=== PATIENT | male | born 1940 | race Caucasian/White ===

== ENCOUNTER 2017-08-30 04:50 | Inpatient (IN) | payer MEDICARE ==
[2017-08-30 06:01] VITALS: BP 231/81
[2017-08-30 06:37] LABS: HEMATOCRIT 28.9 % (41.0-60); HEMOGLOBIN 10.1 gm/dL (12-16); MEAN CELL VOLUME 91.9 fl (80-99); MEAN CORPUSCULAR HGB CONC 34.8 pg (28.0-36.0); MEAN PLATELET VOLUME 6.8 fl; PLATELET COUNT 164 Th/cmm (150-400); RED BLOOD COUNT 3.14 Mil/cmm (3.80-5.80); WHITE BLOOD COUNT 5.9 Th/cmm (4.8-10.8)
[2017-08-30 07:17] LABS: BAND NEUTROPHILE 4 % (0-10); LYMPHOCYTE 28 % (20-50); MONOCYTE 3 % (2-10); NEUTROPHILS 65 % (40-80); PLATELET ESTIMATE ADEQUATE (NORMAL)
[2017-08-30] MEDS ORDERED: HYDROmorphone 1 mg/mL 1mL Syr ONE (08:13)
[2017-08-30] MEDS ORDERED: Albuterol/Ipratropium Neb 3 ML AERS HHN PRN (09:14)
[2017-08-30] MEDS ORDERED: HYDROmorphone 1 mg/mL 1mL Syr IVP PRN (09:16)
[2017-08-30] MEDS ORDERED: HYDROmorphone 2 mg/mL 1mL Vial ONE (09:23)
[2017-08-30] MEDS ORDERED: Sodium Chloride 0.9% 1,000 ML IV SCH (09:30)
--- NOTE | 2017-08-30 10:49 | Diagnostic Imaging Report ---
Portable chest x-ray HISTORY: Shortness of breath Heart size difficult to assess with portable technique in a poor inspiration. There is increased density in the left lower lobe with partial obscuration of the left hemidiaphragm. Underlying consolidation and/or atelectasis cannot be excluded. A 5 mm calcified nodule is seen in the left upper lobe consistent with old granulomatous disease. The tip of the vascular catheter is noted in the right axillary region. IMPRESSION: 1. Increased density within the left lower lobe. Underlying consolidation and/or atelectasis cannot be excluded 2. Vascular catheter tip situated in the right axillary area. 3. 5 mm calcified nodule within the left upper lobe consistent with old granulomatous disease.
[2017-08-30] MEDS ORDERED: Maalox 30 mL Cup PO PRN (14:30)
[2017-08-30] MEDS ORDERED: Ipratropium Neb 0.5 mg/2.5 mL UD HHN SCH (15:00)
[2017-08-30] MEDS ORDERED: Albuterol Nebulizer 2.5mg/3mL HHN PRN (15:33)
[2017-08-30] MEDS ORDERED: Ipratropium Neb 0.5 mg/2.5 mL UD HHN PRN (15:33)
[2017-08-30 17:00] LABS: ALBUMIN 2.6 gm/dL (4.2-5.5); ALKALINE PHOSPHATASE 102 U/L (34-104); ANION GAP 10.5 (7.0-16.0); BILIRUBIN,TOTAL 0.4 mg/dL (0.3-1.0); BUN - UREA NITROGEN 8 mg/dL (7-25); CALCIUM SERUM 7.9 mg/dL (8.6-10.3); CARBON DIOXIDE 26.7 mEq/L (21.0-31.0); CHLORIDE 105 mEq/L (98-107); CREATININE - SERUM 0.8 mg/dL (0.7-1.3); GLUCOSE 91 mg/dL (70-105); POTASSIUM SERUM 4.2 mEq/L (3.5-5.1); SGOT 22 U/L (13-39); SGPT/ALT 25 U/L (7-52); SODIUM SERUM 138 mEq/L (136-145); TOTAL PROTEIN,SERUM 5.2 gm/dL (6.0-8.3)
[2017-08-30] MEDS: Albuterol Nebulizer 2.5mg/3mL HHN SCH ×2 (19:47→23:39)
[2017-08-30] MEDS: Linezolid 600mg/300mL Premix Bag IV SCH (20:42)
[2017-08-30] MEDS: Nystatin Cream 100,000 u/gm Cream 15 gm TP SCH (20:43)
[2017-08-30] MEDS: Ipratropium Neb 0.5 mg/2.5 mL UD HHN SCH ×2 (20:43→23:39)
[2017-08-30] MEDS: Venelex 60gm Tube TP SCH (20:43)
[2017-08-30] MEDS: Triple Antibiotic 0.94 gm Pkt TP SCH (20:44)
[2017-08-30] MEDS ORDERED: LINEZOLID IV SCH (21:00)
[2017-08-31] MEDS: Morphine Sulfate 2 mg/mL 1mL Syr IVP PRN ×3 (01:11→14:46)
[2017-08-31] MEDS: Sodium Chloride 0.9% 1,000 ML IV SCH ×2 (02:57→23:19)
[2017-08-31] MEDS: Ipratropium Neb 0.5 mg/2.5 mL UD HHN SCH ×6 (03:08→22:52)
[2017-08-31] MEDS: Albuterol Nebulizer 2.5mg/3mL HHN SCH ×6 (03:08→22:52)
[2017-08-31 05:48] LABS: ANION GAP 12.2 (7.0-16.0); BUN - UREA NITROGEN 11 mg/dL (7-25); CALCIUM SERUM 7.7 mg/dL (8.6-10.3); CARBON DIOXIDE 24.6 mEq/L (21.0-31.0); CHLORIDE 101 mEq/L (98-107); CREATININE - SERUM 0.9 mg/dL (0.7-1.3); GLUCOSE 112 mg/dL (70-105); POTASSIUM SERUM 3.8 mEq/L (3.5-5.1); SODIUM SERUM 134 mEq/L (136-145)
[2017-08-31] MEDS ORDERED: AMIKACIN IV SCH (09:00)
[2017-08-31] MEDS: Nystatin Cream 100,000 u/gm Cream 15 gm TP SCH ×2 (09:21→23:18)
[2017-08-31] MEDS: Triple Antibiotic 0.94 gm Pkt TP SCH ×2 (09:21→23:14)
[2017-08-31] MEDS: Enoxaparin 30 mg/0.3 mL 0.3mL Syr SUBQ SCH (09:21)
[2017-08-31] MEDS: Venelex 60gm Tube TP SCH ×2 (09:21→23:14)
[2017-08-31] MEDS: Vitamin B Complex w/Vitamin C Tab PO SCH (09:22)
[2017-08-31] MEDS: Linezolid 600mg/300mL Premix Bag IV SCH ×2 (09:27→23:14)
--- NOTE | 2017-08-31 10:10 | General Progress Note ---
Subjective - Review of Systems Service Date: 08/31/17 Events since last encounter: labs ok advance diet as pat Objective - Results Result Diagrams: 08/30/17 06:20 08/31/17 04:30 Recent Labs: Laboratory Last Values WBC 5.9 Th/cmm (4.8-10.8) 08/30/17 06:20 RBC 3.14 Mil/cmm (3.80-5.80) L 08/30/17 06:20 Hgb 10.1 gm/dL (12-16) L 08/30/17 06:20 Hct 28.9 % (41.0-60) L 08/30/17 06:20 MCV 91.9 fl (80-99) 08/30/17 06:20 MCH 32.0 pg (27.0-31.0) H 08/30/17 06:20 MCHC Differential 34.8 pg (28.0-36.0) 08/30/17 06:20 RDW 13.0 % (11.5-20.0) 08/30/17 06:20 Plt Count 164 Th/cmm (150-400) 08/30/17 06:20 MPV 6.8 fl 08/30/17 06:20 Band Neutrophils % 4 % (0-10) 08/30/17 06:20 Neutrophils (Manual) 65 % (40-80) 08/30/17 06:20 Lymphocytes 28 % (20-50) 08/30/17 06:20 Monocytes 3 % (2-10) 08/30/17 06:20 Platelet Estimate ADEQUATE (NORMAL) 08/30/17 06:20 PTT (Actin FS) 28.7 SECONDS (26.0-38.0) 08/30/17 06:20 Sodium 134 mEq/L (136-145) L 08/31/17 04:30 Potassium 3.8 mEq/L (3.5-5.1) 08/31/17 04:30 Chloride 101 mEq/L (98-107) 08/31/17 04:30 Carbon Dioxide 24.6 mEq/L (21.0-31.0) 08/31/17 04:30 Anion Gap 12.2 (7.0-16.0) 08/31/17 04:30 BUN 11 mg/dL (7-25) 08/31/17 04:30 Creatinine 0.9 mg/dL (0.7-1.3) 08/31/17 04:30 Est GFR ( Amer) TNP 08/31/17 04:30 Est GFR (Non-Af Amer) TNP 08/31/17 04:30 BUN/Creatinine Ratio 12.2 08/31/17 04:30 Glucose 112 mg/dL (70-105) H 08/31/17 04:30 POC Glucose 102 MG/DL (70 - 105) 08/30/17 05:22 Calcium 7.7 mg/dL (8.6-10.3) L 08/31/17 04:30 Total Bilirubin 0.4 mg/dL (0.3-1.0) 08/30/17 16:36 AST 22 U/L (13-39) 08/30/17 16:36 ALT 25 U/L (7-52) 08/30/17 16:36 Alkaline Phosphatase 102 U/L (34-104) 08/30/17 16:36 Total Protein 5.2 gm/dL (6.0-8.3) L 08/30/17 16:36 Albumin 2.6 gm/dL (4.2-5.5) L 08/30/17 16:36 Globulin 2.6 gm/dL 08/30/17 16:36 Albumin/Globulin Ratio 1.0 (1.0-1.8) 08/30/17 16:36 Blood Type O POSITIVE 08/30/17 06:20 Antibody Screen NEGATIVE 08/30/17 06:20 - Physical Exam Vitals and I&O: Vital Signs Temp 98.2 F 08/31/17 04:00 Pulse 110 08/31/17 08:23 Resp 20 08/31/17 08:23 BP 115/58 08/31/17 04:00 Pulse Ox 93 08/31/17 08:23 Intake & Output 08/30/17 08/31/17 08/31/17 18:59 06:59 18:59 Intake Total 250 602.4 Output Total 350 650 Balance -100 -47.6 Weight (lbs) 90.718 kg 90.718 kg Intake: Intake, IV Amount 402.4 Amikacin 600 mg In 102.4 Dextrose 5% 100 ml @ 100 mls/hr IV Q24H [facility] Rx#: [id number] Linezolid 600mg/300mL 600 300 mg In 300 ml @ 300 mls/ hr IV Q12HR [facility] Rx#: [id number] Oral 250 200 Output: Urine 350 650 Other: Stool Characteristics Liquid Liquid Active Medications: Current Medications Acetaminophen (Tylenol) 650 mg PO Q4HR PRN PRN Reason: Pain or Fever >101 Stop: 10/29/17 15:32 Last Admin: 08/31/17 09:34 Dose: 650 mg Al Hydrox/Mg Hydrox/Simethicone (Maalox) 30 ml PO Q6HR PRN PRN Reason: Gas Stop: 10/29/17 14:29 Albuterol Sulfate (Albuterol 2.5mg/3ml Neb Ud) 1.25 mg HHN Q2HRT PRN PRN Reason: Shortness of Breath Albuterol Sulfate (Albuterol 2.5mg/3ml Neb Ud) 1.25 mg HHN Q4HRT [facility] Stop: 10/29/17 18:59 Last Admin: 08/31/17 08:03 Dose: 1.25 mg [place] Oil/[place] Balsam/Trypsin (Venelex) 1 appl TP Q12HR [facility] Stop: 10/29/17 20:59 Last Admin: 08/31/17 09:21 Dose: 1 appl Docusate Sodium (Colace) 100 mg PO DAILY [facility] Stop: 10/30/17 08:59 Last Admin: 08/31/17 09:21 Dose: 100 mg Enoxaparin Sodium (Lovenox) 30 mg SUBQ DAILY [facility] Stop: 10/30/17 08:59 Last Admin: 08/31/17 09:21 Dose: 30 mg Linezolid (Zyvox) 600 mg in 300 mls @ 300 mls/hr IV Q12HR [facility] Stop: 10/29/17 20:59 Last Admin: 08/31/17 09:27 Dose: 300 mls/hr Amikacin Sulfate 600 mg/ (Dextrose) 102.4 mls @ 100 mls/hr IV Q24H [facility] Stop: 10/30/17 02:59 Last Infusion: 08/31/17 05:58 Dose: Infused Sodium Chloride (Nacl 0.9%) 1,000 mls @ 50 mls/hr IV .Q20H [facility] Stop: 09/01/17 02:47 Last Admin: 08/31/17 02:57 Dose: 50 mls/hr Ipratropium [place] (Atrovent Neb 0.5mg/2.5ml) 0.5 mg HHN Q2HR PRN PRN Reason: Shortness of Breath Stop: 10/29/17 15:32 Ipratropium [place] (Atrovent Neb 0.5mg/2.5ml) 0.5 mg HHN Q4HRT [facility] Stop: 10/29/17 18:59 Last Admin: 08/31/17 08:04 Dose: 0.5 mg Midodrine (Proamatine) 5 mg PO TID [facility] Stop: 10/29/17 20:59 Last Admin: 08/31/17 09:21 Dose: 5 mg Miscellaneous (Amikacin Iv Per Pharmacy) 1 ea MC PRN PRN PRN Reason: AMIKACIN PER RX Stop: 10/29/17 17:14 Morphine Sulfate (Morphine) 2 mg IVP Q4HR PRN PRN Reason: Abdominal Pain Stop: 10/29/17 09:01 Last Admin: 08/31/17 05:41 Dose: 2 mg Neomycin/Polymyxin/Bacitracin (Triple Antibiotic Pkt) 1 pkt TP Q12HR [facility] Stop: 10/29/17 20:59 Last Admin: 08/31/17 09:21 Dose: 1 pkt Nystatin (Mycostatin Cream) 1 appl TP Q12HR [facility] Stop: 10/29/17 20:59 Last Admin: 08/31/17 09:21 Dose: 1 appl Ondansetron HCl (Zofran) 4 mg IVP Q6HR PRN PRN Reason: Nausea / Vomiting Stop: 10/29/17 15:32 Vitamin B Complex/Vit C/Folic Acid (Vitamin B Complex W/Vitamin C) 1 tab PO DAILY [facility] Stop: 10/30/17 08:59 Last Admin: 08/31/17 09:22 Dose: 1 tab Zinc Sulfate (Zinc Sulfate) 220 mg PO DAILY [facility] Stop: 10/30/17 08:59 Last Admin: 08/31/17 09:22 Dose: 220 mg
--- NOTE | 2017-08-31 10:24 | General Progress Note ---
Subjective - Review of Systems Service Date: 08/31/17 Events since last encounter: VS stable labs ok dressings dry diet as tolerated Objective - Results Result Diagrams: 08/30/17 06:20 08/31/17 04:30 Recent Labs: Laboratory Last Values WBC 5.9 Th/cmm (4.8-10.8) 08/30/17 06:20 RBC 3.14 Mil/cmm (3.80-5.80) L 08/30/17 06:20 Hgb 10.1 gm/dL (12-16) L 08/30/17 06:20 Hct 28.9 % (41.0-60) L 08/30/17 06:20 MCV 91.9 fl (80-99) 08/30/17 06:20 MCH 32.0 pg (27.0-31.0) H 08/30/17 06:20 MCHC Differential 34.8 pg (28.0-36.0) 08/30/17 06:20 RDW 13.0 % (11.5-20.0) 08/30/17 06:20 Plt Count 164 Th/cmm (150-400) 08/30/17 06:20 MPV 6.8 fl 08/30/17 06:20 Band Neutrophils % 4 % (0-10) 08/30/17 06:20 Neutrophils (Manual) 65 % (40-80) 08/30/17 06:20 Lymphocytes 28 % (20-50) 08/30/17 06:20 Monocytes 3 % (2-10) 08/30/17 06:20 Platelet Estimate ADEQUATE (NORMAL) 08/30/17 06:20 PTT (Actin FS) 28.7 SECONDS (26.0-38.0) 08/30/17 06:20 Sodium 134 mEq/L (136-145) L 08/31/17 04:30 Potassium 3.8 mEq/L (3.5-5.1) 08/31/17 04:30 Chloride 101 mEq/L (98-107) 08/31/17 04:30 Carbon Dioxide 24.6 mEq/L (21.0-31.0) 08/31/17 04:30 Anion Gap 12.2 (7.0-16.0) 08/31/17 04:30 BUN 11 mg/dL (7-25) 08/31/17 04:30 Creatinine 0.9 mg/dL (0.7-1.3) 08/31/17 04:30 Est GFR ( Amer) TNP 08/31/17 04:30 Est GFR (Non-Af Amer) TNP 08/31/17 04:30 BUN/Creatinine Ratio 12.2 08/31/17 04:30 Glucose 112 mg/dL (70-105) H 08/31/17 04:30 POC Glucose 102 MG/DL (70 - 105) 08/30/17 05:22 Calcium 7.7 mg/dL (8.6-10.3) L 08/31/17 04:30 Total Bilirubin 0.4 mg/dL (0.3-1.0) 08/30/17 16:36 AST 22 U/L (13-39) 08/30/17 16:36 ALT 25 U/L (7-52) 08/30/17 16:36 Alkaline Phosphatase 102 U/L (34-104) 08/30/17 16:36 Total Protein 5.2 gm/dL (6.0-8.3) L 08/30/17 16:36 Albumin 2.6 gm/dL (4.2-5.5) L 08/30/17 16:36 Globulin 2.6 gm/dL 08/30/17 16:36 Albumin/Globulin Ratio 1.0 (1.0-1.8) 08/30/17 16:36 Blood Type O POSITIVE 08/30/17 06:20 Antibody Screen NEGATIVE 08/30/17 06:20 - Physical Exam Vitals and I&O: Vital Signs Temp 98.2 F 08/31/17 04:00 Pulse 110 08/31/17 08:23 Resp 20 08/31/17 08:23 BP 115/58 08/31/17 04:00 Pulse Ox 93 08/31/17 08:23 Intake & Output 08/30/17 08/31/17 08/31/17 18:59 06:59 18:59 Intake Total 250 602.4 Output Total 350 650 Balance -100 -47.6 Weight (lbs) 90.718 kg 90.718 kg Intake: Intake, IV Amount 402.4 Amikacin 600 mg In 102.4 Dextrose 5% 100 ml @ 100 mls/hr IV Q24H [facility] Rx#: [id number] Linezolid 600mg/300mL 600 300 mg In 300 ml @ 300 mls/ hr IV Q12HR [facility] Rx#: [id number] Oral 250 200 Output: Urine 350 650 Other: Stool Characteristics Liquid Liquid Active Medications: Current Medications Acetaminophen (Tylenol) 650 mg PO Q4HR PRN PRN Reason: Pain or Fever >101 Stop: 10/29/17 15:32 Last Admin: 08/31/17 09:34 Dose: 650 mg Al Hydrox/Mg Hydrox/Simethicone (Maalox) 30 ml PO Q6HR PRN PRN Reason: Gas Stop: 10/29/17 14:29 Albuterol Sulfate (Albuterol 2.5mg/3ml Neb Ud) 1.25 mg HHN Q2HRT PRN PRN Reason: Shortness of Breath Albuterol Sulfate (Albuterol 2.5mg/3ml Neb Ud) 1.25 mg HHN Q4HRT [facility] Stop: 10/29/17 18:59 Last Admin: 08/31/17 08:03 Dose: 1.25 mg [place] Oil/[place] Balsam/Trypsin (Venelex) 1 appl TP Q12HR [facility] Stop: 10/29/17 20:59 Last Admin: 08/31/17 09:21 Dose: 1 appl Docusate Sodium (Colace) 100 mg PO DAILY [facility] Stop: 10/30/17 08:59 Last Admin: 08/31/17 09:21 Dose: 100 mg Enoxaparin Sodium (Lovenox) 30 mg SUBQ DAILY [facility] Stop: 10/30/17 08:59 Last Admin: 08/31/17 09:21 Dose: 30 mg Linezolid (Zyvox) 600 mg in 300 mls @ 300 mls/hr IV Q12HR [facility] Stop: 10/29/17 20:59 Last Admin: 08/31/17 09:27 Dose: 300 mls/hr Amikacin Sulfate 600 mg/ (Dextrose) 102.4 mls @ 100 mls/hr IV Q24H [facility] Stop: 10/30/17 02:59 Last Infusion: 08/31/17 05:58 Dose: Infused Sodium Chloride (Nacl 0.9%) 1,000 mls @ 50 mls/hr IV .Q20H [facility] Stop: 09/01/17 02:47 Last Admin: 08/31/17 02:57 Dose: 50 mls/hr Ipratropium [place] (Atrovent Neb 0.5mg/2.5ml) 0.5 mg HHN Q2HR PRN PRN Reason: Shortness of Breath Stop: 10/29/17 15:32 Ipratropium [place] (Atrovent Neb 0.5mg/2.5ml) 0.5 mg HHN Q4HRT [facility] Stop: 10/29/17 18:59 Last Admin: 08/31/17 08:04 Dose: 0.5 mg Midodrine (Proamatine) 5 mg PO TID [facility] Stop: 10/29/17 20:59 Last Admin: 08/31/17 09:21 Dose: 5 mg Miscellaneous (Amikacin Iv Per Pharmacy) 1 ea MC PRN PRN PRN Reason: AMIKACIN PER RX Stop: 10/29/17 17:14 Morphine Sulfate (Morphine) 2 mg IVP Q4HR PRN PRN Reason: Abdominal Pain Stop: 10/29/17 09:01 Last Admin: 08/31/17 05:41 Dose: 2 mg Neomycin/Polymyxin/Bacitracin (Triple Antibiotic Pkt) 1 pkt TP Q12HR [facility] Stop: 10/29/17 20:59 Last Admin: 08/31/17 09:21 Dose: 1 pkt Nystatin (Mycostatin Cream) 1 appl TP Q12HR [facility] Stop: 10/29/17 20:59 Last Admin: 08/31/17 09:21 Dose: 1 appl Ondansetron HCl (Zofran) 4 mg IVP Q6HR PRN PRN Reason: Nausea / Vomiting Stop: 10/29/17 15:32 Vitamin B Complex/Vit C/Folic Acid (Vitamin B Complex W/Vitamin C) 1 tab PO DAILY [facility] Stop: 10/30/17 08:59 Last Admin: 08/31/17 09:22 Dose: 1 tab Zinc Sulfate (Zinc Sulfate) 220 mg PO DAILY [facility] Stop: 10/30/17 08:59 Last Admin: 08/31/17 09:22 Dose: 220 mg
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
--- NOTE | 2017-08-31 23:52 | Consultation ---
Consult Note - Consult Note Service Date: 08/31/17 Referring Physician: Elisha Huizar Consult Note: PHYSICIAN Consultation Note: Date of Admission: 08/30/17 Purpose of Consultation: Sacral stage 4 decubitus. Chief Complaint: Patient FAUSTO RANKIN was admitted to [facility] Surgical Unit I with STAGE 4 DECUBITUS,BROISE EXPOSURE. History of Present Illness: 77 year old male with history of dementia, pneumonia , sepsis, nonhealing sacral decubitus, had prolonged stay at the [facility]. He was transferred to the [facility] at [facility]. He was brought to the [facility] for elective diverting colostomy. Id consult was called for antibiotic management. Diverting colostomy was performed by Dr Bacon today. Patient is receiving Zyvox and Amikacin. Past Medical History: dementia, pneumonia, sepsis, nonhealing sacral decubitus, Allergies Allergy/AdvReac Type Severity Reaction Status Date / Time No Known Allergies Allergy Verified 08/30/17 06:02 Vital Signs Temp 98 F 08/31/17 16:00 Pulse 97 08/31/17 22:54 Resp 18 08/31/17 22:54 BP 118/53 08/31/17 16:00 Pulse Ox 96 08/31/17 22:54 Intake & Output 08/31/17 08/31/17 09/01/17 06:59 18:59 06:59 Intake Total 602.4 300 450 Output Total 650 450 Balance -47.6 300 0 Weight (lbs) 90.718 kg 90.718 kg Intake: Intake, IV Amount 402.4 300 Amikacin 600 mg In 102.4 Dextrose 5% 100 ml @ 100 mls/hr IV Q24H [facility] Rx#: [id number] Linezolid 600mg/300mL 600 300 300 mg In 300 ml @ 300 mls/ hr IV Q12HR [facility] Rx#: [id number] Oral 200 450 Output: Urine 650 450 Other: # Bowel Movements 0 Stool Characteristics Liquid Liquid Laboratory Results - last 24 hr 08/31/17 04:30 Sodium 134 L Potassium 3.8 Chloride 101 Carbon Dioxide 24.6 Anion Gap 12.2 BUN 11 Creatinine 0.9 Est GFR ( Amer) TNP Est GFR (Non-Af Amer) TNP BUN/Creatinine Ratio 12.2 Glucose 112 H Calcium 7.7 L Home Medication Medication Instructions Recorded Type Acetaminophen [Tylenol] 650 mg PO Q4HR PRN 08/30/17 History Albuterol Sulfate 1.25 mg IH Q2HRT PRN 08/30/17 History Albuterol Sulfate 1.25 mg IH Q4HRT 08/30/17 History Amikacin [Amikin] 600 mg IV DAILY 08/30/17 History Balsam [place] Oil [Venelex] 1 appl TP Q12HR 08/30/17 History Docusate Sodium [Colace] 100 mg PO DAILY 08/30/17 History Enoxaparin [Lovenox] 30 mg SUBQ DAILY 08/30/17 History Fluconazole 100 mg PO DAILY 08/30/17 History Ipratropium Neb 0.5 mg/2.5 mL 0.5 mg HHN Q2HR PRN 08/30/17 History [Atrovent Neb 0.5MG/2.5ML] Ipratropium Neb 0.5 mg/2.5 mL 0.5 mg HHN Q4HR 08/30/17 History [Atrovent Neb 0.5MG/2.5ML] Linezolid 600mg/300mL [Zyvox] 600 mg IV Q12HR 08/30/17 History Midodrine [Proamatine] 5 mg PO TID 08/30/17 History Neomycin/Bacitracin/Polymyxinb 1 appl TP Q12HR 08/30/17 History [Triple Antibiotic Ointment] Nystatin Cream [Mycostatin Cream] 1 applic TP Q12HR 08/30/17 History Ondansetron HCl [Zofran] 4 mg IVP Q6HR PRN 08/30/17 History Vitamin B Complex w/Vitamin C 1 tab PO DAILY 08/30/17 History Zinc Sulfate [Zinc Sulfate 111 1 tab PO DAILY 08/30/17 History mg-50 mg] cloNIDine HCl [Catapres] 0.1 mg PO Q6HR PRN 08/30/17 History Current Medications Generic Name Dose Route Start Last Admin Trade Name Freq PRN Reason Stop Dose Admin Acetaminophen 650 mg 08/30/17 15:33 08/31/17 18:18 Tylenol PO 10/29/17 15:32 650 mg Q4HR PRN Administration Pain or Fever >101 Al Hydrox/Mg Hydrox/Simethicone 30 ml 08/30/17 14:30 Maalox PO 10/29/17 14:29 Q6HR PRN Gas Albuterol Sulfate 1.25 mg 08/30/17 15:33 Albuterol 2.5mg/3ml Neb Ud HHN Q2HRT PRN Shortness of Breath Albuterol Sulfate 1.25 mg 08/30/17 19:00 08/31/17 22:52 Albuterol 2.5mg/3ml Neb Ud HHN 10/29/17 18:59 1.25 mg Q4HRT [facility] Administration [place] Oil/[place] Balsam/Trypsin 1 appl 08/30/17 21:00 08/31/17 23:14 Venelex TP 10/29/17 20:59 1 appl Q12HR [facility] Administration Docusate Sodium 100 mg 08/31/17 09:00 08/31/17 09:21 Colace PO 10/30/17 08:59 100 mg DAILY [facility] Administration Enoxaparin Sodium 30 mg 08/31/17 09:00 08/31/17 09:21 Lovenox SUBQ 10/30/17 08:59 30 mg DAILY [facility] Administration Linezolid 600 mg in 300 mls @ 300 mls/hr 08/30/17 21:00 08/31/17 23:14 Zyvox IV 10/29/17 20:59 300 mls/hr Q12HR [facility] Administration Amikacin Sulfate 600 mg/ 102.4 mls @ 100 mls/hr 08/31/17 03:00 08/31/17 05:58 Dextrose IV 10/30/17 02:59 Infused Q24H [facility] Infusion Sodium Chloride 1,000 mls @ 50 mls/hr 08/31/17 02:48 08/31/17 23:19 Nacl 0.9% IV 09/01/17 02:47 Not Given .Q20H [facility] Ipratropium [place] 0.5 mg 08/30/17 15:33 Atrovent Neb 0.5mg/2.5ml N 10/29/17 15:32 Q2HR PRN Shortness of Breath Ipratropium [place] 0.5 mg 08/30/17 19:00 08/31/17 22:52 Atrovent Neb 0.5mg/2.5ml N 10/29/17 18:59 0.5 mg Q4HRT [facility] Administration Midodrine 5 mg 08/30/17 21:00 08/31/17 23:18 Proamatine PO 10/29/17 20:59 5 mg TID [facility] Administration Miscellaneous 1 ea 08/30/17 17:15 Amikacin Iv Per Pharmacy MC 10/29/17 17:14 PRN PRN AMIKACIN PER RX Morphine Sulfate 2 mg 08/30/17 09:02 08/31/17 14:46 Morphine IVP 10/29/17 09:01 2 mg Q4HR PRN Administration Abdominal Pain Mupirocin 1 appl 08/31/17 17:00 08/31/17 18:22 Bactroban Oint NS 09/05/17 09:01 1 appl BID [facility] Administration Neomycin/Polymyxin/Bacitracin 1 pkt 08/30/17 21:00 08/31/17 23:14 Triple Antibiotic Pkt TP 10/29/17 20:59 1 pkt Q12HR [facility] Administration Nystatin 1 appl 08/30/17 21:00 08/31/17 23:18 Mycostatin Cream TP 10/29/17 20:59 1 appl Q12HR [facility] Administration Ondansetron HCl 4 mg 08/30/17 15:33 Zofran IVP 10/29/17 15:32 Q6HR PRN Nausea / Vomiting Vitamin B Complex/Vit C/Folic Acid 1 tab 08/31/17 09:00 08/31/17 09:22 Vitamin B Complex W/Vitamin C PO 10/30/17 08:59 1 tab DAILY [facility] Administration Zinc Sulfate 220 mg 08/31/17 09:00 08/31/17 09:22 Zinc Sulfate PO 10/30/17 08:59 220 mg DAILY [facility] Administration Review of Systems: A 12 point ROS was reviewed with the pertinent positive and negatives noted in the HPI. Social History Smoking Status Unknown if ever smoked Drug Use No Alcohol Use No Family Medical History Family Medical History Start: 08/30/17 05: 44 Freq: ONCE Status: Active Document 08/30/17 05:15 PATRICIA (Rec: 08/30/17 05:46 PATRICIA BOSS- [id number]) Family Medical History Mother History Unknown Yes Physical Exam: General: Comfortable, not in distress. HEENT: Head: NC NT. Oral cavity: moist mucosa. eyes : no pallor no icterus. Pupil Perrla. Eomi Neck: supple, no JVD, no carotid bruit. Cardio: S1 and S2 WNl. Respiratory: CTAp Abdominal: Soft NT ND BS present Genital/Urinary: Extremities: NCCE. Heel decubiti Neurological: AAOx3. Back: wound vac. Assessment: 1. Sacral decubitus. 2. s/p diverting colostomy. 3. COPD. Plan: Continue Amikacin and zyvox for few days. Wound care. Thank you Dr Huizar for involving me in taking care pf this patient. Signed, Jagdish Lr M.D. [id number]
[2017-09-01] MEDS: Albuterol Nebulizer 2.5mg/3mL HHN SCH ×6 (03:12→23:09)
[2017-09-01] MEDS: Ipratropium Neb 0.5 mg/2.5 mL UD HHN SCH ×6 (03:12→23:09)
--- NOTE | 2017-09-01 08:41 | Diagnostic Imaging Report ---
Right upper extremity Doppler venous ultrasound exam HISTORY: Pain, swelling Sonographic sector images were obtained through the venous system of the right arm. Associated Doppler data was obtained. The exam demonstrates patency of the right internal jugular, subclavian, axillary, brachial, basilic, and cephalic veins. No thrombus identified. Normal compressibility and augmentation responses. IMPRESSION: Negative exam for thrombophlebitis
[2017-09-01] MEDS: Morphine Sulfate 2 mg/mL 1mL Syr IVP PRN (09:03)
[2017-09-01] MEDS: Enoxaparin 30 mg/0.3 mL 0.3mL Syr SUBQ SCH (09:09)
[2017-09-01] MEDS: Triple Antibiotic 0.94 gm Pkt TP SCH ×2 (09:09→20:38)
[2017-09-01] MEDS: Venelex 60gm Tube TP SCH ×2 (09:09→20:38)
[2017-09-01] MEDS: Nystatin Cream 100,000 u/gm Cream 15 gm TP SCH ×2 (09:10→20:38)
[2017-09-01] MEDS: Linezolid 600mg/300mL Premix Bag IV SCH ×2 (09:10→20:39)
[2017-09-01] MEDS: Vitamin B Complex w/Vitamin C Tab PO SCH (09:11)
--- NOTE | 2017-09-01 09:22 | General Progress Note ---
Subjective - Review of Systems Service Date: 09/01/17 Events since last encounter: midline incision redressed, clean and healing labs in AM Objective - Results Result Diagrams: 08/30/17 06:20 08/31/17 04:30 Recent Labs: Laboratory Last Values WBC 5.9 Th/cmm (4.8-10.8) 08/30/17 06:20 RBC 3.14 Mil/cmm (3.80-5.80) L 08/30/17 06:20 Hgb 10.1 gm/dL (12-16) L 08/30/17 06:20 Hct 28.9 % (41.0-60) L 08/30/17 06:20 MCV 91.9 fl (80-99) 08/30/17 06:20 MCH 32.0 pg (27.0-31.0) H 08/30/17 06:20 MCHC Differential 34.8 pg (28.0-36.0) 08/30/17 06:20 RDW 13.0 % (11.5-20.0) 08/30/17 06:20 Plt Count 164 Th/cmm (150-400) 08/30/17 06:20 MPV 6.8 fl 08/30/17 06:20 Band Neutrophils % 4 % (0-10) 08/30/17 06:20 Neutrophils (Manual) 65 % (40-80) 08/30/17 06:20 Lymphocytes 28 % (20-50) 08/30/17 06:20 Monocytes 3 % (2-10) 08/30/17 06:20 Platelet Estimate ADEQUATE (NORMAL) 08/30/17 06:20 PTT (Actin FS) 28.7 SECONDS (26.0-38.0) 08/30/17 06:20 Sodium 134 mEq/L (136-145) L 08/31/17 04:30 Potassium 3.8 mEq/L (3.5-5.1) 08/31/17 04:30 Chloride 101 mEq/L (98-107) 08/31/17 04:30 Carbon Dioxide 24.6 mEq/L (21.0-31.0) 08/31/17 04:30 Anion Gap 12.2 (7.0-16.0) 08/31/17 04:30 BUN 11 mg/dL (7-25) 08/31/17 04:30 Creatinine 0.9 mg/dL (0.7-1.3) 08/31/17 04:30 Est GFR ( Amer) TNP 08/31/17 04:30 Est GFR (Non-Af Amer) TNP 08/31/17 04:30 BUN/Creatinine Ratio 12.2 08/31/17 04:30 Glucose 112 mg/dL (70-105) H 08/31/17 04:30 POC Glucose 102 MG/DL (70 - 105) 08/30/17 05:22 Calcium 7.7 mg/dL (8.6-10.3) L 08/31/17 04:30 Total Bilirubin 0.4 mg/dL (0.3-1.0) 08/30/17 16:36 AST 22 U/L (13-39) 08/30/17 16:36 ALT 25 U/L (7-52) 08/30/17 16:36 Alkaline Phosphatase 102 U/L (34-104) 08/30/17 16:36 Total Protein 5.2 gm/dL (6.0-8.3) L 08/30/17 16:36 Albumin 2.6 gm/dL (4.2-5.5) L 08/30/17 16:36 Globulin 2.6 gm/dL 08/30/17 16:36 Albumin/Globulin Ratio 1.0 (1.0-1.8) 08/30/17 16:36 Blood Type O POSITIVE 08/30/17 06:20 Antibody Screen NEGATIVE 08/30/17 06:20 - Physical Exam Vitals and I&O: Vital Signs Temp 96.8 F 09/01/17 04:00 Pulse 96 09/01/17 07:33 Resp 18 09/01/17 07:33 BP 115/58 09/01/17 04:00 Pulse Ox 94 09/01/17 07:33 Intake & Output 08/31/17 09/01/17 09/01/17 18:59 06:59 18:59 Intake Total 300 900 Output Total 990 Balance 300 -90 Weight (lbs) 90.265 kg Intake: Intake, IV Amount 300 300 Linezolid 600mg/300mL 600 300 300 mg In 300 ml @ 300 mls/ hr IV Q12HR [facility] Rx#: [id number] Oral 600 Output: Urine 950 Other 40 Other: # Bowel Movements 0 Stool Characteristics Liquid Liquid Active Medications: Current Medications Acetaminophen (Tylenol) 650 mg PO Q4HR PRN PRN Reason: Pain or Fever >101 Stop: 10/29/17 15:32 Last Admin: 08/31/17 18:18 Dose: 650 mg Al Hydrox/Mg Hydrox/Simethicone (Maalox) 30 ml PO Q6HR PRN PRN Reason: Gas Stop: 10/29/17 14:29 Albuterol Sulfate (Albuterol 2.5mg/3ml Neb Ud) 1.25 mg HHN Q2HRT PRN PRN Reason: Shortness of Breath Albuterol Sulfate (Albuterol 2.5mg/3ml Neb Ud) 1.25 mg HHN Q4HRT [facility] Stop: 10/29/17 18:59 Last Admin: 09/01/17 07:30 Dose: 1.25 mg [place] Oil/[place] Balsam/Trypsin (Venelex) 1 appl TP Q12HR [facility] Stop: 10/29/17 20:59 Last Admin: 08/31/17 23:14 Dose: 1 appl Docusate Sodium (Colace) 100 mg PO DAILY [facility] Stop: 10/30/17 08:59 Last Admin: 08/31/17 09:21 Dose: 100 mg Enoxaparin Sodium (Lovenox) 30 mg SUBQ DAILY [facility] Stop: 10/30/17 08:59 Last Admin: 08/31/17 09:21 Dose: 30 mg Linezolid (Zyvox) 600 mg in 300 mls @ 300 mls/hr IV Q12HR [facility] Stop: 10/29/17 20:59 Last Infusion: 09/01/17 00:14 Dose: Infused Amikacin Sulfate 600 mg/ (Dextrose) 102.4 mls @ 100 mls/hr IV Q24H [facility] Stop: 10/30/17 02:59 Last Admin: 09/01/17 03:34 Dose: 100 mls/hr Ipratropium [place] (Atrovent Neb 0.5mg/2.5ml) 0.5 mg HHN Q2HR PRN PRN Reason: Shortness of Breath Stop: 10/29/17 15:32 Ipratropium [place] (Atrovent Neb 0.5mg/2.5ml) 0.5 mg HHN Q4HRT [facility] Stop: 10/29/17 18:59 Last Admin: 09/01/17 07:30 Dose: 0.5 mg Midodrine (Proamatine) 5 mg PO TID [facility] Stop: 10/29/17 20:59 Last Admin: 08/31/17 23:18 Dose: 5 mg Miscellaneous (Amikacin Iv Per Pharmacy) 1 ea MC PRN PRN PRN Reason: AMIKACIN PER RX Stop: 10/29/17 17:14 Morphine Sulfate (Morphine) 2 mg IVP Q4HR PRN PRN Reason: Abdominal Pain Stop: 10/29/17 09:01 Last Admin: 09/01/17 09:03 Dose: 2 mg Mupirocin (Bactroban Oint) 1 appl NS BID [facility] Stop: 09/05/17 09:01 Last Admin: 08/31/17 18:22 Dose: 1 appl Neomycin/Polymyxin/Bacitracin (Triple Antibiotic Pkt) 1 pkt TP Q12HR [facility] Stop: 10/29/17 20:59 Last Admin: 08/31/17 23:14 Dose: 1 pkt Nystatin (Mycostatin Cream) 1 appl TP Q12HR [facility] Stop: 10/29/17 20:59 Last Admin: 08/31/17 23:18 Dose: 1 appl Ondansetron HCl (Zofran) 4 mg IVP Q6HR PRN PRN Reason: Nausea / Vomiting Stop: 10/29/17 15:32 Vitamin B Complex/Vit C/Folic Acid (Vitamin B Complex W/Vitamin C) 1 tab PO DAILY [facility] Stop: 10/30/17 08:59 Last Admin: 08/31/17 09:22 Dose: 1 tab Zinc Sulfate (Zinc Sulfate) 220 mg PO DAILY [facility] Stop: 10/30/17 08:59 Last Admin: 08/31/17 09:22 Dose: 220 mg
--- NOTE | 2017-09-01 10:33 | General Progress Note ---
Subjective - Review of Systems Events since last encounter: midline incision redressed healing Objective - Results Result Diagrams: 08/30/17 06:20 08/31/17 04:30 Recent Labs: Laboratory Last Values WBC 5.9 Th/cmm (4.8-10.8) 08/30/17 06:20 RBC 3.14 Mil/cmm (3.80-5.80) L 08/30/17 06:20 Hgb 10.1 gm/dL (12-16) L 08/30/17 06:20 Hct 28.9 % (41.0-60) L 08/30/17 06:20 MCV 91.9 fl (80-99) 08/30/17 06:20 MCH 32.0 pg (27.0-31.0) H 08/30/17 06:20 MCHC Differential 34.8 pg (28.0-36.0) 08/30/17 06:20 RDW 13.0 % (11.5-20.0) 08/30/17 06:20 Plt Count 164 Th/cmm (150-400) 08/30/17 06:20 MPV 6.8 fl 08/30/17 06:20 Band Neutrophils % 4 % (0-10) 08/30/17 06:20 Neutrophils (Manual) 65 % (40-80) 08/30/17 06:20 Lymphocytes 28 % (20-50) 08/30/17 06:20 Monocytes 3 % (2-10) 08/30/17 06:20 Platelet Estimate ADEQUATE (NORMAL) 08/30/17 06:20 PTT (Actin FS) 28.7 SECONDS (26.0-38.0) 08/30/17 06:20 Sodium 134 mEq/L (136-145) L 08/31/17 04:30 Potassium 3.8 mEq/L (3.5-5.1) 08/31/17 04:30 Chloride 101 mEq/L (98-107) 08/31/17 04:30 Carbon Dioxide 24.6 mEq/L (21.0-31.0) 08/31/17 04:30 Anion Gap 12.2 (7.0-16.0) 08/31/17 04:30 BUN 11 mg/dL (7-25) 08/31/17 04:30 Creatinine 0.9 mg/dL (0.7-1.3) 08/31/17 04:30 Est GFR ( Amer) TNP 08/31/17 04:30 Est GFR (Non-Af Amer) TNP 08/31/17 04:30 BUN/Creatinine Ratio 12.2 08/31/17 04:30 Glucose 112 mg/dL (70-105) H 08/31/17 04:30 POC Glucose 102 MG/DL (70 - 105) 08/30/17 05:22 Calcium 7.7 mg/dL (8.6-10.3) L 08/31/17 04:30 Total Bilirubin 0.4 mg/dL (0.3-1.0) 08/30/17 16:36 AST 22 U/L (13-39) 08/30/17 16:36 ALT 25 U/L (7-52) 08/30/17 16:36 Alkaline Phosphatase 102 U/L (34-104) 08/30/17 16:36 Total Protein 5.2 gm/dL (6.0-8.3) L 08/30/17 16:36 Albumin 2.6 gm/dL (4.2-5.5) L 08/30/17 16:36 Globulin 2.6 gm/dL 08/30/17 16:36 Albumin/Globulin Ratio 1.0 (1.0-1.8) 08/30/17 16:36 Amikacin Peak 3.4 ug/mL (20.0-30.0) L 08/31/17 04:30 Amikacin Trough 0.8 ug/mL (1.0-8.0) L 08/31/17 02:00 Blood Type O POSITIVE 08/30/17 06:20 Antibody Screen NEGATIVE 08/30/17 06:20 - Physical Exam Vitals and I&O: Vital Signs Temp 96.8 F 09/01/17 04:00 Pulse 96 09/01/17 07:33 Resp 18 09/01/17 07:33 BP 115/58 09/01/17 04:00 Pulse Ox 94 09/01/17 07:33 Intake & Output 08/31/17 09/01/17 09/01/17 18:59 06:59 18:59 Intake Total 300 900 Output Total 990 Balance 300 -90 Weight (lbs) 90.265 kg Intake: Intake, IV Amount 300 300 Linezolid 600mg/300mL 600 300 300 mg In 300 ml @ 300 mls/ hr IV Q12HR [facility] Rx#: [id number] Oral 600 Output: Urine 950 Other 40 Other: # Bowel Movements 0 Stool Characteristics Liquid Liquid Active Medications: Current Medications Acetaminophen (Tylenol) 650 mg PO Q4HR PRN PRN Reason: Pain or Fever >101 Stop: 10/29/17 15:32 Last Admin: 08/31/17 18:18 Dose: 650 mg Al Hydrox/Mg Hydrox/Simethicone (Maalox) 30 ml PO Q6HR PRN PRN Reason: Gas Stop: 10/29/17 14:29 Albuterol Sulfate (Albuterol 2.5mg/3ml Neb Ud) 1.25 mg HHN Q2HRT PRN PRN Reason: Shortness of Breath Albuterol Sulfate (Albuterol 2.5mg/3ml Neb Ud) 1.25 mg HHN Q4HRT [facility] Stop: 10/29/17 18:59 Last Admin: 09/01/17 07:30 Dose: 1.25 mg [place] Oil/Danish Balsam/Trypsin (Venelex) 1 appl TP Q12HR [facility] Stop: 10/29/17 20:59 Last Admin: 09/01/17 09:09 Dose: 1 appl Docusate Sodium (Colace) 100 mg PO DAILY [facility] Stop: 10/30/17 08:59 Last Admin: 09/01/17 09:09 Dose: 100 mg Enoxaparin Sodium (Lovenox) 30 mg SUBQ DAILY [facility] Stop: 10/30/17 08:59 Last Admin: 09/01/17 09:09 Dose: 30 mg Linezolid (Zyvox) 600 mg in 300 mls @ 300 mls/hr IV Q12HR [facility] Stop: 10/29/17 20:59 Last Admin: 09/01/17 09:10 Dose: 300 mls/hr Amikacin Sulfate 600 mg/ (Dextrose) 102.4 mls @ 100 mls/hr IV Q12H [facility] Stop: 10/31/17 10:59 Ipratropium [place] (Atrovent Neb 0.5mg/2.5ml) 0.5 mg HHN Q2HR PRN PRN Reason: Shortness of Breath Stop: 10/29/17 15:32 Ipratropium [place] (Atrovent Neb 0.5mg/2.5ml) 0.5 mg HHN Q4HRT [facility] Stop: 10/29/17 18:59 Last Admin: 09/01/17 07:30 Dose: 0.5 mg Midodrine (Proamatine) 5 mg PO TID [facility] Stop: 10/29/17 20:59 Last Admin: 09/01/17 09:10 Dose: 5 mg Miscellaneous (Amikacin Iv Per Pharmacy) 1 ea MC PRN PRN PRN Reason: AMIKACIN PER RX Stop: 10/29/17 17:14 Morphine Sulfate (Morphine) 2 mg IVP Q4HR PRN PRN Reason: Abdominal Pain Stop: 10/29/17 09:01 Last Admin: 09/01/17 09:03 Dose: 2 mg Mupirocin (Bactroban Oint) 1 appl NS BID [facility] Stop: 09/05/17 09:01 Last Admin: 09/01/17 09:10 Dose: 1 appl Neomycin/Polymyxin/Bacitracin (Triple Antibiotic Pkt) 1 pkt TP Q12HR [facility] Stop: 10/29/17 20:59 Last Admin: 09/01/17 09:09 Dose: 1 pkt Nystatin (Mycostatin Cream) 1 appl TP Q12HR [facility] Stop: 10/29/17 20:59 Last Admin: 09/01/17 09:10 Dose: 1 appl Ondansetron HCl (Zofran) 4 mg IVP Q6HR PRN PRN Reason: Nausea / Vomiting Stop: 10/29/17 15:32 Vitamin B Complex/Vit C/Folic Acid (Vitamin B Complex W/Vitamin C) 1 tab PO DAILY [facility] Stop: 10/30/17 08:59 Last Admin: 09/01/17 09:11 Dose: 1 tab Zinc Sulfate (Zinc Sulfate) 220 mg PO DAILY [facility] Stop: 10/30/17 08:59 Last Admin: 09/01/17 09:11 Dose: 220 mg
[2017-09-02] MEDS: Albuterol Nebulizer 2.5mg/3mL HHN SCH ×6 (03:42→22:50)
[2017-09-02] MEDS: Ipratropium Neb 0.5 mg/2.5 mL UD HHN SCH ×6 (03:42→22:50)
[2017-09-02 06:52] LABS: % BASOPHILS 0.5 % (0.0-2.0); % EOSINOPHILS 0.5 % (0.0-5.0); % LYMPHOCYTES 10.3 % (20.0-50.0); % MONOCYTES 2.9 % (2.0-10.0); % NEUTROPHILS 85.8 % (40.0-80.0); BASOPHILE ABSOLUTE 0.1 Th/cumm (0-0.2); EOSINOPHILE ABSOLUTE 0.1 Th/cmm (0.1-0.4); LYMPHOCYTE ABSOLUTE 1.8 Th/cmm (1.5-3.0); MEAN CELL VOLUME 91.9 fl (80-99); MEAN CORPUSCULAR HEMOGLOBIN 31.8 pg (27.0-31.0); MEAN CORPUSCULAR HGB CONC 34.6 pg (28.0-36.0); MEAN PLATELET VOLUME 6.8 fl; MONOCYTE ABSOLUTE 0.5 Th/cmm (0.3-1.0); NEUTROPHILE ABSOLUTE 15.1 Th/cmm (1.8-8.0); PLATELET COUNT 186 Th/cmm (150-400); RED BLOOD COUNT 2.35 Mil/cmm (3.80-5.80); RED CELL DISTRIBUTION WIDTH 13.3 % (11.5-20.0)
[2017-09-02 07:11] LABS: ALB/GLOB RATIO 0.9 (1.0-1.8); ALBUMIN 2.3 gm/dL (4.2-5.5); ALKALINE PHOSPHATASE 71 U/L (34-104); ANION GAP 11.5 (7.0-16.0); BILIRUBIN,TOTAL 0.5 mg/dL (0.3-1.0); BUN - UREA NITROGEN 25 mg/dL (7-25); CALCIUM SERUM 7.8 mg/dL (8.6-10.3); CARBON DIOXIDE 24.8 mEq/L (21.0-31.0); CHLORIDE 101 mEq/L (98-107); CREATININE - SERUM 1.2 mg/dL (0.7-1.3); GLUCOSE 113 mg/dL (70-105); POTASSIUM SERUM 3.3 mEq/L (3.5-5.1); SGOT 16 U/L (13-39); SGPT/ALT 12 U/L (7-52); SODIUM SERUM 134 mEq/L (136-145); TOTAL PROTEIN,SERUM 4.9 gm/dL (6.0-8.3)
[2017-09-02 07:36] LABS: WHITE BLOOD COUNT 17.6 Th/cmm (4.8-10.8)
[2017-09-02 07:37] LABS: HEMATOCRIT 21.6 % (41.0-60); HEMOGLOBIN 7.5 gm/dL (12-16)
[2017-09-02] MEDS ORDERED: Potassium Chloride 20 mEq ER Tab PO ONE (08:16)
--- NOTE | 2017-09-02 09:01 | Diagnostic Imaging Report ---
CHEST X-RAY: AP view INDICATION: Congestion COMPARISON: 08/30/2017 FINDINGS: Right PICC line is stable. Persistent congestive changes are seen with small left effusion and left basal infiltrates. There is a probable additional trace right effusion. Left upper lobe 5 mm granuloma is noted. Mildly prominent heart is noted. IMPRESSION: Persistent mild congestive changes and small left effusion. Pneumonia of the left lung base cannot be excluded. Probable additional trace right effusion. Evidence of prior granulomatous disease.
[2017-09-02] MEDS: Venelex 60gm Tube TP SCH ×2 (10:03→21:47)
[2017-09-02] MEDS: Triple Antibiotic 0.94 gm Pkt TP SCH ×2 (10:03→21:46)
[2017-09-02] MEDS: Enoxaparin 30 mg/0.3 mL 0.3mL Syr SUBQ SCH (10:03)
[2017-09-02] MEDS: Linezolid 600mg/300mL Premix Bag IV SCH ×2 (10:04→22:47)
[2017-09-02] MEDS: Nystatin Cream 100,000 u/gm Cream 15 gm TP SCH ×2 (10:04→21:47)
[2017-09-02] MEDS: Vitamin B Complex w/Vitamin C Tab PO SCH (10:04)
--- NOTE | 2017-09-02 14:08 | General Progress Note ---
Subjective - Review of Systems Service Date: 09/02/17 Events since last encounter: VS stable minimal wound vac drainage no blood in colostomy, Hb7.5. dilutional?, to have 2 PRBC Objective - Results Result Diagrams: 09/02/17 06:26 09/02/17 06:26 Recent Labs: Laboratory Last Values WBC 17.6 Th/cmm (4.8-10.8) H D 09/02/17 06:26 RBC 2.35 Mil/cmm (3.80-5.80) L 09/02/17 06:26 Hgb 7.5 gm/dL (12-16) L* 09/02/17 06:26 Hct 21.6 % (41.0-60) L D 09/02/17 06:26 MCV 91.9 fl (80-99) 09/02/17 06:26 MCH 31.8 pg (27.0-31.0) H 09/02/17 06:26 MCHC Differential 34.6 pg (28.0-36.0) 09/02/17 06:26 RDW 13.3 % (11.5-20.0) 09/02/17 06:26 Plt Count 186 Th/cmm (150-400) 09/02/17 06:26 MPV 6.8 fl 09/02/17 06:26 Neutrophils % 85.8 % (40.0-80.0) H 09/02/17 06:26 Band Neutrophils % 4 % (0-10) 08/30/17 06:20 Lymphocytes % 10.3 % (20.0-50.0) L 09/02/17 06:26 Monocytes % 2.9 % (2.0-10.0) 09/02/17 06:26 Eosinophils % 0.5 % (0.0-5.0) 09/02/17 06:26 Basophils % 0.5 % (0.0-2.0) 09/02/17 06:26 Neutrophils (Manual) 65 % (40-80) 08/30/17 06:20 Lymphocytes 28 % (20-50) 08/30/17 06:20 Monocytes 3 % (2-10) 08/30/17 06:20 Platelet Estimate ADEQUATE (NORMAL) 08/30/17 06:20 PTT (Actin FS) 28.7 SECONDS (26.0-38.0) 08/30/17 06:20 Sodium 134 mEq/L (136-145) L 09/02/17 06:26 Potassium 3.3 mEq/L (3.5-5.1) L 09/02/17 06:26 Chloride 101 mEq/L (98-107) 09/02/17 06:26 Carbon Dioxide 24.8 mEq/L (21.0-31.0) 09/02/17 06:26 Anion Gap 11.5 (7.0-16.0) 09/02/17 06:26 BUN 25 mg/dL (7-25) 09/02/17 06:26 Creatinine 1.2 mg/dL (0.7-1.3) 09/02/17 06:26 Est GFR ( Amer) TNP 09/02/17 06:26 Est GFR (Non-Af Amer) TNP 09/02/17 06:26 BUN/Creatinine Ratio 20.8 09/02/17 06:26 Glucose 113 mg/dL (70-105) H 09/02/17 06:26 POC Glucose 102 MG/DL (70 - 105) 08/30/17 05:22 Calcium 7.8 mg/dL (8.6-10.3) L 09/02/17 06:26 Total Bilirubin 0.5 mg/dL (0.3-1.0) 09/02/17 06:26 AST 16 U/L (13-39) 09/02/17 06:26 ALT 12 U/L (7-52) 09/02/17 06:26 Alkaline Phosphatase 71 U/L (34-104) 09/02/17 06:26 Total Protein 4.9 gm/dL (6.0-8.3) L 09/02/17 06:26 Albumin 2.3 gm/dL (4.2-5.5) L 09/02/17 06:26 Globulin 2.6 gm/dL 09/02/17 06:26 Albumin/Globulin Ratio 0.9 (1.0-1.8) L 09/02/17 06:26 Amikacin Peak 3.4 ug/mL (20.0-30.0) L 08/31/17 04:30 Amikacin Trough 0.8 ug/mL (1.0-8.0) L 08/31/17 02:00 Blood Type O POSITIVE 09/02/17 08:40 Antibody Screen NEGATIVE 09/02/17 08:40 Crossmatch See Detail 09/02/17 08:40 - Physical Exam Vitals and I&O: Vital Signs Temp 97.1 F 09/01/17 20:00 Pulse 84 09/02/17 11:38 Resp 16 09/02/17 11:38 BP 131/61 09/01/17 20:00 Pulse Ox 96 09/02/17 11:38 Intake & Output 09/01/17 09/02/17 09/02/17 18:59 06:59 18:59 Intake Total 402.4 642.4 Output Total 400 Balance 402.4 242.4 Weight (lbs) 89.811 kg Intake: Intake, IV Amount 402.4 402.4 Amikacin 600 mg In 102.4 102.4 Dextrose 5% 100 ml @ 100 mls/hr IV Q12H [facility] Rx#: [id number] Linezolid 600mg/300mL 600 300 300 mg In 300 ml @ 300 mls/ hr IV Q12HR [facility] Rx#: [id number] Oral 240 Output: Urine 400 Other: Stool Characteristics Liquid Active Medications: Current Medications Acetaminophen (Tylenol) 650 mg PO Q4HR PRN PRN Reason: Pain or Fever >101 Stop: 10/29/17 15:32 Last Admin: 08/31/17 18:18 Dose: 650 mg Al Hydrox/Mg Hydrox/Simethicone (Maalox) 30 ml PO Q6HR PRN PRN Reason: Gas Stop: 10/29/17 14:29 Albuterol Sulfate (Albuterol 2.5mg/3ml Neb Ud) 1.25 mg HHN Q2HRT PRN PRN Reason: Shortness of Breath Albuterol Sulfate (Albuterol 2.5mg/3ml Neb Ud) 1.25 mg HHN Q4HRT [facility] Stop: 10/29/17 18:59 Last Admin: 09/02/17 11:35 Dose: 1.25 mg [place] Oil/Burmese Balsam/Trypsin (Venelex) 1 appl TP Q12HR [facility] Stop: 10/29/17 20:59 Last Admin: 09/02/17 10:03 Dose: 1 appl Docusate Sodium (Colace) 100 mg PO DAILY [facility] Stop: 10/30/17 08:59 Last Admin: 09/02/17 10:03 Dose: 100 mg Enoxaparin Sodium (Lovenox) 30 mg SUBQ DAILY [facility] Stop: 10/30/17 08:59 Last Admin: 09/02/17 10:03 Dose: 30 mg Linezolid (Zyvox) 600 mg in 300 mls @ 300 mls/hr IV Q12HR [facility] Stop: 10/29/17 20:59 Last Admin: 09/02/17 10:04 Dose: 300 mls/hr Amikacin Sulfate 600 mg/ (Dextrose) 102.4 mls @ 100 mls/hr IV Q12H [facility] Stop: 10/31/17 10:59 Last Admin: 09/02/17 11:14 Dose: 100 mls/hr Ipratropium [place] (Atrovent Neb 0.5mg/2.5ml) 0.5 mg HHN Q2HR PRN PRN Reason: Shortness of Breath Stop: 10/29/17 15:32 Ipratropium [place] (Atrovent Neb 0.5mg/2.5ml) 0.5 mg HHN Q4HRT [facility] Stop: 10/29/17 18:59 Last Admin: 09/02/17 11:35 Dose: 0.5 mg Midodrine (Proamatine) 5 mg PO TID [facility] Stop: 10/29/17 20:59 Last Admin: 09/02/17 10:03 Dose: 5 mg Miscellaneous (Amikacin Iv Per Pharmacy) 1 ea MC PRN PRN PRN Reason: AMIKACIN PER RX Stop: 10/29/17 17:14 Morphine Sulfate (Morphine) 2 mg IVP Q4HR PRN PRN Reason: Abdominal Pain Stop: 10/29/17 09:01 Last Admin: 09/01/17 09:03 Dose: 2 mg Mupirocin (Bactroban Oint) 1 appl NS BID [facility] Stop: 09/05/17 09:01 Last Admin: 09/02/17 10:04 Dose: 1 appl Neomycin/Polymyxin/Bacitracin (Triple Antibiotic Pkt) 1 pkt TP Q12HR [facility] Stop: 10/29/17 20:59 Last Admin: 09/02/17 10:03 Dose: 1 pkt Nystatin (Mycostatin Cream) 1 appl TP Q12HR [facility] Stop: 10/29/17 20:59 Last Admin: 09/02/17 10:04 Dose: 1 appl Ondansetron HCl (Zofran) 4 mg IVP Q6HR PRN PRN Reason: Nausea / Vomiting Stop: 10/29/17 15:32 Vitamin B Complex/Vit C/Folic Acid (Vitamin B Complex W/Vitamin C) 1 tab PO DAILY [facility] Stop: 10/30/17 08:59 Last Admin: 09/02/17 10:04 Dose: 1 tab Zinc Sulfate (Zinc Sulfate) 220 mg PO DAILY [facility] Stop: 10/30/17 08:59 Last Admin: 09/02/17 10:04 Dose: 220 mg - Procedures Procedures: Procedures Procedure Code Date BYPASS DESCENDING COLON TO CUTANEOUS, OPEN APPROACH [id number] 08/30/17 COLOSTOMY 64091 08/30/17 [id number] SUBQ TISSUE 20 SQ CM/< [id number] 08/30/17 EXCISION OF BACK SUBCU/FASCIA, OPEN APPROACH [id number] 08/30/17
--- NOTE | 2017-09-02 14:20 | Pathology Report ---
[id number] Collection date: 08/30/2017 Surgeon: Dr. Courtney Bacon Specimen Description: Sacral decubitus ulcer. Gross Description: Received in formalin is a 6 x 5 x 4.5 cm excision of grayish skin with areas of cutaneous ulceration and degeneration appreciated . Sectioning shows skin and subcutaneous soft tissue with areas of induration and necrosis. [employer] sections are submitted in one cassette. Microscopic Description: The histologic sections show ulcerated skin and soft tissue with extensive suppurative inflammation and necrosis, consisting of large collections of neutrophils within a very degenerated background. Diagnosis: Ulcerated necrotic skin consistent with debridement, sacral decubitus. [facility]# [id number] [facility]
[2017-09-02] MEDS: Morphine Sulfate 2 mg/mL 1mL Syr IVP PRN ×2 (16:13→20:26)
--- NOTE | 2017-09-02 16:17 | General Progress Note ---
Subjective - Review of Systems Events since last encounter: minimal wound vac drainage no distress Objective - Results Result Diagrams: 09/02/17 06:26 09/02/17 06:26 Recent Labs: Laboratory Last Values WBC 17.6 Th/cmm (4.8-10.8) H D 09/02/17 06:26 RBC 2.35 Mil/cmm (3.80-5.80) L 09/02/17 06:26 Hgb 7.5 gm/dL (12-16) L* 09/02/17 06:26 Hct 21.6 % (41.0-60) L D 09/02/17 06:26 MCV 91.9 fl (80-99) 09/02/17 06:26 MCH 31.8 pg (27.0-31.0) H 09/02/17 06:26 MCHC Differential 34.6 pg (28.0-36.0) 09/02/17 06:26 RDW 13.3 % (11.5-20.0) 09/02/17 06:26 Plt Count 186 Th/cmm (150-400) 09/02/17 06:26 MPV 6.8 fl 09/02/17 06:26 Neutrophils % 85.8 % (40.0-80.0) H 09/02/17 06:26 Band Neutrophils % 4 % (0-10) 08/30/17 06:20 Lymphocytes % 10.3 % (20.0-50.0) L 09/02/17 06:26 Monocytes % 2.9 % (2.0-10.0) 09/02/17 06:26 Eosinophils % 0.5 % (0.0-5.0) 09/02/17 06:26 Basophils % 0.5 % (0.0-2.0) 09/02/17 06:26 Neutrophils (Manual) 65 % (40-80) 08/30/17 06:20 Lymphocytes 28 % (20-50) 08/30/17 06:20 Monocytes 3 % (2-10) 08/30/17 06:20 Platelet Estimate ADEQUATE (NORMAL) 08/30/17 06:20 PTT (Actin FS) 28.7 SECONDS (26.0-38.0) 08/30/17 06:20 Sodium 134 mEq/L (136-145) L 09/02/17 06:26 Potassium 3.3 mEq/L (3.5-5.1) L 09/02/17 06:26 Chloride 101 mEq/L (98-107) 09/02/17 06:26 Carbon Dioxide 24.8 mEq/L (21.0-31.0) 09/02/17 06:26 Anion Gap 11.5 (7.0-16.0) 09/02/17 06:26 BUN 25 mg/dL (7-25) 09/02/17 06:26 Creatinine 1.2 mg/dL (0.7-1.3) 09/02/17 06:26 Est GFR ( Amer) TNP 09/02/17 06:26 Est GFR (Non-Af Amer) TNP 09/02/17 06:26 BUN/Creatinine Ratio 20.8 09/02/17 06:26 Glucose 113 mg/dL (70-105) H 09/02/17 06:26 POC Glucose 102 MG/DL (70 - 105) 08/30/17 05:22 Calcium 7.8 mg/dL (8.6-10.3) L 09/02/17 06:26 Total Bilirubin 0.5 mg/dL (0.3-1.0) 09/02/17 06:26 AST 16 U/L (13-39) 09/02/17 06:26 ALT 12 U/L (7-52) 09/02/17 06:26 Alkaline Phosphatase 71 U/L (34-104) 09/02/17 06:26 Total Protein 4.9 gm/dL (6.0-8.3) L 09/02/17 06:26 Albumin 2.3 gm/dL (4.2-5.5) L 09/02/17 06:26 Globulin 2.6 gm/dL 09/02/17 06:26 Albumin/Globulin Ratio 0.9 (1.0-1.8) L 09/02/17 06:26 Amikacin Peak 3.4 ug/mL (20.0-30.0) L 08/31/17 04:30 Amikacin Trough 0.8 ug/mL (1.0-8.0) L 08/31/17 02:00 Blood Type O POSITIVE 09/02/17 08:40 Antibody Screen NEGATIVE 09/02/17 08:40 Crossmatch See Detail 09/02/17 08:40 - Physical Exam Vitals and I&O: Vital Signs Temp 97.1 F 09/01/17 20:00 Pulse 83 09/02/17 15:00 Resp 18 09/02/17 15:00 BP 131/61 09/01/17 20:00 Pulse Ox 95 09/02/17 15:00 Intake & Output 09/01/17 09/02/17 09/02/17 18:59 06:59 18:59 Intake Total 402.4 642.4 Output Total 400 Balance 402.4 242.4 Weight (lbs) 89.811 kg Intake: Intake, IV Amount 402.4 402.4 Amikacin 600 mg In 102.4 102.4 Dextrose 5% 100 ml @ 100 mls/hr IV Q12H [facility] Rx#: [id number] Linezolid 600mg/300mL 600 300 300 mg In 300 ml @ 300 mls/ hr IV Q12HR [facility] Rx#: [id number] Oral 240 Output: Urine 400 Other: Stool Characteristics Liquid Active Medications: Current Medications Acetaminophen (Tylenol) 650 mg PO Q4HR PRN PRN Reason: Pain or Fever >101 Stop: 10/29/17 15:32 Last Admin: 08/31/17 18:18 Dose: 650 mg Al Hydrox/Mg Hydrox/Simethicone (Maalox) 30 ml PO Q6HR PRN PRN Reason: Gas Stop: 10/29/17 14:29 Albuterol Sulfate (Albuterol 2.5mg/3ml Neb Ud) 1.25 mg HHN Q2HRT PRN PRN Reason: Shortness of Breath Albuterol Sulfate (Albuterol 2.5mg/3ml Neb Ud) 1.25 mg HHN Q4HRT [facility] Stop: 10/29/17 18:59 Last Admin: 09/02/17 14:57 Dose: 1.25 mg [place] Oil/[place] Balsam/Trypsin (Venelex) 1 appl TP Q12HR [facility] Stop: 10/29/17 20:59 Last Admin: 09/02/17 10:03 Dose: 1 appl Docusate Sodium (Colace) 100 mg PO DAILY [facility] Stop: 10/30/17 08:59 Last Admin: 09/02/17 10:03 Dose: 100 mg Enoxaparin Sodium (Lovenox) 30 mg SUBQ DAILY [facility] Stop: 10/30/17 08:59 Last Admin: 09/02/17 10:03 Dose: 30 mg Linezolid (Zyvox) 600 mg in 300 mls @ 300 mls/hr IV Q12HR [facility] Stop: 10/29/17 20:59 Last Admin: 09/02/17 10:04 Dose: 300 mls/hr Amikacin Sulfate 600 mg/ (Dextrose) 102.4 mls @ 100 mls/hr IV Q12H [facility] Stop: 10/31/17 10:59 Last Admin: 09/02/17 11:14 Dose: 100 mls/hr Ipratropium [place] (Atrovent Neb 0.5mg/2.5ml) 0.5 mg HHN Q2HR PRN PRN Reason: Shortness of Breath Stop: 10/29/17 15:32 Ipratropium [place] (Atrovent Neb 0.5mg/2.5ml) 0.5 mg HHN Q4HRT [facility] Stop: 10/29/17 18:59 Last Admin: 09/02/17 14:57 Dose: 0.5 mg Midodrine (Proamatine) 5 mg PO TID [facility] Stop: 10/29/17 20:59 Last Admin: 09/02/17 14:13 Dose: 5 mg Miscellaneous (Amikacin Iv Per Pharmacy) 1 ea [facility] PRN PRN PRN Reason: AMIKACIN PER RX Stop: 10/29/17 17:14 Morphine Sulfate (Morphine) 2 mg IVP Q4HR PRN PRN Reason: Abdominal Pain Stop: 10/29/17 09:01 Last Admin: 09/02/17 16:13 Dose: 2 mg Mupirocin (Bactroban Oint) 1 appl NS BID [facility] Stop: 09/05/17 09:01 Last Admin: 09/02/17 10:04 Dose: 1 appl Neomycin/Polymyxin/Bacitracin (Triple Antibiotic Pkt) 1 pkt TP Q12HR [facility] Stop: 10/29/17 20:59 Last Admin: 09/02/17 10:03 Dose: 1 pkt Nystatin (Mycostatin Cream) 1 appl TP Q12HR [facility] Stop: 10/29/17 20:59 Last Admin: 09/02/17 10:04 Dose: 1 appl Ondansetron HCl (Zofran) 4 mg IVP Q6HR PRN PRN Reason: Nausea / Vomiting Stop: 10/29/17 15:32 Vitamin B Complex/Vit C/Folic Acid (Vitamin B Complex W/Vitamin C) 1 tab PO DAILY [facility] Stop: 10/30/17 08:59 Last Admin: 09/02/17 10:04 Dose: 1 tab Zinc Sulfate (Zinc Sulfate) 220 mg PO DAILY [facility] Stop: 10/30/17 08:59 Last Admin: 09/02/17 10:04 Dose: 220 mg - Procedures Procedures: Procedures Procedure Code Date BYPASS DESCENDING COLON TO CUTANEOUS, OPEN APPROACH [id number] 08/30/17 COLOSTOMY 33982 08/30/17 [id number] SUBQ TISSUE 20 SQ CM/< [id number] 08/30/17 EXCISION OF BACK SUBCU/FASCIA, OPEN APPROACH [id number] 08/30/17
[2017-09-03] MEDS: Albuterol Nebulizer 2.5mg/3mL HHN SCH ×6 (02:13→23:29)
[2017-09-03] MEDS: Ipratropium Neb 0.5 mg/2.5 mL UD HHN SCH ×6 (02:14→23:28)
[2017-09-03 06:39] LABS: % BASOPHILS 0.5 % (0.0-2.0); % EOSINOPHILS 0.1 % (0.0-5.0); % LYMPHOCYTES 10.6 % (20.0-50.0); % MONOCYTES 3.1 % (2.0-10.0); % NEUTROPHILS 85.7 % (40.0-80.0); BASOPHILE ABSOLUTE 0.1 Th/cumm (0-0.2); LYMPHOCYTE ABSOLUTE 1.3 Th/cmm (1.5-3.0); MEAN CELL VOLUME 90.1 fl (80-99); MEAN CORPUSCULAR HEMOGLOBIN 31.5 pg (27.0-31.0); MEAN PLATELET VOLUME 6.9 fl; MONOCYTE ABSOLUTE 0.4 Th/cmm (0.3-1.0); PLATELET COUNT 173 Th/cmm (150-400); RED BLOOD COUNT 2.86 Mil/cmm (3.80-5.80); RED CELL DISTRIBUTION WIDTH 13.6 % (11.5-20.0)
[2017-09-03 06:57] LABS: HEMATOCRIT 25.8 % (41.0-60); WHITE BLOOD COUNT 11.8 Th/cmm (4.8-10.8)
[2017-09-03 07:09] LABS: ANION GAP 12.1 (7.0-16.0); BUN - UREA NITROGEN 24 mg/dL (7-25); CALCIUM SERUM 7.8 mg/dL (8.6-10.3); CARBON DIOXIDE 23.2 mEq/L (21.0-31.0); CHLORIDE 104 mEq/L (98-107); CREATININE - SERUM 0.9 mg/dL (0.7-1.3); GLUCOSE 94 mg/dL (70-105); POTASSIUM SERUM 3.3 mEq/L (3.5-5.1); SODIUM SERUM 136 mEq/L (136-145)
[2017-09-03] MEDS: Linezolid 600mg/300mL Premix Bag IV SCH ×2 (08:04→20:35)
[2017-09-03] MEDS: Enoxaparin 30 mg/0.3 mL 0.3mL Syr SUBQ SCH (08:05)
[2017-09-03] MEDS: Nystatin Cream 100,000 u/gm Cream 15 gm TP SCH ×2 (08:08→20:25)
[2017-09-03] MEDS: Triple Antibiotic 0.94 gm Pkt TP SCH ×2 (08:08→20:24)
[2017-09-03] MEDS: Vitamin B Complex w/Vitamin C Tab PO SCH (08:09)
[2017-09-03] MEDS: Venelex 60gm Tube TP SCH ×2 (08:30→20:33)
--- NOTE | 2017-09-03 08:40 | Diagnostic Imaging Report ---
Portable chest x-ray HISTORY: Shortness of breath Compared with the prior exam of July 02, 2018, there has developed density in the right lower hemithorax suggesting a pleural effusion. Persistent density is seen within the left lower hemithorax consistent with a pleural effusion. Underlying infiltrates cannot be excluded. IMPRESSION: 1. Interval development of findings consistent with a right pleural effusion. Evidence of a persistent left pleural effusion. Underlying infiltrates cannot be excluded.
--- NOTE | 2017-09-03 10:21 | General Progress Note ---
Subjective - Review of Systems Service Date: 09/03/17 Events since last encounter: Hb 9.0 incisiion clean colostomy output minimal, abdomen not distinded, eating Objective - Results Result Diagrams: 09/03/17 06:15 09/03/17 06:15 Recent Labs: Laboratory Last Values WBC 11.8 Th/cmm (4.8-10.8) H D 09/03/17 06:15 RBC 2.86 Mil/cmm (3.80-5.80) L 09/03/17 06:15 Hgb 9.0 gm/dL (12-16) L 09/03/17 06:15 Hct 25.8 % (41.0-60) L D 09/03/17 06:15 MCV 90.1 fl (80-99) 09/03/17 06:15 MCH 31.5 pg (27.0-31.0) H 09/03/17 06:15 MCHC Differential 35.0 pg (28.0-36.0) 09/03/17 06:15 RDW 13.6 % (11.5-20.0) 09/03/17 06:15 Plt Count 173 Th/cmm (150-400) 09/03/17 06:15 MPV 6.9 fl 09/03/17 06:15 Neutrophils % 85.7 % (40.0-80.0) H 09/03/17 06:15 Band Neutrophils % 4 % (0-10) 08/30/17 06:20 Lymphocytes % 10.6 % (20.0-50.0) L 09/03/17 06:15 Monocytes % 3.1 % (2.0-10.0) 09/03/17 06:15 Eosinophils % 0.1 % (0.0-5.0) 09/03/17 06:15 Basophils % 0.5 % (0.0-2.0) 09/03/17 06:15 Neutrophils (Manual) 65 % (40-80) 08/30/17 06:20 Lymphocytes 28 % (20-50) 08/30/17 06:20 Monocytes 3 % (2-10) 08/30/17 06:20 Platelet Estimate ADEQUATE (NORMAL) 08/30/17 06:20 PTT (Actin FS) 28.7 SECONDS (26.0-38.0) 08/30/17 06:20 Sodium 136 mEq/L (136-145) 09/03/17 06:15 Potassium 3.3 mEq/L (3.5-5.1) L 09/03/17 06:15 Chloride 104 mEq/L (98-107) 09/03/17 06:15 Carbon Dioxide 23.2 mEq/L (21.0-31.0) 09/03/17 06:15 Anion Gap 12.1 (7.0-16.0) 09/03/17 06:15 BUN 24 mg/dL (7-25) 09/03/17 06:15 Creatinine 0.9 mg/dL (0.7-1.3) 09/03/17 06:15 Est GFR ( Amer) TNP 09/03/17 06:15 Est GFR (Non-Af Amer) TNP 09/03/17 06:15 BUN/Creatinine Ratio 26.7 09/03/17 06:15 Glucose 94 mg/dL (70-105) 09/03/17 06:15 POC Glucose 102 MG/DL (70 - 105) 08/30/17 05:22 Calcium 7.8 mg/dL (8.6-10.3) L 09/03/17 06:15 Total Bilirubin 0.5 mg/dL (0.3-1.0) 09/02/17 06:26 AST 16 U/L (13-39) 09/02/17 06:26 ALT 12 U/L (7-52) 09/02/17 06:26 Alkaline Phosphatase 71 U/L (34-104) 09/02/17 06:26 Total Protein 4.9 gm/dL (6.0-8.3) L 09/02/17 06:26 Albumin 2.3 gm/dL (4.2-5.5) L 09/02/17 06:26 Globulin 2.6 gm/dL 09/02/17 06:26 Albumin/Globulin Ratio 0.9 (1.0-1.8) L 09/02/17 06:26 Amikacin Peak 3.4 ug/mL (20.0-30.0) L 08/31/17 04:30 Amikacin Trough 0.8 ug/mL (1.0-8.0) L 08/31/17 02:00 Blood Type O POSITIVE 09/02/17 08:40 Antibody Screen NEGATIVE 09/02/17 08:40 Crossmatch See Detail 09/02/17 08:40 - Physical Exam Vitals and I&O: Vital Signs Temp 97.8 F 09/03/17 08:50 Pulse 82 09/03/17 08:50 Resp 18 09/03/17 08:50 BP 118/59 09/03/17 08:50 Pulse Ox 96 09/03/17 08:50 Intake & Output 09/02/17 09/03/17 09/03/17 18:59 06:59 18:59 Intake Total 402.4 550 300 Output Total 1575 Balance 402.4 -1025 300 Weight (lbs) 89.811 kg Intake: Intake, IV Amount 402.4 300 300 Amikacin 600 mg In 102.4 Dextrose 5% 100 ml @ 100 mls/hr IV Q12H [facility] Rx#: [id number] Linezolid 600mg/300mL 600 300 300 300 mg In 300 ml @ 300 mls/ hr IV Q12HR [facility] Rx#: [id number] Blood Product 250 Output: Drainage 100 Sacrum 100 Urine 1475 Other: Stool Characteristics Liquid Liquid Liquid Active Medications: Current Medications Acetaminophen (Tylenol) 650 mg PO Q4HR PRN PRN Reason: Pain or Fever >101 Stop: 10/29/17 15:32 Last Admin: 09/02/17 21:52 Dose: 650 mg Acetylcysteine (Mucomyst 20%) 3 ml HHN Q4HRT [facility] Stop: 11/01/17 22:59 Last Admin: 09/03/17 07:41 Dose: Not Given Al Hydrox/Mg Hydrox/Simethicone (Maalox) 30 ml PO Q6HR PRN PRN Reason: Gas Stop: 10/29/17 14:29 Albuterol Sulfate (Albuterol 2.5mg/3ml Neb Ud) 1.25 mg HHN Q2HRT PRN PRN Reason: Shortness of Breath Albuterol Sulfate (Albuterol 2.5mg/3ml Neb Ud) 1.25 mg HHN Q4HRT [facility] Stop: 10/29/17 18:59 Last Admin: 09/03/17 07:40 Dose: 1.25 mg [place] Oil/[place] Balsam/Trypsin (Venelex) 1 appl TP Q12HR [facility] Stop: 10/29/17 20:59 Last Admin: 09/03/17 08:30 Dose: 1 appl Docusate Sodium (Colace) 100 mg PO DAILY [facility] Stop: 10/30/17 08:59 Last Admin: 09/03/17 08:09 Dose: 100 mg Enoxaparin Sodium (Lovenox) 30 mg SUBQ DAILY [facility] Stop: 10/30/17 08:59 Last Admin: 09/03/17 08:05 Dose: 30 mg Linezolid (Zyvox) 600 mg in 300 mls @ 300 mls/hr IV Q12HR [facility] Stop: 10/29/17 20:59 Last Infusion: 09/03/17 09:04 Dose: Infused Amikacin Sulfate 600 mg/ (Dextrose) 102.4 mls @ 100 mls/hr IV Q12H [facility] Stop: 10/31/17 10:59 Last Admin: 09/03/17 00:56 Dose: 100 mls/hr Ipratropium [place] (Atrovent Neb 0.5mg/2.5ml) 0.5 mg HHN Q2HR PRN PRN Reason: Shortness of Breath Stop: 10/29/17 15:32 Ipratropium [place] (Atrovent Neb 0.5mg/2.5ml) 0.5 mg HHN Q4HRT [facility] Stop: 10/29/17 18:59 Last Admin: 09/03/17 07:41 Dose: 0.5 mg Midodrine (Proamatine) 5 mg PO TID [facility] Stop: 10/29/17 20:59 Last Admin: 09/03/17 08:09 Dose: 5 mg Miscellaneous (Amikacin Iv Per Pharmacy) 1 ea MC PRN PRN PRN Reason: AMIKACIN PER RX Stop: 10/29/17 17:14 Morphine Sulfate (Morphine) 2 mg IVP Q4HR PRN PRN Reason: Abdominal Pain Stop: 10/29/17 09:01 Last Admin: 09/02/17 20:26 Dose: 2 mg Mupirocin (Bactroban Oint) 1 appl NS BID [facility] Stop: 09/05/17 09:01 Last Admin: 09/03/17 08:08 Dose: 1 appl Neomycin/Polymyxin/Bacitracin (Triple Antibiotic Pkt) 1 pkt TP Q12HR [facility] Stop: 10/29/17 20:59 Last Admin: 09/03/17 08:08 Dose: 1 pkt Nystatin (Mycostatin Cream) 1 appl TP Q12HR [facility] Stop: 10/29/17 20:59 Last Admin: 09/03/17 08:08 Dose: 1 appl Ondansetron HCl (Zofran) 4 mg IVP Q6HR PRN PRN Reason: Nausea / Vomiting Stop: 10/29/17 15:32 Vitamin B Complex/Vit C/Folic Acid (Vitamin B Complex W/Vitamin C) 1 tab PO DAILY [facility] Stop: 10/30/17 08:59 Last Admin: 09/03/17 08:09 Dose: 1 tab Zinc Sulfate (Zinc Sulfate) 220 mg PO DAILY [facility] Stop: 10/30/17 08:59 Last Admin: 09/03/17 08:09 Dose: 220 mg - Procedures Procedures: Procedures Procedure Code Date BYPASS DESCENDING COLON TO CUTANEOUS, OPEN APPROACH [id number] 08/30/17 COLOSTOMY 93183 08/30/17 KRZYSZTOF SUBQ TISSUE 20 SQ CM/< 84112 08/30/17 EXCISION OF BACK SUBCU/FASCIA, OPEN APPROACH [id number] 08/30/17 Nutritional Asmnt/Malnutr-PDOC - Dietary Evaluation Malnutrition Findings (Please click <Entered> for more info): Nutritional Asmnt/Malnutrition Start: 09/02/17 17: 29 Text: Status: Complete Freq: Document 09/02/17 17:29 [id number] (Rec: 09/02/17 17:45 LCAVISG [id number]) Nutritional Asmnt/Malnutrition Patient General Information Nutritional Screening High Risk Diagnosis stage 4 decubitus, broise, exposure Pertinent Medical Hx/Surgical Hx no H&P Subjective Information Pt seen resting in bed at time of visit. Per records, PO intake 25-75% on full liquid diet, avg 50%. Per MD notes, pt had surgery for diverting colostomy and wuond VAC and excisional debridement on 08/31 . Current Diet Order/ Nutrition Support full liquid Pertinent Medications colace, triple antibiotic, vit B complex vit c, folic acid Pertinent Labs 09/02 na 134, K 3.3, Cl 101,BUN 25, Cr 1.2, glucose 113, Ca 7 .8 Nutritional Hx/Data Height 1.78 m Height (Calculated Centimeters) 177.8 Current Weight (lbs) 89.811 kg Weight (Calculated Kilograms) 89.8 Weight (Calculated Grams) 34674.3 [place] Body Weight 166 % [place] Body Weight 119 Body Mass Index (BMI) 28.4 Weight Status Overweight GI Symptoms GI Symptoms None Last BM none Difficult in: None Skin Integrity/Comment: bruise, pressure ulceration multiple sites, s/p wound debridemnent with wound vac placement Current %PO Fair (50-74%) Estimated Nutritional Goals BEE in Kcals: Adj wt of IBW Calories/Kcals/Kg 25-30 based on 82kg Kcals Calculated 8156-0825 Protein: Adj wt of IBW Protein g/k.2-1.4 considering pressure ulcer and s/p surgery Protein Calculated 98-115 Fluid: ml 2049-246ml (1ml/kcal) Nutritional Problem 2. Problem Problem inadequate food intake Etiology pt on full liquid diet, possible poor appetite Signs/Symptoms: PO intake 50-75% 1. Problem Problem increased nutrition needs ( calorie and protein) Etiology increased metabolic demand for wound healing Signs/Symptoms: pressure ulcer and s/p surgery Malnutrition Alert Protein-Calorie Malnutrition N/A Is there a minimum of two criteria No selected? Query Text:Check all the applicable criteria. A minimum of two criteria are recommended for diagnosis of either severe or non-severe malnutrition. Intervention/Recommendation Comments 1. Advance diet as tolerated. Recommend Boost Plus TID and Aginaid 1pk daily to supplement nutrition intake for wound healing. 2. Monitor PO intake, wt, labs and skin integrity 3. F/U as high risk in 2-3 days, 09/04-09/05 Expected Outcomes/Goals Expected Outcomes/Goals 1. PO intake to meet at least 75% of nutritional needs. 2. Wt stability, skin to remain intact, labs to approach WNL.
[2017-09-03] MEDS ORDERED: Potassium Chloride 20 mEq ER Tab PO ONE (11:44)
--- NOTE | 2017-09-03 11:44 | Internal Medicine Prog Note ---
Internal Medicine Subjective - Subjective Service Date: 09/03/17 Patient seen and examined:: with staff Patient is:: awake Per staff patient has:: tolerating meds Internal Medicine Objective - Results Result Diagrams: 09/03/17 06:15 09/03/17 06:15 Recent Labs: Laboratory Last Values WBC 11.8 Th/cmm (4.8-10.8) H D 09/03/17 06:15 RBC 2.86 Mil/cmm (3.80-5.80) L 09/03/17 06:15 Hgb 9.0 gm/dL (12-16) L 09/03/17 06:15 Hct 25.8 % (41.0-60) L D 09/03/17 06:15 MCV 90.1 fl (80-99) 09/03/17 06:15 MCH 31.5 pg (27.0-31.0) H 09/03/17 06:15 MCHC Differential 35.0 pg (28.0-36.0) 09/03/17 06:15 RDW 13.6 % (11.5-20.0) 09/03/17 06:15 Plt Count 173 Th/cmm (150-400) 09/03/17 06:15 MPV 6.9 fl 09/03/17 06:15 Neutrophils % 85.7 % (40.0-80.0) H 09/03/17 06:15 Band Neutrophils % 4 % (0-10) 08/30/17 06:20 Lymphocytes % 10.6 % (20.0-50.0) L 09/03/17 06:15 Monocytes % 3.1 % (2.0-10.0) 09/03/17 06:15 Eosinophils % 0.1 % (0.0-5.0) 09/03/17 06:15 Basophils % 0.5 % (0.0-2.0) 09/03/17 06:15 Neutrophils (Manual) 65 % (40-80) 08/30/17 06:20 Lymphocytes 28 % (20-50) 08/30/17 06:20 Monocytes 3 % (2-10) 08/30/17 06:20 Platelet Estimate ADEQUATE (NORMAL) 08/30/17 06:20 PTT (Actin FS) 28.7 SECONDS (26.0-38.0) 08/30/17 06:20 Sodium 136 mEq/L (136-145) 09/03/17 06:15 Potassium 3.3 mEq/L (3.5-5.1) L 09/03/17 06:15 Chloride 104 mEq/L (98-107) 09/03/17 06:15 Carbon Dioxide 23.2 mEq/L (21.0-31.0) 09/03/17 06:15 Anion Gap 12.1 (7.0-16.0) 09/03/17 06:15 BUN 24 mg/dL (7-25) 09/03/17 06:15 Creatinine 0.9 mg/dL (0.7-1.3) 09/03/17 06:15 Est GFR ( Amer) TNP 09/03/17 06:15 Est GFR (Non-Af Amer) TNP 09/03/17 06:15 BUN/Creatinine Ratio 26.7 09/03/17 06:15 Glucose 94 mg/dL (70-105) 09/03/17 06:15 POC Glucose 102 MG/DL (70 - 105) 08/30/17 05:22 Calcium 7.8 mg/dL (8.6-10.3) L 09/03/17 06:15 Total Bilirubin 0.5 mg/dL (0.3-1.0) 09/02/17 06:26 AST 16 U/L (13-39) 09/02/17 06:26 ALT 12 U/L (7-52) 09/02/17 06:26 Alkaline Phosphatase 71 U/L (34-104) 09/02/17 06:26 Total Protein 4.9 gm/dL (6.0-8.3) L 09/02/17 06:26 Albumin 2.3 gm/dL (4.2-5.5) L 09/02/17 06:26 Globulin 2.6 gm/dL 09/02/17 06:26 Albumin/Globulin Ratio 0.9 (1.0-1.8) L 09/02/17 06:26 Amikacin Peak 3.4 ug/mL (20.0-30.0) L 08/31/17 04:30 Amikacin Trough 0.8 ug/mL (1.0-8.0) L 08/31/17 02:00 Blood Type O POSITIVE 09/02/17 08:40 Antibody Screen NEGATIVE 09/02/17 08:40 Crossmatch See Detail 09/02/17 08:40 - Physical Exam Vitals and I&O: Vital Signs Temp 97.8 F 09/03/17 08:50 Pulse 86 09/03/17 11:35 Resp 18 09/03/17 11:35 BP 118/59 09/03/17 08:50 Pulse Ox 97 09/03/17 11:35 Intake & Output 09/02/17 09/03/17 09/03/17 18:59 06:59 18:59 Intake Total 402.4 550 300 Output Total 1575 Balance 402.4 -1025 300 Weight (lbs) 198 lb Intake: Intake, IV Amount 402.4 300 300 Amikacin 600 mg In 102.4 Dextrose 5% 100 ml @ 100 mls/hr IV Q12H [facility] Rx#: [id number] Linezolid 600mg/300mL 600 300 300 300 mg In 300 ml @ 300 mls/ hr IV Q12HR [facility] Rx#: [id number] Blood Product 250 Output: Drainage 100 Sacrum 100 Urine 1475 Other: Stool Characteristics Liquid Liquid Liquid Active Medications: Current Medications Acetaminophen (Tylenol) 650 mg PO Q4HR PRN PRN Reason: Pain or Fever >101 Stop: 10/29/17 15:32 Last Admin: 09/02/17 21:52 Dose: 650 mg Acetylcysteine (Mucomyst 20%) 3 ml HHN Q4HRT [facility] Stop: 11/01/17 22:59 Last Admin: 09/03/17 07:41 Dose: Not Given Al Hydrox/Mg Hydrox/Simethicone (Maalox) 30 ml PO Q6HR PRN PRN Reason: Gas Stop: 10/29/17 14:29 Albuterol Sulfate (Albuterol 2.5mg/3ml Neb Ud) 1.25 mg HHN Q2HRT PRN PRN Reason: Shortness of Breath Albuterol Sulfate (Albuterol 2.5mg/3ml Neb Ud) 1.25 mg HHN Q4HRT [facility] Stop: 10/29/17 18:59 Last Admin: 09/03/17 11:35 Dose: 1.25 mg [place] Oil/[place] Balsam/Trypsin (Venelex) 1 appl TP Q12HR [facility] Stop: 10/29/17 20:59 Last Admin: 09/03/17 08:30 Dose: 1 appl Docusate Sodium (Colace) 100 mg PO DAILY [facility] Stop: 10/30/17 08:59 Last Admin: 09/03/17 08:09 Dose: 100 mg Enoxaparin Sodium (Lovenox) 30 mg SUBQ DAILY [facility] Stop: 10/30/17 08:59 Last Admin: 09/03/17 08:05 Dose: 30 mg Linezolid (Zyvox) 600 mg in 300 mls @ 300 mls/hr IV Q12HR [facility] Stop: 10/29/17 20:59 Last Infusion: 09/03/17 09:04 Dose: Infused Amikacin Sulfate 600 mg/ (Dextrose) 102.4 mls @ 100 mls/hr IV Q12H [facility] Stop: 10/31/17 10:59 Last Admin: 09/03/17 00:56 Dose: 100 mls/hr Ipratropium [place] (Atrovent Neb 0.5mg/2.5ml) 0.5 mg HHN Q2HR PRN PRN Reason: Shortness of Breath Stop: 10/29/17 15:32 Ipratropium [place] (Atrovent Neb 0.5mg/2.5ml) 0.5 mg HHN Q4HRT [facility] Stop: 10/29/17 18:59 Last Admin: 09/03/17 11:35 Dose: 0.5 mg Midodrine (Proamatine) 5 mg PO TID [facility] Stop: 10/29/17 20:59 Last Admin: 09/03/17 08:09 Dose: 5 mg Miscellaneous (Amikacin Iv Per Pharmacy) 1 ea MC PRN PRN PRN Reason: AMIKACIN PER RX Stop: 10/29/17 17:14 Morphine Sulfate (Morphine) 2 mg IVP Q4HR PRN PRN Reason: Abdominal Pain Stop: 10/29/17 09:01 Last Admin: 09/02/17 20:26 Dose: 2 mg Mupirocin (Bactroban Oint) 1 appl NS BID [facility] Stop: 09/05/17 09:01 Last Admin: 09/03/17 08:08 Dose: 1 appl Neomycin/Polymyxin/Bacitracin (Triple Antibiotic Pkt) 1 pkt TP Q12HR [facility] Stop: 10/29/17 20:59 Last Admin: 09/03/17 08:08 Dose: 1 pkt Nystatin (Mycostatin Cream) 1 appl TP Q12HR [facility] Stop: 10/29/17 20:59 Last Admin: 09/03/17 08:08 Dose: 1 appl Ondansetron HCl (Zofran) 4 mg IVP Q6HR PRN PRN Reason: Nausea / Vomiting Stop: 10/29/17 15:32 Potassium Chloride (Klor-Con) 40 meq PO X1 ONE Stop: 09/04/17 14:01 Vitamin B Complex/Vit C/Folic Acid (Vitamin B Complex W/Vitamin C) 1 tab PO DAILY [facility] Stop: 10/30/17 08:59 Last Admin: 09/03/17 08:09 Dose: 1 tab Zinc Sulfate (Zinc Sulfate) 220 mg PO DAILY [facility] Stop: 10/30/17 08:59 Last Admin: 09/03/17 08:09 Dose: 220 mg General: weak HEENT: NC/AT, PERRLA Neck: Supple Lungs: CTAB Cardiovascular: RRR, Normal S1, Normal S2, without murmur Neurological: alert - Procedures Procedures: Procedures Procedure Code Date BYPASS DESCENDING COLON TO CUTANEOUS, OPEN APPROACH [id number] 08/30/17 COLOSTOMY 13492 08/30/17 KRZYSZTOF SUBQ TISSUE 20 SQ CM/< 25524 08/30/17 EXCISION OF BACK SUBCU/FASCIA, OPEN APPROACH [id number] 08/30/17 Internal Medicine Assmt/Plan - Assessment Assessment: 1. Sacral decubitus. 2. s/p diverting colostomy. 3. COPD. - Plan Plan: wound care ivabx as per id continue current orders Nutritional Asmnt/Malnutr-PDOC - Dietary Evaluation Malnutrition Findings (Please click <Entered> for more info): Nutritional Asmnt/Malnutrition Start: 09/02/17 17: 29 Text: Status: Complete Freq: Document 09/02/17 17:29 ED (Rec: 09/02/17 17:45 ED [id number]) Nutritional Asmnt/Malnutrition Patient General Information Nutritional Screening High Risk Diagnosis stage 4 decubitus, broise, exposure Pertinent Medical Hx/Surgical Hx no H&P Subjective Information Pt seen resting in bed at time of visit. Per records, PO intake 25-75% on full liquid diet, avg 50%. Per MD notes, pt had surgery for diverting colostomy and wuond VAC and excisional debridement on 08/31 . Current Diet Order/ Nutrition Support full liquid Pertinent Medications colace, triple antibiotic, vit B complex vit c, folic acid Pertinent Labs 09/02 na 134, K 3.3, Cl 101,BUN 25, Cr 1.2, glucose 113, Ca 7 .8 Nutritional Hx/Data Height 5 ft 10 in Height (Calculated Centimeters) 177.8 Current Weight (lbs) 198 lb Weight (Calculated Kilograms) 89.8 Weight (Calculated Grams) 54782.3 [place] Body Weight 166 % [place] Body Weight 119 Body Mass Index (BMI) 28.4 Weight Status Overweight GI Symptoms GI Symptoms None Last BM none Difficult in: None Skin Integrity/Comment: bruise, pressure ulceration multiple sites, s/p wound debridemnent with wound vac placement Current %PO Fair (50-74%) Estimated Nutritional Goals BEE in Kcals: Adj wt of IBW Calories/Kcals/Kg 25-30 based on 82kg Kcals Calculated 5528-4026 Protein: Adj wt of IBW Protein g/k.2-1.4 considering pressure ulcer and s/p surgery Protein Calculated 98-115 Fluid: ml 2049-2460ml (1ml/kcal) Nutritional Problem 2. Problem Problem inadequate food intake Etiology pt on full liquid diet, possible poor appetite Signs/Symptoms: PO intake 50-75% 1. Problem Problem increased nutrition needs ( calorie and protein) Etiology increased metabolic demand for wound healing Signs/Symptoms: pressure ulcer and s/p surgery Malnutrition Alert Protein-Calorie Malnutrition N/A Is there a minimum of two criteria No selected? Query Text:Check all the applicable criteria. A minimum of two criteria are recommended for diagnosis of either severe or non-severe malnutrition. Intervention/Recommendation Comments 1. Advance diet as tolerated. Recommend Boost Plus TID and Aginaid 1pk daily to supplement nutrition intake for wound healing. 2. Monitor PO intake, wt, labs and skin integrity 3. F/U as high risk in 2-3 days, 09/04-09/05 Expected Outcomes/Goals Expected Outcomes/Goals 1. PO intake to meet at least 75% of nutritional needs. 2. Wt stability, skin to remain intact, labs to approach WNL.
--- NOTE | 2017-09-03 12:36 | Infectious Disease Prog Note ---
Infectious Disease Subjective - Review of Systems Service Date: 09/10/17 Subjective: There is no new change, no fever. Infectious Disease Objective - Results Result Diagrams: 09/03/17 06:15 09/03/17 06:15 Recent Labs: Laboratory Last Values WBC 11.8 Th/cmm (4.8-10.8) H D 09/03/17 06:15 RBC 2.86 Mil/cmm (3.80-5.80) L 09/03/17 06:15 Hgb 9.0 gm/dL (12-16) L 09/03/17 06:15 Hct 25.8 % (41.0-60) L D 09/03/17 06:15 MCV 90.1 fl (80-99) 09/03/17 06:15 MCH 31.5 pg (27.0-31.0) H 09/03/17 06:15 MCHC Differential 35.0 pg (28.0-36.0) 09/03/17 06:15 RDW 13.6 % (11.5-20.0) 09/03/17 06:15 Plt Count 173 Th/cmm (150-400) 09/03/17 06:15 MPV 6.9 fl 09/03/17 06:15 Neutrophils % 85.7 % (40.0-80.0) H 09/03/17 06:15 Band Neutrophils % 4 % (0-10) 08/30/17 06:20 Lymphocytes % 10.6 % (20.0-50.0) L 09/03/17 06:15 Monocytes % 3.1 % (2.0-10.0) 09/03/17 06:15 Eosinophils % 0.1 % (0.0-5.0) 09/03/17 06:15 Basophils % 0.5 % (0.0-2.0) 09/03/17 06:15 Neutrophils (Manual) 65 % (40-80) 08/30/17 06:20 Lymphocytes 28 % (20-50) 08/30/17 06:20 Monocytes 3 % (2-10) 08/30/17 06:20 Platelet Estimate ADEQUATE (NORMAL) 08/30/17 06:20 PTT (Actin FS) 28.7 SECONDS (26.0-38.0) 08/30/17 06:20 Sodium 136 mEq/L (136-145) 09/03/17 06:15 Potassium 3.3 mEq/L (3.5-5.1) L 09/03/17 06:15 Chloride 104 mEq/L (98-107) 09/03/17 06:15 Carbon Dioxide 23.2 mEq/L (21.0-31.0) 09/03/17 06:15 Anion Gap 12.1 (7.0-16.0) 09/03/17 06:15 BUN 24 mg/dL (7-25) 09/03/17 06:15 Creatinine 0.9 mg/dL (0.7-1.3) 09/03/17 06:15 Est GFR ( Amer) TNP 09/03/17 06:15 Est GFR (Non-Af Amer) TNP 09/03/17 06:15 BUN/Creatinine Ratio 26.7 09/03/17 06:15 Glucose 94 mg/dL (70-105) 09/03/17 06:15 POC Glucose 102 MG/DL (70 - 105) 08/30/17 05:22 Calcium 7.8 mg/dL (8.6-10.3) L 09/03/17 06:15 Total Bilirubin 0.5 mg/dL (0.3-1.0) 09/02/17 06:26 AST 16 U/L (13-39) 09/02/17 06:26 ALT 12 U/L (7-52) 09/02/17 06:26 Alkaline Phosphatase 71 U/L (34-104) 09/02/17 06:26 Total Protein 4.9 gm/dL (6.0-8.3) L 09/02/17 06:26 Albumin 2.3 gm/dL (4.2-5.5) L 09/02/17 06:26 Globulin 2.6 gm/dL 09/02/17 06:26 Albumin/Globulin Ratio 0.9 (1.0-1.8) L 09/02/17 06:26 Amikacin Peak 38.5 ug/mL (20.0-30.0) H 09/02/17 14:54 Amikacin Trough 22.1 ug/mL (1.0-8.0) H 09/02/17 11:00 Blood Type O POSITIVE 09/02/17 08:40 Antibody Screen NEGATIVE 09/02/17 08:40 Crossmatch See Detail 09/02/17 08:40 - Physical Exam Vitals and I&O: Vital Signs Temp 97.8 F 09/03/17 08:50 Pulse 86 09/03/17 11:35 Resp 18 09/03/17 11:35 BP 118/59 09/03/17 08:50 Pulse Ox 97 09/03/17 11:35 Intake & Output 09/02/17 09/03/17 09/03/17 18:59 06:59 18:59 Intake Total 402.4 652.4 300 Output Total 1575 Balance 402.4 -922.6 300 Weight (lbs) 89.811 kg Intake: Intake, IV Amount 402.4 402.4 300 Amikacin 600 mg In 102.4 102.4 Dextrose 5% 100 ml @ 100 mls/hr IV Q12H [facility] Rx#: [id number] Linezolid 600mg/300mL 600 300 300 300 mg In 300 ml @ 300 mls/ hr IV Q12HR [facility] Rx#: [id number] Blood Product 250 Output: Drainage 100 Sacrum 100 Urine 1475 Other: Stool Characteristics Liquid Liquid Liquid Active Medications: Current Medications Acetaminophen (Tylenol) 650 mg PO Q4HR PRN PRN Reason: Pain or Fever >101 Stop: 10/29/17 15:32 Last Admin: 09/02/17 21:52 Dose: 650 mg Acetylcysteine (Mucomyst 20%) 3 ml HHN Q4HRT [facility] Stop: 11/01/17 22:59 Last Admin: 09/03/17 07:41 Dose: Not Given Al Hydrox/Mg Hydrox/Simethicone (Maalox) 30 ml PO Q6HR PRN PRN Reason: Gas Stop: 10/29/17 14:29 Albuterol Sulfate (Albuterol 2.5mg/3ml Neb Ud) 1.25 mg HHN Q2HRT PRN PRN Reason: Shortness of Breath Albuterol Sulfate (Albuterol 2.5mg/3ml Neb Ud) 1.25 mg HHN Q4HRT [facility] Stop: 10/29/17 18:59 Last Admin: 09/03/17 11:35 Dose: 1.25 mg [place] Oil/[place] Balsam/Trypsin (Venelex) 1 appl TP Q12HR [facility] Stop: 10/29/17 20:59 Last Admin: 09/03/17 08:30 Dose: 1 appl Docusate Sodium (Colace) 100 mg PO DAILY [facility] Stop: 10/30/17 08:59 Last Admin: 09/03/17 08:09 Dose: 100 mg Enoxaparin Sodium (Lovenox) 30 mg SUBQ DAILY [facility] Stop: 10/30/17 08:59 Last Admin: 09/03/17 08:05 Dose: 30 mg Linezolid (Zyvox) 600 mg in 300 mls @ 300 mls/hr IV Q12HR [facility] Stop: 10/29/17 20:59 Last Infusion: 09/03/17 09:04 Dose: Infused Amikacin Sulfate 600 mg/ (Dextrose) 102.4 mls @ 100 mls/hr IV Q12H [facility] Stop: 09/03/17 14:00 Last Admin: 09/03/17 12:05 Dose: 100 mls/hr Ipratropium [place] (Atrovent Neb 0.5mg/2.5ml) 0.5 mg HHN Q2HR PRN PRN Reason: Shortness of Breath Stop: 10/29/17 15:32 Ipratropium [place] (Atrovent Neb 0.5mg/2.5ml) 0.5 mg HHN Q4HRT [facility] Stop: 10/29/17 18:59 Last Admin: 09/03/17 11:35 Dose: 0.5 mg Midodrine (Proamatine) 5 mg PO TID [facility] Stop: 10/29/17 20:59 Last Admin: 09/03/17 08:09 Dose: 5 mg Miscellaneous (Amikacin Iv Per Pharmacy) 1 ea MC PRN PRN PRN Reason: AMIKACIN PER RX Stop: 10/29/17 17:14 Morphine Sulfate (Morphine) 2 mg IVP Q4HR PRN PRN Reason: Abdominal Pain Stop: 10/29/17 09:01 Last Admin: 09/02/17 20:26 Dose: 2 mg Mupirocin (Bactroban Oint) 1 appl NS BID [facility] Stop: 09/05/17 09:01 Last Admin: 09/03/17 08:08 Dose: 1 appl Neomycin/Polymyxin/Bacitracin (Triple Antibiotic Pkt) 1 pkt TP Q12HR [facility] Stop: 10/29/17 20:59 Last Admin: 09/03/17 08:08 Dose: 1 pkt Nystatin (Mycostatin Cream) 1 appl TP Q12HR [facility] Stop: 10/29/17 20:59 Last Admin: 09/03/17 08:08 Dose: 1 appl Ondansetron HCl (Zofran) 4 mg IVP Q6HR PRN PRN Reason: Nausea / Vomiting Stop: 10/29/17 15:32 Vitamin B Complex/Vit C/Folic Acid (Vitamin B Complex W/Vitamin C) 1 tab PO DAILY [facility] Stop: 10/30/17 08:59 Last Admin: 09/03/17 08:09 Dose: 1 tab Zinc Sulfate (Zinc Sulfate) 220 mg PO DAILY [facility] Stop: 10/30/17 08:59 Last Admin: 09/03/17 08:09 Dose: 220 mg General: no acute distress, well developed, well nourished HEENT: atraumatic, normocephalic, PERRLA Neck: supple, no thyromegaly Cardiovascular: S1S2, regular Lungs: no clear to auscultation bilaterally, no clear to percussion Abdomen: soft, no tender, no distended, no mass Extremities: no cyanosis, no clubbing Neurological: awake, alert Skin: intact - Procedures Procedures: Procedures Procedure Code Date BYPASS DESCENDING COLON TO CUTANEOUS, OPEN APPROACH [id number] 08/30/17 COLOSTOMY 91129 08/30/17 KRZYSZTOF SUBQ TISSUE 20 SQ CM/< 94332 08/30/17 EXCISION OF BACK SUBCU/FASCIA, OPEN APPROACH [id number] 08/30/17 Infectious Disease Assmt/Plan - Assessment Assessment: 1. Sacral decubitus. 2. s/p diverting colostomy. 3. COPD. - Plan Plan: Continue same treatment Nutritional Asmnt/Malnutr-PDOC - Dietary Evaluation Malnutrition Findings (Please click <Entered> for more info): Nutritional Asmnt/Malnutrition Start: 09/02/17 17: 29 Text: Status: Complete Freq: Document 09/02/17 17:29 AVIS (Rec: 09/02/17 17:45 AVIS [id number]) Nutritional Asmnt/Malnutrition Patient General Information Nutritional Screening High Risk Diagnosis stage 4 decubitus, broise, exposure Pertinent Medical Hx/Surgical Hx no H&P Subjective Information Pt seen resting in bed at time of visit. Per records, PO intake 25-75% on full liquid diet, avg 50%. Per MD notes, pt had surgery for diverting colostomy and wuond VAC and excisional debridement on 08/31 . Current Diet Order/ Nutrition Support full liquid Pertinent Medications colace, triple antibiotic, vit B complex vit c, folic acid Pertinent Labs 09/02 na 134, K 3.3, Cl 101,BUN 25, Cr 1.2, glucose 113, Ca 7 .8 Nutritional Hx/Data Height 1.78 m Height (Calculated Centimeters) 177.8 Current Weight (lbs) 89.811 kg Weight (Calculated Kilograms) 89.8 Weight (Calculated Grams) 60093.3 [place] Body Weight 166 % [place] Body Weight 119 Body Mass Index (BMI) 28.4 Weight Status Overweight GI Symptoms GI Symptoms None Last BM none Difficult in: None Skin Integrity/Comment: bruise, pressure ulceration multiple sites, s/p wound debridemnent with wound vac placement Current %PO Fair (50-74%) Estimated Nutritional Goals BEE in Kcals: Adj wt of IBW Calories/Kcals/Kg 25-30 based on 82kg Kcals Calculated 3986-5234 Protein: Adj wt of IBW Protein g/k.2-1.4 considering pressure ulcer and s/p surgery Protein Calculated 98-115 Fluid: ml 2049-2460ml (1ml/kcal) Nutritional Problem 2. Problem Problem inadequate food intake Etiology pt on full liquid diet, possible poor appetite Signs/Symptoms: PO intake 50-75% 1. Problem Problem increased nutrition needs ( calorie and protein) Etiology increased metabolic demand for wound healing Signs/Symptoms: pressure ulcer and s/p surgery Malnutrition Alert Protein-Calorie Malnutrition N/A Is there a minimum of two criteria No selected? Query Text:Check all the applicable criteria. A minimum of two criteria are recommended for diagnosis of either severe or non-severe malnutrition. Intervention/Recommendation Comments 1. Advance diet as tolerated. Recommend Boost Plus TID and Aginaid 1pk daily to supplement nutrition intake for wound healing. 2. Monitor PO intake, wt, labs and skin integrity 3. F/U as high risk in 2-3 days, 09/04-09/05 Expected Outcomes/Goals Expected Outcomes/Goals 1. PO intake to meet at least 75% of nutritional needs. 2. Wt stability, skin to remain intact, labs to approach WNL.
[2017-09-03] MEDS ORDERED: Probiotic Screen MC PRN (16:45)
--- NOTE | 2017-09-03 17:24 | Consultation ---
DATE OF CONSULTATION: 09/02/[address] Huizar for this consultation. HISTORY OF PRESENT ILLNESS: This is a 77-year-old male who underwent a diverting colostomy surgery. Apparently, he has been developing some congestion and cough. He was on IV fluids, now is off. His other past medical history is decubitus ulcers, dementia, and sepsis in the past. The patient was brought in to have a diverting colostomy secondary to recurrent decubitus ulcers infection, unable to give any further meaningful history. PHYSICAL EXAMINATION: GENERAL: Awake, alert, not in acute distress. VITAL SIGNS: Temperature is 97.1, pulse is 84, respiration is 18, blood pressure is 131/61, and saturation is 97%. HEENT: Atraumatic, normocephalic. Pupils react to light and accommodation. Ears, nose and throat normal. NECK: Supple. No JVD. CHEST: There are rhonchi and rales bilaterally. HEART: Regular rate and rhythm. ABDOMEN: Soft. EXTREMITIES: No edema. LABORATORY DATA: WBC 17.6, hemoglobin 7.5, hematocrit 21.6, platelets is 186. Sodium is 134, potassium 3.3, BUN is 25, creatinine 1.2. IMPRESSION: 1. Respiratory failure. 2. Pneumonia. 3. Dysphagia. 4. Weakness. 5. Pulmonary edema on x-ray, possibly fluid overload. PLAN: 1. Give a dose of Lasix. 2. Add Mucomyst to the nebulizer treatment. 3. Pulmonary toilet and supportive care. 4. Follow up chest x-ray, check BNP level. Follow the patient with you. Thank you very much for this consultation. JOB# [id number]
[2017-09-04] MEDS: Albuterol Nebulizer 2.5mg/3mL HHN SCH ×4 (02:36→15:47)
[2017-09-04] MEDS: Ipratropium Neb 0.5 mg/2.5 mL UD HHN SCH ×4 (02:36→15:47)
[2017-09-04 06:19] LABS: % BASOPHILS 0.1 % (0.0-2.0); % EOSINOPHILS 0.1 % (0.0-5.0); % LYMPHOCYTES 16.5 % (20.0-50.0); % MONOCYTES 3.2 % (2.0-10.0); % NEUTROPHILS 80.1 % (40.0-80.0); HEMATOCRIT 27.7 % (41.0-60); HEMOGLOBIN 9.5 gm/dL (12-16); LYMPHOCYTE ABSOLUTE 1.6 Th/cmm (1.5-3.0); MEAN CELL VOLUME 91.6 fl (80-99); MEAN CORPUSCULAR HEMOGLOBIN 31.4 pg (27.0-31.0); MEAN CORPUSCULAR HGB CONC 34.2 pg (28.0-36.0); MEAN PLATELET VOLUME 6.9 fl; MONOCYTE ABSOLUTE 0.3 Th/cmm (0.3-1.0); NEUTROPHILE ABSOLUTE 7.5 Th/cmm (1.8-8.0); PLATELET COUNT 181 Th/cmm (150-400); RED BLOOD COUNT 3.02 Mil/cmm (3.80-5.80); RED CELL DISTRIBUTION WIDTH 13.6 % (11.5-20.0)
[2017-09-04 06:32] LABS: WHITE BLOOD COUNT 9.4 Th/cmm (4.8-10.8)
[2017-09-04 06:33] LABS: ANION GAP 11.8 (7.0-16.0); BUN - UREA NITROGEN 17 mg/dL (7-25); CARBON DIOXIDE 24.5 mEq/L (21.0-31.0); CHLORIDE 104 mEq/L (98-107); CREATININE - SERUM 0.8 mg/dL (0.7-1.3); GLUCOSE 97 mg/dL (70-105); POTASSIUM SERUM 3.3 mEq/L (3.5-5.1); SODIUM SERUM 137 mEq/L (136-145)
--- NOTE | 2017-09-04 08:15 | Diagnostic Imaging Report ---
Exam: Portable chest x-ray. HISTORY: Shortness of breath. Findings: Portable examination of the chest at 0758 hours reviewed and compared to the prior study of 09/03/2017. The study demonstrates a decrease in infiltrates and effusions. Mediastinal structures midline. The heart is not enlarged. Bony thorax intact. Right-sided PICC line terminates in right subclavian vein. IMPRESSION: Improved aeration bilaterally decreased pneumonia and effusions.
[2017-09-04] MEDS: Linezolid 600mg/300mL Premix Bag IV SCH (08:52)
[2017-09-04] MEDS: Nystatin Cream 100,000 u/gm Cream 15 gm TP SCH (08:53)
[2017-09-04] MEDS: Triple Antibiotic 0.94 gm Pkt TP SCH (08:53)
[2017-09-04] MEDS: Vitamin B Complex w/Vitamin C Tab PO SCH (08:54)
[2017-09-04] MEDS ORDERED: Potassium Chloride 20 mEq ER Tab PO SCH (09:00)
[2017-09-04] MEDS ORDERED: Lactobacillus Rhamnosus GG 15 Billion CFU CAP.SPRINK PO SCH (09:00)
[2017-09-04] MEDS: Enoxaparin 30 mg/0.3 mL 0.3mL Syr SUBQ SCH (09:16)
[2017-09-04] MEDS: Venelex 60gm Tube TP SCH (09:17)
--- NOTE | 2017-09-04 10:00 | General Progress Note ---
Subjective - Review of Systems Service Date: 09/04/17 Events since last encounter: labs okl colostomy output good wound vac in place Objective - Results Result Diagrams: 09/04/17 05:55 09/04/17 05:55 Recent Labs: Laboratory Last Values WBC 9.4 Th/cmm (4.8-10.8) D 09/04/17 05:55 RBC 3.02 Mil/cmm (3.80-5.80) L 09/04/17 05:55 Hgb 9.5 gm/dL (12-16) L 09/04/17 05:55 Hct 27.7 % (41.0-60) L 09/04/17 05:55 MCV 91.6 fl (80-99) 09/04/17 05:55 MCH 31.4 pg (27.0-31.0) H 09/04/17 05:55 MCHC Differential 34.2 pg (28.0-36.0) 09/04/17 05:55 RDW 13.6 % (11.5-20.0) 09/04/17 05:55 Plt Count 181 Th/cmm (150-400) 09/04/17 05:55 MPV 6.9 fl 09/04/17 05:55 Neutrophils % 80.1 % (40.0-80.0) H 09/04/17 05:55 Band Neutrophils % 4 % (0-10) 08/30/17 06:20 Lymphocytes % 16.5 % (20.0-50.0) L 09/04/17 05:55 Monocytes % 3.2 % (2.0-10.0) 09/04/17 05:55 Eosinophils % 0.1 % (0.0-5.0) 09/04/17 05:55 Basophils % 0.1 % (0.0-2.0) 09/04/17 05:55 Neutrophils (Manual) 65 % (40-80) 08/30/17 06:20 Lymphocytes 28 % (20-50) 08/30/17 06:20 Monocytes 3 % (2-10) 08/30/17 06:20 Platelet Estimate ADEQUATE (NORMAL) 08/30/17 06:20 PTT (Actin FS) 28.7 SECONDS (26.0-38.0) 08/30/17 06:20 Sodium 137 mEq/L (136-145) 09/04/17 05:55 Potassium 3.3 mEq/L (3.5-5.1) L 09/04/17 05:55 Chloride 104 mEq/L (98-107) 09/04/17 05:55 Carbon Dioxide 24.5 mEq/L (21.0-31.0) 09/04/17 05:55 Anion Gap 11.8 (7.0-16.0) 09/04/17 05:55 BUN 17 mg/dL (7-25) 09/04/17 05:55 Creatinine 0.8 mg/dL (0.7-1.3) 09/04/17 05:55 Est GFR ( Amer) TNP 09/04/17 05:55 Est GFR (Non-Af Amer) TNP 09/04/17 05:55 BUN/Creatinine Ratio 21.3 09/04/17 05:55 Glucose 97 mg/dL (70-105) 09/04/17 05:55 POC Glucose 102 MG/DL (70 - 105) 08/30/17 05:22 Calcium 8.0 mg/dL (8.6-10.3) L 09/04/17 05:55 Total Bilirubin 0.5 mg/dL (0.3-1.0) 09/02/17 06:26 AST 16 U/L (13-39) 09/02/17 06:26 ALT 12 U/L (7-52) 09/02/17 06:26 Alkaline Phosphatase 71 U/L (34-104) 09/02/17 06:26 Total Protein 4.9 gm/dL (6.0-8.3) L 09/02/17 06:26 Albumin 2.3 gm/dL (4.2-5.5) L 09/02/17 06:26 Globulin 2.6 gm/dL 09/02/17 06:26 Albumin/Globulin Ratio 0.9 (1.0-1.8) L 09/02/17 06:26 Amikacin Peak 38.5 ug/mL (20.0-30.0) H 09/02/17 14:54 Amikacin Trough 22.1 ug/mL (1.0-8.0) H 09/02/17 11:00 Blood Type O POSITIVE 09/02/17 08:40 Antibody Screen NEGATIVE 09/02/17 08:40 Crossmatch See Detail 09/02/17 08:40 - Physical Exam Vitals and I&O: Vital Signs Temp 97.9 F 09/04/17 08:00 Pulse 99 09/04/17 08:00 Resp 18 09/04/17 08:00 BP 119/62 09/04/17 09:49 Pulse Ox 96 09/04/17 08:00 Intake & Output 09/03/17 09/04/17 09/04/17 18:59 06:59 18:59 Intake Total 300 300 Output Total 1325 Balance 300 -1025 Weight (lbs) 89.811 kg Intake: Intake, IV Amount 300 300 Linezolid 600mg/300mL 600 300 300 mg In 300 ml @ 300 mls/ hr IV Q12HR [facility] Rx#: [id number] Output: Drainage 125 Sacrum 125 Urine 1200 Other: Stool Characteristics Liquid Liquid Active Medications: Current Medications Acetaminophen (Tylenol) 650 mg PO Q4HR PRN PRN Reason: Pain or Fever >101 Stop: 10/29/17 15:32 Last Admin: 09/02/17 21:52 Dose: 650 mg Acetylcysteine (Mucomyst 20%) 3 ml HHN Q4HRT [facility] Stop: 11/01/17 22:59 Last Admin: 09/04/17 07:07 Dose: 3 ml Al Hydrox/Mg Hydrox/Simethicone (Maalox) 30 ml PO Q6HR PRN PRN Reason: Gas Stop: 10/29/17 14:29 Albuterol Sulfate (Albuterol 2.5mg/3ml Neb Ud) 1.25 mg HHN Q2HRT PRN PRN Reason: Shortness of Breath Albuterol Sulfate (Albuterol 2.5mg/3ml Neb Ud) 1.25 mg HHN Q4HRT [facility] Stop: 10/29/17 18:59 Last Admin: 09/04/17 07:08 Dose: 1.25 mg [place] Oil/[place]ai Balsam/Trypsin (Venelex) 1 appl TP Q12HR [facility] Stop: 10/29/17 20:59 Last Admin: 09/04/17 09:17 Dose: 1 appl Docusate Sodium (Colace) 100 mg PO DAILY [facility] Stop: 10/30/17 08:59 Last Admin: 09/04/17 08:54 Dose: 100 mg Enoxaparin Sodium (Lovenox) 30 mg SUBQ DAILY [facility] Stop: 10/30/17 08:59 Last Admin: 09/04/17 09:16 Dose: 30 mg Furosemide (Lasix) 20 mg IVP BID [facility] Stop: 11/02/17 19:59 Last Admin: 09/04/17 09:49 Dose: 20 mg Linezolid (Zyvox) 600 mg in 300 mls @ 300 mls/hr IV Q12HR [facility] Stop: 10/29/17 20:59 Last Admin: 09/04/17 08:52 Dose: 300 mls/hr Ipratropium [place] (Atrovent Neb 0.5mg/2.5ml) 0.5 mg HHN Q2HR PRN PRN Reason: Shortness of Breath Stop: 10/29/17 15:32 Ipratropium [place] (Atrovent Neb 0.5mg/2.5ml) 0.5 mg HHN Q4HRT [facility] Stop: 10/29/17 18:59 Last Admin: 09/04/17 07:07 Dose: 0.5 mg Lactobacillus Rhamnosus (Culturelle 15b) 1 each PO DAILY [facility] Stop: 11/03/17 08:59 Last Admin: 09/04/17 08:53 Dose: 1 each Midodrine (Proamatine) [address] [facility] Stop: 10/29/17 20:59 Last Admin: 09/04/17 08:54 Dose: 5 mg Miscellaneous (Amikacin Iv Per Pharmacy) 1 ea MC PRN PRN PRN Reason: AMIKACIN PER RX Stop: 10/29/17 17:14 Miscellaneous (Probiotic Screen) 1 ea MC PRN PRN PRN Reason: PROTOCOL Stop: 11/02/17 16:44 Morphine Sulfate (Morphine) 2 mg IVP Q4HR PRN PRN Reason: Abdominal Pain Stop: 10/29/17 09:01 Last Admin: 09/02/17 20:26 Dose: 2 mg Mupirocin (Bactroban Oint) [address] [facility] Stop: 09/05/17 09:01 Last Admin: 09/04/17 08:53 Dose: 1 appl Neomycin/Polymyxin/Bacitracin (Triple Antibiotic Pkt) 1 pkt TP Q12HR [facility] Stop: 10/29/17 20:59 Last Admin: 09/04/17 08:53 Dose: 1 pkt Nystatin (Mycostatin Cream) 1 appl TP Q12HR [facility] Stop: 10/29/17 20:59 Last Admin: 09/04/17 08:53 Dose: 1 appl Ondansetron HCl (Zofran) 4 mg IVP Q6HR PRN PRN Reason: Nausea / Vomiting Stop: 10/29/17 15:32 Potassium Chloride (Klor-Con) 40 meq PO DAILY [facility] Stop: 11/03/17 08:59 Last Admin: 09/04/17 08:53 Dose: 40 meq Vitamin B Complex/Vit C/Folic Acid (Vitamin B Complex W/Vitamin C) 1 tab PO DAILY [facility] Stop: 10/30/17 08:59 Last Admin: 09/04/17 08:54 Dose: 1 tab Zinc Sulfate (Zinc Sulfate) 220 mg PO DAILY [facility] Stop: 10/30/17 08:59 Last Admin: 09/04/17 08:54 Dose: 220 mg - Procedures Procedures: Procedures Procedure Code Date BYPASS DESCENDING COLON TO CUTANEOUS, OPEN APPROACH [id number] 08/30/17 COLOSTOMY 84945 08/30/17 KRZYSZTOF SUBQ TISSUE 20 SQ CM/< 37745 08/30/17 EXCISION OF BACK SUBCU/FASCIA, OPEN APPROACH [id number] 08/30/17 Nutritional Asmnt/Malnutr-PDOC - Dietary Evaluation Malnutrition Findings (Please click <Entered> for more info): Nutritional Asmnt/Malnutrition Start: 09/02/17 17: 29 Text: Status: Complete Freq: Document 09/02/17 17:29 AVIS (Rec: 09/02/17 17:45 [email or web address] Nutritional Asmnt/Malnutrition Patient General Information Nutritional Screening High Risk Diagnosis stage 4 decubitus, broise, exposure Pertinent Medical Hx/Surgical Hx no H&P Subjective Information Pt seen resting in bed at time of visit. Per records, PO intake 25-75% on full liquid diet, avg 50%. Per MD notes, pt had surgery for diverting colostomy and wuond VAC and excisional debridement on 08/31 . Current Diet Order/ Nutrition Support full liquid Pertinent Medications colace, triple antibiotic, vit B complex vit c, folic acid Pertinent Labs 09/02 na 134, K 3.3, Cl 101,BUN 25, Cr 1.2, glucose 113, Ca 7 .8 Nutritional Hx/Data Height 1.78 m Height (Calculated Centimeters) 177.8 Current Weight (lbs) 89.811 kg Weight (Calculated Kilograms) 89.8 Weight (Calculated Grams) 65868.3 [place] Body Weight 166 % [place] Body Weight 119 Body Mass Index (BMI) 28.4 Weight Status Overweight GI Symptoms GI Symptoms None Last BM none Difficult in: None Skin Integrity/Comment: bruise, pressure ulceration multiple sites, s/p wound debridemnent with wound vac placement Current %PO Fair (50-74%) Estimated Nutritional Goals BEE in Kcals: Adj wt of IBW Calories/Kcals/Kg 25-30 based on 82kg Kcals Calculated 8986-2087 Protein: Adj wt of IBW Protein g/k.2-1.4 considering pressure ulcer and s/p surgery Protein Calculated 98-115 Fluid: ml 2049-2460ml (1ml/kcal) Nutritional Problem 2. Problem Problem inadequate food intake Etiology pt on full liquid diet, possible poor appetite Signs/Symptoms: PO intake 50-75% 1. Problem Problem increased nutrition needs ( calorie and protein) Etiology increased metabolic demand for wound healing Signs/Symptoms: pressure ulcer and s/p surgery Malnutrition Alert Protein-Calorie Malnutrition N/A Is there a minimum of two criteria No selected? Query Text:Check all the applicable criteria. A minimum of two criteria are recommended for diagnosis of either severe or non-severe malnutrition. Intervention/Recommendation Comments 1. Advance diet as tolerated. Recommend Boost Plus TID and Aginaid 1pk daily to supplement nutrition intake for wound healing. 2. Monitor PO intake, wt, labs and skin integrity 3. F/U as high risk in 2-3 days, 09/04-09/05 Expected Outcomes/Goals Expected Outcomes/Goals 1. PO intake to meet at least 75% of nutritional needs. 2. Wt stability, skin to remain intact, labs to approach WNL.
--- NOTE | 2017-09-04 12:34 | Infectious Disease Prog Note ---
Infectious Disease Subjective - Review of Systems Service Date: 09/04/17 Subjective: There is no new change, no fever. Infectious Disease Objective - Results Result Diagrams: 09/04/17 05:55 09/04/17 05:55 Recent Labs: Laboratory Last Values WBC 9.4 Th/cmm (4.8-10.8) D 09/04/17 05:55 RBC 3.02 Mil/cmm (3.80-5.80) L 09/04/17 05:55 Hgb 9.5 gm/dL (12-16) L 09/04/17 05:55 Hct 27.7 % (41.0-60) L 09/04/17 05:55 MCV 91.6 fl (80-99) 09/04/17 05:55 MCH 31.4 pg (27.0-31.0) H 09/04/17 05:55 MCHC Differential 34.2 pg (28.0-36.0) 09/04/17 05:55 RDW 13.6 % (11.5-20.0) 09/04/17 05:55 Plt Count 181 Th/cmm (150-400) 09/04/17 05:55 MPV 6.9 fl 09/04/17 05:55 Neutrophils % 80.1 % (40.0-80.0) H 09/04/17 05:55 Band Neutrophils % 4 % (0-10) 08/30/17 06:20 Lymphocytes % 16.5 % (20.0-50.0) L 09/04/17 05:55 Monocytes % 3.2 % (2.0-10.0) 09/04/17 05:55 Eosinophils % 0.1 % (0.0-5.0) 09/04/17 05:55 Basophils % 0.1 % (0.0-2.0) 09/04/17 05:55 Neutrophils (Manual) 65 % (40-80) 08/30/17 06:20 Lymphocytes 28 % (20-50) 08/30/17 06:20 Monocytes 3 % (2-10) 08/30/17 06:20 Platelet Estimate ADEQUATE (NORMAL) 08/30/17 06:20 PTT (Actin FS) 28.7 SECONDS (26.0-38.0) 08/30/17 06:20 Sodium 137 mEq/L (136-145) 09/04/17 05:55 Potassium 3.3 mEq/L (3.5-5.1) L 09/04/17 05:55 Chloride 104 mEq/L (98-107) 09/04/17 05:55 Carbon Dioxide 24.5 mEq/L (21.0-31.0) 09/04/17 05:55 Anion Gap 11.8 (7.0-16.0) 09/04/17 05:55 BUN 17 mg/dL (7-25) 09/04/17 05:55 Creatinine 0.8 mg/dL (0.7-1.3) 09/04/17 05:55 Est GFR ( Amer) TNP 09/04/17 05:55 Est GFR (Non-Af Amer) TNP 09/04/17 05:55 BUN/Creatinine Ratio 21.3 09/04/17 05:55 Glucose 97 mg/dL (70-105) 09/04/17 05:55 POC Glucose 102 MG/DL (70 - 105) 08/30/17 05:22 Calcium 8.0 mg/dL (8.6-10.3) L 09/04/17 05:55 Total Bilirubin 0.5 mg/dL (0.3-1.0) 09/02/17 06:26 AST 16 U/L (13-39) 09/02/17 06:26 ALT 12 U/L (7-52) 09/02/17 06:26 Alkaline Phosphatase 71 U/L (34-104) 09/02/17 06:26 Total Protein 4.9 gm/dL (6.0-8.3) L 09/02/17 06:26 Albumin 2.3 gm/dL (4.2-5.5) L 09/02/17 06:26 Globulin 2.6 gm/dL 09/02/17 06:26 Albumin/Globulin Ratio 0.9 (1.0-1.8) L 09/02/17 06:26 Amikacin Peak 38.5 ug/mL (20.0-30.0) H 09/02/17 14:54 Amikacin Trough 22.1 ug/mL (1.0-8.0) H 09/02/17 11:00 Blood Type O POSITIVE 09/02/17 08:40 Antibody Screen NEGATIVE 09/02/17 08:40 Crossmatch See Detail 09/02/17 08:40 - Physical Exam Vitals and I&O: Vital Signs Temp 98.2 F 09/04/17 12:07 Pulse 71 09/04/17 12:07 Resp 17 09/04/17 12:07 BP 128/93 09/04/17 12:07 Pulse Ox 97 09/04/17 12:07 Intake & Output 09/03/17 09/04/17 09/04/17 18:59 06:59 18:59 Intake Total 300 300 Output Total 1325 Balance 300 -1025 Weight (lbs) 89.811 kg Intake: Intake, IV Amount 300 300 Linezolid 600mg/300mL 600 300 300 mg In 300 ml @ 300 mls/ hr IV Q12HR [facility] Rx#: [id number] Output: Drainage 125 Sacrum 125 Urine 1200 Other: Stool Characteristics Liquid Liquid Liquid Active Medications: Current Medications Acetaminophen (Tylenol) 650 mg PO Q4HR PRN PRN Reason: Pain or Fever >101 Stop: 10/29/17 15:32 Last Admin: 09/02/17 21:52 Dose: 650 mg Acetylcysteine (Mucomyst 20%) 3 ml HHN Q4HRT [facility] Stop: 11/01/17 22:59 Last Admin: 09/04/17 07:07 Dose: 3 ml Al Hydrox/Mg Hydrox/Simethicone (Maalox) 30 ml PO Q6HR PRN PRN Reason: Gas Stop: 10/29/17 14:29 Albuterol Sulfate (Albuterol 2.5mg/3ml Neb Ud) 1.25 mg HHN Q2HRT PRN PRN Reason: Shortness of Breath Albuterol Sulfate (Albuterol 2.5mg/3ml Neb Ud) 1.25 mg HHN Q4HRT [facility] Stop: 10/29/17 18:59 Last Admin: 09/04/17 07:08 Dose: 1.25 mg [place] Oil/Dominican Balsam/Trypsin (Venelex) 1 appl TP Q12HR [facility] Stop: 10/29/17 20:59 Last Admin: 09/04/17 09:17 Dose: 1 appl Docusate Sodium (Colace) 100 mg PO DAILY [facility] Stop: 10/30/17 08:59 Last Admin: 09/04/17 08:54 Dose: 100 mg Enoxaparin Sodium (Lovenox) 30 mg SUBQ DAILY [facility] Stop: 10/30/17 08:59 Last Admin: 09/04/17 09:16 Dose: 30 mg Furosemide (Lasix) 20 mg IVP BID [facility] Stop: 11/02/17 19:59 Last Admin: 09/04/17 09:49 Dose: 20 mg Linezolid (Zyvox) 600 mg in 300 mls @ 300 mls/hr IV Q12HR [facility] Stop: 10/29/17 20:59 Last Admin: 09/04/17 08:52 Dose: 300 mls/hr Amikacin Sulfate 800 mg/ (Dextrose) 253.2 mls @ 250 mls/hr IV Q24H [facility] Stop: 11/03/17 14:59 Ipratropium [place] (Atrovent Neb 0.5mg/2.5ml) 0.5 mg HHN Q2HR PRN PRN Reason: Shortness of Breath Stop: 10/29/17 15:32 Ipratropium [place] (Atrovent Neb 0.5mg/2.5ml) 0.5 mg HHN Q4HRT [facility] Stop: 10/29/17 18:59 Last Admin: 09/04/17 07:07 Dose: 0.5 mg Lactobacillus Rhamnosus (Culturelle 15b) 1 each PO DAILY [facility] Stop: 11/03/17 08:59 Last Admin: 09/04/17 08:53 Dose: 1 each Midodrine (Proamatine) 5 mg PO TID [facility] Stop: 10/29/17 20:59 Last Admin: 09/04/17 08:54 Dose: 5 mg Miscellaneous (Amikacin Iv Per Pharmacy) 1 ea MC PRN PRN PRN Reason: AMIKACIN PER RX Stop: 10/29/17 17:14 Miscellaneous (Probiotic Screen) 1 ea MC PRN PRN PRN Reason: PROTOCOL Stop: 11/02/17 16:44 Morphine Sulfate (Morphine) 2 mg IVP Q4HR PRN PRN Reason: Abdominal Pain Stop: 10/29/17 09:01 Last Admin: 09/02/17 20:26 Dose: 2 mg Mupirocin (Bactroban Oint) 1 appl NS BID [facility] Stop: 09/05/17 09:01 Last Admin: 09/04/17 08:53 Dose: 1 appl Neomycin/Polymyxin/Bacitracin (Triple Antibiotic Pkt) 1 pkt TP Q12HR [facility] Stop: 10/29/17 20:59 Last Admin: 09/04/17 08:53 Dose: 1 pkt Nystatin (Mycostatin Cream) 1 appl TP Q12HR [facility] Stop: 10/29/17 20:59 Last Admin: 09/04/17 08:53 Dose: 1 appl Ondansetron HCl (Zofran) 4 mg IVP Q6HR PRN PRN Reason: Nausea / Vomiting Stop: 10/29/17 15:32 Potassium Chloride (Klor-Con) 40 meq PO DAILY [facility] Stop: 11/03/17 08:59 Last Admin: 09/04/17 08:53 Dose: 40 meq Vitamin B Complex/Vit C/Folic Acid (Vitamin B Complex W/Vitamin C) 1 tab PO DAILY [facility] Stop: 10/30/17 08:59 Last Admin: 09/04/17 08:54 Dose: 1 tab Zinc Sulfate (Zinc Sulfate) 220 mg PO DAILY [facility] Stop: 10/30/17 08:59 Last Admin: 09/04/17 08:54 Dose: 220 mg General: no acute distress, well developed, well nourished HEENT: atraumatic, normocephalic, PERRLA, EOMI, moist mucous membrane Neck: supple, no thyromegaly Cardiovascular: S1S2, regular Lungs: clear to auscultation bilaterally, clear to percussion Abdomen: soft, no tender, no distended, no rebound Extremities: no cyanosis, no clubbing, no edema Neurological: awake, alert, oriented Skin: other (sacral decubitus.) - Procedures Procedures: Procedures Procedure Code Date BYPASS DESCENDING COLON TO CUTANEOUS, OPEN APPROACH [id number] 08/30/17 COLOSTOMY 03141 08/30/17 [id number] SUBQ TISSUE 20 SQ CM/< 22803 08/30/17 EXCISION OF BACK SUBCU/FASCIA, OPEN APPROACH [id number] 08/30/17 Infectious Disease Assmt/Plan - Assessment Assessment: 1. Sacral decubitus. 2. s/p diverting colostomy. 3. COPD. 4. Leukocytosis improved. - Plan Plan: Continue same treatment Nutritional Asmnt/Malnutr-PDOC - Dietary Evaluation Malnutrition Findings (Please click <Entered> for more info): Nutritional Asmnt/Malnutrition Start: 09/02/17 17: 29 Text: Status: Complete Freq: Document 09/02/17 17:29 [email or web address] (Rec: 09/02/17 17:45 ED [email or web address]) Nutritional Asmnt/Malnutrition Patient General Information Nutritional Screening High Risk Diagnosis stage 4 decubitus, broise, exposure Pertinent Medical Hx/Surgical Hx no H&P Subjective Information Pt seen resting in bed at time of visit. Per records, PO intake 25-75% on full liquid diet, avg 50%. Per MD notes, pt had surgery for diverting colostomy and wuond VAC and excisional debridement on 08/31 . Current Diet Order/ Nutrition Support full liquid Pertinent Medications colace, triple antibiotic, vit B complex vit c, folic acid Pertinent Labs 09/02 na 134, K 3.3, Cl 101,BUN 25, Cr 1.2, glucose 113, Ca 7 .8 Nutritional Hx/Data Height 1.78 m Height (Calculated Centimeters) 177.8 Current Weight (lbs) 89.811 kg Weight (Calculated Kilograms) 89.8 Weight (Calculated Grams) 38094.3 [place] Body Weight 166 % [place] Body Weight 119 Body Mass Index (BMI) 28.4 Weight Status Overweight GI Symptoms GI Symptoms None Last BM none Difficult in: None Skin Integrity/Comment: bruise, pressure ulceration multiple sites, s/p wound debridemnent with wound vac placement Current %PO Fair (50-74%) Estimated Nutritional Goals BEE in Kcals: Adj wt of IBW Calories/Kcals/Kg 25-30 based on 82kg Kcals Calculated 1638-0506 Protein: Adj wt of IBW Protein g/k.2-1.4 considering pressure ulcer and s/p surgery Protein Calculated 98-115 Fluid: ml 2050-2460ml (1ml/kcal) Nutritional Problem 2. Problem Problem inadequate food intake Etiology pt on full liquid diet, possible poor appetite Signs/Symptoms: PO intake 50-75% 1. Problem Problem increased nutrition needs ( calorie and protein) Etiology increased metabolic demand for wound healing Signs/Symptoms: pressure ulcer and s/p surgery Malnutrition Alert Protein-Calorie Malnutrition N/A Is there a minimum of two criteria No selected? Query Text:Check all the applicable criteria. A minimum of two criteria are recommended for diagnosis of either severe or non-severe malnutrition. Intervention/Recommendation Comments 1. Advance diet as tolerated. Recommend Boost Plus TID and Aginaid 1pk daily to supplement nutrition intake for wound healing. 2. Monitor PO intake, wt, labs and skin integrity 3. F/U as high risk in 2-3 days, 09/04-09/05 Expected Outcomes/Goals Expected Outcomes/Goals 1. PO intake to meet at least 75% of nutritional needs. 2. Wt stability, skin to remain intact, labs to approach WNL.
[2017-09-04] MEDS ORDERED: Potassium Chloride 20 mEq ER Tab PO ONE (14:00)
[2017-09-04] MEDS ORDERED: AMIKACIN IV SCH (15:00)
[2017-09-04] MEDS ORDERED: DEXTROSE 5% IV SCH (15:00)
--- NOTE | 2017-09-14 17:42 | History & Physical ---
ADMIT DATE: HISTORY OF PRESENT ILLNESS: The patient was admitted to [facility] on 08/30/2017 and was transferred from [facility] in order to do the diverting colostomy. The patient has a history of respiratory failure, history of pneumonia, history of dysphagia, history of weakness and pulmonary edema on the chest x-ray. PHYSICAL EXAMINATION: GENERAL: The patient is awake, alert, not in acute distress. VITAL SIGNS: Stable. HEENT: Head examination normal. LUNGS: Bilateral rhonchi. CARDIOVASCULAR SYSTEM: S1, S2 heard. ABDOMEN: Soft. Bowel sounds heard. EXTREMITIES: No edema. LABORATORY DATA: White count was 17.6, hemoglobin 7.5. BUN and creatinine 25 and 1.2. DIAGNOSES: The patient is here for diverting colostomy, history of sacral ulcer, history of pneumonia, history of dysphagia, history of weakness, history of pulmonary edema. PLAN: We are going to go ahead and want to do the diverting colostomy and I will have Dr. Whipple see the patient pulmonary manriquez and I will follow the patient. JOB# [id number]
--- NOTE | 2017-09-15 04:17 | Discharge Summary ---
DATE OF DISCHARGE: 09/04/2017 HOSPITAL COURSE: The patient was admitted to [facility] on 08/30/2017, discharged to [facility] on 09/04/2017. Initial diagnosis actually 77-year-old male patient who underwent ____, has history of respiratory failure, pneumonia, dysphagia, weakness, and history of CHF and has had sacral decubiti and the patient was out, came in here for diverticuliting colostomy, which was done by Dr. Clinton and the patient also had anemia, requiring some blood transfusion and the patient improved and the patient postoperatively doing well. The patient was seen by Pulmonary doctor, Dr. Whipple and ID doctor, Dr. Lr. The patient was in stable condition on 09/04/2017 with the final diagnoses of status post diverticuliting colostomy for the sacral decubiti; severe anemia, improving; respiratory failure, improving; pneumonia, improved; CHF, improved. The patient will be sent to [facility] where I will be following the patient. I will continue all his medications. MEDICATION: See the reconciliation sheet. ACTIVITY: As tolerated. I had extensive discussion with both Infectious Disease doctor and the Pulmonary doctor regarding this patient. THE PATIENT'S CONDITION: Guarded. JOB# [id number]
== END 2017-09-04 18:00 | DRG 570 ==
LOC: MSI 04:50
PROVIDERS: ADMIT Internal Medicine; ATTEND Internal Medicine
PROC: 0JB70ZZ Excision of Back Subcutaneous Tissue and Fascia, Open Approach (ICD-10-PCS; principal; 2017-08-31)
PROC: 0D1M0Z4 Bypass Descending Colon to Cutaneous, Open Approach (ICD-10-PCS; 2017-08-31)
PROC: 30233N1 Transfusion of Nonautologous Red Blood Cells into Peripheral Vein, Percutaneous Approach (ICD-10-PCS; 2017-09-02)
DX: L89.154 Pressure ulcer of sacral region, stage 4 (principal); J96.90 Respiratory failure, unspecified, unspecified whether with hypoxia or hypercapnia; J18.9 Pneumonia, unspecified organism; J81.1 Chronic pulmonary edema; J90 Pleural effusion, not elsewhere classified; J44.9 Chronic obstructive pulmonary disease, unspecified; F03.90 Unspecified dementia, unspecified severity, without behavioral disturbance, psychotic disturbance, mood disturbance, and anxiety; G82.20 Paraplegia, unspecified; R13.10 Dysphagia, unspecified; R32 Unspecified urinary incontinence; E66.9 Obesity, unspecified; R53.1 Weakness; D72.829 Elevated white blood cell count, unspecified; Z68.28 Body mass index [BMI] 28.0-28.9, adult; Z87.01 Personal history of pneumonia (recurrent)
CPT/HCPCS: 36415-UA; 71045-TC; 80048-TC; 80053-TC; 80150-TC; 82948-90; 85007-TC; 85025-TC; 85027-TC; 85730-TC; 86850-TC; 86900-TC; 86901-TC; 86922-TC; 88304-TC; 90779; 93971-TC-RT; 94760; A4217; J0278; J0690; J1170; J1650; J1940; J2020; J2270; J7030; J7613; P9016; Z7610

== ENCOUNTER 2017-09-16 17:48 | Inpatient (IN) | payer MEDICARE ==
[2017-09-16 20:08] LABS: % BASOPHILS 2.5 % (0.0-2.0); % EOSINOPHILS 0.4 % (0.0-5.0); % LYMPHOCYTES 22.6 % (20.0-50.0); % MONOCYTES 4.8 % (2.0-10.0); % NEUTROPHILS 69.7 % (40.0-80.0); BASOPHILE ABSOLUTE 0.3 Th/cumm (0-0.2); EOSINOPHILE ABSOLUTE 0.1 Th/cmm (0.1-0.4); HEMOGLOBIN 11.3 gm/dL (12-16); LYMPHOCYTE ABSOLUTE 2.9 Th/cmm (1.5-3.0); MEAN CELL VOLUME 90.3 fl (80-99); MEAN CORPUSCULAR HEMOGLOBIN 30.9 pg (27.0-31.0); MEAN CORPUSCULAR HGB CONC 34.2 pg (28.0-36.0); MEAN PLATELET VOLUME 7.1 fl; MONOCYTE ABSOLUTE 0.6 Th/cmm (0.3-1.0); NEUTROPHILE ABSOLUTE 8.9 Th/cmm (1.8-8.0); RED BLOOD COUNT 3.65 Mil/cmm (3.80-5.80); RED CELL DISTRIBUTION WIDTH 15.3 % (11.5-20.0)
[2017-09-16 20:21] LABS: WHITE BLOOD COUNT 12.8 Th/cmm (4.8-10.8)
[2017-09-16 20:22] LABS: PLATELET COUNT 402 Th/cmm (150-400)
[2017-09-16 20:29] LABS: ALKALINE PHOSPHATASE 220 U/L (34-104); ANION GAP 12.4 (7.0-16.0); BILIRUBIN,TOTAL 0.6 mg/dL (0.3-1.0); BUN - UREA NITROGEN 28 mg/dL (7-25); CALCIUM SERUM 9.1 mg/dL (8.6-10.3); CARBON DIOXIDE 26.8 mEq/L (21.0-31.0); CHLORIDE 101 mEq/L (98-107); GLUCOSE 94 mg/dL (70-105); POTASSIUM SERUM 4.2 mEq/L (3.5-5.1); SGOT 37 U/L (13-39); SGPT/ALT 52 U/L (7-52); SODIUM SERUM 136 mEq/L (136-145); TOTAL PROTEIN,SERUM 6.1 gm/dL (6.0-8.3)
[2017-09-16 21:03] LABS: URINE MICROSCOPIC INDICATED? YES; URINE SOURCE FOLEY PORT
[2017-09-16 21:05] LABS: URINE BILIRUBIN NEGATIVE (NEGATIVE); URINE BLOOD MODERATE (NEGATIVE); URINE GLUCOSE (UA) NEGATIVE (NEGATIVE); URINE KETONE NEGATIVE (NEGATIVE); URINE LEUKOCYTE ESTERASE LARGE (NEGATIVE); URINE NITRATE POSITIVE (NEGATIVE); URINE PH 5.5 (4.6 - 8.0); URINE PROTEIN 30 mg/dL (NEGATIVE); URINE UROBILINOGEN 0.2 E.U./dL (0.2 - 1.0)
[2017-09-16 21:10] LABS: URINE CLARITY CLOUDY (CLEAR); URINE COLOR YELLOW
[2017-09-16 21:17] LABS: URINE BACTERIA MANY /hpf (NONE SEEN); URINE EPITHELIAL CELLS FEW /lpf (FEW); URINE WBC >100 /hpf (0-5)
[2017-09-16 21:18] LABS: URINE YEAST MODERATE /hpf (NONE SEEN)
[2017-09-16] MEDS ORDERED: Piperacillin Sodium/Tazobact 3.375 gm Vial IV ONE (21:43)
--- NOTE | 2017-09-17 12:34 | Diagnostic Imaging Report ---
Portable chest x-ray Time: 1142 History: Pneumonia Compared to prior exam of 09/04/2017 Allowing for portable technique the heart size is normal. No focal pulmonary parenchymal processes. No hilar or mediastinal abnormalities. Right-sided PICC line unchanged in appearance. Impression: No acute abnormalities.
--- NOTE | 2017-09-17 14:01 | History & Physical ---
ADMIT DATE: 09/17/2017 CHIEF COMPLAINT: Erythema around colostomy site. HISTORY OF PRESENT ILLNESS: The patient is a 77-year-old male with a past medical history of dementia, pneumonia, sepsis, and nonhealing sacral decubitus ulcer, recently admitted to the hospital for sacral stage 4 decubitus ulcer. The patient had an excisional debridement performed and sent back to skilled nursing. As nursing facility noticed some mild erythema around the colostomy site, he was sent to the ER for further evaluation and management. On initial evaluation, his vitals were stable and WBC count was 12,800. Urinalysis also showed pyuria and bacteriuria. The patient was started on Zosyn along with other medication. Dr. Bacon, surgical consult was consulted. PAST MEDICAL HISTORY: Includes dementia, pneumonia, sepsis, and nonhealing sacral decubitus ulcer, stage 4. ALLERGIES: NKDA. MEDICATIONS: As per medication reconciliation sheet. SOCIAL HISTORY: The patient lives in a nursing facility. No history of smoking, alcohol, or drug use. FAMILY HISTORY: Noncontributory. REVIEW OF SYSTEMS: GENERAL: The patient has no fever, no chills, and no generalized weakness. HEENT: No diplopia. No photophobia. No sore throat. RESPIRATORY: No cough. No shortness of breath. CARDIOVASCULAR: No chest pain. No palpitation. GASTROINTESTINAL: No nausea. No vomiting. No diarrhea. No constipation. The patient has colostomy site, which has very mild erythema, which is improving. BACK: The patient has stage 4 sacral decubitus ulcer. MUSCULOSKELETAL: No muscle pain. No joint pain. NEUROLOGIC: No headache. No dizziness. No focal weakness. PHYSICAL EXAMINATION: CURRENT VITAL SIGNS: Shows temperature is 97.8, pulse 83, respirations 18, and blood pressure 128/74. GENERAL: The patient is comfortable, lying in the bed, not in acute distress. HEENT: Head is normocephalic, atraumatic. Oral cavity is moist, pink tongue. Eyes; pallor is present, no icterus, PERRLA, and EOMI. NECK: Supple. No JVD. No carotid bruit. Trachea in the midline. CHEST: Bilateral breath sounds. No crackles or wheezing. HEART: S1 and S2 within normal limits. Regular rhythm. No murmur. No gallop. ABDOMEN: Soft, nontender, and nondistended. Bowel sounds present. The patient has colostomy at the left lower quadrant, which has surrounding erythema, working well. EXTREMITIES: No cyanosis. No clubbing. No edema. NEUROLOGIC: Alert, awake, and oriented x 3. BACK: The patient has stage 4 sacral decubitus ulcer. LABORATORY DATA: Current labs show WBC count is 12,800, hemoglobin 11.3, hematocrit 33, and platelets are 402,000. Neutrophils 69.7%. Sodium 136, potassium 4.2, chloride 101, bicarbonate is 26.8, BUN is 28, creatinine 1, and glucose is 94. Urinalysis showed large leukocyte esterase, wbc's more than 100, many bacteria, and moderate yeast. IMPRESSION: 1. Leukocytosis. 2. Urinary tract infection. 3. Abdominal cellulitis around the colostomy site, improving. 4. Sacral decubitus ulcer, stage 4. 5. Chronic obstructive pulmonary disease. PLAN: We will continue Zosyn. Add Diflucan. Wound care. Continue other medications. Consult Dr. Bacon. Check the chest x-ray. JOB# [id number]
[2017-09-17] MEDS ORDERED: VTE Chemical Prophylaxis Screen/Admission MC PRN (14:30)
[2017-09-17] MEDS: Fluconazole 100mg/50mL 100 MG/50 ML BOTTLE IV SCH (14:52)
[2017-09-18 07:10] LABS: % BASOPHILS 1.4 % (0.0-2.0); % EOSINOPHILS 0.4 % (0.0-5.0); % LYMPHOCYTES 16.2 % (20.0-50.0); % MONOCYTES 4.7 % (2.0-10.0); % NEUTROPHILS 77.3 % (40.0-80.0); BASOPHILE ABSOLUTE 0.1 Th/cumm (0-0.2); HEMATOCRIT 31.5 % (41.0-60); HEMOGLOBIN 10.7 gm/dL (12-16); LYMPHOCYTE ABSOLUTE 1.7 Th/cmm (1.5-3.0); MEAN CELL VOLUME 90.6 fl (80-99); MEAN CORPUSCULAR HEMOGLOBIN 30.9 pg (27.0-31.0); MEAN CORPUSCULAR HGB CONC 34.1 pg (28.0-36.0); MEAN PLATELET VOLUME 7.7 fl; MONOCYTE ABSOLUTE 0.5 Th/cmm (0.3-1.0); PLATELET COUNT 336 Th/cmm (150-400); RED BLOOD COUNT 3.48 Mil/cmm (3.80-5.80); RED CELL DISTRIBUTION WIDTH 15.1 % (11.5-20.0); WHITE BLOOD COUNT 10.3 Th/cmm (4.8-10.8)
[2017-09-18 07:24] LABS: ALB/GLOB RATIO 0.9 (1.0-1.8); ALBUMIN 2.6 gm/dL (4.2-5.5); ALKALINE PHOSPHATASE 184 U/L (34-104); ANION GAP 12.1 (7.0-16.0); BILIRUBIN,TOTAL 0.7 mg/dL (0.3-1.0); BUN - UREA NITROGEN 24 mg/dL (7-25); CALCIUM SERUM 8.5 mg/dL (8.6-10.3); CHLORIDE 101 mEq/L (98-107); CREATININE - SERUM 1.2 mg/dL (0.7-1.3); GLUCOSE 98 mg/dL (70-105); POTASSIUM SERUM 4.1 mEq/L (3.5-5.1); SGOT 40 U/L (13-39); SGPT/ALT 46 U/L (7-52); SODIUM SERUM 136 mEq/L (136-145); TOTAL PROTEIN,SERUM 5.4 gm/dL (6.0-8.3)
--- NOTE | 2017-09-18 09:06 | General Progress Note ---
Subjective - Review of Systems Service Date: 09/18/17 Events since last encounter: patient has dementia with no family has stage 4 sacral decubitus ulcer and bilateral heel ulcers which need debridement no family to sign consent suggest Psych eval and 2 doctors to document medical necessity Objective - Results Result Diagrams: 09/18/17 06:25 09/18/17 06:25 Recent Labs: Laboratory Last Values WBC 10.3 Th/cmm (4.8-10.8) 09/18/17 06:25 RBC 3.48 Mil/cmm (3.80-5.80) L 09/18/17 06:25 Hgb 10.7 gm/dL (12-16) L 09/18/17 06:25 Hct 31.5 % (41.0-60) L 09/18/17 06:25 MCV 90.6 fl (80-99) 09/18/17 06:25 MCH 30.9 pg (27.0-31.0) 09/18/17 06:25 MCHC Differential 34.1 pg (28.0-36.0) 09/18/17 06:25 RDW 15.1 % (11.5-20.0) 09/18/17 06:25 Plt Count 336 Th/cmm (150-400) 09/18/17 06:25 MPV 7.7 fl 09/18/17 06:25 Neutrophils % 77.3 % (40.0-80.0) 09/18/17 06:25 Lymphocytes % 16.2 % (20.0-50.0) L 09/18/17 06:25 Monocytes % 4.7 % (2.0-10.0) 09/18/17 06:25 Eosinophils % 0.4 % (0.0-5.0) 09/18/17 06:25 Basophils % 1.4 % (0.0-2.0) 09/18/17 06:25 Sodium 136 mEq/L (136-145) 09/18/17 06:25 Potassium 4.1 mEq/L (3.5-5.1) 09/18/17 06:25 Chloride 101 mEq/L (98-107) 09/18/17 06:25 Carbon Dioxide 27.0 mEq/L (21.0-31.0) 09/18/17 06:25 Anion Gap 12.1 (7.0-16.0) 09/18/17 06:25 BUN 24 mg/dL (7-25) 09/18/17 06:25 Creatinine 1.2 mg/dL (0.7-1.3) 09/18/17 06:25 Est GFR ( Amer) TNP 09/18/17 06:25 Est GFR (Non-Af Amer) TNP 09/18/17 06:25 BUN/Creatinine Ratio 20.0 09/18/17 06:25 Glucose 98 mg/dL (70-105) 09/18/17 06:25 Whole Bld Lactic Acid 0.74 mmol/L (0.60-1.99) 09/16/17 20:08 Calcium 8.5 mg/dL (8.6-10.3) L 09/18/17 06:25 Total Bilirubin 0.7 mg/dL (0.3-1.0) 09/18/17 06:25 AST 40 U/L (13-39) H 09/18/17 06:25 ALT 46 U/L (7-52) 09/18/17 06:25 Alkaline Phosphatase 184 U/L (34-104) H 09/18/17 06:25 Total Protein 5.4 gm/dL (6.0-8.3) L 09/18/17 06:25 Albumin 2.6 gm/dL (4.2-5.5) L 09/18/17 06:25 Globulin 2.8 gm/dL 09/18/17 06:25 Albumin/Globulin Ratio 0.9 (1.0-1.8) L 09/18/17 06:25 Urine Source [place] 09/16/17 20:00 Urine Color YELLOW 09/16/17 20:00 Urine Clarity CLOUDY (CLEAR) 09/16/17 20:00 Urine pH 5.5 (4.6 - 8.0) 09/16/17 20:00 Ur Specific [place] 1.015 (1.005-1.030) 09/16/17 20:00 Urine Protein 30 mg/dL (NEGATIVE) H 09/16/17 20:00 Urine Glucose (UA) NEGATIVE mg/dL (NEGATIVE) 09/16/17 20:00 Urine Ketones NEGATIVE mg/dL (NEGATIVE) 09/16/17 20:00 Urine Blood MODERATE (NEGATIVE) H 09/16/17 20:00 Urine Nitrate POSITIVE (NEGATIVE) H 09/16/17 20:00 Urine Bilirubin NEGATIVE (NEGATIVE) 09/16/17 20:00 Urine Urobilinogen 0.2 E.U./dL (0.2 - 1.0) 09/16/17 20:00 Ur Leukocyte Esterase LARGE (NEGATIVE) H 09/16/17 20:00 Urine RBC 10-25 /hpf (0-5) H 09/16/17 20:00 Urine WBC >100 /hpf (0-5) H 09/16/17 20:00 Ur Epithelial Cells FEW /lpf (FEW) 09/16/17 20:00 Urine Bacteria MANY /hpf (NONE SEEN) H 09/16/17 20:00 Urine Yeast MODERATE /hpf (NONE SEEN) H 09/16/17 20:00 - Physical Exam Vitals and I&O: Vital Signs Temp 98.0 F 09/18/17 04:00 Pulse 85 09/18/17 04:00 Resp 17 09/18/17 04:00 BP 114/65 09/18/17 04:00 Pulse Ox 98 09/18/17 04:00 Intake & Output 09/17/17 09/18/17 09/18/17 18:59 06:59 18:59 Intake Total 100 440 Output Total 980 Balance 100 -540 Weight (lbs) 89.811 kg 78.018 kg Intake: Intake, IV Amount 100 100 Piperacillin Sodium/ 100 100 Tazobact 4.5 gm In Sodium Chloride 0.9% 100 ml @ 100 mls/hr IV Q8H [facility] Rx# :[id number] Oral 340 Output: Urine 850 Stool 130 Other: Stool Characteristics Liquid Brown Green Active Medications: Current Medications Heparin Sodium (Porcine) (Heparin) 5,000 units SUBQ Q12HR [facility] Stop: 11/16/17 20:59 Last Admin: 09/17/17 22:26 Dose: 5,000 units Piperacillin Sod/Tazobactam (Sod 4.5 gm/ Sodium Chloride) 100 mls @ 100 mls/hr IV Q8H [facility] Stop: 09/24/17 10:59 Last Admin: 09/18/17 05:22 Dose: 100 mls/hr Fluconazole (Diflucan) 100 mg in 50 mls @ 50 mls/hr IV Q24H [facility] Stop: 11/16/17 12:59 Last Admin: 09/17/17 14:52 Dose: 50 mls/hr Miscellaneous (Vte Chemical Prophylaxis Screen/ Admission) 1 ea [facility] PRN PRN PRN Reason: PROTOCOL Stop: 11/16/17 14:29 - Procedures Procedures: Procedures Procedure Code Date BYPASS DESCENDING COLON TO CUTANEOUS, OPEN APPROACH [id number] 08/30/17 EXCISION OF BACK SUBCU/FASCIA, OPEN APPROACH [id number] 08/30/17 TRANSFUSE NONAUT RED BLOOD CELLS IN PERIPH VEIN, [facility] [id number] 08/30/17 Assessment/Plan - Problem List Patient Problems: All Active Problems REDNESS TO COLOSTOMY SITE (Acute)
--- NOTE | 2017-09-18 13:26 | Infectious Disease Prog Note ---
Infectious Disease Subjective - Review of Systems Service Date: 09/18/17 Subjective: No new change, no fever,. Infectious Disease Objective - Results Result Diagrams: 09/18/17 06:25 09/18/17 06:25 Recent Labs: Laboratory Last Values WBC 10.3 Th/cmm (4.8-10.8) 09/18/17 06:25 RBC 3.48 Mil/cmm (3.80-5.80) L 09/18/17 06:25 Hgb 10.7 gm/dL (12-16) L 09/18/17 06:25 Hct 31.5 % (41.0-60) L 09/18/17 06:25 MCV 90.6 fl (80-99) 09/18/17 06:25 MCH 30.9 pg (27.0-31.0) 09/18/17 06:25 MCHC Differential 34.1 pg (28.0-36.0) 09/18/17 06:25 RDW 15.1 % (11.5-20.0) 09/18/17 06:25 Plt Count 336 Th/cmm (150-400) 09/18/17 06:25 MPV 7.7 fl 09/18/17 06:25 Neutrophils % 77.3 % (40.0-80.0) 09/18/17 06:25 Lymphocytes % 16.2 % (20.0-50.0) L 09/18/17 06:25 Monocytes % 4.7 % (2.0-10.0) 09/18/17 06:25 Eosinophils % 0.4 % (0.0-5.0) 09/18/17 06:25 Basophils % 1.4 % (0.0-2.0) 09/18/17 06:25 Sodium 136 mEq/L (136-145) 09/18/17 06:25 Potassium 4.1 mEq/L (3.5-5.1) 09/18/17 06:25 Chloride 101 mEq/L (98-107) 09/18/17 06:25 Carbon Dioxide 27.0 mEq/L (21.0-31.0) 09/18/17 06:25 Anion Gap 12.1 (7.0-16.0) 09/18/17 06:25 BUN 24 mg/dL (7-25) 09/18/17 06:25 Creatinine 1.2 mg/dL (0.7-1.3) 09/18/17 06:25 Est GFR ( Amer) TNP 09/18/17 06:25 Est GFR (Non-Af Amer) TNP 09/18/17 06:25 BUN/Creatinine Ratio 20.0 09/18/17 06:25 Glucose 98 mg/dL (70-105) 09/18/17 06:25 Whole Bld Lactic Acid 0.74 mmol/L (0.60-1.99) 09/16/17 20:08 Calcium 8.5 mg/dL (8.6-10.3) L 09/18/17 06:25 Total Bilirubin 0.7 mg/dL (0.3-1.0) 09/18/17 06:25 AST 40 U/L (13-39) H 09/18/17 06:25 ALT 46 U/L (7-52) 09/18/17 06:25 Alkaline Phosphatase 184 U/L (34-104) H 09/18/17 06:25 Total Protein 5.4 gm/dL (6.0-8.3) L 09/18/17 06:25 Albumin 2.6 gm/dL (4.2-5.5) L 09/18/17 06:25 Globulin 2.8 gm/dL 09/18/17 06:25 Albumin/Globulin Ratio 0.9 (1.0-1.8) L 09/18/17 06:25 Urine Source [place] 09/16/17 20:00 Urine Color YELLOW 09/16/17 20:00 Urine Clarity CLOUDY (CLEAR) 09/16/17 20:00 Urine pH 5.5 (4.6 - 8.0) 09/16/17 20:00 Ur Specific [place] 1.015 (1.005-1.030) 09/16/17 20:00 Urine Protein 30 mg/dL (NEGATIVE) H 09/16/17 20:00 Urine Glucose (UA) NEGATIVE mg/dL (NEGATIVE) 09/16/17 20:00 Urine Ketones NEGATIVE mg/dL (NEGATIVE) 09/16/17 20:00 Urine Blood MODERATE (NEGATIVE) H 09/16/17 20:00 Urine Nitrate POSITIVE (NEGATIVE) H 09/16/17 20:00 Urine Bilirubin NEGATIVE (NEGATIVE) 09/16/17 20:00 Urine Urobilinogen 0.2 E.U./dL (0.2 - 1.0) 09/16/17 20:00 Ur Leukocyte Esterase LARGE (NEGATIVE) H 09/16/17 20:00 Urine RBC 10-25 /hpf (0-5) H 09/16/17 20:00 Urine WBC >100 /hpf (0-5) H 09/16/17 20:00 Ur Epithelial Cells FEW /lpf (FEW) 09/16/17 20:00 Urine Bacteria MANY /hpf (NONE SEEN) H 09/16/17 20:00 Urine Yeast MODERATE /hpf (NONE SEEN) H 09/16/17 20:00 - Physical Exam Vitals and I&O: Vital Signs Temp 96.3 F 09/18/17 08:00 Pulse 85 09/18/17 08:00 Resp 18 09/18/17 08:00 BP 91/53 09/18/17 08:00 Pulse Ox 93 09/18/17 08:00 Intake & Output 09/17/17 09/18/17 09/18/17 18:59 06:59 18:59 Intake Total 100 540 Output Total 980 Balance 100 -440 Weight (lbs) 89.811 kg 78.018 kg Intake: Intake, IV Amount 100 200 Piperacillin Sodium/ 100 200 Tazobact 4.5 gm In Sodium Chloride 0.9% 100 ml @ 100 mls/hr IV Q8H [facility] Rx# :[id number] Oral 340 Output: Urine 850 Stool 130 Other: Stool Characteristics Liquid Brown Green Active Medications: Current Medications [place] Oil/[place] Balsam/Trypsin (Venelex) 1 appl TP DAILY [facility] Stop: 11/18/17 08:59 Heparin Sodium (Porcine) (Heparin) 5,000 units SUBQ Q12HR [facility] Stop: 11/16/17 20:59 Last Admin: 09/18/17 09:28 Dose: 5,000 units Piperacillin Sod/Tazobactam (Sod 4.5 gm/ Sodium Chloride) 100 mls @ 100 mls/hr IV Q8H [facility] Stop: 09/24/17 10:59 Last Admin: 09/18/17 11:59 Dose: 100 mls/hr Fluconazole (Diflucan) 100 mg in 50 mls @ 50 mls/hr IV Q24H [facility] Stop: 11/16/17 12:59 Last Admin: 09/17/17 14:52 Dose: 50 mls/hr Miscellaneous (Vte Chemical Prophylaxis Screen/ Admission) 1 ea [facility] PRN PRN PRN Reason: PROTOCOL Stop: 11/16/17 14:29 General: no acute distress, well developed, well nourished HEENT: atraumatic, normocephalic, PERRLA Neck: supple, no thyromegaly Cardiovascular: S1S2, regular Lungs: clear to auscultation bilaterally, clear to percussion Abdomen: soft, catheter (coloctomy.), no tender, no distended, no rebound Extremities: no cyanosis, no clubbing Neurological: awake, alert, oriented Skin: other (sacral stage 4 wound.) - Procedures Procedures: Procedures Procedure Code Date BYPASS DESCENDING COLON TO CUTANEOUS, OPEN APPROACH [id number] 08/30/17 EXCISION OF BACK SUBCU/FASCIA, OPEN APPROACH [id number] 08/30/17 TRANSFUSE NONAUT RED BLOOD CELLS IN PERIPH VEIN, PERC [id number] 08/30/17 Infectious Disease Assmt/Plan - Problem List Patient Problems: All Active Problems REDNESS TO COLOSTOMY SITE (Acute) - Assessment Assessment: IMPRESSION: 1. Leukocytosis. 2. Urinary tract infection. 3. Abdominal cellulitis around the colostomy site, improving. 4. Sacral decubitus ulcer, stage 4. 5. Chronic obstructive pulmonary disease. - Plan Plan: We will continue Zosyn. Add Diflucan.
[2017-09-18] MEDS: Fluconazole 100mg/50mL 100 MG/50 ML BOTTLE IV SCH (14:10)
--- NOTE | 2017-09-18 22:12 | Consultation ---
DATE OF CONSULTATION: 09/18/2017 PSYCHIATRIC CONSULTATION REASON FOR CONSULTATION: To assess competency. HISTORY OF PRESENT ILLNESS: The patient is a 77-year-old male with a history of dementia, multiple medical problems, has stage IV decubitus ulcer, needs surgery. The patient has been pleasant, but superficial with staff. The patient has been accepting treatment and when I asked, if he wants to have more work done on his ulcers, he was accepting. The patient admits to being depressed at times. He was asked about his ex-, said she is in [place], but has not been able to talk to her for a long time. PAST PSYCHIATRIC HISTORY: Dementia and depression. PSYCHOSOCIAL HISTORY: The patient [facility] in a jail facility. The patient denied any history of alcohol or drug use. PAST MEDICAL HISTORY: UTI, abdominal cellulitis around the colostomy site, sacral decubitus ulcers, COPD. MENTAL STATUS EXAM: The patient is cooperative, made fair eye contact. His speech is in short sentences. Affect somewhat depressed and anxious. He is oriented to person, know he was in some kind of facility, did not know that he was in the hospital, was able to tell his age, but did not know the date. The patient's short term memory is impaired. The patient is 0 out of 3 after 5 minutes, but his long-term memory is fair. He was able to tell he was born in [place] and he was able to tell his date of . Insight is somewhat limited. ASSESSMENT: Major depressive disorder, not otherwise specified; dementia, Alzheimer's type, rule out delirium related to underlying infection. PLAN: At this time, would recommend continuation of medical and supportive measures. The patient is passively accepting, but his ability to probably consent is impaired since he is not able to recall details of conversations, but the patient would benefit from this treatment. So I will sign on the consent as a second physician for the patient to have surgery to clean his decubitus ulcers. We will follow the patient while in the hospital. Use small dose of Ativan 0.5 mg p.o. q. 4-6 hours p.r.n. anxiety. Consider using a small dose of an antidepressant. Thank you for the consultation. JOB# [id number]
[2017-09-19 07:49] LABS: INR 1.12 (0.5-1.4); PROTHROMBIN TIME (TEST) 11.8 SECONDS (9.5-11.5)
[2017-09-19 07:54] LABS: ALB/GLOB RATIO 0.9 (1.0-1.8); ALBUMIN 2.5 gm/dL (4.2-5.5); ALKALINE PHOSPHATASE 188 U/L (34-104); ANION GAP 10.1 (7.0-16.0); BILIRUBIN,TOTAL 0.6 mg/dL (0.3-1.0); BUN - UREA NITROGEN 22 mg/dL (7-25); CALCIUM SERUM 8.2 mg/dL (8.6-10.3); CARBON DIOXIDE 24.5 mEq/L (21.0-31.0); CHLORIDE 104 mEq/L (98-107); CREATININE - SERUM 1.4 mg/dL (0.7-1.3); GLUCOSE 87 mg/dL (70-105); POTASSIUM SERUM 3.6 mEq/L (3.5-5.1); SGOT 32 U/L (13-39); SGPT/ALT 36 U/L (7-52); SODIUM SERUM 135 mEq/L (136-145); TOTAL PROTEIN,SERUM 5.3 gm/dL (6.0-8.3)
[2017-09-19] MEDS ORDERED: Venelex 60gm Tube TP SCH (09:00)
[2017-09-19] MEDS ORDERED: Dextrose 50% 50 mL Abboject IVP PRN (09:08)
[2017-09-19] MEDS ORDERED: D5-0.45NS 1,000 ML IV SCH (09:15)
[2017-09-19] MEDS ORDERED: Morphine Sulfate 2 mg/mL 1mL Syr IVP PRN (10:44)
[2017-09-19] MEDS ORDERED: Sodium Chloride 0.9% 1,000 ML IV SCH (10:45)
[2017-09-19] MEDS ORDERED: Propofol 10 mg/mL 20mL Vial **SURGERY USE ONLY IV ONE (10:50)
[2017-09-19] MEDS ORDERED: Probiotic Screen MC PRN (14:30)
--- NOTE | 2017-09-19 14:46 | History & Physical ---
ADMIT DATE: 09/18/2017 REFERRING PHYSICIAN: Dr. Jagdish Lr. REASON FOR CONSULTATION: Decubitus ulcers. Thank you for referring this patient to me. HISTORY OF PRESENT ILLNESS: This is a 77-year-old male admitted because of worsening decubitus ulcer from the prison. The patient's wound VAC was discontinued. He underwent debridement and wound VAC application about a month ago. The patient has no family and has dementia, Alzheimer disease, and depression. He is unable to sign consent. Psych evaluation is done, 2 physicians render medical necessity for the surgical intervention. Other comorbidities include functional paraplegia and bedridden status. He has a colostomy that appears to be working. He has COPD as well. LABORATORY STUDIES: Include a WBC slightly elevated to 12,800 with hemoglobin of 11.3, platelet count is 402,000. BUN slightly high at 28. Alkaline phosphatase is elevated at 220. Albumin is slightly low 3. PHYSICAL EXAMINATION: Shows a patient who is awake, but poorly oriented. He has a large sacral decubitus ulcer and smaller heel ulcers present. PLAN: We will plan to debride and apply wound VAC again. Two physicians need to sign medical necessity for this. JOB# [id number]
[2017-09-19] MEDS: Fluconazole 100mg/50mL 100 MG/50 ML BOTTLE IV SCH (14:55)
--- NOTE | 2017-09-19 15:10 | Operative Report ---
DATE OF SURGERY: 09/19/2017 PREOPERATIVE DIAGNOSES: 1. Stage 4 sacral decubitus ulcer, size 8 x 8 cm deep depth to the bone. 2. Right heel decubitus ulcer stage 2, size 1 x 2 cm. 3. Left heel decubitus ulcer, size 1 x 1 cm, stage 2. POSTOPERATIVE DIAGNOSES: 1. Stage 4 sacral decubitus ulcer, size 8 x 8 cm deep depth to the bone. 2. Right heel decubitus ulcer stage 2, size 1 x 2 cm. 3. Left heel decubitus ulcer, size 1 x 1 cm, stage 2. OPERATIONS DONE; 1. Excisional debridement sacral decubitus ulcer 2. excisional debridement right heel ulcer 3. excisional debridement left heel decubitus ulcer ANESTHESIA: General. ANESTHESIOLOGIST: Alvaro. ESTIMATED BLOOD LOSS: 2 mL. DESCRIPTION OF PROCEDURE: The patient was given general anesthesia. He was then placed in the left lateral decubitus position. The ulcer areas were prepped with Betadine and draped. Sharp scissors were used to debride the necrotic tissue in the sacral area. Following satisfactory hemostasis, a silver sponge was applied and with a bridge to the right lateral aspect of the hip, wound VAC was applied in place. The heel ulcer was debrided sharply with scissors. Venelex ointment will be ordered. JOB# [id number] MARJ
--- NOTE | 2017-09-19 17:25 | Infectious Disease Prog Note ---
Infectious Disease Subjective - Review of Systems Service Date: 09/19/17 Subjective: No new change, no fever,. Infectious Disease Objective - Results Result Diagrams: 09/18/17 06:25 09/19/17 07:20 Recent Labs: Laboratory Last Values WBC 10.3 Th/cmm (4.8-10.8) 09/18/17 06:25 RBC 3.48 Mil/cmm (3.80-5.80) L 09/18/17 06:25 Hgb 10.7 gm/dL (12-16) L 09/18/17 06:25 Hct 31.5 % (41.0-60) L 09/18/17 06:25 MCV 90.6 fl (80-99) 09/18/17 06:25 MCH 30.9 pg (27.0-31.0) 09/18/17 06:25 MCHC Differential 34.1 pg (28.0-36.0) 09/18/17 06:25 RDW 15.1 % (11.5-20.0) 09/18/17 06:25 Plt Count 336 Th/cmm (150-400) 09/18/17 06:25 MPV 7.7 fl 09/18/17 06:25 Neutrophils % 77.3 % (40.0-80.0) 09/18/17 06:25 Lymphocytes % 16.2 % (20.0-50.0) L 09/18/17 06:25 Monocytes % 4.7 % (2.0-10.0) 09/18/17 06:25 Eosinophils % 0.4 % (0.0-5.0) 09/18/17 06:25 Basophils % 1.4 % (0.0-2.0) 09/18/17 06:25 PT 11.8 SECONDS (9.5-11.5) H 09/19/17 07:20 INR 1.12 (0.5-1.4) 09/19/17 07:20 PTT (Actin FS) 30.1 SECONDS (26.0-38.0) 09/19/17 07:20 Sodium 135 mEq/L (136-145) L 09/19/17 07:20 Potassium 3.6 mEq/L (3.5-5.1) 09/19/17 07:20 Chloride 104 mEq/L (98-107) 09/19/17 07:20 Carbon Dioxide 24.5 mEq/L (21.0-31.0) 09/19/17 07:20 Anion Gap 10.1 (7.0-16.0) 09/19/17 07:20 BUN 22 mg/dL (7-25) 09/19/17 07:20 Creatinine 1.4 mg/dL (0.7-1.3) H 09/19/17 07:20 Est GFR ( Amer) TNP 09/19/17 07:20 Est GFR (Non-Af Amer) TNP 09/19/17 07:20 BUN/Creatinine Ratio 15.7 09/19/17 07:20 Glucose 87 mg/dL (70-105) 09/19/17 07:20 POC Glucose 90 MG/DL (70 - 105) 09/19/17 16:56 Whole Bld Lactic Acid 0.74 mmol/L (0.60-1.99) 09/16/17 20:08 Calcium 8.2 mg/dL (8.6-10.3) L 09/19/17 07:20 Total Bilirubin 0.6 mg/dL (0.3-1.0) 09/19/17 07:20 AST 32 U/L (13-39) 09/19/17 07:20 ALT 36 U/L (7-52) 09/19/17 07:20 Alkaline Phosphatase 188 U/L (34-104) H 09/19/17 07:20 Total Protein 5.3 gm/dL (6.0-8.3) L 09/19/17 07:20 Albumin 2.5 gm/dL (4.2-5.5) L 09/19/17 07:20 Globulin 2.8 gm/dL 09/19/17 07:20 Albumin/Globulin Ratio 0.9 (1.0-1.8) L 09/19/17 07:20 Urine Source [place] 09/16/17 20:00 Urine Color YELLOW 09/16/17 20:00 Urine Clarity CLOUDY (CLEAR) 09/16/17 20:00 Urine pH 5.5 (4.6 - 8.0) 09/16/17 20:00 Ur Specific [place] 1.015 (1.005-1.030) 09/16/17 20:00 Urine Protein 30 mg/dL (NEGATIVE) H 09/16/17 20:00 Urine Glucose (UA) NEGATIVE mg/dL (NEGATIVE) 09/16/17 20:00 Urine Ketones NEGATIVE mg/dL (NEGATIVE) 09/16/17 20:00 Urine Blood MODERATE (NEGATIVE) H 09/16/17 20:00 Urine Nitrate POSITIVE (NEGATIVE) H 09/16/17 20:00 Urine Bilirubin NEGATIVE (NEGATIVE) 09/16/17 20:00 Urine Urobilinogen 0.2 E.U./dL (0.2 - 1.0) 09/16/17 20:00 Ur Leukocyte Esterase LARGE (NEGATIVE) H 09/16/17 20:00 Urine RBC 10-25 /hpf (0-5) H 09/16/17 20:00 Urine WBC >100 /hpf (0-5) H 09/16/17 20:00 Ur Epithelial Cells FEW /lpf (FEW) 09/16/17 20:00 Urine Bacteria MANY /hpf (NONE SEEN) H 09/16/17 20:00 Urine Yeast MODERATE /hpf (NONE SEEN) H 09/16/17 20:00 - Physical Exam Vitals and I&O: Vital Signs Temp 98.4 F 09/19/17 15:58 Pulse 79 09/19/17 15:58 Resp 20 09/19/17 15:58 BP 115/66 09/19/17 15:58 Pulse Ox 93 09/19/17 15:58 Intake & Output 09/18/17 09/19/17 09/19/17 18:59 06:59 18:59 Intake Total 650 200 Output Total 400 150 Balance 250 50 Weight (lbs) 78.018 kg 78.018 kg Intake: Intake, IV Amount 150 200 Fluconazole 100mg/50mL 50 100 mg In 50 ml @ 50 mls/ hr IV Q24H [facility] Rx#: [id number] Piperacillin Sodium/ 100 200 Tazobact 4.5 gm In Sodium Chloride 0.9% 100 ml @ 100 mls/hr IV Q8H [facility] Rx# :[id number] Oral 500 Output: Urine 400 150 Other: # Bowel Movements 0 Stool Characteristics Liquid Brown Green Active Medications: Current Medications Ascorbic Acid (Vitamin C) 500 mg PO DAILY [facility] Stop: 11/19/17 08:59 [place] Oil/[place] Balsam/Trypsin (Venelex) 1 appl TP DAILY [facility] Stop: 11/18/17 08:59 Last Admin: 09/19/17 09:07 Dose: Not Given Dextrose (D50w) 50 ml IVP PRN PRN PRN Reason: Blood Glucose less than 70 Stop: 11/18/17 09:07 Heparin Sodium (Porcine) (Heparin) 5,000 units SUBQ Q12HR [facility] Stop: 11/16/17 20:59 Last Admin: 09/19/17 08:26 Dose: Not Given Piperacillin Sod/Tazobactam (Sod 4.5 gm/ Sodium Chloride) 100 mls @ 100 mls/hr IV Q8H [facility] Stop: 09/24/17 10:59 Last Admin: 09/19/17 10:37 Dose: 100 mls/hr Fluconazole (Diflucan) 100 mg in 50 mls @ 50 mls/hr IV Q24H [facility] Stop: 11/16/17 12:59 Last Admin: 09/19/17 14:55 Dose: 50 mls/hr Dextrose/Sodium Chloride (D5-0.45ns) 1,000 mls @ 50 mls/hr IV .Q20H [facility] Stop: 11/18/17 09:14 Last Admin: 09/19/17 10:30 Dose: 50 mls/hr Sodium Chloride (Nacl 0.9%) 1,000 mls @ 100 mls/hr IV .Q10H [facility] Stop: 09/20/17 10:44 Lactobacillus Rhamnosus (Culturelle 15b) 1 each PO DAILY [facility] Stop: 11/19/17 08:59 Lorazepam (Ativan) 0.5 mg PO Q4HR PRN; Protocol PRN Reason: Anxiety Stop: 11/17/17 16:36 Miscellaneous (Vte Chemical Prophylaxis Screen/ Admission) 1 ea MC PRN PRN PRN Reason: PROTOCOL Stop: 11/16/17 14:29 Miscellaneous (Probiotic Screen) 1 ea MC PRN PRN PRN Reason: PROTOCOL Stop: 11/18/17 14:29 Morphine Sulfate (Morphine) 1 mg IVP Q4HR PRN PRN Reason: Pain (Moderate) Stop: 09/20/17 10:43 Ondansetron HCl (Zofran) 4 mg IV UD PRN PRN Reason: Nausea / Vomiting Stop: 09/20/17 10:43 Zinc Sulfate (Zinc Sulfate) 220 mg PO DAILY [facility] Stop: 11/19/17 08:59 General: no acute distress, well developed, well nourished HEENT: atraumatic, normocephalic, PERRLA, EOMI Neck: supple, no thyromegaly, no lymphadenopathy Cardiovascular: S1S2, regular Lungs: clear to auscultation bilaterally, clear to percussion Abdomen: soft, mass (ok.), no tender, no distended Extremities: no cyanosis, no clubbing Neurological: awake, alert Skin: other (sacral wound.) - Procedures Procedures: Procedures Procedure Code Date BYPASS DESCENDING COLON TO CUTANEOUS, OPEN APPROACH [id number] 08/30/17 EXCISION OF BACK SUBCU/FASCIA, OPEN APPROACH [id number] 08/30/17 TRANSFUSE NONAUT RED BLOOD CELLS IN PERIPH VEIN, PERC [id number] 08/30/17 Infectious Disease Assmt/Plan - Problem List Patient Problems: All Active Problems REDNESS TO COLOSTOMY SITE (Acute) - Assessment Assessment: IMPRESSION: 1. Leukocytosis. 2. Urinary tract infection. 3. Abdominal cellulitis around the colostomy site, improving. 4. Sacral decubitus ulcer, stage 4. 5. Chronic obstructive pulmonary disease. - Plan Plan: change antibiotics to invanz and diflucan po. Nutritional Asmnt/Malnutr-PDOC - Dietary Evaluation Malnutrition Findings (Please click <Entered> for more info): Nutritional Asmnt/Malnutrition Start: 09/18/17 17: 42 Text: Status: Complete Freq: Document 09/18/17 17:42 HEN (Rec: 09/18/17 17:58 [email or web address]) Nutritional Asmnt/Malnutrition Patient General Information Nutritional Screening High Risk Consult Diagnosis UTI, malfunctioning colostomy Pertinent Medical Hx/Surgical Hx dementia, PNA, sepsis, nonhealing sacral decubitus ulcer stage 4 Subjective Information Consult received for wounds. Pt seen sleeping at time of visit. Per record, PO intake 25-50% on 09/17. Per nurse note 09/18, doctor signed surgery consent for debridement of wound. Current Diet Order/ Nutrition Support soft bland Pertinent Medications piperacillin Pertinent Labs 09/18 Ca 8.5, Alb 2.6 Nutritional Hx/Data Height 1.78 m Height (Calculated Centimeters) 177.8 Current Weight (lbs) 78.018 kg Weight (Calculated Kilograms) 78.0 Weight (Calculated Grams) 23060.9 [place] Body Weight 166 Body Mass Index (BMI) 24.7 Weight Status Approriate GI Symptoms GI Symptoms None Last BM 09/18 liquid brown green Difficult in: None Skin Integrity/Comment: pressure area to sacrum, decubitus to right lower foot, bruise to left lower foot Current %PO Poor (25-49%) Estimated Nutritional Goals BEE in Kcals: Using Current wt Calories/Kcals/Kg 25-30 Kcals Calculated 7030-8896 Protein: Using Current wt Protein g/k-1.2 Protein Calculated 78-94 Fluid: ml 1950-2340ml (1ml/kcal) Nutritional Problem 2. Problem Problem inadequate food intake Etiology possible mental status and poor appetite Signs/Symptoms: PO intake 25-50% 1. Problem Problem increased nutrition needs ( calorie and protein) Etiology increased metabolic demand for wound healing Signs/Symptoms: decubitus wound Intervention/Recommendation Comments 1. Continue with current diet as ordered. Recommend Vit C and zinc for wound healing. If PO intake continue low, will consider nutrition suppplement . 2. Monitor PO intake, wt, labs and skin integrity 3. F/U as high risk in 2-3 days, 3/2-3/3 Expected Outcomes/Goals Expected Outcomes/Goals 1. PO intake to meet at least 75% of nutritional needs. 2. Wt stability, skin to remain intact, labs to approach WNL.
--- NOTE | 2017-09-19 19:01 | Internal Medicine Prog Note ---
Internal Medicine Objective - Results Result Diagrams: 09/18/17 06:25 09/19/17 07:20 Recent Labs: Laboratory Last Values WBC 10.3 Th/cmm (4.8-10.8) 09/18/17 06:25 RBC 3.48 Mil/cmm (3.80-5.80) L 09/18/17 06:25 Hgb 10.7 gm/dL (12-16) L 09/18/17 06:25 Hct 31.5 % (41.0-60) L 09/18/17 06:25 MCV 90.6 fl (80-99) 09/18/17 06:25 MCH 30.9 pg (27.0-31.0) 09/18/17 06:25 MCHC Differential 34.1 pg (28.0-36.0) 09/18/17 06:25 RDW 15.1 % (11.5-20.0) 09/18/17 06:25 Plt Count 336 Th/cmm (150-400) 09/18/17 06:25 MPV 7.7 fl 09/18/17 06:25 Neutrophils % 77.3 % (40.0-80.0) 09/18/17 06:25 Lymphocytes % 16.2 % (20.0-50.0) L 09/18/17 06:25 Monocytes % 4.7 % (2.0-10.0) 09/18/17 06:25 Eosinophils % 0.4 % (0.0-5.0) 09/18/17 06:25 Basophils % 1.4 % (0.0-2.0) 09/18/17 06:25 PT 11.8 SECONDS (9.5-11.5) H 09/19/17 07:20 INR 1.12 (0.5-1.4) 09/19/17 07:20 PTT (Actin FS) 30.1 SECONDS (26.0-38.0) 09/19/17 07:20 Sodium 135 mEq/L (136-145) L 09/19/17 07:20 Potassium 3.6 mEq/L (3.5-5.1) 09/19/17 07:20 Chloride 104 mEq/L (98-107) 09/19/17 07:20 Carbon Dioxide 24.5 mEq/L (21.0-31.0) 09/19/17 07:20 Anion Gap 10.1 (7.0-16.0) 09/19/17 07:20 BUN 22 mg/dL (7-25) 09/19/17 07:20 Creatinine 1.4 mg/dL (0.7-1.3) H 09/19/17 07:20 Est GFR ( Amer) TNP 09/19/17 07:20 Est GFR (Non-Af Amer) TNP 09/19/17 07:20 BUN/Creatinine Ratio 15.7 09/19/17 07:20 Glucose 87 mg/dL (70-105) 09/19/17 07:20 POC Glucose 90 MG/DL (70 - 105) 09/19/17 16:56 Whole Bld Lactic Acid 0.74 mmol/L (0.60-1.99) 09/16/17 20:08 Calcium 8.2 mg/dL (8.6-10.3) L 09/19/17 07:20 Total Bilirubin 0.6 mg/dL (0.3-1.0) 09/19/17 07:20 AST 32 U/L (13-39) 09/19/17 07:20 ALT 36 U/L (7-52) 09/19/17 07:20 Alkaline Phosphatase 188 U/L (34-104) H 09/19/17 07:20 Total Protein 5.3 gm/dL (6.0-8.3) L 09/19/17 07:20 Albumin 2.5 gm/dL (4.2-5.5) L 09/19/17 07:20 Globulin 2.8 gm/dL 09/19/17 07:20 Albumin/Globulin Ratio 0.9 (1.0-1.8) L 09/19/17 07:20 Urine Source [place] 09/16/17 20:00 Urine Color YELLOW 09/16/17 20:00 Urine Clarity CLOUDY (CLEAR) 09/16/17 20:00 Urine pH 5.5 (4.6 - 8.0) 09/16/17 20:00 Ur Specific [place] 1.015 (1.005-1.030) 09/16/17 20:00 Urine Protein 30 mg/dL (NEGATIVE) H 09/16/17 20:00 Urine Glucose (UA) NEGATIVE mg/dL (NEGATIVE) 09/16/17 20:00 Urine Ketones NEGATIVE mg/dL (NEGATIVE) 09/16/17 20:00 Urine Blood MODERATE (NEGATIVE) H 09/16/17 20:00 Urine Nitrate POSITIVE (NEGATIVE) H 09/16/17 20:00 Urine Bilirubin NEGATIVE (NEGATIVE) 09/16/17 20:00 Urine Urobilinogen 0.2 E.U./dL (0.2 - 1.0) 09/16/17 20:00 Ur Leukocyte Esterase LARGE (NEGATIVE) H 09/16/17 20:00 Urine RBC 10-25 /hpf (0-5) H 09/16/17 20:00 Urine WBC >100 /hpf (0-5) H 09/16/17 20:00 Ur Epithelial Cells FEW /lpf (FEW) 09/16/17 20:00 Urine Bacteria MANY /hpf (NONE SEEN) H 09/16/17 20:00 Urine Yeast MODERATE /hpf (NONE SEEN) H 09/16/17 20:00 - Physical Exam Vitals and I&O: Vital Signs Temp 97.3 F 09/19/17 17:52 Pulse 72 09/19/17 17:52 Resp 18 09/19/17 17:52 BP 116/64 09/19/17 17:52 Pulse Ox 95 09/19/17 17:52 Intake & Output 09/19/17 09/19/17 09/20/17 06:59 18:59 06:59 Intake Total 200 720 Output Total 150 300 Balance 50 420 Weight (lbs) 78.018 kg 78.018 kg Intake: Intake, IV Amount 200 Piperacillin Sodium/ 200 Tazobact 4.5 gm In Sodium Chloride 0.9% 100 ml @ 100 mls/hr IV Q8H [facility] Rx# :[id number] Oral 720 Output: Urine 150 300 Other: # Bowel Movements 0 1 Stool Characteristics Liquid Brown Green Active Medications: Current Medications Ascorbic Acid (Vitamin C) 500 mg PO DAILY [facility] Stop: 11/19/17 08:59 [place] Oil/Uzbek Balsam/Trypsin (Venelex) 1 appl TP DAILY [facility] Stop: 11/18/17 08:59 Last Admin: 09/19/17 09:07 Dose: Not Given Dextrose (D50w) 50 ml IVP PRN PRN PRN Reason: Blood Glucose less than 70 Stop: 11/18/17 09:07 Heparin Sodium (Porcine) (Heparin) 5,000 units SUBQ Q12HR [facility] Stop: 11/16/17 20:59 Last Admin: 09/19/17 08:26 Dose: Not Given Piperacillin Sod/Tazobactam (Sod 4.5 gm/ Sodium Chloride) 100 mls @ 100 mls/hr IV Q8H [facility] Stop: 09/24/17 10:59 Last Admin: 09/19/17 10:37 Dose: 100 mls/hr Fluconazole (Diflucan) 100 mg in 50 mls @ 50 mls/hr IV Q24H [facility] Stop: 11/16/17 12:59 Last Admin: 09/19/17 14:55 Dose: 50 mls/hr Dextrose/Sodium Chloride (D5-0.45ns) 1,000 mls @ 50 mls/hr IV .Q20H [facility] Stop: 11/18/17 09:14 Last Admin: 09/19/17 10:30 Dose: 50 mls/hr Sodium Chloride (Nacl 0.9%) 1,000 mls @ 100 mls/hr IV .Q10H [facility] Stop: 09/20/17 10:44 Lactobacillus Rhamnosus (Culturelle 15b) 1 each PO DAILY [facility] Stop: 11/19/17 08:59 Lorazepam (Ativan) 0.5 mg PO Q4HR PRN; Protocol PRN Reason: Anxiety Stop: 11/17/17 16:36 Miscellaneous (Vte Chemical Prophylaxis Screen/ Admission) 1 ea PRN PRN PRN Reason: PROTOCOL Stop: 11/16/17 14:29 Miscellaneous (Probiotic Screen) 1 ea PRN PRN PRN Reason: PROTOCOL Stop: 11/18/17 14:29 Morphine Sulfate (Morphine) 1 mg IVP Q4HR PRN PRN Reason: Pain (Moderate) Stop: 09/20/17 10:43 Ondansetron HCl (Zofran) 4 mg IV UD PRN PRN Reason: Nausea / Vomiting Stop: 09/20/17 10:43 Zinc Sulfate (Zinc Sulfate) 220 mg PO DAILY [facility] Stop: 11/19/17 08:59 - Procedures Procedures: Procedures Procedure Code Date BYPASS DESCENDING COLON TO CUTANEOUS, OPEN APPROACH [id number] 08/30/17 EXCISION OF BACK SUBCU/FASCIA, OPEN APPROACH 4RF33NM 08/30/17 TRANSFUSE NONAUT RED BLOOD CELLS IN PERIPH VEIN, PERC 30630Y9 08/30/17 Nutritional Asmnt/Malnutr-PDOC - Dietary Evaluation Malnutrition Findings (Please click <Entered> for more info): Nutritional Asmnt/Malnutrition Start: 09/18/17 17: 42 Text: Status: Complete Freq: Document 09/18/17 17:42 AVIS (Rec: 09/18/17 17:58 AVISTGH CRYSTAL [id number]) Nutritional Asmnt/Malnutrition Patient General Information Nutritional Screening High Risk Consult Diagnosis UTI, malfunctioning colostomy Pertinent Medical Hx/Surgical Hx dementia, PNA, sepsis, nonhealing sacral decubitus ulcer stage 4 Subjective Information Consult received for wounds. Pt seen sleeping at time of visit. Per record, PO intake 25-50% on 09/17. Per nurse note 09/18, doctor signed surgery consent for debridement of wound. Current Diet Order/ Nutrition Support soft bland Pertinent Medications piperacillin Pertinent Labs 09/18 Ca 8.5, Alb 2.6 Nutritional Hx/Data Height 1.78 m Height (Calculated Centimeters) 177.8 Current Weight (lbs) 78.018 kg Weight (Calculated Kilograms) 78.0 Weight (Calculated Grams) 92323.9 [place] Body Weight 166 Body Mass Index (BMI) 24.7 Weight Status Approriate GI Symptoms GI Symptoms None Last BM 09/18 liquid brown green Difficult in: None Skin Integrity/Comment: pressure area to sacrum, decubitus to right lower foot, bruise to left lower foot Current %PO Poor (25-49%) Estimated Nutritional Goals BEE in Kcals: Using Current wt Calories/Kcals/Kg 25-30 Kcals Calculated 3900-4652 Protein: Using Current wt Protein g/k-1.2 Protein Calculated 78-94 Fluid: ml 1950-2340ml (1ml/kcal) Nutritional Problem 2. Problem Problem inadequate food intake Etiology possible mental status and poor appetite Signs/Symptoms: PO intake 25-50% 1. Problem Problem increased nutrition needs ( calorie and protein) Etiology increased metabolic demand for wound healing Signs/Symptoms: decubitus wound Intervention/Recommendation Comments 1. Continue with current diet as ordered. Recommend Vit C and zinc for wound healing. If PO intake continue low, will consider nutrition suppplement . 2. Monitor PO intake, wt, labs and skin integrity 3. F/U as high risk in 2-3 days, 3/2-3/3 Expected Outcomes/Goals Expected Outcomes/Goals 1. PO intake to meet at least 75% of nutritional needs. 2. Wt stability, skin to remain intact, labs to approach WNL.
[2017-09-20] MEDS ORDERED: Lactobacillus Rhamnosus GG 15 Billion CFU CAP.SPRINK PO SCH (09:00)
--- NOTE | 2017-09-20 15:53 | Pathology Report ---
[id number] Collection Date: 09/19/2017 Surgeon: Dr. Courtney Bacon Specimen Description: Bilateral heel ulcers. Gross Description: Received in formalin are three thin excisions of rodríguez-gonzalez, necrotic-appearing skin and soft tissue ranging from 0.8 to 1.5 cm in greatest dimension. Straightener And Aligner sections are submitted in one cassette. Microscopic Description: The histologic sections show ulcerated, necrotic-appearing skin and soft tissue showing areas of suppurative inflammation, consisting of large collections of neutrophils with a degenerated and necrotic background. Diagnosis: Ulcerated, necrotic skin and soft tissue consistent with debridement, bilateral heel ulcers. [facility]# [id number]
--- NOTE | 2017-09-20 17:21 | Discharge Summary ---
DATE OF DISCHARGE: 09/19/2017 The patient was admitted on 09/16/2017. The patient was discharged on 09/19/2017 at [facility], back to [facility], custodial. Initial diagnoses; leukocytosis, UTI, abdominal cellulitis, status post colostomy site improved and sacral decubiti and chronic COPD. The patient was given Zosyn and Diflucan and the patient improved. The patient was seen by Dr. Lr and the patient was in stable condition on 09/19/2017 with final diagnosis of colostomy site cellulitis, improving; UTI, improving; sacral decubiti type 4; and chronic COPD was made. The patient was sent back to [place] with IV antibiotics with Diflucan and Levaquin and I will follow the patient there. CONDITION AT TIME OF DISCHARGE: Stable. ACTIVITY: As tolerated. MEDICATIONS: See the reconciliation sheet as well as diet and activity. JOB# [id number]
== END 2017-09-19 19:04 | disposition home or self-care (01) | DRG 356 ==
LOC: ER 17:48 → MSI 22:00 → TELE 09-17 10:19
PROVIDERS: ADMIT Internal Medicine Infectious Disease; ATTEND Internal Medicine Infectious Disease
PROC: 0JB70ZZ Excision of Back Subcutaneous Tissue and Fascia, Open Approach (ICD-10-PCS; principal; 2017-09-19)
PROC: 0HBMXZZ Excision of Right Foot Skin, External Approach (ICD-10-PCS; 2017-09-19)
PROC: 0HBNXZZ Excision of Left Foot Skin, External Approach (ICD-10-PCS; 2017-09-19)
DX: K94.02 Colostomy infection (principal); L89.154 Pressure ulcer of sacral region, stage 4; G82.20 Paraplegia, unspecified; L03.311 Cellulitis of abdominal wall; F33.9 Major depressive disorder, recurrent, unspecified; N39.0 Urinary tract infection, site not specified; L89.622 Pressure ulcer of left heel, stage 2; L89.612 Pressure ulcer of right heel, stage 2; G30.9 Alzheimer's disease, unspecified; F02.80 Dementia in other diseases classified elsewhere, unspecified severity, without behavioral disturbance, psychotic disturbance, mood disturbance, and anxiety; J44.9 Chronic obstructive pulmonary disease, unspecified; Y83.8 Other surgical procedures as the cause of abnormal reaction of the patient, or of later complication, without mention of misadventure at the time of the procedure; Y92.89 Other specified places as the place of occurrence of the external cause; Z74.01 Bed confinement status
CPT/HCPCS: 36415-UA; 71045-TC; 80053-TC; 81001-TC; 82948-90; 83605; 85025-TC; 85610-TC; 87070-90; 87075-90; 87086-90; 87205-90; 93005; J1644; J2543; J2704; J3370; V2790; Z7610

== ENCOUNTER 2018-02-27 12:24 | Inpatient (IN) | payer MEDICARE, MEDICAID ==
--- NOTE | 2018-02-27 12:41 | ED Physician Chart ---
ED Chief Complaint/HPI - Patient Information Date Seen:: 02/27/18 Time Seen:: 12:30 Chief Complaint:: hematuria History of Present Illness:: Hematuria was noted in the patient's Roberto catheter this morning. The Roberto catheter was replaced and again hematuria was noted. Patient is confused so he may have pulled on his Roberto catheter. Allergies:: Allergies Allergy/AdvReac Type Severity Reaction Status Date / Time No Known Allergies Allergy Verified 08/30/17 06:02 Historian:: Patient, EMS Review:: Transfer documents Reviewed ED Review of Systems - Review of Systems General/Constitutional: No fever, No chills, No weight loss, No weakness, No diaphoresis, No edema, No loss of appetite Skin: No skin lesions, No rash, No bruising Head: No headache, No light-headedness Eyes: No loss of vision, No pain, No diplopia ENT: No earache, No nasal drainage, No sore throat, No tinnitus Neck: No neck pain, No swelling, No thyromegaly, No stiffness, No mass noted Cardio Vascular: No chest pain, No palpitations, No PND, No orthopnea, No edema Pulmonary: No SOB, No cough, No sputum, No wheezing GI: No nausea, No vomiting, No diarrhea, No pain, No melena, No hematochezia, No constipation, No hematemesis G/U: No dysuria, No frequency, Hematuria Musculoskeletal: No bone or joint pain, No back pain, No muscle pain Endocrine: No polyuria, No polydipsia Psychiatric: No prior psych history, No depression, No anxiety, No suicidal ideation Hematopoietic: No bruising, No lymphadenopathy Allergic/Immuno: No urticaria, No angioedema Neurological: No syncope, No focal symptoms, No weakness, No paresthesia, No headache, No seizure, No dizziness, No confusion, No vertigo ED Past Medical History - Past Medical History Past Medical History: HTN, CHF, Asthma/COPD, Dementia, Other (obesity chronic kidney disease; paraplegia; sacral decubitus; status post pulmonary edema) Family History: Other (unavailable) Social History: Care Facility, Other (former smoker) Surgical History: other (colostomy) Psychiatricy History: Dementia Medication: Reviewed Family Medical History - Family Member Mother History Unknown: Yes ED Physical Exam - Physical Examination General/Constitutional: Awake, Alert Head: Atraumatic Eyes: Lids, conjuctiva normal Skin: Nl inspection, No rash ENMT: External ears, nose nl, Lips, teeth, gums nl Neck: No nuchal rigidity Respiratory: Nl effort/Exclusion, Clear to Auscultation Cardio Vascular: RRR, No murmur, gallop, rubs, NL S1 S2 GI: No tenderness/rebounding/guarding : No CVA tenderness Extremities: Normal digits & nails Neuro/Psych: No focal deficits ED Labs/Radiology/EKG Results - Lab Results Results: Laboratory Results - last 24 hr 02/27/18 02/27/18 02/27/18 12:50 12:50 12:50 WBC 12.6 H RBC 4.56 Hgb 13.5 Hct 40.1 L MCV 88.1 MCH 29.6 MCHC Differential 33.6 RDW 14.6 Plt Count 357 MPV 7.0 Add Manual Diff YES Band Neutrophils % 8 Neutrophils (Manual) 78 Lymphocytes 11 L Monocytes 2 Basophils 1 Platelet Estimate ADEQUATE PT 10.8 INR 1.04 PTT (Actin FS) 27.0 Sodium 131 L Potassium 3.7 Chloride 102 Carbon Dioxide 20.5 L Anion Gap 12.2 BUN 21 Creatinine 0.8 Est GFR ( Amer) TNP Est GFR (Non-Af Amer) TNP BUN/Creatinine Ratio 26.3 Glucose 94 Calcium 9.9 ED Assessment - Assessment General Assessment: Patient's urine is reddish but not grossly bloody. Patient's hematuria may well be a result of patient's pulling on his Roberto as he has dementia. Injury to the prostate and/or urethra must be considered. ED Septic Shock - . Is Septic Shock (SBP<90, OR Lactate>4 mmol\L) present?: No ED Reassessment (Disposition) - Reassessment Reassessment Condition:: Unchanged - Diagnosis Diagnosis:: Hematuria; dementia - Patient Disposition Admitted to:: Med/Surg Spoke to:: Elisha Huizar Admitting Medical Physician:: Elisha Huizar Condition at Disposition:: Stable, Unchanged
[2018-02-27 13:02] LABS: HEMATOCRIT 40.1 % (41.0-60); HEMOGLOBIN 13.5 gm/dL (12-16); MEAN CELL VOLUME 88.1 fl (80-99); MEAN CORPUSCULAR HEMOGLOBIN 29.6 pg (27.0-31.0); MEAN CORPUSCULAR HGB CONC 33.6 pg (28.0-36.0); PLATELET COUNT 357 Th/cmm (150-400); RED BLOOD COUNT 4.56 Mil/cmm (3.80-5.80); RED CELL DISTRIBUTION WIDTH 14.6 % (11.5-20.0); WHITE BLOOD COUNT 12.6 Th/cmm (4.8-10.8)
[2018-02-27 13:17] LABS: BAND NEUTROPHILE 8 % (0-10); BASOPHIL 1 % (0-3); LYMPHOCYTE 11 % (20-50); MONOCYTE 2 % (2-10); NEUTROPHILS 78 % (40-80); PLATELET ESTIMATE ADEQUATE (NORMAL)
[2018-02-27 13:18] LABS: ANION GAP 12.2 (7.0-16.0); BUN - UREA NITROGEN 21 mg/dL (7-25); CALCIUM SERUM 9.9 mg/dL (8.6-10.3); CARBON DIOXIDE 20.5 mEq/L (21.0-31.0); CHLORIDE 102 mEq/L (98-107); CREATININE - SERUM 0.8 mg/dL (0.7-1.3); GLUCOSE 94 mg/dL (70-105); INR 1.04 (0.5-1.4); POTASSIUM SERUM 3.7 mEq/L (3.5-5.1); PROTHROMBIN TIME (TEST) 10.8 SECONDS (9.5-11.5); SODIUM SERUM 131 mEq/L (136-145)
[2018-02-27 16:28] VITALS: BP 135/68
[2018-02-27] MEDS ORDERED: Acetaminophen 500 MG TAB PO PRN (19:51)
[2018-02-27] MEDS ORDERED: Magnesium Hydroxide (MOM) 30 mL UDC PO PRN (19:51)
--- NOTE | 2018-02-27 21:48 | History & Physical ---
ADMIT DATE: 02/27/2018 HISTORY OF PRESENT ILLNESS: The patient is very well known to me. The patient is a resident of [facility]. Apparently, he was pulling on his Roberto catheter and he pulled it out and had hematuria. Roberto was replaced, but still had lot of hematuria. The patient came to the Emergency Room, he was evaluated and he was admitted for a Urology consult. The patient has a history of multiple problems including history of hypertension, CVA, history of congestive heart failure, dementia, and history of chronic kidney disease, paraplegia, sacral decubiti, status post pulmonary edema in the past. The patient also has a history of colostomy. The patient is very agitated and very aggressive. REVIEW OF SYSTEMS: The patient is complaining of pain near the urethra and the patient is having hematuria. PAST MEDICAL HISTORY: As enumerated above, history of hypertension, asthma, CHF, dementia, and sacral decubiti. PHYSICAL EXAMINATION: GENERAL: The patient is alert, awake. HEENT: The patient is atraumatic, but complaining of severe pain. HEAD: Normal. ENT: Normal. NECK: Supple, nontender. LUNGS: Clear. CARDIOVASCULAR SYSTEM: S1, S2 heard. ABDOMEN: Soft. Bowel sounds are heard. CENTRAL NERVOUS SYSTEM: Grossly normal. LABORATORY DATA: WBC was 12.6 and the urine was grossly hematuric. DIAGNOSES: Hematuria, probable traumatic; history of dementia; history of congestive heart failure; history of asthma; history of sacral decubiti; history of status post pulmonary edema and status post colostomy. PLAN: I will follow the patient. I will give him IV antibiotics and I will have ID doctor to see the patient as well as please also note the patient has hyponatremia. JOB# [id number]
[2018-02-28 06:26] LABS: INR 2.34 (0.5-1.4); PROTHROMBIN TIME (TEST) 23.4 SECONDS (9.5-11.5)
[2018-02-28 06:27] LABS: HEMATOCRIT 37.4 % (41.0-60); HEMOGLOBIN 13.2 gm/dL (12-16); MEAN CELL VOLUME 86.6 fl (80-99); MEAN CORPUSCULAR HEMOGLOBIN 30.5 pg (27.0-31.0); MEAN CORPUSCULAR HGB CONC 35.2 pg (28.0-36.0); MEAN PLATELET VOLUME 7.6 fl; PLATELET COUNT 322 Th/cmm (150-400); RED BLOOD COUNT 4.31 Mil/cmm (3.80-5.80); RED CELL DISTRIBUTION WIDTH 14.1 % (11.5-20.0)
[2018-02-28 06:47] LABS: ALB/GLOB RATIO 1.3 (1.0-1.8); ALBUMIN 3.5 gm/dL (4.2-5.5); ALKALINE PHOSPHATASE 38 U/L (34-104); ANION GAP 12.7 (7.0-16.0); BILIRUBIN,TOTAL 0.6 mg/dL (0.3-1.0); BUN - UREA NITROGEN 29 mg/dL (7-25); CALCIUM SERUM 9.8 mg/dL (8.6-10.3); CARBON DIOXIDE 20.8 mEq/L (21.0-31.0); CHLORIDE 102 mEq/L (98-107); CREATININE - SERUM 1.6 mg/dL (0.7-1.3); GLUCOSE 120 mg/dL (70-105); POTASSIUM SERUM 4.5 mEq/L (3.5-5.1); SGOT 13 U/L (13-39); SGPT/ALT 12 U/L (7-52); SODIUM SERUM 131 mEq/L (136-145); TOTAL PROTEIN,SERUM 6.2 gm/dL (6.0-8.3)
[2018-02-28 06:49] LABS: WHITE BLOOD COUNT 17.2 Th/cmm (4.8-10.8)
[2018-02-28 08:02] LABS: BAND NEUTROPHILE 10 % (0-10); BASOPHIL 0 % (0-3); EOSINOPHIL 0 % (0-5); LYMPHOCYTE 9 % (20-50); MONOCYTE 4 % (2-10); NEUTROPHILS 77 % (40-80)
[2018-02-28] MEDS ORDERED: [UNRECOGNIZED DRUG - OTHER] PO SCH (09:00)
[2018-02-28] MEDS ORDERED: Non-Formulary Item 1 EA (Cran/Vitc/Mannose/Fos/Bromeln [Uti-Stat Liquid] 30 ML) PO SCH (09:00)
[2018-02-28] MEDS: Multivitamin Tab PO SCH (09:33)
[2018-02-28] MEDS ORDERED: fentaNYL Citrate 100 mcg/2mL Vial ONE (12:29)
[2018-02-28] MEDS ORDERED: Propofol **SURGERY USE ONLY** 20 ML IV ONE (12:36)
[2018-02-28] MEDS ORDERED: Neostigmine 10mg/10mL Vial ONE (12:37)
[2018-02-28] MEDS ORDERED: Lidocaine 2% Gel 5 mL TP ONE (13:00)
[2018-02-28] MEDS ORDERED: STERILE WATER FOR IRRIGATION IR ONE (13:00)
[2018-02-28] MEDS ORDERED: Meperidine 50 mg/mL 1mL Syr ONE (14:07)
--- NOTE | 2018-02-28 16:42 | Operative Report ---
DATE OF SURGERY: 02/28/2018 PREOPERATIVE DIAGNOSES: Urinary retention and gross hematuria as well as sepsis. POSTOPERATIVE DIAGNOSES: Urinary retention and gross hematuria as well as sepsis and large bladder stone. SURGEON: Dr. Arron Almodovar. NAME OF PROCEDURE: Cystoscopy, removal of large bladder stone, fulguration of bleeders ANESTHESIA: General. INDICATIONS: The patient is a 77-year-old [facility] resident with significant dementia who was admitted with gross hematuria after pulling on the Roberto catheter. Multiple attempts to fix the catheter were unsuccessful; therefore, cystoscopy was recommended. He was also beginning to get septic with rising white count and temperatures and creatinine. FINDINGS: Cystoscopy revealed the urethra was open. The prostatic fossa is also open and there was no significant active bleeding, but the bladder was full of purulent urine. Some of this was sent for culture. Also, a large bladder stone was noted, maybe 1.5-2 cm in diameter yellowish with multiple small large bladder stones as well, which may be the cause of this infection and hematuria. These were removed by crushing them and washing them out one by one, pulling out some larger pieces with the forceps and some bleeding points on the bladder mucosa were fulgurated with no other problems or complications. Blood loss was less than 25 mL. There were no complications. PROCEDURE IN DETAIL: The patient was brought to the operating room, prepped and draped in the dorsal lithotomy position after general anesthesia was induced. After dilating the meatus, the bladder was examined with the 30 and 70-degree lenses and the stone was identified along with multiple smaller stones. The prostatic fossa was open and not bleeding, but there were few clots in the bladder along with very grossly purulent urine. This was irrigated out first and cultured and then the bladder stone was broken up with a biopsy forceps. At the same time, removing some larger pieces with the forceps. Smaller stone pieces and smaller stones were vigorously irrigated out of the bladder until small amount of dust material was left behind. Some bleeding points were noted on the posterior bladder wall that were then fulgurated using a Bugbee electrode. After adequate control and clean, irrigated bladder. A 3-way Roberto was introduced and connected to irrigation, more to treat the infection then the bleeding, which has stopped by now. Hopefully, the patient will not pull on the catheter again and should do well after that. JOB# [id number]
--- NOTE | 2018-02-28 17:20 | Consultation ---
DATE OF CONSULTATION: 02/28/2018 UROLOGY CONSULTATION REASON FOR CONSULTATION: Seen for gross hematuria. HISTORY OF PRESENT ILLNESS: The patient is a 77-year-old [facility] resident with advanced dementia and multiple medical problems as well as Roberto catheter dependency. Apparently, he pulled on the catheter and started bleeding at the [facility]. The catheter was changed, but the bleeding did not stop. He was sent to the Emergency Room here and admitted. Attempts to stop the bleeding by irrigation have been unsuccessful. Meanwhile, the patient's white count is going up and he has spiked a fever and his BUN and creatinine are rising. The patient is unable to provide any history, which is obtained from his chart. His medical history consists of hypertension and congestive heart failure. He has had a stroke and apparently, has paraplegia as well. He has dementia and has no family members who communicate with him. His daughter apparently was contacted today for the first time in 25 years and was willing to take legal custody, but this required some more time. He has a history of chronic renal disease. He has a history of sacral decubiti. He has had a colostomy as well. PAST SURGICAL HISTORY: Include colostomy and may be other procedures that we are not aware of. REVIEW OF SYSTEMS: The patient does not complain of anything besides the hematuria. All other systems are unremarkable, specifically no chest pain, coughing, shortness of breath, sore throat or difficulty swallowing, abdominal pain, vomiting or diarrhea. No headache or seizures. He has had fever, temperature spike to 102. HOME MEDICATIONS: Tylenol, vitamins, stool softeners, laxatives, tramadol and senna. ALLERGIES: None. PHYSICAL EXAMINATION: GENERAL: He is awake. He is disoriented. He is violent and abusive and needs restraints. He does not seem to be in any distress. VITAL SIGNS: Temperature 100, T-max last night 102.8, heart rate 98 and blood pressure 100/56. HEAD AND NECK: Normocephalic. Trachea is central. Pupils equal and reactive. No jaundice. Thyroid and lymph nodes not palpable. Carotid bruit absent. CHEST: Symmetrical. LUNGS: Clear. No rales or rhonchi. HEART: Sounds normal in sinus rhythm. No murmur. ABDOMEN: Soft. Difficult to examine. Does not relax. Colostomy in place. Unable to palpate the bladder adequately. GENITALIA: With Roberto, urine is bloody. RECTAL: Deferred. EXTREMITIES: Paraplegia. NEUROLOGIC: Paraplegia as well. LABORATORY DATA: White count up to 17.2 from 12.6 yesterday, hemoglobin 13.2, relatively stable and platelets 322. PT/INR has gone up suddenly to 2.3 from 1.0 yesterday. No etiology can be established. Sodium 131, carbon dioxide 20.8, BUN 29 and creatinine up from 0.8 to 1.6 today. Liver functions are normal except albumin is low at 3.5. IMPRESSION: 1. Roberto trauma related gross hematuria, needs a cystoscopy, clot evacuation and control of bleeding. We will proceed if we can get adequate consent from the conservator, family member or two independent physicians. We have been trying to do this since last night and have yet to be successful. 2. Dementia, requires ongoing restraints. 3. History of stroke and paraplegia. 4. History of congestive heart failure and pulmonary edema in the past. 5. History of chronic renal insufficiency and sacral decubiti; all contributing to multiple comorbidities and high risk. JOB# [id number]
[2018-03-01] MEDS: Multivitamin Tab PO SCH (08:54)
[2018-03-01 12:15] LABS: % BASOPHILS 1.4 % (0.0-2.0); % EOSINOPHILS 1.8 % (0.0-5.0); % LYMPHOCYTES 15.6 % (20.0-50.0); % MONOCYTES 5.8 % (2.0-10.0); % NEUTROPHILS 75.4 % (40.0-80.0); BASOPHILE ABSOLUTE 0.1 Th/cumm (0-0.2); EOSINOPHILE ABSOLUTE 0.2 Th/cmm (0.1-0.4); HEMATOCRIT 33.4 % (41.0-60); HEMOGLOBIN 11.4 gm/dL (12-16); LYMPHOCYTE ABSOLUTE 1.4 Th/cmm (1.5-3.0); MEAN CELL VOLUME 87.7 fl (80-99); MEAN CORPUSCULAR HGB CONC 34.2 pg (28.0-36.0); MEAN PLATELET VOLUME 6.9 fl; MONOCYTE ABSOLUTE 0.5 Th/cmm (0.3-1.0); PLATELET COUNT 253 Th/cmm (150-400); RED BLOOD COUNT 3.81 Mil/cmm (3.80-5.80); RED CELL DISTRIBUTION WIDTH 14.7 % (11.5-20.0); WHITE BLOOD COUNT 9.2 Th/cmm (4.8-10.8)
[2018-03-01 12:32] LABS: ALB/GLOB RATIO 1.3 (1.0-1.8); ALBUMIN 3.1 gm/dL (4.2-5.5); ALKALINE PHOSPHATASE 38 U/L (34-104); ANION GAP 9.7 (7.0-16.0); BILIRUBIN,TOTAL 0.5 mg/dL (0.3-1.0); BUN - UREA NITROGEN 29 mg/dL (7-25); CALCIUM SERUM 9.3 mg/dL (8.6-10.3); CARBON DIOXIDE 23.4 mEq/L (21.0-31.0); CHLORIDE 104 mEq/L (98-107); CREATININE - SERUM 0.9 mg/dL (0.7-1.3); GLUCOSE 99 mg/dL (70-105); POTASSIUM SERUM 4.1 mEq/L (3.5-5.1); SGOT 11 U/L (13-39); SGPT/ALT 12 U/L (7-52); SODIUM SERUM 133 mEq/L (136-145); TOTAL PROTEIN,SERUM 5.5 gm/dL (6.0-8.3)
--- NOTE | 2018-03-01 22:49 | Progress Notes ---
DATE: UROLOGY PROGRESS NOTE SUBJECTIVE: The patient is doing well after the cystoscopy and evacuation of purulent urine with clots and a large stone. White count has come down to normal levels and creatinine has returned to his baseline. Urine is clear and he is clinically stable. JOB# [id number]
--- NOTE | 2018-03-01 23:03 | Progress Notes ---
DATE: 03/01/2018 SUBJECTIVE: The patient was seen in his room. The patient is confused and easily gets agitated. The patient currently has bilateral soft wrist restraints for safety. Otherwise, the patient is in no acute distress. OBJECTIVE: VITAL SIGNS: Temperature 97.4, heart rate 72, respirations of 18, blood pressure 94/59, and 97% on room air. HEENT: Head is atraumatic and normocephalic. Eyes: Bilateral conjunctivae are clear. Bilateral pupils equal, round, reactive. NECK: Supple. No JVD. CARDIOVASCULAR: S1 and S2, without murmur. PULMONARY: Clear to auscultation. GASTROINTESTINAL: Soft and nontender without guarding. Positive bowel sounds. GENITOURINARY: The patient has a continuous bladder irrigation with clear urine output. MUSCULOSKELETAL: No clubbing. No cyanosis noted. ASSESSMENT: 1. Hematuria. 2. Status post cystoscopy. 3. Bladder stone. 4. Osteoarthritis. PLAN: We will continue current treatment. We will keep the patient inpatient. We will follow up with the urologist to monitor the patient's condition. Treatment plans were discussed with the patient's nurse. Treatment plans were discussed with Dr. Huizar. JOB# [id number]
[2018-03-02] MEDS: Multivitamin Tab PO SCH (10:49)
--- NOTE | 2018-03-02 11:40 | General Progress Note ---
Subjective - Review of Systems Events since last encounter: patient awake in no distress stable Objective - Results Result Diagrams: 03/01/18 12:01 03/01/18 12:01 Recent Labs: Laboratory Last Values WBC 9.2 Th/cmm (4.8-10.8) 03/01/18 12:01 RBC 3.81 Mil/cmm (3.80-5.80) 03/01/18 12:01 Hgb 11.4 gm/dL (12-16) L 03/01/18 12:01 Hct 33.4 % (41.0-60) L 03/01/18 12:01 MCV 87.7 fl (80-99) 03/01/18 12:01 MCH 30.0 pg (27.0-31.0) 03/01/18 12:01 MCHC Differential 34.2 pg (28.0-36.0) 03/01/18 12:01 RDW 14.7 % (11.5-20.0) 03/01/18 12:01 Plt Count 253 Th/cmm (150-400) 03/01/18 12:01 MPV 6.9 fl 03/01/18 12:01 Add Manual Diff YES 02/28/18 05:34 Neutrophils % 75.4 % (40.0-80.0) 03/01/18 12:01 Band Neutrophils % 10 % (0-10) 02/28/18 05:34 Lymphocytes % 15.6 % (20.0-50.0) L 03/01/18 12:01 Monocytes % 5.8 % (2.0-10.0) 03/01/18 12:01 Eosinophils % 1.8 % (0.0-5.0) 03/01/18 12:01 Basophils % 1.4 % (0.0-2.0) 03/01/18 12:01 Neutrophils (Manual) 77 % (40-80) 02/28/18 05:34 Lymphocytes 9 % (20-50) L 02/28/18 05:34 Monocytes 4 % (2-10) 02/28/18 05:34 Eosinophils 0 % (0-5) 02/28/18 05:34 Basophils 0 % (0-3) 02/28/18 05:34 Metamyelocytes % (0-0) 02/28/18 05:34 Platelet Estimate ADEQUATE (NORMAL) 02/27/18 12:50 PT 23.4 SECONDS (9.5-11.5) H 02/28/18 05:34 INR 2.34 (0.5-1.4) H 02/28/18 05:34 PTT (Actin FS) 36.9 SECONDS (26.0-38.0) 02/28/18 05:34 Sodium 133 mEq/L (136-145) L 03/01/18 12:01 Potassium 4.1 mEq/L (3.5-5.1) 03/01/18 12:01 Chloride 104 mEq/L (98-107) 03/01/18 12:01 Carbon Dioxide 23.4 mEq/L (21.0-31.0) 03/01/18 12:01 Anion Gap 9.7 (7.0-16.0) 03/01/18 12:01 BUN 29 mg/dL (7-25) H 03/01/18 12:01 Creatinine 0.9 mg/dL (0.7-1.3) 03/01/18 12:01 Est GFR ( Amer) TNP 03/01/18 12:01 Est GFR (Non-Af Amer) TNP 03/01/18 12:01 BUN/Creatinine Ratio 32.2 03/01/18 12:01 Glucose 99 mg/dL (70-105) 03/01/18 12:01 POC Glucose 122 MG/DL (70-105) H 02/28/18 05:24 Calcium 9.3 mg/dL (8.6-10.3) 03/01/18 12:01 Total Bilirubin 0.5 mg/dL (0.3-1.0) 03/01/18 12:01 AST 11 U/L (13-39) L 03/01/18 12:01 ALT 12 U/L (7-52) 03/01/18 12:01 Alkaline Phosphatase 38 U/L (34-104) 03/01/18 12:01 Total Protein 5.5 gm/dL (6.0-8.3) L 03/01/18 12:01 Albumin 3.1 gm/dL (4.2-5.5) L 03/01/18 12:01 Globulin 2.4 gm/dL 03/01/18 12:01 Albumin/Globulin Ratio 1.3 (1.0-1.8) 03/01/18 12:01 - Physical Exam Vitals and I&O: Vital Signs Temp 97.1 F 03/02/18 09:26 Pulse 72 03/02/18 09:26 Resp 18 03/02/18 09:26 BP 144/89 03/02/18 09:26 Pulse Ox 98 03/02/18 09:26 Intake & Output 03/01/18 03/02/18 03/02/18 18:59 06:59 18:59 Intake Total 300 330 Output Total 500 1200 Balance -200 -870 Weight (lbs) 68.492 kg 66.678 kg Intake: Oral 300 300 Albumin 30 Output: Urine 500 1200 Other: # Bowel Movements 0 0 Stool Characteristics Liquid Soft Weight Source Bedscale Bedscale Active Medications: Current Medications Acetaminophen (Tylenol) 650 mg PO Q4HR PRN PRN Reason: Pain (Mild) Stop: 04/28/18 19:50 Acetaminophen (Tylenol) 650 mg PO Q4HR PRN PRN Reason: Fever >101 Stop: 04/28/18 19:50 Acetaminophen (Tylenol Extra Strength) 1,000 mg PO Q4HR PRN PRN Reason: Pain (Moderate) Stop: 04/28/18 19:50 Last Admin: 02/27/18 23:30 Dose: 1,000 mg Ascorbic Acid (Vitamin C) 250 mg PO DAILY [facility] Stop: 04/29/18 08:59 Last Admin: 03/02/18 10:49 Dose: 250 mg Bisacodyl (Dulcolax 10 Mg Supp) 10 mg RC DAILY PRN PRN Reason: Constipation Stop: 04/28/18 19:50 Cholecalciferol (Vitamin D3) 5,000 iu PO DAILY [facility] Stop: 04/29/18 08:59 Last Admin: 03/02/18 10:49 Dose: 5,000 iu Docusate Sodium (Colace) 100 mg PO DAILY [facility] Stop: 04/29/18 08:59 Last Admin: 03/02/18 10:49 Dose: 100 mg Lorazepam (Ativan) 1 mg IVP Q4HR PRN; Protocol PRN Reason: Agitation Stop: 04/28/18 16:41 Magnesium Hydroxide (Milk Of Magnesia) 30 ml PO HS PRN PRN Reason: Constipation Stop: 04/28/18 19:50 Megestrol Acetate (Megace) 400 mg PO BID [facility] Stop: 04/29/18 08:59 Last Admin: 03/02/18 10:49 Dose: 400 mg Multivitamins/Vitamin C (Theragran) 1 tab PO DAILY [facility] Stop: 04/29/18 08:59 Last Admin: 03/02/18 10:49 Dose: 1 tab Senna (Senna) 8.6 mg PO HS [facility] Stop: 04/28/18 20:59 Last Admin: 03/01/18 20:42 Dose: 8.6 mg Tramadol HCl (Ultram) 50 mg PO BID [facility] Stop: 04/29/18 08:59 Last Admin: 03/02/18 10:50 Dose: 50 mg - Procedures Procedures: Procedures Procedure Code Date BYPASS DESCENDING COLON TO CUTANEOUS, OPEN APPROACH [id number] 08/30/17 EXCISION OF BACK SUBCU/FASCIA, OPEN APPROACH [id number] 09/16/17 EXCISION OF LEFT FOOT SKIN, EXTERNAL APPROACH [id number] 09/16/17 EXCISION OF RIGHT FOOT SKIN, EXTERNAL APPROACH [id number] 09/16/17 TRANSFUSE NONAUT RED BLOOD CELLS IN PERIPH VEIN, PERC 31198S4 08/30/17
[2018-03-03] MEDS: Multivitamin Tab PO SCH (09:48)
[2018-03-03] MEDS ORDERED: Morphine Sulfate 2 mg/mL 1mL Syr IVP PRN (15:40)
[2018-03-03] MEDS ORDERED: Morphine Sulfate 4 mg/mL 1mL Syr IM PRN (15:44)
--- NOTE | 2018-03-03 23:48 | Consultation ---
Consult Note - Consult Note Service Date: 03/03/18 Referring Physician: Elisha Huizar Consult Note: PHYSICIAN Consultation Note: Date of Admission: 02/27/18 Purpose of Consultation: Complicated UTI. Chief Complaint: Patient FAUSTO RANKIN was admitted to location Medical/ Surgical Unit I with HEMATURIA, DEMENTIA History of Present Illness: 77 male with a past medical history of hypertension, asthma, CHF, dementia, sacral decubitus ulcer, brought in from nursing facility for pulling out his Roberto catheter. He developed hematuria. After replacing Roberto, he continued to have gross hematuria. She was sent to the ER for further evaluation and management. On initial evaluation, temperature was 98F and he went up to 102.8 F. Urology consultation was called. Cystoscopy with irrigation of the bladder was performed. Patient was found to have purulent urine and diabetes. Urine culture grew Klebsiella pneumoniae and Proteus mirabilis. ID consult was called for further evaluation and management. Past Medical History: Hypertension, asthma, CHF, dementia, psychotic with ulcer. Diagnoses UNSPECIFIED DEMENTIA WITHOUT BEHAVIORAL DISTURBANCE (02/27/18) PARAPLEGIA, UNSPECIFIED (02/27/18) HEART FAILURE, UNSPECIFIED (02/27/18) UNSPECIFIED SEQUELAE OF UNSPECIFIED CEREBROVASCULAR DISEASE (02/27/18) UNSPECIFIED ASTHMA, UNCOMPLICATED (02/27/18) CALCULUS IN BLADDER (02/27/18) WEAKNESS (02/27/18) COLOSTOMY STATUS (02/27/18) Allergies Allergy/AdvReac Type Severity Reaction Status Date / Time No Known Allergies Allergy Verified 02/27/18 12:49 Vital Signs Temp 98.3 F 03/03/18 20:00 Pulse 71 03/03/18 20:00 Resp 18 03/03/18 20:00 BP 104/65 03/03/18 20:00 Pulse Ox 95 03/03/18 20:00 Intake & Output 03/03/18 03/03/18 03/04/18 06:59 18:59 06:59 Intake Total 340 Balance 340 Weight (lbs) 67.585 kg 67.585 kg Intake: Oral 340 Other: # Voids 1 Weight Source Bedscale Bedscale Home Medication Medication Instructions Recorded Type Acetaminophen [Tylenol Extra 1,000 mg PO Q4HR PRN 02/27/18 History Strength] Acetaminophen [Tylenol] 600 mg PO Q4HR PRN 02/27/18 History Acetaminophen [Tylenol] 650 mg PO Q4HR PRN 02/27/18 History Ascorbic Acid [Vitamin C] 250 mg PO DAILY 02/27/18 History Bisacodyl [Dulcolax 10 Mg Supp] 10 mg RC DAILY PRN 02/27/18 History Caloric Supplement [Resource 44 ml PO DAILY 02/27/18 History Benecalorie 44 ml] Cholecalciferol (Vitamin D3) 5,000 unit PO DAILY 02/27/18 History [Vitamin D3] Cran/Vitc/Mannose/Fos/Bromeln 30 ml PO DAILY 02/27/18 History [Uti-Stat 887 ml] Docusate Sodium [Colace] 100 mg PO DAILY 02/27/18 History Heparin Sodium,Porcine/Pf [Heparin 5,000 units SQ Q12HR 02/27/18 History 5 Unit/5 ml (1/ml) Syr] Magnesium Hydroxide [Milk of 30 ml PO HS PRN 02/27/18 History Magnesia] Megestrol Acetate [Megace Es] 400 mg PO BID 02/27/18 History Multivitamin [Multi-Vitamin Daily] 1 tab PO DAILY 02/27/18 History Sennosides [Senna Lax] 2 tab PO HS 02/27/18 History Tramadol HCl [Ultram] 50 mg PO BID 02/27/18 History Current Medications Generic Name Dose Route Start Last Admin Trade Name Freq PRN Reason Stop Dose Admin Acetaminophen 650 mg 02/27/18 19:51 03/03/18 16:43 Tylenol PO 04/28/18 19:50 650 mg Q4HR PRN Administration Pain (Mild) Acetaminophen 650 mg 02/27/18 19:51 Tylenol PO 04/28/18 19:50 Q4HR PRN Fever >101 Acetaminophen 1,000 mg 02/27/18 19:51 02/27/18 23:30 Tylenol Extra Strength PO 04/28/18 19:50 1,000 mg Q4HR PRN Administration Pain (Moderate) Ascorbic Acid 250 mg 02/28/18 09:00 03/03/18 09:52 Vitamin C PO 04/29/18 08:59 250 mg DAILY [facility] Administration Bisacodyl 10 mg 02/27/18 19:51 Dulcolax 10 Mg Supp RC 04/28/18 19:50 DAILY PRN Constipation Cholecalciferol 5,000 iu 02/28/18 09:00 03/03/18 09:47 Vitamin D3 PO 04/29/18 08:59 5,000 iu DAILY [facility] Administration Docusate Sodium 100 mg 02/28/18 09:00 03/03/18 09:47 Colace PO 04/29/18 08:59 100 mg DAILY [facility] Administration Cefepime HCl 1 gm/ Dextrose 50 mls @ 100 mls/hr 03/03/18 21:00 IV 05/02/18 20:59 Q12HR [facility] Lorazepam 1 mg 02/27/18 16:42 Ativan IVP 04/28/18 16:41 Q4HR PRN Agitation Protocol Magnesium Hydroxide 30 ml 02/27/18 19:51 Milk Of Magnesia PO 04/28/18 19:50 HS PRN Constipation Megestrol Acetate 400 mg 02/28/18 09:00 03/03/18 09:47 Megace PO 04/29/18 08:59 400 mg BID [facility] Administration Morphine Sulfate 2 mg 03/03/18 15:40 03/03/18 16:22 Morphine IVP 05/02/18 15:39 2 mg Q4HR PRN Administration Pain (Mild) Morphine Sulfate 4 mg 03/03/18 15:44 Morphine IM 05/02/18 15:43 Q4H PRN Pain (Severe) Multivitamins/Vitamin C 1 tab 02/28/18 09:00 03/03/18 09:48 Theragran PO 04/29/18 08:59 1 tab DAILY [facility] Administration Senna 8.6 mg 02/27/18 21:00 03/03/18 22:28 Senna PO 04/28/18 20:59 Not Given HS [facility] Tamsulosin HCl 0.4 mg 03/03/18 21:00 03/03/18 22:28 Flomax PO 05/02/18 20:59 0.4 mg HS [facility] Administration Tramadol HCl 50 mg 02/28/18 09:00 03/03/18 09:49 Ultram PO 04/29/18 08:59 50 mg BID [facility] Administration Review of Systems: A 12 point ROS was reviewed with the pertinent positive and negatives noted in the HPI. Social History Smoking Status Unknown if ever smoked Family Medical History Family Medical History Start: 02/27/18 15: 42 Freq: ONCE Status: Active Protocol: Document 02/27/18 15:42 WCHO (Rec: 02/27/18 16:27 [facility] [id number]) Family Medical History Mother History Unknown Yes Physical Exam: General: Comfortable, not in acute distress. HEENT: Head: NC NT. Oral cavity: Moist, pink tongue. Eyes: Pallor is present icterus. PERRLA. Neck: Supple, no JVD. No use of accessory neck muscles. Cardio: S1 and S2 within normal limits regular rhythm no murmur or gallop. Respiratory: CTAP Abdominal: Soft, nontender nondistended bowel sounds present Genital/Urinary: 3 way Roberto catheter Extremities: No cyanosis no clubbing no edema. Neurological: Alert and awake. Alert. Assessment: 1. UTI. Urine culture growing Klebsiella pneumoniae and Proteus mirabilis. 2. Dementia. 3. Hypertension. Plan: Continue cefepime IV. It can be changed to Rocephin 1 g IV daily. Thank you, Dr. Huizar for involving me taking care of this patient Signed, Jagdish Lr M.D. [id number]
[2018-03-04 08:06] LABS: % BASOPHILS 0.1 % (0.0-2.0); % EOSINOPHILS 2.5 % (0.0-5.0); % LYMPHOCYTES 18.8 % (20.0-50.0); % MONOCYTES 3.2 % (2.0-10.0); % NEUTROPHILS 75.4 % (40.0-80.0); EOSINOPHILE ABSOLUTE 0.3 Th/cmm (0.1-0.4); HEMATOCRIT 34.8 % (41.0-60); HEMOGLOBIN 12.1 gm/dL (12-16); LYMPHOCYTE ABSOLUTE 2.1 Th/cmm (1.5-3.0); MEAN CELL VOLUME 88.2 fl (80-99); MEAN CORPUSCULAR HEMOGLOBIN 30.7 pg (27.0-31.0); MEAN CORPUSCULAR HGB CONC 34.9 pg (28.0-36.0); MEAN PLATELET VOLUME 6.8 fl; MONOCYTE ABSOLUTE 0.4 Th/cmm (0.3-1.0); NEUTROPHILE ABSOLUTE 8.5 Th/cmm (1.8-8.0); PLATELET COUNT 309 Th/cmm (150-400); RED BLOOD COUNT 3.94 Mil/cmm (3.80-5.80); WHITE BLOOD COUNT 11.3 Th/cmm (4.8-10.8)
[2018-03-04] MEDS: Multivitamin Tab PO SCH (08:18)
[2018-03-04 08:22] LABS: ALB/GLOB RATIO 1.2 (1.0-1.8); ALBUMIN 3.3 gm/dL (4.2-5.5); ALKALINE PHOSPHATASE 40 U/L (34-104); ANION GAP 11.6 (7.0-16.0); BILIRUBIN,TOTAL 0.6 mg/dL (0.3-1.0); BUN - UREA NITROGEN 14 mg/dL (7-25); CALCIUM SERUM 9.6 mg/dL (8.6-10.3); CARBON DIOXIDE 21.3 mEq/L (21.0-31.0); CHLORIDE 104 mEq/L (98-107); CREATININE - SERUM 0.6 mg/dL (0.7-1.3); GLUCOSE 91 mg/dL (70-105); POTASSIUM SERUM 3.9 mEq/L (3.5-5.1); SGOT 8 U/L (13-39); SGPT/ALT 9 U/L (7-52); SODIUM SERUM 133 mEq/L (136-145)
--- NOTE | 2018-03-04 08:52 | Diagnostic Imaging Report ---
Ultrasound bladder History: Pelvic pain. Pain with urination. Patient has history of colostomy bag. Comparison: None Technique/procedure: Sonography of the urinary bladder was performed in multiple planes. The prevoid bladder volume is 1072 mL's. Internal echoes are seen in the urinary bladder. Due to painful urination patient was not able to void. There is mild prominence of the urinary bladder wall. The prostate gland measures 3.3 x 2.2 x 3.9 cm. IMPRESSION: Distended urinary bladder with prevoid bladder volume 1072 mL's. Internal echoes within the urinary bladder may represent debris, clot, or other lesions. Please correlate clinically. Mild urinary bladder wall thickening, underlying inflammatory process cannot be excluded. Noted, patient was unable to void due to dysuria. Borderline prominent prostate gland.
[2018-03-04] MEDS ORDERED: Probiotic Screen MC PRN (10:00)
--- NOTE | 2018-03-04 13:03 | Infectious Disease Prog Note ---
Infectious Disease Subjective - Review of Systems Service Date: 03/04/18 Subjective: No new change. No fever. Infectious Disease Objective - Results Result Diagrams: 03/04/18 08:00 03/04/18 08:00 Recent Labs: Laboratory Last Values WBC 11.3 Th/cmm (4.8-10.8) H 03/04/18 08:00 RBC 3.94 Mil/cmm (3.80-5.80) 03/04/18 08:00 Hgb 12.1 gm/dL (12-16) 03/04/18 08:00 Hct 34.8 % (41.0-60) L 03/04/18 08:00 MCV 88.2 fl (80-99) 03/04/18 08:00 MCH 30.7 pg (27.0-31.0) 03/04/18 08:00 MCHC Differential 34.9 pg (28.0-36.0) 03/04/18 08:00 RDW 14.0 % (11.5-20.0) 03/04/18 08:00 Plt Count 309 Th/cmm (150-400) 03/04/18 08:00 MPV 6.8 fl 03/04/18 08:00 Add Manual Diff YES 02/28/18 05:34 Neutrophils % 75.4 % (40.0-80.0) 03/04/18 08:00 Band Neutrophils % 10 % (0-10) 02/28/18 05:34 Lymphocytes % 18.8 % (20.0-50.0) L 03/04/18 08:00 Monocytes % 3.2 % (2.0-10.0) 03/04/18 08:00 Eosinophils % 2.5 % (0.0-5.0) 03/04/18 08:00 Basophils % 0.1 % (0.0-2.0) 03/04/18 08:00 Neutrophils (Manual) 77 % (40-80) 02/28/18 05:34 Lymphocytes 9 % (20-50) L 02/28/18 05:34 Monocytes 4 % (2-10) 02/28/18 05:34 Eosinophils 0 % (0-5) 02/28/18 05:34 Basophils 0 % (0-3) 02/28/18 05:34 Metamyelocytes % (0-0) 02/28/18 05:34 Platelet Estimate ADEQUATE (NORMAL) 02/27/18 12:50 PT 23.4 SECONDS (9.5-11.5) H 02/28/18 05:34 INR 2.34 (0.5-1.4) H 02/28/18 05:34 PTT (Actin FS) 36.9 SECONDS (26.0-38.0) 02/28/18 05:34 Sodium 133 mEq/L (136-145) L 03/04/18 08:00 Potassium 3.9 mEq/L (3.5-5.1) 03/04/18 08:00 Chloride 104 mEq/L (98-107) 03/04/18 08:00 Carbon Dioxide 21.3 mEq/L (21.0-31.0) 03/04/18 08:00 Anion Gap 11.6 (7.0-16.0) 03/04/18 08:00 BUN 14 mg/dL (7-25) 03/04/18 08:00 Creatinine 0.6 mg/dL (0.7-1.3) L 03/04/18 08:00 Est GFR ( Amer) TNP 03/04/18 08:00 Est GFR (Non-Af Amer) TNP 03/04/18 08:00 BUN/Creatinine Ratio 23.3 03/04/18 08:00 Glucose 91 mg/dL (70-105) 03/04/18 08:00 POC Glucose 122 MG/DL (70-105) H 02/28/18 05:24 Calcium 9.6 mg/dL (8.6-10.3) 03/04/18 08:00 Total Bilirubin 0.6 mg/dL (0.3-1.0) 03/04/18 08:00 AST 8 U/L (13-39) L 03/04/18 08:00 ALT 9 U/L (7-52) 03/04/18 08:00 Alkaline Phosphatase 40 U/L (34-104) 03/04/18 08:00 Total Protein 6.0 gm/dL (6.0-8.3) 03/04/18 08:00 Albumin 3.3 gm/dL (4.2-5.5) L 03/04/18 08:00 Globulin 2.7 gm/dL 03/04/18 08:00 Albumin/Globulin Ratio 1.2 (1.0-1.8) 03/04/18 08:00 - Physical Exam Vitals and I&O: Vital Signs Temp 96.9 F 03/04/18 12:51 Pulse 80 03/04/18 12:51 Resp 18 03/04/18 12:51 BP 112/70 03/04/18 12:51 Pulse Ox 98 03/04/18 12:51 Intake & Output 03/03/18 03/04/18 03/04/18 18:59 06:59 18:59 Intake Total 50 Output Total 1100 Balance -1050 Weight (lbs) 67.585 kg 66.678 kg Intake: Intake, IV Amount 50 Cefepime 1 gm In Dextrose 50 5% 50 ml @ 100 mls/hr IV Q12HR [facility] Rx#:[id number] Output: Urine 1100 Other: Weight Source Bedscale Bedscale Active Medications: Current Medications Acetaminophen (Tylenol) 650 mg PO Q4HR PRN PRN Reason: Pain (Mild) Stop: 04/28/18 19:50 Last Admin: 03/03/18 16:43 Dose: 650 mg Acetaminophen (Tylenol) 650 mg PO Q4HR PRN PRN Reason: Fever >101 Stop: 04/28/18 19:50 Acetaminophen (Tylenol Extra Strength) 1,000 mg PO Q4HR PRN PRN Reason: Pain (Moderate) Stop: 04/28/18 19:50 Last Admin: 02/27/18 23:30 Dose: 1,000 mg Ascorbic Acid (Vitamin C) 250 mg PO DAILY [facility] Stop: 04/29/18 08:59 Last Admin: 03/04/18 08:18 Dose: 250 mg Bisacodyl (Dulcolax 10 Mg Supp) 10 mg RC DAILY PRN PRN Reason: Constipation Stop: 04/28/18 19:50 Cholecalciferol (Vitamin D3) 5,000 iu PO DAILY [facility] Stop: 04/29/18 08:59 Last Admin: 03/04/18 08:18 Dose: 5,000 iu Docusate Sodium (Colace) 100 mg PO DAILY [facility] Stop: 04/29/18 08:59 Last Admin: 03/04/18 08:18 Dose: 100 mg Cefepime HCl 1 gm/ Dextrose 50 mls @ 100 mls/hr IV Q12HR [facility] Stop: 05/02/18 20:59 Last Admin: 03/04/18 08:17 Dose: 100 mls/hr Lactobacillus Rhamnosus (Culturelle 15b) 1 each PO DAILY [facility] Stop: 05/04/18 08:59 Lorazepam (Ativan) 1 mg IVP Q4HR PRN; Protocol PRN Reason: Agitation Stop: 04/28/18 16:41 Magnesium Hydroxide (Milk Of Magnesia) 30 ml PO HS PRN PRN Reason: Constipation Stop: 04/28/18 19:50 Megestrol Acetate (Megace) 400 mg PO BID [facility] Stop: 04/29/18 08:59 Last Admin: 03/04/18 08:18 Dose: 400 mg Miscellaneous (Probiotic Screen) 1 ea MC PRN PRN PRN Reason: PROTOCOL Stop: 05/03/18 09:59 Morphine Sulfate (Morphine) 2 mg IVP Q4HR PRN PRN Reason: Pain (Mild) Stop: 05/02/18 15:39 Last Admin: 03/03/18 16:22 Dose: 2 mg Morphine Sulfate (Morphine) 4 mg IM Q4H PRN PRN Reason: Pain (Severe) Stop: 05/02/18 15:43 Multivitamins/Vitamin C (Theragran) 1 tab PO DAILY [facility] Stop: 04/29/18 08:59 Last Admin: 03/04/18 08:18 Dose: 1 tab Senna (Senna) 8.6 mg PO HS [facility] Stop: 04/28/18 20:59 Last Admin: 03/03/18 22:28 Dose: Not Given Tamsulosin HCl (Flomax) 0.4 mg PO HS [facility] Stop: 05/02/18 20:59 Last Admin: 03/03/18 22:28 Dose: 0.4 mg Tramadol HCl (Ultram) 50 mg PO BID [facility] Stop: 04/29/18 08:59 Last Admin: 03/04/18 08:18 Dose: 50 mg General: no acute distress, well developed, well nourished HEENT: atraumatic, normocephalic, PERRLA Neck: supple, no thyromegaly Cardiovascular: S1S2, regular Lungs: clear to auscultation bilaterally, clear to percussion Abdomen: soft, no tender, no distended Extremities: no cyanosis, no clubbing, no edema Neurological: awake, alert, oriented Skin: intact - Procedures Procedures: Procedures Procedure Code Date BYPASS DESCENDING COLON TO CUTANEOUS, OPEN APPROACH [id number] 08/30/17 EXCISION OF BACK SUBCU/FASCIA, OPEN APPROACH [id number] 09/16/17 EXCISION OF LEFT FOOT SKIN, EXTERNAL APPROACH [id number] 09/16/17 EXCISION OF RIGHT FOOT SKIN, EXTERNAL APPROACH [id number] 09/16/17 EXTIRPATION OF MATTER FROM BLADDER, ENDO [id number] 02/27/18 TRANSFUSE NONAUT RED BLOOD CELLS IN PERIPH VEIN, PERC [id number] 08/30/17 Infectious Disease Assmt/Plan - Assessment Assessment: 1. UTI. Urine culture growing Klebsiella pneumoniae and Proteus mirabilis. 2. Dementia. 3. Hypertension. - Plan Plan: Will change cefepime and Rocephin. Renal ultrasound.
--- NOTE | 2018-03-05 08:48 | Diagnostic Imaging Report ---
Renal ultrasound HISTORY: Hydronephrosis, pyelonephritis. COMPARISON: Bladder ultrasound on 03/03/2019 Technique: Sonography of the kidneys and urinary bladder was performed in multiple planes. FINDINGS: The right kidney measures 11.2 x 5.5 cm. Echogenic foci are seen within the right kidney the largest measuring 1.5 cm. No hydronephrosis. The left kidney measures 12.5 x 4.7 cm. No evidence of focal lesions or hydronephrosis. The urinary bladder is underdistended, usually limiting its evaluation. Roberto catheter seen within the urinary bladder. There is mild prominence of the urinary bladder wall. IMPRESSION: No evidence of hydronephrosis. Echogenic foci within the right kidney which may represent renal stones. CT would further clarify. Roberto catheter within collapsed bladder, limiting its evaluation. Mild urinary bladder wall thickening cannot be excluded.
[2018-03-05] MEDS ORDERED: Lactobacillus Rhamnosus GG 15 Billion CFU CAP.SPRINK PO SCH (09:00)
--- NOTE | 2018-03-05 14:53 | Pathology Report ---
[id number] Collection date: 02/28/2018 Surgeon: Dr. Almodovar Specimen Description: Bladder stones Gross Description: Received in formalin are multiple irregular fragments of partially calcified stone like material admixed with rodríguez-brown granular powdery material, aggregating 1.0 x 0.7 x 0.3 cm. A maintenance representative portion of the stone like material is submitted for chemical analysis. Gross Pathologic Diagnosis: Granular and partially calcified material consistent with bladder stones, for gross identification. Comment: A portion of the bladder stone is being sent out for chemical analysis, and the results of this specialized testing will be issued as a separate report. JOB# [id number] [facility]
--- NOTE | 2018-03-18 21:40 | Discharge Summary ---
DATE OF DISCHARGE: 03/04/2018 HOSPITAL COURSE: Admitted to [facility] on 02/27 and discharged on 03/04 to [facility]. The patient is well known to me. The patient from [facility]. The patient known to have history of hypertension, asthma, CHF, history of sacral decubiti and the patient was admitted for hematuria for possible posttraumatic loss of consciousness. The patient also has UTI. The patient was admitted. The patient was given IV antibiotics. Urology saw the patient and the patient improved. The patient final diagnoses of hematuria, improved; BPH; history of hypertension; history of CVA; history of CHF; history of dementia and paraplegia; and sacral decubiti was made. The patient was sent back to [place] where I will following the patient. CONDITION AT TIME OF DISCHARGE: Stable. MEDICATIONS: See the reconciliation sheet. JOB# [id number]
== END 2018-03-04 17:40 | DRG 853 ==
LOC: ER 12:24 → MSI 13:48
PROVIDERS: ADMIT Internal Medicine; ATTEND Internal Medicine
PROC: 0TCB8ZZ Extirpation of Matter from Bladder, Via Natural or Artificial Opening Endoscopic (ICD-10-PCS; principal; 2018-02-28)
PROC: 0T5B8ZZ Destruction of Bladder, Via Natural or Artificial Opening Endoscopic (ICD-10-PCS; 2018-02-28)
DX: A41.9 Sepsis, unspecified organism (principal); G93.40 Encephalopathy, unspecified; N39.0 Urinary tract infection, site not specified; G82.20 Paraplegia, unspecified; I13.0 Hypertensive heart and chronic kidney disease with heart failure and stage 1 through stage 4 chronic kidney disease, or unspecified chronic kidney disease; E87.1 Hypo-osmolality and hyponatremia; R31.0 Gross hematuria; N21.0 Calculus in bladder; F03.90 Unspecified dementia, unspecified severity, without behavioral disturbance, psychotic disturbance, mood disturbance, and anxiety; R33.9 Retention of urine, unspecified; I50.9 Heart failure, unspecified; J45.909 Unspecified asthma, uncomplicated; Z93.3 Colostomy status; I69.90 Unspecified sequelae of unspecified cerebrovascular disease; E66.9 Obesity, unspecified; N18.9 Chronic kidney disease, unspecified; M19.90 Unspecified osteoarthritis, unspecified site; E11.9 Type 2 diabetes mellitus without complications; B96.4 Proteus (mirabilis) (morganii) as the cause of diseases classified elsewhere; B96.1 Klebsiella pneumoniae [K. pneumoniae] as the cause of diseases classified elsewhere; Z68.21 Body mass index [BMI] 21.0-21.9, adult; Z79.899 Other long term (current) drug therapy
CPT/HCPCS: 36415-UA; 76770-TC; 76857-TC; 80048-TC; 80053-TC; 82948-90; 85007-TC; 85025-TC; 85610-TC; 85730-TC; 87086-90; 88302-TC; 96372; A4217; J0690; J0692; J0696; J2270; J2405; J2704; J2710; J3010; V2790; X6024; X6258; X7704; Z7610

== ENCOUNTER 2018-04-15 20:52 | Inpatient (IN) | payer MEDICARE, MEDICAID ==
[2018-04-15 21:33] LABS: EOSINOPHILE ABSOLUTE 0.2 Th/cmm (0.1-0.4); MEAN PLATELET VOLUME 7.1 fl
[2018-04-15 21:34] LABS: % LYMPHOCYTES 9.6 % (20.0-50.0); % MONOCYTES 1.7 % (2.0-10.0); % NEUTROPHILS 86.6 % (40.0-80.0); BASOPHILE ABSOLUTE 0.2 Th/cumm (0-0.2); HEMATOCRIT 38.6 % (41.0-60); HEMOGLOBIN 12.9 gm/dL (12-16); MEAN CELL VOLUME 89.9 fl (80-99); MEAN CORPUSCULAR HEMOGLOBIN 30.1 pg (27.0-31.0); MEAN CORPUSCULAR HGB CONC 33.5 pg (28.0-36.0); MONOCYTE ABSOLUTE 0.4 Th/cmm (0.3-1.0); NEUTROPHILE ABSOLUTE 18.5 Th/cmm (1.8-8.0); PLATELET COUNT 384 Th/cmm (150-400); RED BLOOD COUNT 4.29 Mil/cmm (3.80-5.80); RED CELL DISTRIBUTION WIDTH 13.5 % (11.5-20.0)
[2018-04-15 21:37] LABS: WHITE BLOOD COUNT 21.3 Th/cmm (4.8-10.8)
--- NOTE | 2018-04-15 21:48 | ED Physician Chart ---
ED Chief Complaint/HPI - Patient Information Date Seen:: 04/15/18 Time Seen:: 21:46 Chief Complaint:: Abdominal cellulitis History of Present Illness:: 78 yo male was brought from [facility] to ER for evaluation of erythema and pain on the abdomen adjacent to colostomy stoma for 2 days. Patient denied fever. Allergies:: Allergies Allergy/AdvReac Type Severity Reaction Status Date / Time No Known Allergies Allergy Verified 02/27/18 12:49 Vitals:: Vital Signs - 8 hr 04/15/18 20:57 Temp 98.2 F HR 107 RR 20 BP 105/60 O2 Sat % 94 ED Review of Systems - Review of Systems General/Constitutional: No fever, No chills Skin: Skin lesions (sacral ulcers) Head: No headache Eyes: No pain ENT: No nasal drainage Neck: No neck pain Cardio Vascular: No chest pain Pulmonary: No cough GI: No nausea, No vomiting Musculoskeletal: Bone or joint pain Neurological: Other (Paraplagia) ED Past Medical History - Past Medical History Past Medical History: HTN, Asthma/COPD, PUD/GERD, Dementia, Other (CKD, paraplegia, pulmonary edema, colostomy) Social History: Non Smoker, No Alcohol, No Drug Use Surgical History: other (Colostomy) Psychiatricy History: Dementia Family Medical History - Family Member Mother History Unknown: Yes ED Physical Exam - Physical Examination General/Constitutional: Awake, Alert Other Gen/Cons comments:: bed bound Head: Atraumatic Eyes: PERRL Other Skin comments:: Sacral pressure ulcers ENMT: Nasal exam nl Neck: No nuchal rigidity Respiratory: No Wheeze/Rhonchi/Rales Cardio Vascular: RRR, No murmur, gallop, rubs, NL S1 S2 GI: Nondistended Other GI comments:: LQ abdomen skin erythema and tenderness around an old incision. Colostomy stoma was lateral to the erythematous skin. Other comments:: Hartman catheter intact Extremities: No tenderness or effusion, No edema Other Neuro/Psych comments:: Paraplegic ED Labs/Radiology/EKG Results - Lab Results Results: Laboratory Tests 04/15/18 21:20 WBC 21.3 H* D RBC 4.29 Hgb 12.9 Hct 38.6 L MCV 89.9 MCH 30.1 MCHC Differential 33.5 RDW 13.5 Plt Count 384 MPV 7.1 Add Manual Diff YES Neutrophils % 86.6 H Lymphocytes % 9.6 L Monocytes % 1.7 L Basophils % 1.0 Laboratory Last Values WBC 21.3 Th/cmm (4.8-10.8) H* D 04/15/18 21:20 RBC 4.29 Mil/cmm (3.80-5.80) 04/15/18 21:20 Hgb 12.9 gm/dL (12-16) 04/15/18 21:20 Hct 38.6 % (41.0-60) L 04/15/18 21:20 MCV 89.9 fl (80-99) 04/15/18 21:20 MCH 30.1 pg (27.0-31.0) 04/15/18: MCHC Differential 33.5 pg (28.0-36.0) 04/15/18 21: RDW 13.5 % (11.5-20.0) 04/15/18 21:20 Plt Count 384 Th/cmm (150-400) 04/15/18 21:20 MPV 7.1 fl 04/15/18 21:20 Add Manual Diff YES 04/15/18 21:20 Neutrophils % 86.6 % (40.0-80.0) H 04/15/18 21:20 Band Neutrophils % 8 % (0-10) 04/15/18 21:20 Lymphocytes % 9.6 % (20.0-50.0) L 04/15/18 21:20 Monocytes % 1.7 % (2.0-10.0) L 04/15/18 21: Basophils % 1.0 % (0.0-2.0) 04/15/18 21:20 Neutrophils (Manual) 78 % (40-80) 04/15/18 21:20 Lymphocytes 12 % (20-50) L 04/15/18 21: Eosinophils 2 % (0-5) 04/15/18 21:20 Sodium 129 mEq/L (136-145) L 04/15/18 21:20 Potassium 4.0 mEq/L (3.5-5.1) 04/15/18 21:20 Chloride 98 mEq/L (98-107) 04/15/18 21: Carbon Dioxide 18.1 mEq/L (21.0-31.0) L 04/15/18 21:20 Anion Gap 16.9 (7.0-16.0) H 04/15/18 21:20 BUN 15 mg/dL (7-25) 04/15/18 21:20 Creatinine 0.6 mg/dL (0.7-1.3) L 04/15/18 21:20 Est GFR ( Amer) TNP 04/15/18 21:20 Est GFR (Non-Af Amer) TNP 04/15/18 21:20 BUN/Creatinine Ratio 25.0 04/15/18 21:20 Glucose 109 mg/dL (70-105) H 04/15/18 21:20 Whole Bld Lactic Acid 0.96 mmol/L (0.60-1.99) 04/15/18 21:20 Calcium 9.8 mg/dL (8.6-10.3) 04/15/18 21:20 Total Bilirubin 0.5 mg/dL (0.3-1.0) 04/15/18 21:20 AST 7 U/L (13-39) L 04/15/18 21:20 ALT 9 U/L (7-52) 04/15/18 21:20 Alkaline Phosphatase 54 U/L (34-104) 04/15/18 21:20 Total Protein 6.5 gm/dL (6.0-8.3) 04/15/18 21:20 Albumin 3.5 gm/dL (4.2-5.5) L 04/15/18 21:20 Globulin 3.0 gm/dL 04/15/18 21:20 Albumin/Globulin Ratio 1.2 (1.0-1.8) 04/15/18 21:20 Urine Source [place] 04/15/18 21:45 Urine Color ORANGE 04/15/18 21:45 Urine Clarity HAZY (CLEAR) 04/15/18 21:45 Urine pH 5.5 (4.6 - 8.0) 04/15/18 21:45 Ur Specific [place] 1.015 (1.005-1.030) 04/15/18 21:45 Urine Protein TRACE mg/dL (NEGATIVE) 04/15/18 21:45 Urine Glucose (UA) NEGATIVE mg/dL (NEGATIVE) 04/15/18 21:45 Urine Ketones NEGATIVE mg/dL (NEGATIVE) 04/15/18 21:45 Urine Blood NEGATIVE (NEGATIVE) 04/15/18 21:45 Urine Nitrate POSITIVE (NEGATIVE) H 04/15/18 21:45 Urine Bilirubin NEGATIVE (NEGATIVE) 04/15/18 21:45 Urine Urobilinogen 0.2 E.U./dL (0.2 - 1.0) 04/15/18 21:45 Ur Leukocyte Esterase SMALL (NEGATIVE) H 04/15/18 21:45 Urine RBC 0-2 /hpf (0-5) H 04/15/18 21:45 Urine WBC 6-10 /hpf (0-5) 04/15/18 21:45 Ur Epithelial Cells OCCASIONAL /lpf (FEW) 04/15/18 21:45 Urine Bacteria MODERATE /hpf (NONE SEEN) H 04/15/18 21:45 - Radiology Results Results: CXR: COPD ED Assessment - Assessment General Assessment: Abdominal cellulitis Colostomy status Leukocytosis Urinary tract infection Hyponatremia Dementia Assessment/Comments:: CBC, CMP, UA Blood culture, urine culture Vancomycin Zosyn NS 1L IV bolus ED Septic Shock - . Is Septic Shock (SBP<90, OR Lactate>4 mmol\L) present?: No - <6hrs of presentation: Vital Signs: Vital Signs - 8 hr 04/15/18 20:57 Temp 98.2 F HR 107 RR 20 BP 105/60 O2 Sat % 94 ED Reassessment (Disposition) - Reassessment Reassessment Condition:: Improved - Patient Disposition Discharge/Transfer:: Acute Care w/in this hosp Admitting Medical Physician:: Elisha Huizar
[2018-04-15 21:49] LABS: ALB/GLOB RATIO 1.2 (1.0-1.8); ALBUMIN 3.5 gm/dL (4.2-5.5); ALKALINE PHOSPHATASE 54 U/L (34-104); ANION GAP 16.9 (7.0-16.0); BILIRUBIN,TOTAL 0.5 mg/dL (0.3-1.0); BUN - UREA NITROGEN 15 mg/dL (7-25); CALCIUM SERUM 9.8 mg/dL (8.6-10.3); CARBON DIOXIDE 18.1 mEq/L (21.0-31.0); CHLORIDE 98 mEq/L (98-107); CREATININE - SERUM 0.6 mg/dL (0.7-1.3); GLUCOSE 109 mg/dL (70-105); SGOT 7 U/L (13-39); SGPT/ALT 9 U/L (7-52); SODIUM SERUM 129 mEq/L (136-145); TOTAL PROTEIN,SERUM 6.5 gm/dL (6.0-8.3)
[2018-04-15 21:51] LABS: BAND NEUTROPHILE 8 % (0-10); EOSINOPHIL 2 % (0-5); LYMPHOCYTE 12 % (20-50); NEUTROPHILS 78 % (40-80)
[2018-04-15 22:01] LABS: URINE SOURCE FOLEY PORT
[2018-04-15] MEDS ORDERED: Sodium Chloride 0.9% 1,000 ML IV ONE (22:01)
[2018-04-15] MEDS ORDERED: Piperacillin Sodium/Tazobact 3.375 gm Vial IV ONE (22:06)
[2018-04-15 22:38] LABS: URINE BILIRUBIN NEGATIVE (NEGATIVE); URINE BLOOD NEGATIVE (NEGATIVE); URINE GLUCOSE (UA) NEGATIVE (NEGATIVE); URINE KETONE NEGATIVE (NEGATIVE); URINE LEUKOCYTE ESTERASE SMALL (NEGATIVE); URINE MICROSCOPIC INDICATED? YES; URINE NITRATE POSITIVE (NEGATIVE); URINE PH 5.5 (4.6 - 8.0); URINE PROTEIN TRACE mg/dL (NEGATIVE); URINE UROBILINOGEN 0.2 E.U./dL (0.2 - 1.0)
[2018-04-15 22:39] LABS: URINE CLARITY HAZY (CLEAR); URINE COLOR ORANGE
[2018-04-15 22:40] LABS: URINE BACTERIA MODERATE /hpf (NONE SEEN); URINE EPITHELIAL CELLS OCCASIONAL /lpf (FEW); URINE RBC 0-2 /hpf (0-5)
[2018-04-16] MEDS: D5-0.9%NS 1,000 ML IV SCH (01:59)
[2018-04-16] MEDS ORDERED: Pneumococcal Vaccine 0.5 mL Vial IM ONE (03:30)
[2018-04-16] MEDS ORDERED: Piperacillin Sodium/Tazobact 3.375 gm Vial IV ONE (05:51)
[2018-04-16 06:08] LABS: ANION GAP 12.2 (7.0-16.0); BUN - UREA NITROGEN 13 mg/dL (7-25); CALCIUM SERUM 9.2 mg/dL (8.6-10.3); CARBON DIOXIDE 18.4 mEq/L (21.0-31.0); CHLORIDE 103 mEq/L (98-107); CREATININE - SERUM 0.6 mg/dL (0.7-1.3); GLUCOSE 104 mg/dL (70-105); POTASSIUM SERUM 3.6 mEq/L (3.5-5.1); SODIUM SERUM 130 mEq/L (136-145)
[2018-04-16 06:13] LABS: HEMOGLOBIN 10.8 gm/dL (12-16); MEAN CELL VOLUME 88.9 fl (80-99); MEAN CORPUSCULAR HGB CONC 33.7 pg (28.0-36.0); MEAN PLATELET VOLUME 7.2 fl; PLATELET COUNT 353 Th/cmm (150-400); RED CELL DISTRIBUTION WIDTH 13.4 % (11.5-20.0)
[2018-04-16 06:16] LABS: WHITE BLOOD COUNT 18.2 Th/cmm (4.8-10.8)
[2018-04-16 07:01] LABS: BAND NEUTROPHILE 0 % (0-10); BASOPHIL 1 % (0-3); EOSINOPHIL 1 % (0-5); LYMPHOCYTE 12 % (20-50); MONOCYTE 4 % (2-10); NEUTROPHILS 82 % (40-80)
--- NOTE | 2018-04-16 07:56 | Diagnostic Imaging Report ---
Portable chest x-ray HISTORY: Cough The patient is rotated. The heart size is normal. No acute focal pulmonary processes. A 5 mm calcified nodule is seen within the left upper lobe consistent with old granulomatous disease. Degenerative changes seen throughout the spine. IMPRESSION: 1. No acute abnormalities 2. 5 mm calcified nodule within the left upper lobe consistent with old granulomatous disease
--- NOTE | 2018-04-16 10:03 | Consultation ---
Consult Note - Consult Note Service Date: 04/16/18 Referring Physician: Elisha Huizar Consult Note: PHYSICIAN Consultation Note: Date of Admission: 04/15/18 Purpose of Consultation: Abdominal wall abscess Chief Complaint: Patient FAUSTO RANKIN was admitted to location Medical/ Surgical Unit I with CELLULITIS ABDOMEN. History of Present Illness: 77 year old male with history of dementia, pneumonia , sepsis, nonhealing sacral decubitus, Diverting colostomy, brought to the [facility] for an infection of the surgical incision for colostomy. Id consult was called for antibiotic management. Meanshile, Zosyn was started. Past Medical History: dementia, pneumonia, sepsis, nonhealing sacral decubitus, Diverting colostomy. Allergies Allergy/AdvReac Type Severity Reaction Status Date / Time No Known Allergies Allergy Verified 02/27/18 12:49 Vital Signs Temp 97.1 F 04/16/18 07:40 Pulse 76 04/16/18 07:40 Resp 18 04/16/18 07:40 BP 97/53 04/16/18 07:40 Pulse Ox 95 04/16/18 07:40 Intake & Output 04/15/18 04/16/18 04/16/18 18:59 06:59 18:59 Intake Total 50 50 Balance 50 50 Weight (lbs) 67.585 kg Intake: Intake, IV Amount 50 50 Piperacillin Sodium/ 50 Tazobact 3.375 gm In Sodium Chloride 0.9% 50 ml @ 100 mls/hr IV Q6HR [facility] Rx#:[id number] Other: Stool Characteristics Formed Brown Weight Source Estimated Laboratory Results - last 24 hr 04/15/18 04/15/18 04/15/18 21:20 21:20 21:20 WBC 21.3 H* D RBC 4.29 Hgb 12.9 Hct 38.6 L MCV 89.9 MCH 30.1 MCHC Differential 33.5 RDW 13.5 Plt Count 384 MPV 7.1 Add Manual Diff YES Neutrophils % 86.6 H Band Neutrophils % 8 Lymphocytes % 9.6 L Monocytes % 1.7 L Basophils % 1.0 Neutrophils (Manual) 78 Lymphocytes 12 L Monocytes Eosinophils 2 Basophils Sodium 129 L Potassium 4.0 Chloride 98 Carbon Dioxide 18.1 L Anion Gap 16.9 H BUN 15 Creatinine 0.6 L Est GFR ( Amer) TNP Est GFR (Non-Af Amer) TNP BUN/Creatinine Ratio 25.0 Glucose 109 H Whole Bld Lactic Acid 0.96 Calcium 9.8 Total Bilirubin 0.5 AST 7 L ALT 9 Alkaline Phosphatase 54 Total Protein 6.5 Albumin 3.5 L Globulin 3.0 Albumin/Globulin Ratio 1.2 Urine Source Urine Color Urine Clarity Urine pH Ur Specific [place] Urine Protein Urine Glucose (UA) Urine Ketones Urine Blood Urine Nitrate Urine Bilirubin Urine Urobilinogen Ur Leukocyte Esterase Urine RBC Urine WBC Ur Epithelial Cells Urine Bacteria 04/15/18 04/16/18 04/16/18 21:45 05:15 05:15 WBC 18.2 H RBC 3.60 L Hgb 10.8 L Hct 32.0 L D MCV 88.9 MCH 30.0 MCHC Differential 33.7 RDW 13.4 Plt Count 353 MPV 7.2 Add Manual Diff YES Neutrophils % Band Neutrophils % 0 Lymphocytes % Monocytes % Basophils % Neutrophils (Manual) 82 H Lymphocytes 12 L Monocytes 4 Eosinophils 1 Basophils 1 Sodium 130 L Potassium 3.6 Chloride 103 Carbon Dioxide 18.4 L Anion Gap 12.2 BUN 13 Creatinine 0.6 L Est GFR ( Amer) TNP Est GFR (Non-Af Amer) TNP BUN/Creatinine Ratio 21.7 Glucose 104 Whole Bld Lactic Acid Calcium 9.2 Total Bilirubin AST ALT Alkaline Phosphatase Total Protein Albumin Globulin Albumin/Globulin Ratio Urine Source [place] Urine Color ORANGE Urine Clarity HAZY Urine pH 5.5 Ur Specific [place] 1.015 Urine Protein TRACE Urine Glucose (UA) NEGATIVE Urine Ketones NEGATIVE Urine Blood NEGATIVE Urine Nitrate POSITIVE H Urine Bilirubin NEGATIVE Urine Urobilinogen 0.2 Ur Leukocyte Esterase SMALL H Urine RBC 0-2 H Urine WBC 6-10 Ur Epithelial Cells OCCASIONAL Urine Bacteria MODERATE H Home Medication Medication Instructions Recorded Type Ascorbic Acid [Vitamin C] 250 mg PO DAILY 02/27/18 History Bisacodyl [Dulcolax 10 Mg Supp] 10 mg RC DAILY PRN 02/27/18 History Cholecalciferol (Vitamin D3) 5,000 unit PO DAILY 02/27/18 History [Vitamin D3] Cran/Vitc/Mannose/Fos/Bromeln 30 ml PO DAILY 02/27/18 History [Uti-Stat 887 ml] Heparin Sodium,Porcine/Pf [Heparin 5,000 units SQ Q12HR 02/27/18 History 5 Unit/5 ml (1/ml) Syr] Magnesium Hydroxide [Milk of 30 ml PO HS PRN 02/27/18 History Magnesia] Megestrol Acetate [Megace Es] 400 mg PO BID 02/27/18 History Multivitamin [Multi-Vitamin Daily] 1 tab PO DAILY 02/27/18 History Sennosides [Senna Lax] 2 tab PO HS 02/27/18 History Tramadol HCl [Ultram] 50 mg PO Q12HR 02/27/18 History Acetaminophen [Tylenol Extra 1,000 mg PO Q4HR PRN tab 03/04/18 Rx Strength] Docusate Sodium [Colace] 100 mg PO DAILY cap 03/04/18 Rx Lactobacillus Rhamnosus GG 15B 1 each PO DAILY cap.sprink 03/04/18 Rx [Culturelle 15B] Tamsulosin [Flomax] 0.4 mg PO HS cap 03/04/18 Rx Acetaminophen [Tylenol] 650 mg PO Q4HR PRN 04/15/18 History Current Medications Generic Name Dose Route Start Last Admin Trade Name Freq PRN Reason Stop Dose Admin Acetaminophen/Hydrocodone Bitart 1 tab 04/16/18 01:08 [place] 5mg/325mg PO 06/15/18 01:07 Q4H PRN Pain (Moderate) 4-7 Dextrose/Sodium Chloride 1,000 mls @ 50 mls/hr 04/16/18 01:45 04/16/18 01:59 D5-0.9%Ns IV 06/15/18 01:44 50 mls/hr .Q20H NAVID Administration Piperacillin Sod/Tazobactam 50 mls @ 100 mls/hr 04/16/18 06:00 04/16/18 07:37 Sod 3.375 gm/ Sodium Chloride IV 06/15/18 05:59 Infused Q6HR NAVID Infusion Miscellaneous 1 ea 04/16/18 01:09 Zosyn Iv Per Pharmacy 06/15/18 01:14 PRN PRN Abdominal cellulitis Review of Systems: A 12 point ROS was reviewed with the pertinent positive and negatives noted in the HPI. Social History Smoking Status Unknown if ever smoked Family Medical History Noncontributory. Physical Exam: General: Comfortable, not in distress. HEENT: HEAD normocephalic, atraumatic, oral cavity moist, pink tongue. EYES: pupil PErrla, EOMi Neck: Supple, no JVD, no carotid bruit. Cardio: S1 and S2 WNL. Respiratory: Vesicular breath sounds. Abdominal: Soft NT ND BS present. Colostomy site is ok. there is small dry wound on the incision site, with mild erythema. Genital/Urinary: Deferred. Extremities: NCCE Neurological: AAOx3 Assessment: 1. abdominal wall cellulitis. 2. diverting colostomy. 3. dementia 4. Sacral decubitus ulcer, stage 4. 5. Chronic obstructive pulmonary disease. Plan: Conitue Zosyn. Consulted Dr Bacon to evaluate the abdomen. Thank you, Dr Huizar for involving me in taking care of this patient. Signed, Jagdish Lr M.D. [id number]
[2018-04-17] MEDS ORDERED: Diatrizoate Meglumine/Diatri 30 mL Sol PO ONE (11:33)
[2018-04-17] MEDS ORDERED: IOHEXOL 300mgI/mL 100 ML VIAL IVP ONE (11:33)
--- NOTE | 2018-04-17 11:36 | General Progress Note ---
Subjective - Review of Systems Service Date: 04/17/18 Events since last encounter: unable to give information recent surgery for??:when, where? has colostomy, open wound with serous drainage at midnline CT scan with oral and IV contrast ordered Objective - Results Result Diagrams: 04/16/18 05:15 04/16/18 05:15 Recent Labs: Laboratory Last Values WBC 18.2 Th/cmm (4.8-10.8) H 04/16/18 05:15 RBC 3.60 Mil/cmm (3.80-5.80) L 04/16/18 05:15 Hgb 10.8 gm/dL (12-16) L 04/16/18 05:15 Hct 32.0 % (41.0-60) L D 04/16/18 05:15 MCV 88.9 fl (80-99) 04/16/18 05:15 MCH 30.0 pg (27.0-31.0) 04/16/18 05:15 MCHC Differential 33.7 pg (28.0-36.0) 04/16/18 05:15 RDW 13.4 % (11.5-20.0) 04/16/18 05:15 Plt Count 353 Th/cmm (150-400) 04/16/18 05:15 MPV 7.2 fl 04/16/18 05:15 Add Manual Diff YES 04/16/18 05:15 Neutrophils % 86.6 % (40.0-80.0) H 04/15/18 21:20 Band Neutrophils % 0 % (0-10) 04/16/18 05:15 Lymphocytes % 9.6 % (20.0-50.0) L 04/15/18 21:20 Monocytes % 1.7 % (2.0-10.0) L 04/15/18 21:20 Basophils % 1.0 % (0.0-2.0) 04/15/18 21:20 Neutrophils (Manual) 82 % (40-80) H 04/16/18 05:15 Lymphocytes 12 % (20-50) L 04/16/18 05:15 Monocytes 4 % (2-10) 04/16/18 05:15 Eosinophils 1 % (0-5) 04/16/18 05:15 Basophils 1 % (0-3) 04/16/18 05:15 Sodium 130 mEq/L (136-145) L 04/16/18 05:15 Potassium 3.6 mEq/L (3.5-5.1) 04/16/18 05:15 Chloride 103 mEq/L (98-107) 04/16/18 05:15 Carbon Dioxide 18.4 mEq/L (21.0-31.0) L 04/16/18 05:15 Anion Gap 12.2 (7.0-16.0) 04/16/18 05:15 BUN 13 mg/dL (7-25) 04/16/18 05:15 Creatinine 0.6 mg/dL (0.7-1.3) L 04/16/18 05:15 Est GFR ( Amer) TNP 04/16/18 05:15 Est GFR (Non-Af Amer) TNP 04/16/18 05:15 BUN/Creatinine Ratio 21.7 04/16/18 05:15 Glucose 104 mg/dL (70-105) 04/16/18 05:15 Whole Bld Lactic Acid 0.96 mmol/L (0.60-1.99) 04/15/18 21:20 Calcium 9.2 mg/dL (8.6-10.3) 04/16/18 05:15 Total Bilirubin 0.5 mg/dL (0.3-1.0) 04/15/18 21:20 AST 7 U/L (13-39) L 04/15/18 21:20 ALT 9 U/L (7-52) 04/15/18 21:20 Alkaline Phosphatase 54 U/L (34-104) 04/15/18 21:20 Total Protein 6.5 gm/dL (6.0-8.3) 04/15/18 21:20 Albumin 3.5 gm/dL (4.2-5.5) L 04/15/18 21:20 Globulin 3.0 gm/dL 04/15/18 21:20 Albumin/Globulin Ratio 1.2 (1.0-1.8) 04/15/18 21:20 Urine Source [place] 04/15/18 21:45 Urine Color ORANGE 04/15/18 21:45 Urine Clarity HAZY (CLEAR) 04/15/18 21:45 Urine pH 5.5 (4.6 - 8.0) 04/15/18 21:45 Ur Specific [place] 1.015 (1.005-1.030) 04/15/18 21:45 Urine Protein TRACE mg/dL (NEGATIVE) 04/15/18 21:45 Urine Glucose (UA) NEGATIVE mg/dL (NEGATIVE) 04/15/18 21:45 Urine Ketones NEGATIVE mg/dL (NEGATIVE) 04/15/18 21:45 Urine Blood NEGATIVE (NEGATIVE) 04/15/18 21:45 Urine Nitrate POSITIVE (NEGATIVE) H 04/15/18 21:45 Urine Bilirubin NEGATIVE (NEGATIVE) 04/15/18 21:45 Urine Urobilinogen 0.2 E.U./dL (0.2 - 1.0) 04/15/18 21:45 Ur Leukocyte Esterase SMALL (NEGATIVE) H 04/15/18 21:45 Urine RBC 0-2 /hpf (0-5) H 04/15/18 21:45 Urine WBC 6-10 /hpf (0-5) 04/15/18 21:45 Ur Epithelial Cells OCCASIONAL /lpf (FEW) 04/15/18 21:45 Urine Bacteria MODERATE /hpf (NONE SEEN) H 04/15/18 21:45 - Physical Exam Vitals and I&O: Vital Signs Temp 97.5 F 04/17/18 08:00 Pulse 74 04/17/18 08:00 Resp 18 04/17/18 08:00 BP 100/57 04/17/18 08:00 Pulse Ox 99 04/17/18 08:00 Intake & Output 04/16/18 04/17/18 04/17/18 18:59 06:59 18:59 Intake Total 950 50 Output Total 450 Balance 500 50 Weight (lbs) 67.585 kg Intake: Intake, IV Amount 150 50 Piperacillin Sodium/ 150 50 Tazobact 3.375 gm In Sodium Chloride 0.9% 50 ml @ 100 mls/hr IV Q6HR [facility] Rx#:[id number] Oral 800 Output: Urine 450 Other: # Bowel Movements 1 Stool Characteristics Liquid Liquid Liquid Brown Brown Brown Weight Source Bedscale Active Medications: Current Medications Acetaminophen/Hydrocodone Bitart ([place] 5mg/325mg) 1 tab PO Q4H PRN PRN Reason: Pain (Moderate) 4-7 Stop: 06/15/18 01:07 Dextrose/Sodium Chloride (D5-0.9%Ns) 1,000 mls @ 50 mls/hr IV .Q20H NAVID Stop: 06/15/18 01:44 Last Admin: 04/16/18 01:59 Dose: 50 mls/hr Piperacillin Sod/Tazobactam (Sod 3.375 gm/ Sodium Chloride) 50 mls @ 100 mls/ hr IV Q6HR [facility] Stop: 06/15/18 05:59 Last Admin: 04/17/18 05:44 Dose: 100 mls/hr Miscellaneous (Zosyn Iv Per Pharmacy) 1 ea MC PRN PRN PRN Reason: Abdominal cellulitis Stop: 06/15/18 01:14 - Procedures Procedures: Procedures Procedure Code Date BYPASS DESCENDING COLON TO CUTANEOUS, OPEN APPROACH [id number] 08/30/17 DESTRUCTION OF BLADDER, ENDO [id number] 02/27/18 EXCISION OF BACK SUBCU/FASCIA, OPEN APPROACH [id number] 09/16/17 EXCISION OF LEFT FOOT SKIN, EXTERNAL APPROACH [id number] 09/16/17 EXCISION OF RIGHT FOOT SKIN, EXTERNAL APPROACH [id number] 09/16/17 EXTIRPATION OF MATTER FROM BLADDER, ENDO [id number] 02/27/18 TRANSFUSE NONAUT RED BLOOD CELLS IN PERIPH VEIN, PERC [id number] 08/30/17 Nutritional Asmnt/Malnutr-PDOC - Dietary Evaluation Malnutrition Findings (Please click <Entered> for more info): Nutritional Asmnt/Malnutrition Start: 04/16/18 17: 00 Text: Status: Active Freq: Protocol: Document 04/16/18 17:02 SETH (Rec: 04/16/18 17:24 SETH GUERRA) Nutritional Asmnt/Malnutrition Patient General Information Nutritional Screening High Risk Consult Diagnosis cellulitis abdomen Pertinent Medical Hx/Surgical Hx dementia, pneumonia, sepsis, non-healing sacral decubitus, diverting colostomy, HTN, asthma/COPD, PUD/GERD, CKD, paraplegia, pulmonary edema Subjective Information Received nutrition consult for wound. Pt was laying in bed at time of visit, agigated and undergoing wound check. Pt did not provide specific food preferences. RN reported pt does not like the hospital food. Current Diet Order/ Nutrition Support [facility] soft chopped Pertinent Medications D5-0.9%Ns, piperacillin Pertinent Labs 04/15: glucose 109, Na 129, Cr 0.6, Alb 3.5 04/16: glucose 104, Na 130, Cr 0.6 Nutritional Hx/Data Height 1.75 m Height (Calculated Centimeters) 175.3 Current Weight (lbs) 67.585 kg Weight (Calculated Kilograms) 67.6 Weight (Calculated Grams) 84136.3 Body Mass Index (BMI) 21.9 Weight Status Approriate GI Symptoms GI Symptoms None Last BM none noted Difficult in: None Food Allergies No Skin Integrity/Comment: pressure ulcer to sacrum ( previously stage 4), reddened r/l arms, abrasion to left knee Estimated Nutritional Goals BEE in Kcals: Using Current wt Calories/Kcals/Kg 25-30 Kcals Calculated [id number] Protein: Using Current wt Protein g/k.3-1.5 Protein Calculated 88-101 g Fluid: ml (1 ml/kcal) Nutritional Problem 1. Problem Problem Increased protein needs Etiology wound healing Signs/Symptoms: pressure ulcer to sacrum Malnutrition Alert Is there a minimum of two criteria No selected? Query Text:Check all the applicable criteria. A minimum of two criteria are recommended for diagnosis of either severe or non-severe malnutrition. Malnutrition Related to Morbid Obesity Malnutrition related to morbid obesity No Intervention/Recommendation Comments 1. Continue with mechanical soft chopped diet as ordered. Diet to meet 100% of protein needs. 2. Add Connor BID to help with wound healing. 3. Consider supplementing w/ ensure if PO intake <50%. 4. Monitor PO intake, wt, labs and skin integrity. 5. F/U as moderate risk in 3-5 days, 04/19-04/21 Expected Outcomes/Goals Expected Outcomes/Goals 1. PO intake to meet at least 75% of nutritional needs. 2. Wt stability, skin integrity to improve, labs to approach WNL. Reviewed by Nataly Davis
--- NOTE | 2018-04-17 13:45 | Infectious Disease Prog Note ---
Infectious Disease Subjective - Review of Systems Service Date: 04/17/18 Subjective: There is no new change, has serous drainage coming from small incision wound in midline. Infectious Disease Objective - Results Result Diagrams: 04/16/18 05:15 04/16/18 05:15 Recent Labs: Laboratory Last Values WBC 18.2 Th/cmm (4.8-10.8) H 04/16/18 05:15 RBC 3.60 Mil/cmm (3.80-5.80) L 04/16/18 05:15 Hgb 10.8 gm/dL (12-16) L 04/16/18 05:15 Hct 32.0 % (41.0-60) L D 04/16/18 05:15 MCV 88.9 fl (80-99) 04/16/18 05:15 MCH 30.0 pg (27.0-31.0) 04/16/18 05:15 MCHC Differential 33.7 pg (28.0-36.0) 04/16/18 05:15 RDW 13.4 % (11.5-20.0) 04/16/18 05:15 Plt Count 353 Th/cmm (150-400) 04/16/18 05:15 MPV 7.2 fl 04/16/18 05:15 Add Manual Diff YES 04/16/18 05:15 Neutrophils % 86.6 % (40.0-80.0) H 04/15/18 21:20 Band Neutrophils % 0 % (0-10) 04/16/18 05:15 Lymphocytes % 9.6 % (20.0-50.0) L 04/15/18 21:20 Monocytes % 1.7 % (2.0-10.0) L 04/15/18 21:20 Basophils % 1.0 % (0.0-2.0) 04/15/18 21:20 Neutrophils (Manual) 82 % (40-80) H 04/16/18 05:15 Lymphocytes 12 % (20-50) L 04/16/18 05:15 Monocytes 4 % (2-10) 04/16/18 05:15 Eosinophils 1 % (0-5) 04/16/18 05:15 Basophils 1 % (0-3) 04/16/18 05:15 Sodium 130 mEq/L (136-145) L 04/16/18 05:15 Potassium 3.6 mEq/L (3.5-5.1) 04/16/18 05:15 Chloride 103 mEq/L (98-107) 04/16/18 05:15 Carbon Dioxide 18.4 mEq/L (21.0-31.0) L 04/16/18 05:15 Anion Gap 12.2 (7.0-16.0) 04/16/18 05:15 BUN 13 mg/dL (7-25) 04/16/18 05:15 Creatinine 0.6 mg/dL (0.7-1.3) L 04/16/18 05:15 Est GFR ( Amer) TNP 04/16/18 05:15 Est GFR (Non-Af Amer) TNP 04/16/18 05:15 BUN/Creatinine Ratio 21.7 04/16/18 05:15 Glucose 104 mg/dL (70-105) 04/16/18 05:15 Whole Bld Lactic Acid 0.96 mmol/L (0.60-1.99) 04/15/18 21:20 Calcium 9.2 mg/dL (8.6-10.3) 04/16/18 05:15 Total Bilirubin 0.5 mg/dL (0.3-1.0) 04/15/18 21:20 AST 7 U/L (13-39) L 04/15/18 21:20 ALT 9 U/L (7-52) 04/15/18 21:20 Alkaline Phosphatase 54 U/L (34-104) 04/15/18 21:20 Total Protein 6.5 gm/dL (6.0-8.3) 04/15/18 21:20 Albumin 3.5 gm/dL (4.2-5.5) L 04/15/18 21:20 Globulin 3.0 gm/dL 04/15/18 21:20 Albumin/Globulin Ratio 1.2 (1.0-1.8) 04/15/18 21:20 Urine Source [place] 04/15/18 21:45 Urine Color ORANGE 04/15/18 21:45 Urine Clarity HAZY (CLEAR) 04/15/18 21:45 Urine pH 5.5 (4.6 - 8.0) 04/15/18 21:45 Ur Specific [place] 1.015 (1.005-1.030) 04/15/18 21:45 Urine Protein TRACE mg/dL (NEGATIVE) 04/15/18 21:45 Urine Glucose (UA) NEGATIVE mg/dL (NEGATIVE) 04/15/18 21:45 Urine Ketones NEGATIVE mg/dL (NEGATIVE) 04/15/18 21:45 Urine Blood NEGATIVE (NEGATIVE) 04/15/18 21:45 Urine Nitrate POSITIVE (NEGATIVE) H 04/15/18 21:45 Urine Bilirubin NEGATIVE (NEGATIVE) 04/15/18 21:45 Urine Urobilinogen 0.2 E.U./dL (0.2 - 1.0) 04/15/18 21:45 Ur Leukocyte Esterase SMALL (NEGATIVE) H 04/15/18 21:45 Urine RBC 0-2 /hpf (0-5) H 04/15/18 21:45 Urine WBC 6-10 /hpf (0-5) 04/15/18 21:45 Ur Epithelial Cells OCCASIONAL /lpf (FEW) 04/15/18 21:45 Urine Bacteria MODERATE /hpf (NONE SEEN) H 04/15/18 21:45 - Physical Exam Vitals and I&O: Vital Signs Temp 97.1 F 04/17/18 11:52 Pulse 83 04/17/18 11:52 Resp 18 04/17/18 11:52 BP 99/49 04/17/18 11:52 Pulse Ox 95 04/17/18 11:52 Intake & Output 04/16/18 04/17/18 04/17/18 18:59 06:59 18:59 Intake Total 950 100 Output Total 450 Balance 500 100 Weight (lbs) 67.585 kg Intake: Intake, IV Amount 150 100 Piperacillin Sodium/ 150 100 Tazobact 3.375 gm In Sodium Chloride 0.9% 50 ml @ 100 mls/hr IV Q6HR [facility] Rx#:[id number] Oral 800 Output: Urine 450 Other: # Bowel Movements 1 Stool Characteristics Liquid Liquid Liquid Brown Brown Brown Weight Source Bedscale Active Medications: Current Medications Acetaminophen/Hydrocodone Bitart ([place] 5mg/325mg) 1 tab PO Q4H PRN PRN Reason: Pain (Moderate) 4-7 Stop: 06/15/18 01:07 Dextrose/Sodium Chloride (D5-0.9%Ns) 1,000 mls @ 50 mls/hr IV .Q20H [facility] Stop: 06/15/18 01:44 Last Admin: 04/16/18 01:59 Dose: 50 mls/hr Piperacillin Sod/Tazobactam (Sod 3.375 gm/ Sodium Chloride) 50 mls @ 100 mls/ hr IV Q6HR [facility] Stop: 06/15/18 05:59 Last Admin: 04/17/18 13:13 Dose: 100 mls/hr Miscellaneous (Zosyn Iv Per Pharmacy) 1 [facility] PRN PRN PRN Reason: Abdominal cellulitis Stop: 06/15/18 01:14 General: no acute distress, well developed, well nourished HEENT: atraumatic, normocephalic, PERRLA, EOMI Neck: supple, no thyromegaly Cardiovascular: S1S2, regular Lungs: clear to auscultation bilaterally, clear to percussion Abdomen: soft, other (Colostomy), no tender, no distended Extremities: no cyanosis, no clubbing, no edema Neurological: awake, alert, oriented Skin: other (sacral wound) - Procedures Procedures: Procedures Procedure Code Date BYPASS DESCENDING COLON TO CUTANEOUS, OPEN APPROACH [id number] 08/30/17 DESTRUCTION OF BLADDER, ENDO [id number] 02/27/18 EXCISION OF BACK SUBCU/FASCIA, OPEN APPROACH [id number] 09/16/17 EXCISION OF LEFT FOOT SKIN, EXTERNAL APPROACH [id number] 09/16/17 EXCISION OF RIGHT FOOT SKIN, EXTERNAL APPROACH [id number] 09/16/17 EXTIRPATION OF MATTER FROM BLADDER, ENDO [id number] 02/27/18 TRANSFUSE NONAUT RED BLOOD CELLS IN PERIPH VEIN, PERC [id number] 08/30/17 Infectious Disease Assmt/Plan - Assessment Assessment: 1. abdominal wall cellulitis. 2. diverting colostomy. 3. dementia 4. Sacral decubitus ulcer, stage 4. 5. Chronic obstructive pulmonary disease. - Plan Plan: Continue Zosyn. wound cultures. CT a/p ordered. Nutritional Asmnt/Malnutr-PDOC - Dietary Evaluation Malnutrition Findings (Please click <Entered> for more info): Nutritional Asmnt/Malnutrition Start: 04/16/18 17: 00 Text: Status: Active Freq: Protocol: Document 04/16/18 17:02 SETH (Rec: 04/16/18 17:24 SETH GUERRA) Nutritional Asmnt/Malnutrition Patient General Information Nutritional Screening High Risk Consult Diagnosis cellulitis abdomen Pertinent Medical Hx/Surgical Hx dementia, pneumonia, sepsis, non-healing sacral decubitus, diverting colostomy, HTN, asthma/COPD, PUD/GERD, CKD, paraplegia, pulmonary edema Subjective Information Received nutrition consult for wound. Pt was laying in bed at time of visit, agigated and undergoing wound check. Pt did not provide specific food preferences. RN reported pt does not like the hospital food. Current Diet Order/ Nutrition Support [facility] soft chopped Pertinent Medications D5-0.9%Ns, piperacillin Pertinent Labs 04/15: glucose 109, Na 129, Cr 0.6, Alb 3.5 04/16: glucose 104, Na 130, Cr 0.6 Nutritional Hx/Data Height 1.75 m Height (Calculated Centimeters) 175.3 Current Weight (lbs) 67.585 kg Weight (Calculated Kilograms) 67.6 Weight (Calculated Grams) 21468.3 Body Mass Index (BMI) 21.9 Weight Status Approriate GI Symptoms GI Symptoms None Last BM none noted Difficult in: None Food Allergies No Skin Integrity/Comment: pressure ulcer to sacrum ( previously stage 4), reddened r/l arms, abrasion to left knee Estimated Nutritional Goals BEE in Kcals: Using Current wt Calories/Kcals/Kg 25-30 Kcals Calculated 1392-5457 Protein: Using Current wt Protein g/k.3-1.5 Protein Calculated 88-101 g Fluid: ml 1161-6577 (1 ml/kcal) Nutritional Problem 1. Problem Problem Increased protein needs Etiology wound healing Signs/Symptoms: pressure ulcer to sacrum Malnutrition Alert Is there a minimum of two criteria No selected? Query Text:Check all the applicable criteria. A minimum of two criteria are recommended for diagnosis of either severe or non-severe malnutrition. Malnutrition Related to Morbid Obesity Malnutrition related to morbid obesity No Intervention/Recommendation Comments 1. Continue with mechanical soft chopped diet as ordered. Diet to meet 100% of protein needs. 2. Add Connor BID to help with wound healing. 3. Consider supplementing w/ ensure if PO intake <50%. 4. Monitor PO intake, wt, labs and skin integrity. 5. F/U as moderate risk in 3-5 days, 9/ Expected Outcomes/Goals Expected Outcomes/Goals 1. PO intake to meet at least 75% of nutritional needs. 2. Wt stability, skin integrity to improve, labs to approach WNL. Reviewed by Nataly Davis
--- NOTE | 2018-04-17 15:58 | General Progress Note ---
Subjective - Review of Systems Events since last encounter: has drainage coming from small incision wound in midline in no distress Objective - Results Result Diagrams: 04/16/18 05:15 04/16/18 05:15 Recent Labs: Laboratory Last Values WBC 18.2 Th/cmm (4.8-10.8) H 04/16/18 05:15 RBC 3.60 Mil/cmm (3.80-5.80) L 04/16/18 05:15 Hgb 10.8 gm/dL (12-16) L 04/16/18 05:15 Hct 32.0 % (41.0-60) L D 04/16/18 05:15 MCV 88.9 fl (80-99) 04/16/18 05:15 MCH 30.0 pg (27.0-31.0) 04/16/18 05:15 MCHC Differential 33.7 pg (28.0-36.0) 04/16/18 05:15 RDW 13.4 % (11.5-20.0) 04/16/18 05:15 Plt Count 353 Th/cmm (150-400) 04/16/18 05:15 MPV 7.2 fl 04/16/18 05:15 Add Manual Diff YES 04/16/18 05:15 Neutrophils % 86.6 % (40.0-80.0) H 04/15/18 21:20 Band Neutrophils % 0 % (0-10) 04/16/18 05:15 Lymphocytes % 9.6 % (20.0-50.0) L 04/15/18 21:20 Monocytes % 1.7 % (2.0-10.0) L 04/15/18 21:20 Basophils % 1.0 % (0.0-2.0) 04/15/18 21:20 Neutrophils (Manual) 82 % (40-80) H 04/16/18 05:15 Lymphocytes 12 % (20-50) L 04/16/18 05:15 Monocytes 4 % (2-10) 04/16/18 05:15 Eosinophils 1 % (0-5) 04/16/18 05:15 Basophils 1 % (0-3) 04/16/18 05:15 Sodium 130 mEq/L (136-145) L 04/16/18 05:15 Potassium 3.6 mEq/L (3.5-5.1) 04/16/18 05:15 Chloride 103 mEq/L (98-107) 04/16/18 05:15 Carbon Dioxide 18.4 mEq/L (21.0-31.0) L 04/16/18 05:15 Anion Gap 12.2 (7.0-16.0) 04/16/18 05:15 BUN 13 mg/dL (7-25) 04/16/18 05:15 Creatinine 0.6 mg/dL (0.7-1.3) L 04/16/18 05:15 Est GFR ( Amer) TNP 04/16/18 05:15 Est GFR (Non-Af Amer) TNP 04/16/18 05:15 BUN/Creatinine Ratio 21.7 04/16/18 05:15 Glucose 104 mg/dL (70-105) 04/16/18 05:15 Whole Bld Lactic Acid 0.96 mmol/L (0.60-1.99) 04/15/18 21:20 Calcium 9.2 mg/dL (8.6-10.3) 04/16/18 05:15 Total Bilirubin 0.5 mg/dL (0.3-1.0) 04/15/18 21:20 AST 7 U/L (13-39) L 04/15/18 21:20 ALT 9 U/L (7-52) 04/15/18 21:20 Alkaline Phosphatase 54 U/L (34-104) 04/15/18 21:20 Total Protein 6.5 gm/dL (6.0-8.3) 04/15/18 21:20 Albumin 3.5 gm/dL (4.2-5.5) L 04/15/18 21:20 Globulin 3.0 gm/dL 04/15/18 21:20 Albumin/Globulin Ratio 1.2 (1.0-1.8) 04/15/18 21:20 Urine Source [place] 04/15/18 21:45 Urine Color ORANGE 04/15/18 21:45 Urine Clarity HAZY (CLEAR) 04/15/18 21:45 Urine pH 5.5 (4.6 - 8.0) 04/15/18 21:45 Ur Specific [place] 1.015 (1.005-1.030) 04/15/18 21:45 Urine Protein TRACE mg/dL (NEGATIVE) 04/15/18 21:45 Urine Glucose (UA) NEGATIVE mg/dL (NEGATIVE) 04/15/18 21:45 Urine Ketones NEGATIVE mg/dL (NEGATIVE) 04/15/18 21:45 Urine Blood NEGATIVE (NEGATIVE) 04/15/18 21:45 Urine Nitrate POSITIVE (NEGATIVE) H 04/15/18 21:45 Urine Bilirubin NEGATIVE (NEGATIVE) 04/15/18 21:45 Urine Urobilinogen 0.2 E.U./dL (0.2 - 1.0) 04/15/18 21:45 Ur Leukocyte Esterase SMALL (NEGATIVE) H 04/15/18 21:45 Urine RBC 0-2 /hpf (0-5) H 04/15/18 21:45 Urine WBC 6-10 /hpf (0-5) 04/15/18 21:45 Ur Epithelial Cells OCCASIONAL /lpf (FEW) 04/15/18 21:45 Urine Bacteria MODERATE /hpf (NONE SEEN) H 04/15/18 21:45 - Physical Exam Vitals and I&O: Vital Signs Temp 97.1 F 04/17/18 11:52 Pulse 83 04/17/18 11:52 Resp 18 04/17/18 11:52 BP 99/49 04/17/18 11:52 Pulse Ox 95 04/17/18 11:52 Intake & Output 04/16/18 04/17/18 04/17/18 18:59 06:59 18:59 Intake Total 950 100 50 Output Total 450 Balance 500 100 50 Weight (lbs) 67.585 kg Intake: Intake, IV Amount 150 100 50 Piperacillin Sodium/ 150 100 50 Tazobact 3.375 gm In Sodium Chloride 0.9% 50 ml @ 100 mls/hr IV Q6HR [facility] Rx#:[id number] Oral 800 Output: Urine 450 Other: # Bowel Movements 1 Stool Characteristics Liquid Liquid Liquid Brown Brown Brown Weight Source Bedscale Active Medications: Current Medications Acetaminophen/Hydrocodone Bitart ([place] 5mg/325mg) 1 tab PO Q4H PRN PRN Reason: Pain (Moderate) 4-7 Stop: 06/15/18 01:07 Dextrose/Sodium Chloride (D5-0.9%Ns) 1,000 mls @ 50 mls/hr IV .Q20H [facility] Stop: 06/15/18 01:44 Last Admin: 04/16/18 01:59 Dose: 50 mls/hr Piperacillin Sod/Tazobactam (Sod 3.375 gm/ Sodium Chloride) 50 mls @ 100 mls/ hr IV Q6HR [facility] Stop: 06/15/18 05:59 Last Infusion: 04/17/18 13:43 Dose: Infused Miscellaneous (Zosyn Iv Per Pharmacy) 1 ea PRN PRN PRN Reason: Abdominal cellulitis Stop: 06/15/18 01:14 Miscellaneous (Vancomycin Iv Per Pharmacy) 1 ea PRN PRN PRN Reason: PROTOCOL Stop: 06/16/18 15:44 Mupirocin (Bactroban Oint) 1 appl NS BID [facility] Stop: 04/22/18 09:01 - Procedures Procedures: Procedures Procedure Code Date BYPASS DESCENDING COLON TO CUTANEOUS, OPEN APPROACH [id number] 08/30/17 DESTRUCTION OF BLADDER, ENDO [id number] 02/27/18 EXCISION OF BACK SUBCU/FASCIA, OPEN APPROACH [id number] 09/16/17 EXCISION OF LEFT FOOT SKIN, EXTERNAL APPROACH [id number] 09/16/17 EXCISION OF RIGHT FOOT SKIN, EXTERNAL APPROACH [id number] 09/16/17 EXTIRPATION OF MATTER FROM BLADDER, ENDO [id number] 02/27/18 TRANSFUSE NONAUT RED BLOOD CELLS IN PERIPH VEIN, PERC [id number] 08/30/17 Nutritional Asmnt/Malnutr-PDOC - Dietary Evaluation Malnutrition Findings (Please click <Entered> for more info): Nutritional Asmnt/Malnutrition Start: 04/16/18 17: 00 Text: Status: Active Freq: Protocol: Document 04/16/18 17:02 SETH (Rec: 04/16/18 17:24 SETH GUERRA) Nutritional Asmnt/Malnutrition Patient General Information Nutritional Screening High Risk Consult Diagnosis cellulitis abdomen Pertinent Medical Hx/Surgical Hx dementia, pneumonia, sepsis, non-healing sacral decubitus, diverting colostomy, HTN, asthma/COPD, PUD/GERD, CKD, paraplegia, pulmonary edema Subjective Information Received nutrition consult for wound. Pt was laying in bed at time of visit, agigated and undergoing wound check. Pt did not provide specific food preferences. RN reported pt does not like the hospital food. Current Diet Order/ Nutrition Support [facility] soft chopped Pertinent Medications D5-0.9%Ns, piperacillin Pertinent Labs 04/15: glucose 109, Na 129, Cr 0.6, Alb 3.5 04/16: glucose 104, Na 130, Cr 0.6 Nutritional Hx/Data Height 1.75 m Height (Calculated Centimeters) 175.3 Current Weight (lbs) 67.585 kg Weight (Calculated Kilograms) 67.6 Weight (Calculated Grams) 66616.3 Body Mass Index (BMI) 21.9 Weight Status Approriate GI Symptoms GI Symptoms None Last BM none noted Difficult in: None Food Allergies No Skin Integrity/Comment: pressure ulcer to sacrum ( previously stage 4), reddened r/l arms, abrasion to left knee Estimated Nutritional Goals BEE in Kcals: Using Current wt Calories/Kcals/Kg 25-30 Kcals Calculated 9798-2386 Protein: Using Current wt Protein g/k.3-1.5 Protein Calculated 88-101 g Fluid: ml 0629-9560 (1 ml/kcal) Nutritional Problem 1. Problem Problem Increased protein needs Etiology wound healing Signs/Symptoms: pressure ulcer to sacrum Malnutrition Alert Is there a minimum of two criteria No selected? Query Text:Check all the applicable criteria. A minimum of two criteria are recommended for diagnosis of either severe or non-severe malnutrition. Malnutrition Related to Morbid Obesity Malnutrition related to morbid obesity No Intervention/Recommendation Comments 1. Continue with mechanical soft chopped diet as ordered. Diet to meet 100% of protein needs. 2. Add Connor BID to help with wound healing. 3. Consider supplementing w/ ensure if PO intake <50%. 4. Monitor PO intake, wt, labs and skin integrity. 5. F/U as moderate risk in 3-5 days, 04/19-04/21 Expected Outcomes/Goals Expected Outcomes/Goals 1. PO intake to meet at least 75% of nutritional needs. 2. Wt stability, skin integrity to improve, labs to approach WNL. Reviewed by Nataly Davis
[2018-04-17] MEDS: D5-0.9%NS 1,000 ML IV SCH (16:50)
[2018-04-17] MEDS: Hydrocodone/APAP 5mg/325mg Tab PO PRN ×2 (17:10→21:45)
--- NOTE | 2018-04-18 08:55 | Diagnostic Imaging Report ---
CT abdomen and pelvis without intravenous contrast Indication: Pain, enteric cutaneous fistula Comparison: None, Technique: Axial images were obtained from the lung bases to the bilateral proximal femurs with IV and oral contrast. Reconstructions were made. total DLP: [id number] , [id number] FINDINGS: Focal right basal infiltrate/pneumonia is noted. Hypoventilatory atelectatic changes of the lung bases are also noted. Subcentimeter low-density lesion of the right lobe of liver is noted to small to characterize. Small hypodense splenic lesions also noted to small to characterize. Mild splenomegaly is noted. No focal pancreatic or adrenal lesions. No evidence of hydronephrosis. Assessment for renal stones is limited due to contrast administration. Subcentimeter low-density lesion left kidney is noted to small to characterize but possibly representing a cyst. Roberto catheter and fluid and air is seen within the urinary bladder. There is also urinary bladder wall thickening. left lower quadrant ostomy is noted. There are inflammatory changes and induration seen along the anterior abdominal wall and anterior mesenteric omental region greatest on the left extending to the midline. There is also small air-fluid collection seen along the midline anterior abdominal wall at lung adjacent to umbilicus measuring 1.3 x 2.5 cm. Mild atherosclerosis is noted. Postsurgical changes of bowel loops are noted. Diffuse degenerative changes are seen throughout the spine. Atherosclerosis is noted. IMPRESSION: Diffuse induration and inflammatory changes along the anterior abdominal wall which extends to the anterior omental region and the anterior mesentery. There is also small fluid collection with air seen along the subcutaneous tissues of the midline intra-abdominal wall adjacent to the umbilicus. An infected fluid collection cannot be excluded. 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 No contrast extravasation is seen at this time. Clinical correlation and follow-up of this is recommended. Left lower quadrant ostomy with progression of oral contrast throughout the small and large bowel and into the ostomy without evidence of extravasation. Subcentimeter low-density splenic and hepatic lesions too small to characterize. Roberto catheter and air and fluid in the urinary bladder with urinary bladder wall thickening. There is probably inflammatory process of the urinary bladder Mildly prominent spleen. Right basal infiltrate/pneumonia Atherosclerotic vascular disease.
--- NOTE | 2018-04-18 09:45 | General Progress Note ---
Subjective - Review of Systems Service Date: 04/18/18 Events since last encounter: CT scan noted fistulogram ordered to determine exact location of fistula source Objective - Results Result Diagrams: 04/16/18 05:15 04/16/18 05:15 Recent Labs: Laboratory Last Values WBC 18.2 Th/cmm (4.8-10.8) H 04/16/18 05:15 RBC 3.60 Mil/cmm (3.80-5.80) L 04/16/18 05:15 Hgb 10.8 gm/dL (12-16) L 04/16/18 05:15 Hct 32.0 % (41.0-60) L D 04/16/18 05:15 MCV 88.9 fl (80-99) 04/16/18 05:15 MCH 30.0 pg (27.0-31.0) 04/16/18 05:15 MCHC Differential 33.7 pg (28.0-36.0) 04/16/18 05:15 RDW 13.4 % (11.5-20.0) 04/16/18 05:15 Plt Count 353 Th/cmm (150-400) 04/16/18 05:15 MPV 7.2 fl 04/16/18 05:15 Add Manual Diff YES 04/16/18 05:15 Neutrophils % 86.6 % (40.0-80.0) H 04/15/18 21:20 Band Neutrophils % 0 % (0-10) 04/16/18 05:15 Lymphocytes % 9.6 % (20.0-50.0) L 04/15/18 21:20 Monocytes % 1.7 % (2.0-10.0) L 04/15/18 21:20 Basophils % 1.0 % (0.0-2.0) 04/15/18 21:20 Neutrophils (Manual) 82 % (40-80) H 04/16/18 05:15 Lymphocytes 12 % (20-50) L 04/16/18 05:15 Monocytes 4 % (2-10) 04/16/18 05:15 Eosinophils 1 % (0-5) 04/16/18 05:15 Basophils 1 % (0-3) 04/16/18 05:15 Sodium 130 mEq/L (136-145) L 04/16/18 05:15 Potassium 3.6 mEq/L (3.5-5.1) 04/16/18 05:15 Chloride 103 mEq/L (98-107) 04/16/18 05:15 Carbon Dioxide 18.4 mEq/L (21.0-31.0) L 04/16/18 05:15 Anion Gap 12.2 (7.0-16.0) 04/16/18 05:15 BUN 13 mg/dL (7-25) 04/16/18 05:15 Creatinine 0.6 mg/dL (0.7-1.3) L 04/16/18 05:15 Est GFR ( Amer) TNP 04/16/18 05:15 Est GFR (Non-Af Amer) TNP 04/16/18 05:15 BUN/Creatinine Ratio 21.7 04/16/18 05:15 Glucose 104 mg/dL (70-105) 04/16/18 05:15 Whole Bld Lactic Acid 0.96 mmol/L (0.60-1.99) 04/15/18 21:20 Calcium 9.2 mg/dL (8.6-10.3) 04/16/18 05:15 Total Bilirubin 0.5 mg/dL (0.3-1.0) 04/15/18 21:20 AST 7 U/L (13-39) L 04/15/18 21:20 ALT 9 U/L (7-52) 04/15/18 21:20 Alkaline Phosphatase 54 U/L (34-104) 04/15/18 21:20 Total Protein 6.5 gm/dL (6.0-8.3) 04/15/18 21:20 Albumin 3.5 gm/dL (4.2-5.5) L 04/15/18 21:20 Globulin 3.0 gm/dL 04/15/18 21:20 Albumin/Globulin Ratio 1.2 (1.0-1.8) 04/15/18 21:20 Urine Source [place] 04/15/18 21:45 Urine Color ORANGE 04/15/18 21:45 Urine Clarity HAZY (CLEAR) 04/15/18 21:45 Urine pH 5.5 (4.6 - 8.0) 04/15/18 21:45 Ur Specific [place] 1.015 (1.005-1.030) 04/15/18 21:45 Urine Protein TRACE mg/dL (NEGATIVE) 04/15/18 21:45 Urine Glucose (UA) NEGATIVE mg/dL (NEGATIVE) 04/15/18 21:45 Urine Ketones NEGATIVE mg/dL (NEGATIVE) 04/15/18 21:45 Urine Blood NEGATIVE (NEGATIVE) 04/15/18 21:45 Urine Nitrate POSITIVE (NEGATIVE) H 04/15/18 21:45 Urine Bilirubin NEGATIVE (NEGATIVE) 04/15/18 21:45 Urine Urobilinogen 0.2 E.U./dL (0.2 - 1.0) 04/15/18 21:45 Ur Leukocyte Esterase SMALL (NEGATIVE) H 04/15/18 21:45 Urine RBC 0-2 /hpf (0-5) H 04/15/18 21:45 Urine WBC 6-10 /hpf (0-5) 04/15/18 21:45 Ur Epithelial Cells OCCASIONAL /lpf (FEW) 04/15/18 21:45 Urine Bacteria MODERATE /hpf (NONE SEEN) H 04/15/18 21:45 - Physical Exam Vitals and I&O: Vital Signs Temp 97.4 F 04/18/18 08:25 Pulse 68 04/18/18 08:25 Resp 17 04/18/18 08:25 BP 110/67 04/18/18 08:25 Pulse Ox 98 04/18/18 08:25 Intake & Output 04/17/18 04/18/18 04/18/18 18:59 06:59 18:59 Intake Total 950 100 Output Total 700 Balance 250 100 Weight (lbs) 67.585 kg 66.814 kg Intake: Intake, IV Amount 50 100 Piperacillin Sodium/ 50 100 Tazobact 3.375 gm In Sodium Chloride 0.9% 50 ml @ 100 mls/hr IV Q6HR [facility] Rx#:[id number] Oral 900 Output: Urine 700 Other: # Voids 250 # Bowel Movements 1 2 Stool Characteristics Liquid Liquid Liquid Brown Brown Brown Weight Source Bedscale Bedscale Active Medications: Current Medications Acetaminophen/Hydrocodone Bitart ([place] 5mg/325mg) 1 tab PO Q4H PRN PRN Reason: Pain (Moderate) 4-7 Stop: 06/15/18 01:07 Last Admin: 04/17/18 21:45 Dose: 1 tab Dextrose/Sodium Chloride (D5-0.9%Ns) 1,000 mls @ 50 mls/hr IV .Q20H [facility] Stop: 06/15/18 01:44 Last Admin: 04/17/18 16:50 Dose: 50 mls/hr Piperacillin Sod/Tazobactam (Sod 3.375 gm/ Sodium Chloride) 50 mls @ 100 mls/ hr IV Q6HR [facility] Stop: 06/15/18 05:59 Last Admin: 04/18/18 06:24 Dose: 100 mls/hr Vancomycin HCl 1.25 gm/ Sodium (Chloride) 250 mls @ 165 mls/hr IV Q18H [facility] Stop: 06/17/18 08:59 Miscellaneous (Zosyn Iv Per Pharmacy) 1 ea PRN PRN PRN Reason: Abdominal cellulitis Stop: 06/15/18 01:14 Miscellaneous (Vancomycin Iv Per Pharmacy) 1 [facility] PRN PRN PRN Reason: PROTOCOL Stop: 06/16/18 15:44 Mupirocin (Bactroban Oint) 1 appl NS BID [facility] Stop: 04/22/18 09:01 Last Admin: 04/17/18 16:49 Dose: 1 appl - Procedures Procedures: Procedures Procedure Code Date BYPASS DESCENDING COLON TO CUTANEOUS, OPEN APPROACH [id number] 08/30/17 DESTRUCTION OF BLADDER, ENDO [id number] 02/27/18 EXCISION OF BACK SUBCU/FASCIA, OPEN APPROACH [id number] 09/16/17 EXCISION OF LEFT FOOT SKIN, EXTERNAL APPROACH [id number] 09/16/17 EXCISION OF RIGHT FOOT SKIN, EXTERNAL APPROACH [id number] 09/16/17 EXTIRPATION OF MATTER FROM BLADDER, ENDO [id number] 02/27/18 TRANSFUSE NONAUT RED BLOOD CELLS IN PERIPH VEIN, PERC [id number] 08/30/17 Nutritional Asmnt/Malnutr-PDOC - Dietary Evaluation Malnutrition Findings (Please click <Entered> for more info): Nutritional Asmnt/Malnutrition Start: 04/16/18 17: 00 Text: Status: Active Freq: Protocol: Document 04/16/18 17:02 SETH (Rec: 04/16/18 17:24 SETH GUERRA) Nutritional Asmnt/Malnutrition Patient General Information Nutritional Screening High Risk Consult Diagnosis cellulitis abdomen Pertinent Medical Hx/Surgical Hx dementia, pneumonia, sepsis, non-healing sacral decubitus, diverting colostomy, HTN, asthma/COPD, PUD/GERD, CKD, paraplegia, pulmonary edema Subjective Information Received nutrition consult for wound. Pt was laying in bed at time of visit, agigated and undergoing wound check. Pt did not provide specific food preferences. RN reported pt does not like the hospital food. Current Diet Order/ Nutrition Support 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 Problem Problem Increased protein needs Etiology wound healing Signs/Symptoms: pressure ulcer to sacrum Malnutrition Alert Is there a minimum of two criteria No selected? Query Text:Check all the applicable criteria. A minimum of two criteria are recommended for diagnosis of either severe or non-severe malnutrition. Malnutrition Related to Morbid Obesity Malnutrition related to morbid obesity No Intervention/Recommendation Comments 1. Continue with mechanical soft chopped diet as ordered. Diet to meet 100% of protein needs. 2. Add Connor BID to help with wound healing. 3. Consider supplementing w/ ensure if PO intake <50%. 4. Monitor PO intake, wt, labs and skin integrity. 5. F/U as moderate risk in 3-5 days, 04/19-04/21 Expected Outcomes/Goals Expected Outcomes/Goals 1. PO intake to meet at least 75% of nutritional needs. 2. Wt stability, skin integrity to improve, labs to approach WNL. Reviewed by Nataly Davis
[2018-04-18 10:11] LABS: % EOSINOPHILS 3.6 % (0.0-5.0); % LYMPHOCYTES 18.2 % (20.0-50.0); % MONOCYTES 7.1 % (2.0-10.0); % NEUTROPHILS 71.1 % (40.0-80.0); EOSINOPHILE ABSOLUTE 0.4 Th/cmm (0.1-0.4); HEMATOCRIT 34.9 % (41.0-60); HEMOGLOBIN 11.6 gm/dL (12-16); LYMPHOCYTE ABSOLUTE 1.9 Th/cmm (1.5-3.0); MEAN CELL VOLUME 89.4 fl (80-99); MEAN CORPUSCULAR HEMOGLOBIN 29.7 pg (27.0-31.0); MEAN CORPUSCULAR HGB CONC 33.2 pg (28.0-36.0); MEAN PLATELET VOLUME 6.8 fl; MONOCYTE ABSOLUTE 0.7 Th/cmm (0.3-1.0); NEUTROPHILE ABSOLUTE 7.3 Th/cmm (1.8-8.0); PLATELET COUNT 416 Th/cmm (150-400); RED BLOOD COUNT 3.91 Mil/cmm (3.80-5.80); RED CELL DISTRIBUTION WIDTH 13.5 % (11.5-20.0); WHITE BLOOD COUNT 10.3 Th/cmm (4.8-10.8)
[2018-04-18 10:28] LABS: CREATININE - SERUM 0.7 mg/dL (0.7-1.3)
--- NOTE | 2018-04-18 10:51 | General Progress Note ---
Subjective - Review of Systems Service Date: 04/18/18 Events since last encounter: CT scan reviewed with Dr. 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 Plan: had breakfast today, will schedule for Saturday Objective - Results Result Diagrams: 04/18/18 10:05 04/18/18 10:05 Recent Labs: Laboratory Last Values WBC 10.3 Th/cmm (4.8-10.8) 04/18/18 10:05 RBC 3.91 Mil/cmm (3.80-5.80) 04/18/18 10:05 Hgb 11.6 gm/dL (12-16) L 04/18/18 10:05 Hct 34.9 % (41.0-60) L 04/18/18 10:05 MCV 89.4 fl (80-99) 04/18/18 10:05 MCH 29.7 pg (27.0-31.0) 04/18/18 10:05 MCHC Differential 33.2 pg (28.0-36.0) 04/18/18 10:05 RDW 13.5 % (11.5-20.0) 04/18/18 10:05 Plt Count 416 Th/cmm (150-400) H 04/18/18 10:05 MPV 6.8 fl 04/18/18 10:05 Add Manual Diff YES 04/16/18 05:15 Neutrophils % 71.1 % (40.0-80.0) 04/18/18 10:05 Band Neutrophils % 0 % (0-10) 04/16/18 05:15 Lymphocytes % 18.2 % (20.0-50.0) L 04/18/18 10:05 Monocytes % 7.1 % (2.0-10.0) 04/18/18 10:05 Eosinophils % 3.6 % (0.0-5.0) 04/18/18 10:05 Basophils % 0.0 % (0.0-2.0) 04/18/18 10:05 Neutrophils (Manual) 82 % (40-80) H 04/16/18 05:15 Lymphocytes 12 % (20-50) L 04/16/18 05:15 Monocytes 4 % (2-10) 04/16/18 05:15 Eosinophils 1 % (0-5) 04/16/18 05:15 Basophils 1 % (0-3) 04/16/18 05:15 Sodium 130 mEq/L (136-145) L 04/16/18 05:15 Potassium 3.6 mEq/L (3.5-5.1) 04/16/18 05:15 Chloride 103 mEq/L (98-107) 04/16/18 05:15 Carbon Dioxide 18.4 mEq/L (21.0-31.0) L 04/16/18 05:15 Anion Gap 12.2 (7.0-16.0) 04/16/18 05:15 BUN 10 mg/dL (7-25) 04/18/18 10:05 Creatinine 0.7 mg/dL (0.7-1.3) 04/18/18 10:05 Est GFR ( Amer) TNP 04/16/18 05:15 Est GFR (Non-Af Amer) TNP 04/16/18 05:15 BUN/Creatinine Ratio 21.7 04/16/18 05:15 Glucose 104 mg/dL (70-105) 04/16/18 05:15 Whole Bld Lactic Acid 0.96 mmol/L (0.60-1.99) 04/15/18 21:20 Calcium 9.2 mg/dL (8.6-10.3) 04/16/18 05:15 Total Bilirubin 0.5 mg/dL (0.3-1.0) 04/15/18 21:20 AST 7 U/L (13-39) L 04/15/18 21:20 ALT 9 U/L (7-52) 04/15/18 21:20 Alkaline Phosphatase 54 U/L (34-104) 04/15/18 21:20 Total Protein 6.5 gm/dL (6.0-8.3) 04/15/18 21:20 Albumin 3.5 gm/dL (4.2-5.5) L 04/15/18 21:20 Globulin 3.0 gm/dL 04/15/18 21:20 Albumin/Globulin Ratio 1.2 (1.0-1.8) 04/15/18 21:20 Urine Source [place] 04/15/18 21:45 Urine Color ORANGE 04/15/18 21:45 Urine Clarity HAZY (CLEAR) 04/15/18 21:45 Urine pH 5.5 (4.6 - 8.0) 04/15/18 21:45 Ur Specific [place] 1.015 (1.005-1.030) 04/15/18 21:45 Urine Protein TRACE mg/dL (NEGATIVE) 04/15/18 21:45 Urine Glucose (UA) NEGATIVE mg/dL (NEGATIVE) 04/15/18 21:45 Urine Ketones NEGATIVE mg/dL (NEGATIVE) 04/15/18 21:45 Urine Blood NEGATIVE (NEGATIVE) 04/15/18 21:45 Urine Nitrate POSITIVE (NEGATIVE) H 04/15/18 21:45 Urine Bilirubin NEGATIVE (NEGATIVE) 04/15/18 21:45 Urine Urobilinogen 0.2 E.U./dL (0.2 - 1.0) 04/15/18 21:45 Ur Leukocyte Esterase SMALL (NEGATIVE) H 04/15/18 21:45 Urine RBC 0-2 /hpf (0-5) H 04/15/18 21:45 Urine WBC 6-10 /hpf (0-5) 04/15/18 21:45 Ur Epithelial Cells OCCASIONAL /lpf (FEW) 04/15/18 21:45 Urine Bacteria MODERATE /hpf (NONE SEEN) H 04/15/18 21:45 - Physical Exam Vitals and I&O: Vital Signs Temp 97.4 F 04/18/18 08:25 Pulse 68 04/18/18 08:25 Resp 17 04/18/18 08:25 BP 110/67 04/18/18 08:25 Pulse Ox 98 04/18/18 08:25 Intake & Output 04/17/18 04/18/18 04/18/18 18:59 06:59 18:59 Intake Total 950 100 Output Total 700 Balance 250 100 Weight (lbs) 67.585 kg 66.814 kg Intake: Intake, IV Amount 50 100 Piperacillin Sodium/ 50 100 Tazobact 3.375 gm In Sodium Chloride 0.9% 50 ml @ 100 mls/hr IV Q6HR [facility] Rx#:[id number] Oral 900 Output: Urine 700 Other: # Voids 250 # Bowel Movements 1 2 Stool Characteristics Liquid Liquid Liquid Brown Brown Brown Weight Source Bedscale Bedscale Active Medications: Current Medications Acetaminophen/Hydrocodone Bitart ([place] 5mg/325mg) 1 tab PO Q4H PRN PRN Reason: Pain (Moderate) 4-7 Stop: 06/15/18 01:07 Last Admin: 04/17/18 21:45 Dose: 1 tab Dextrose/Sodium Chloride (D5-0.9%Ns) 1,000 mls @ 50 mls/hr IV .Q20H [facility] Stop: 06/15/18 01:44 Last Admin: 04/17/18 16:50 Dose: 50 mls/hr Piperacillin Sod/Tazobactam (Sod 3.375 gm/ Sodium Chloride) 50 mls @ 100 mls/ hr IV Q6HR [facility] Stop: 06/15/18 05:59 Last Admin: 04/18/18 06:24 Dose: 100 mls/hr Vancomycin HCl 1.25 gm/ Sodium (Chloride) 250 mls @ 165 mls/hr IV Q18H [facility] Stop: 06/17/18 08:59 Last Admin: 04/18/18 09:55 Dose: 165 mls/hr Miscellaneous (Zosyn Iv Per Pharmacy) 1 ea PRN PRN PRN Reason: Abdominal cellulitis Stop: 06/15/18 01:14 Miscellaneous (Vancomycin Iv Per Pharmacy) 1 ea PRN PRN PRN Reason: PROTOCOL Stop: 06/16/18 15:44 Mupirocin (Bactroban Oint) 1 appl NS BID [facility] Stop: 04/22/18 09:01 Last Admin: 04/18/18 09:55 Dose: 1 appl - Procedures Procedures: Procedures Procedure Code Date BYPASS DESCENDING COLON TO CUTANEOUS, OPEN APPROACH [id number] 08/30/17 DESTRUCTION OF BLADDER, ENDO [id number] 02/27/18 EXCISION OF BACK SUBCU/FASCIA, OPEN APPROACH [id number] 09/16/17 EXCISION OF LEFT FOOT SKIN, EXTERNAL APPROACH [id number] 09/16/17 EXCISION OF RIGHT FOOT SKIN, EXTERNAL APPROACH [id number] 09/16/17 EXTIRPATION OF MATTER FROM BLADDER, ENDO [id number] 02/27/18 TRANSFUSE NONAUT RED BLOOD CELLS IN PERIPH VEIN, PERC [id number] 08/30/17 Nutritional Asmnt/Malnutr-PDOC - Dietary Evaluation Malnutrition Findings (Please click <Entered> for more info): Nutritional Asmnt/Malnutrition Start: 04/16/18 17: 00 Text: Status: Active Freq: Protocol: Document 04/16/18 17:02 DYANG (Rec: 04/16/18 17:24 SETH GUERRA) Nutritional Asmnt/Malnutrition Patient General Information Nutritional Screening High Risk Consult Diagnosis cellulitis abdomen Pertinent Medical Hx/Surgical Hx dementia, pneumonia, sepsis, non-healing sacral decubitus, diverting colostomy, HTN, asthma/COPD, PUD/GERD, CKD, paraplegia, pulmonary edema Subjective Information Received nutrition consult for wound. Pt was laying in bed at time of visit, agigated and undergoing wound check. Pt did not provide specific food preferences. RN reported pt does not like the hospital food. 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 Problem Problem Increased protein needs Etiology wound healing Signs/Symptoms: pressure ulcer to sacrum Malnutrition Alert Is there a minimum of two criteria No selected? Query Text:Check all the applicable criteria. A minimum of two criteria are recommended for diagnosis of either severe or non-severe malnutrition. Malnutrition Related to Morbid Obesity Malnutrition related to morbid obesity No Intervention/Recommendation Comments 1. Continue with mechanical soft chopped diet as ordered. Diet to meet 100% of protein needs. 2. Add Connor BID to help with wound healing. 3. Consider supplementing w/ ensure if PO intake <50%. 4. Monitor PO intake, wt, labs and skin integrity. 5. F/U as moderate risk in 3-5 days, 04/19-04/21 Expected Outcomes/Goals Expected Outcomes/Goals 1. PO intake to meet at least 75% of nutritional needs. 2. Wt stability, skin integrity to improve, labs to approach WNL. Reviewed by Nataly Davis
[2018-04-18 11:34] LABS: INR 0.99 (0.5-1.4); PROTHROMBIN TIME (TEST) 10.3 SECONDS (9.5-11.5)
[2018-04-18] MEDS: D5-0.9%NS 1,000 ML IV SCH (23:58)
--- NOTE | 2018-04-19 01:22 | Infectious Disease Prog Note ---
Infectious Disease Subjective - Review of Systems Service Date: 04/19/18 Subjective: There is no new change, has serous drainage coming from small incision wound in midline. Infectious Disease Objective - Results Result Diagrams: 04/18/18 10:05 04/18/18 10:05 Recent Labs: Laboratory Last Values WBC 10.3 Th/cmm (4.8-10.8) 04/18/18 10:05 RBC 3.91 Mil/cmm (3.80-5.80) 04/18/18 10:05 Hgb 11.6 gm/dL (12-16) L 04/18/18 10:05 Hct 34.9 % (41.0-60) L 04/18/18 10:05 MCV 89.4 fl (80-99) 04/18/18 10:05 MCH 29.7 pg (27.0-31.0) 04/18/18 10:05 MCHC Differential 33.2 pg (28.0-36.0) 04/18/18 10:05 RDW 13.5 % (11.5-20.0) 04/18/18 10:05 Plt Count 416 Th/cmm (150-400) H 04/18/18 10:05 MPV 6.8 fl 04/18/18 10:05 Add Manual Diff YES 04/16/18 05:15 Neutrophils % 71.1 % (40.0-80.0) 04/18/18 10:05 Band Neutrophils % 0 % (0-10) 04/16/18 05:15 Lymphocytes % 18.2 % (20.0-50.0) L 04/18/18 10:05 Monocytes % 7.1 % (2.0-10.0) 04/18/18 10:05 Eosinophils % 3.6 % (0.0-5.0) 04/18/18 10:05 Basophils % 0.0 % (0.0-2.0) 04/18/18 10:05 Neutrophils (Manual) 82 % (40-80) H 04/16/18 05:15 Lymphocytes 12 % (20-50) L 04/16/18 05:15 Monocytes 4 % (2-10) 04/16/18 05:15 Eosinophils 1 % (0-5) 04/16/18 05:15 Basophils 1 % (0-3) 04/16/18 05:15 PT 10.3 SECONDS (9.5-11.5) 04/18/18 10:05 INR 0.99 (0.5-1.4) 04/18/18 10:05 PTT (Actin FS) 22.4 SECONDS (26.0-38.0) L 04/18/18 10:05 Sodium 130 mEq/L (136-145) L 04/16/18 05:15 Potassium 3.6 mEq/L (3.5-5.1) 04/16/18 05:15 Chloride 103 mEq/L (98-107) 04/16/18 05:15 Carbon Dioxide 18.4 mEq/L (21.0-31.0) L 04/16/18 05:15 Anion Gap 12.2 (7.0-16.0) 04/16/18 05:15 BUN 10 mg/dL (7-25) 04/18/18 10:05 Creatinine 0.7 mg/dL (0.7-1.3) 04/18/18 10:05 Est GFR ( Amer) TNP 04/16/18 05:15 Est GFR (Non-Af Amer) TNP 04/16/18 05:15 BUN/Creatinine Ratio 21.7 04/16/18 05:15 Glucose 104 mg/dL (70-105) 04/16/18 05:15 Whole Bld Lactic Acid 0.96 mmol/L (0.60-1.99) 04/15/18 21:20 Calcium 9.2 mg/dL (8.6-10.3) 04/16/18 05:15 Total Bilirubin 0.5 mg/dL (0.3-1.0) 04/15/18 21:20 AST 7 U/L (13-39) L 04/15/18 21:20 ALT 9 U/L (7-52) 04/15/18 21:20 Alkaline Phosphatase 54 U/L (34-104) 04/15/18 21:20 Total Protein 6.5 gm/dL (6.0-8.3) 04/15/18 21:20 Albumin 3.5 gm/dL (4.2-5.5) L 04/15/18 21:20 Globulin 3.0 gm/dL 04/15/18 21:20 Albumin/Globulin Ratio 1.2 (1.0-1.8) 04/15/18 21:20 Urine Source [place] 04/15/18 21:45 Urine Color ORANGE 04/15/18 21:45 Urine Clarity HAZY (CLEAR) 04/15/18 21:45 Urine pH 5.5 (4.6 - 8.0) 04/15/18 21:45 Ur Specific [place] 1.015 (1.005-1.030) 04/15/18 21:45 Urine Protein TRACE mg/dL (NEGATIVE) 04/15/18 21:45 Urine Glucose (UA) NEGATIVE mg/dL (NEGATIVE) 04/15/18 21:45 Urine Ketones NEGATIVE mg/dL (NEGATIVE) 04/15/18 21:45 Urine Blood NEGATIVE (NEGATIVE) 04/15/18 21:45 Urine Nitrate POSITIVE (NEGATIVE) H 04/15/18 21:45 Urine Bilirubin NEGATIVE (NEGATIVE) 04/15/18 21:45 Urine Urobilinogen 0.2 E.U./dL (0.2 - 1.0) 04/15/18 21:45 Ur Leukocyte Esterase SMALL (NEGATIVE) H 04/15/18 21:45 Urine RBC 0-2 /hpf (0-5) H 04/15/18 21:45 Urine WBC 6-10 /hpf (0-5) 04/15/18 21:45 Ur Epithelial Cells OCCASIONAL /lpf (FEW) 04/15/18 21:45 Urine Bacteria MODERATE /hpf (NONE SEEN) H 04/15/18 21:45 - Physical Exam Vitals and I&O: Vital Signs Temp 97.7 F 04/18/18 15:56 Pulse 77 04/18/18 15:56 Resp 18 04/18/18 20:00 BP 98/62 04/18/18 15:56 Pulse Ox 95 04/18/18 15:56 Intake & Output 04/18/18 04/18/18 04/19/18 06:59 18:59 06:59 Intake Total 150 2820 Balance 150 2820 Weight (lbs) 66.814 kg 66.814 kg Intake: Intake, IV Amount 150 1100 D5-0.9%Ns 1,000 ml @ 50 1000 mls/hr IV .Q20H [facility] Rx#: [id number] Piperacillin Sodium/ 150 100 Tazobact 3.375 gm In Sodium Chloride 0.9% 50 ml @ 100 mls/hr IV Q6HR [facility] Rx#:[id number] Oral 1720 Other: # Voids 250 1,800 # Bowel Movements 2 1 Stool Characteristics Liquid Liquid Liquid Brown Brown Brown Weight Source Bedscale Bedscale Active Medications: Current Medications Acetaminophen/Hydrocodone Bitart ([place] 5mg/325mg) 1 tab PO Q4H PRN PRN Reason: Pain (Moderate) 4-7 Stop: 06/15/18 01:07 Last Admin: 04/17/18 21:45 Dose: 1 tab Dextrose/Sodium Chloride (D5-0.9%Ns) 1,000 mls @ 50 mls/hr IV .Q20H [facility] Stop: 06/15/18 01:44 Last Admin: 04/18/18 23:58 Dose: 50 mls/hr Piperacillin Sod/Tazobactam (Sod 3.375 gm/ Sodium Chloride) 50 mls @ 100 mls/ hr IV Q6HR [facility] Stop: 06/15/18 05:59 Last Admin: 04/18/18 23:55 Dose: 100 mls/hr Vancomycin HCl 1.25 gm/ Sodium (Chloride) 250 mls @ 165 mls/hr IV Q18H [facility] Stop: 06/17/18 08:59 Last Admin: 04/18/18 09:55 Dose: 165 mls/hr Miscellaneous (Zosyn Iv Per Pharmacy) 1 [facility] PRN PRN PRN Reason: Abdominal cellulitis Stop: 06/15/18 01:14 Miscellaneous (Vancomycin Iv Per Pharmacy) 1 [facility] PRN PRN PRN Reason: PROTOCOL Stop: 06/16/18 15:44 Mupirocin (Bactroban Oint) 1 appl NS BID [facility] Stop: 04/22/18 09:01 Last Admin: 04/18/18 17:11 Dose: 1 appl General: no acute distress, well developed, well nourished HEENT: atraumatic, normocephalic, PERRLA, EOMI Neck: supple, no thyromegaly Cardiovascular: S1S2, regular Lungs: clear to auscultation bilaterally, clear to percussion Abdomen: soft, other (abdominal wall wound drainage present tenderness present. LLQ colostomy.), no tender, no distended Extremities: no cyanosis, no clubbing, no edema Neurological: awake, alert, oriented - Procedures Procedures: Procedures Procedure Code Date BYPASS DESCENDING COLON TO CUTANEOUS, OPEN APPROACH [id number] 08/30/17 DESTRUCTION OF BLADDER, ENDO [id number] 02/27/18 EXCISION OF BACK SUBCU/FASCIA, OPEN APPROACH [id number] 09/16/17 EXCISION OF LEFT FOOT SKIN, EXTERNAL APPROACH [id number] 09/16/17 EXCISION OF RIGHT FOOT SKIN, EXTERNAL APPROACH [id number] 09/16/17 EXTIRPATION OF MATTER FROM BLADDER, ENDO [id number] 02/27/18 TRANSFUSE NONAUT RED BLOOD CELLS IN PERIPH VEIN, PERC [id number] 08/30/17 Infectious Disease Assmt/Plan - Assessment Assessment: 1. abdominal wall cellulitis. ? Enterocutaneous fistula 2. diverting colostomy. 3. dementia 4. Sacral decubitus ulcer, stage 4. 5. Chronic obstructive pulmonary disease. 6. UTI GNR - Plan Plan: Continue vanco and Zosyn. wound cultures. Nutritional Asmnt/Malnutr-PDOC - Dietary Evaluation Malnutrition Findings (Please click <Entered> for more info): Nutritional Asmnt/Malnutrition Start: 04/16/18 17: 00 Text: Status: Active Freq: Protocol: Document 04/16/18 17:02 SETH (Rec: 04/16/18 17:24 SETH GUERRA) Nutritional Asmnt/Malnutrition Patient General Information Nutritional Screening High Risk Consult Diagnosis cellulitis abdomen Pertinent Medical Hx/Surgical Hx dementia, pneumonia, sepsis, non-healing sacral decubitus, diverting colostomy, HTN, asthma/COPD, PUD/GERD, CKD, paraplegia, pulmonary edema Subjective Information Received nutrition consult for wound. Pt was laying in bed at time of visit, agigated and undergoing wound check. Pt did not provide specific food preferences. RN reported pt does not like the hospital food. Current Diet Order/ Nutrition Support [facility] soft chopped Pertinent Medications D5-0.9%Ns, piperacillin Pertinent Labs 04/15: glucose 109, Na 129, Cr 0.6, Alb 3.5 04/16: glucose 104, Na 130, Cr 0.6 Nutritional Hx/Data Height 1.75 m Height (Calculated Centimeters) 175.3 Current Weight (lbs) 67.585 kg Weight (Calculated Kilograms) 67.6 Weight (Calculated Grams) 58730.3 Body Mass Index (BMI) 21.9 Weight Status Approriate GI Symptoms GI Symptoms None Last BM none noted Difficult in: None Food Allergies No Skin Integrity/Comment: pressure ulcer to sacrum ( previously stage 4), reddened r/l arms, abrasion to left knee Estimated Nutritional Goals BEE in Kcals: Using Current wt Calories/Kcals/Kg 25-30 Kcals Calculated 2794-7724 Protein: Using Current wt Protein g/k.3-1.5 Protein Calculated 88-101 g Fluid: ml 5711-3173 (1 ml/kcal) Nutritional Problem 1. Problem Problem Increased protein needs Etiology wound healing Signs/Symptoms: pressure ulcer to sacrum Malnutrition Alert Is there a minimum of two criteria No selected? Query Text:Check all the applicable criteria. A minimum of two criteria are recommended for diagnosis of either severe or non-severe malnutrition. Malnutrition Related to Morbid Obesity Malnutrition related to morbid obesity No Intervention/Recommendation Comments 1. Continue with mechanical soft chopped diet as ordered. Diet to meet 100% of protein needs. 2. Add Connor BID to help with wound healing. 3. Consider supplementing w/ ensure if PO intake <50%. 4. Monitor PO intake, wt, labs and skin integrity. 5. F/U as moderate risk in 3-5 days, 04/19-04/21 Expected Outcomes/Goals Expected Outcomes/Goals 1. PO intake to meet at least 75% of nutritional needs. 2. Wt stability, skin integrity to improve, labs to approach WNL. Reviewed by Nataly Davis
[2018-04-19 05:59] LABS: ANION GAP 9.7 (7.0-16.0); BUN - UREA NITROGEN 11 mg/dL (7-25); CALCIUM SERUM 9.2 mg/dL (8.6-10.3); CARBON DIOXIDE 21.7 mEq/L (21.0-31.0); CHLORIDE 107 mEq/L (98-107); CREATININE - SERUM 0.7 mg/dL (0.7-1.3); GLUCOSE 88 mg/dL (70-105); POTASSIUM SERUM 3.4 mEq/L (3.5-5.1); SODIUM SERUM 135 mEq/L (136-145)
[2018-04-19] MEDS ORDERED: Potassium Chloride 20 mEq ER Tab PO ONE (09:00)
--- NOTE | 2018-04-19 09:29 | Progress Notes ---
DATE: 04/19/2018 SUBJECTIVE: The patient was seen in room. The patient is awake and alert, but forgetful. Denies any pain or discomfort. Otherwise, patient appears to be in no acute distress. OBJECTIVE: VITAL SIGNS: Temperature 98, heart rate 70, respirations 17, blood pressure 110/70, 97% on room air. HEENT: Head is atraumatic and normocephalic. Eyes: Bilateral conjunctivae are clear. Bilateral pupils are equally round and reactive. NECK: Supple. No JVD. CARDIOVASCULAR: S1 and S2, without murmur. PULMONARY: Clear to auscultation. GASTROINTESTINAL: Soft and nontender without guarding. Positive bowel sounds. MUSCULOSKELETAL: No clubbing, no cyanosis noted. ASSESSMENT: 1. 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 2. Dementia. 3. Stage IV sacral decubitus ulcer. 4. Chronic obstructive pulmonary disease. PLAN: We will continue current treatment. Follow up with ID doctor for antibiotic management. The patient is scheduled for exploratory laparotomy on 04/21/2018. Treatment plans were discussed with the patient's nurse. Treatment plans were discussed with Dr. Huizar. JOB# [id number]
--- NOTE | 2018-04-19 15:36 | Infectious Disease Prog Note ---
Infectious Disease Subjective - Review of Systems Service Date: 04/19/18 Subjective: There is no new change, has serous drainage coming from small incision wound in midline. Infectious Disease Objective - Results Result Diagrams: 04/21/18 04:59 04/21/18 04:59 Recent Labs: Laboratory Last Values WBC 10.3 Th/cmm (4.8-10.8) 04/18/18 10:05 RBC 3.91 Mil/cmm (3.80-5.80) 04/18/18 10:05 Hgb 11.6 gm/dL (12-16) L 04/18/18 10:05 Hct 34.9 % (41.0-60) L 04/18/18 10:05 MCV 89.4 fl (80-99) 04/18/18 10:05 MCH 29.7 pg (27.0-31.0) 04/18/18 10:05 MCHC Differential 33.2 pg (28.0-36.0) 04/18/18 10:05 RDW 13.5 % (11.5-20.0) 04/18/18 10:05 Plt Count 416 Th/cmm (150-400) H 04/18/18 10:05 MPV 6.8 fl 04/18/18 10:05 Add Manual Diff YES 04/16/18 05:15 Neutrophils % 71.1 % (40.0-80.0) 04/18/18 10:05 Band Neutrophils % 0 % (0-10) 04/16/18 05:15 Lymphocytes % 18.2 % (20.0-50.0) L 04/18/18 10:05 Monocytes % 7.1 % (2.0-10.0) 04/18/18 10:05 Eosinophils % 3.6 % (0.0-5.0) 04/18/18 10:05 Basophils % 0.0 % (0.0-2.0) 04/18/18 10:05 Neutrophils (Manual) 82 % (40-80) H 04/16/18 05:15 Lymphocytes 12 % (20-50) L 04/16/18 05:15 Monocytes 4 % (2-10) 04/16/18 05:15 Eosinophils 1 % (0-5) 04/16/18 05:15 Basophils 1 % (0-3) 04/16/18 05:15 PT 10.3 SECONDS (9.5-11.5) 04/18/18 10:05 INR 0.99 (0.5-1.4) 04/18/18 10:05 PTT (Actin FS) 22.4 SECONDS (26.0-38.0) L 04/18/18 10:05 Sodium 135 mEq/L (136-145) L 04/19/18 05:06 Potassium 3.4 mEq/L (3.5-5.1) L 04/19/18 05:06 Chloride 107 mEq/L (98-107) 04/19/18 05:06 Carbon Dioxide 21.7 mEq/L (21.0-31.0) 04/19/18 05:06 Anion Gap 9.7 (7.0-16.0) 04/19/18 05:06 BUN 11 mg/dL (7-25) 04/19/18 05:06 Creatinine 0.7 mg/dL (0.7-1.3) 04/19/18 05:06 Est GFR ( Amer) TNP 04/19/18 05:06 Est GFR (Non-Af Amer) TNP 04/19/18 05:06 BUN/Creatinine Ratio 15.7 04/19/18 05:06 Glucose 88 mg/dL (70-105) 04/19/18 05:06 Whole Bld Lactic Acid 0.96 mmol/L (0.60-1.99) 04/15/18 21:20 Calcium 9.2 mg/dL (8.6-10.3) 04/19/18 05:06 Total Bilirubin 0.5 mg/dL (0.3-1.0) 04/15/18 21:20 AST 7 U/L (13-39) L 04/15/18 21:20 ALT 9 U/L (7-52) 04/15/18 21:20 Alkaline Phosphatase 54 U/L (34-104) 04/15/18 21:20 Total Protein 6.5 gm/dL (6.0-8.3) 04/15/18 21:20 Albumin 3.5 gm/dL (4.2-5.5) L 04/15/18 21:20 Globulin 3.0 gm/dL 04/15/18 21:20 Albumin/Globulin Ratio 1.2 (1.0-1.8) 04/15/18 21:20 Urine Source [place] 04/15/18 21:45 Urine Color ORANGE 04/15/18 21:45 Urine Clarity HAZY (CLEAR) 04/15/18 21:45 Urine pH 5.5 (4.6 - 8.0) 04/15/18 21:45 Ur Specific [place] 1.015 (1.005-1.030) 04/15/18 21:45 Urine Protein TRACE mg/dL (NEGATIVE) 04/15/18 21:45 Urine Glucose (UA) NEGATIVE mg/dL (NEGATIVE) 04/15/18 21:45 Urine Ketones NEGATIVE mg/dL (NEGATIVE) 04/15/18 21:45 Urine Blood NEGATIVE (NEGATIVE) 04/15/18 21:45 Urine Nitrate POSITIVE (NEGATIVE) H 04/15/18 21:45 Urine Bilirubin NEGATIVE (NEGATIVE) 04/15/18 21:45 Urine Urobilinogen 0.2 E.U./dL (0.2 - 1.0) 04/15/18 21:45 Ur Leukocyte Esterase SMALL (NEGATIVE) H 04/15/18 21:45 Urine RBC 0-2 /hpf (0-5) H 04/15/18 21:45 Urine WBC 6-10 /hpf (0-5) 04/15/18 21:45 Ur Epithelial Cells OCCASIONAL /lpf (FEW) 04/15/18 21:45 Urine Bacteria MODERATE /hpf (NONE SEEN) H 04/15/18 21:45 - Physical Exam Vitals and I&O: Vital Signs Temp 97.5 F 04/19/18 12:00 Pulse 71 04/19/18 12:00 Resp 18 04/19/18 12:00 BP 104/78 04/19/18 12:00 Pulse Ox 98 04/19/18 12:00 Intake & Output 04/18/18 04/19/18 04/19/18 18:59 06:59 18:59 Intake Total 3070 250 Output Total 800 Balance 3070 -550 Weight (lbs) 66.814 kg 66.678 kg Intake: Intake, IV Amount 1350 100 D5-0.9%Ns 1,000 ml @ 50 1000 mls/hr IV .Q20H [facility] Rx#: [id number] Piperacillin Sodium/ 100 100 Tazobact 3.375 gm In Sodium Chloride 0.9% 50 ml @ 100 mls/hr IV Q6HR [facility] Rx#:[id number] Vancomycin HCl 1.25 gm In 250 Sodium Chloride 0.9% 250 ml @ 165 mls/hr IV Q18H [facility] Rx#:[id number] Oral 1720 150 Output: Urine 550 Stool 250 Other: # Voids 1,800 # Bowel Movements 1 Stool Characteristics Liquid Liquid Liquid Brown Brown Brown Weight Source Bedscale Bedscale Active Medications: Current Medications Acetaminophen/Hydrocodone Bitart ([place] 5mg/325mg) 1 tab PO Q4H PRN PRN Reason: Pain (Moderate) 4-7 Stop: 06/15/18 01:07 Last Admin: 04/17/18 21:45 Dose: 1 tab Dextrose/Sodium Chloride (D5-0.9%Ns) 1,000 mls @ 50 mls/hr IV .Q20H [facility] Stop: 06/15/18 01:44 Last Admin: 04/18/18 23:58 Dose: 50 mls/hr Piperacillin Sod/Tazobactam (Sod 3.375 gm/ Sodium Chloride) 50 mls @ 100 mls/ hr IV Q6HR [facility] Stop: 06/15/18 05:59 Last Admin: 04/19/18 12:12 Dose: 100 mls/hr Vancomycin HCl 1.25 gm/ Sodium (Chloride) 250 mls @ 165 mls/hr IV Q18H [facility] Stop: 06/17/18 08:59 Last Admin: 04/19/18 04:08 Dose: 165 mls/hr Miscellaneous (Zosyn Iv Per Pharmacy) 1 [facility] PRN PRN PRN Reason: Abdominal cellulitis Stop: 06/15/18 01:14 Miscellaneous (Vancomycin Iv Per Pharmacy) 1 [facility] PRN PRN PRN Reason: PROTOCOL Stop: 06/16/18 15:44 Mupirocin (Bactroban Oint) 1 appl NS BID [facility] Stop: 04/22/18 09:01 Last Admin: 04/19/18 09:16 Dose: 1 appl General: no acute distress, well developed, well nourished HEENT: atraumatic, normocephalic, PERRLA, EOMI, moist mucous membrane Neck: supple Cardiovascular: S1S2, regular Lungs: clear to auscultation bilaterally, clear to percussion Abdomen: soft, tender, other (opening in surgical incision,), no distended Extremities: no cyanosis, no clubbing, no edema Neurological: awake, alert - Procedures Procedures: Procedures Procedure Code Date BYPASS DESCENDING COLON TO CUTANEOUS, OPEN APPROACH [id number] 08/30/17 DESTRUCTION OF BLADDER, ENDO [id number] 02/27/18 EXCISION OF BACK SUBCU/FASCIA, OPEN APPROACH [id number] 09/16/17 EXCISION OF LEFT FOOT SKIN, EXTERNAL APPROACH [id number] 09/16/17 EXCISION OF RIGHT FOOT SKIN, EXTERNAL APPROACH [id number] 09/16/17 EXTIRPATION OF MATTER FROM BLADDER, ENDO [id number] 02/27/18 TRANSFUSE NONAUT RED BLOOD CELLS IN PERIPH VEIN, PERC [id number] 08/30/17 Infectious Disease Assmt/Plan - Assessment Assessment: 1. abdominal wall cellulitis. ? Enterocutaneous fistula 2. diverting colostomy. 3. dementia 4. Sacral decubitus ulcer, stage 4. 5. Chronic obstructive pulmonary disease. 6. UTI GNR - Plan Plan: Continue vanco and Zosyn. wound cultures. Surgery on the case. Nutritional Asmnt/Malnutr-PDOC - Dietary Evaluation Malnutrition Findings (Please click <Entered> for more info): Nutritional Asmnt/Malnutrition Start: 04/16/18 17: 00 Text: Status: Active Freq: Protocol: Document 04/16/18 17:02 SETH (Rec: 04/16/18 17:24 SETH GUERRA) Nutritional Asmnt/Malnutrition Patient General Information Nutritional Screening High Risk Consult Diagnosis cellulitis abdomen Pertinent Medical Hx/Surgical Hx dementia, pneumonia, sepsis, non-healing sacral decubitus, diverting colostomy, HTN, asthma/COPD, PUD/GERD, CKD, paraplegia, pulmonary edema Subjective Information Received nutrition consult for wound. Pt was laying in bed at time of visit, agigated and undergoing wound check. Pt did not provide specific food preferences. RN reported pt does not like the hospital food. Current Diet Order/ Nutrition Support [facility] soft chopped Pertinent Medications D5-0.9%Ns, piperacillin Pertinent Labs 04/15: glucose 109, Na 129, Cr 0.6, Alb 3.5 04/16: glucose 104, Na 130, Cr 0.6 Nutritional Hx/Data Height 1.75 m Height (Calculated Centimeters) 175.3 Current Weight (lbs) 67.585 kg Weight (Calculated Kilograms) 67.6 Weight (Calculated Grams) 74341.3 Body Mass Index (BMI) 21.9 Weight Status Approriate GI Symptoms GI Symptoms None Last BM none noted Difficult in: None Food Allergies No Skin Integrity/Comment: pressure ulcer to sacrum ( previously stage 4), reddened r/l arms, abrasion to left knee Estimated Nutritional Goals BEE in Kcals: Using Current wt Calories/Kcals/Kg 25-30 Kcals Calculated 8033-5856 Protein: Using Current wt Protein g/k.3-1.5 Protein Calculated 88-101 g Fluid: ml (1 ml/kcal) Nutritional Problem 1. Problem Problem Increased protein needs Etiology wound healing Signs/Symptoms: pressure ulcer to sacrum Malnutrition Alert Is there a minimum of two criteria No selected? Query Text:Check all the applicable criteria. A minimum of two criteria are recommended for diagnosis of either severe or non-severe malnutrition. Malnutrition Related to Morbid Obesity Malnutrition related to morbid obesity No Intervention/Recommendation Comments 1. Continue with mechanical soft chopped diet as ordered. Diet to meet 100% of protein needs. 2. Add Connor BID to help with wound healing. 3. Consider supplementing w/ ensure if PO intake <50%. 4. Monitor PO intake, wt, labs and skin integrity. 5. F/U as moderate risk in 3-5 days, 04/19-04/21 Expected Outcomes/Goals Expected Outcomes/Goals 1. PO intake to meet at least 75% of nutritional needs. 2. Wt stability, skin integrity to improve, labs to approach WNL. Reviewed by Nataly Davis
[2018-04-19] MEDS: Hydrocodone/APAP 5mg/325mg Tab PO PRN (17:26)
[2018-04-20] MEDS: D5-0.9%NS 1,000 ML IV SCH (00:27)
[2018-04-20 04:58] LABS: % BASOPHILS 0.5 % (0.0-2.0); % EOSINOPHILS 4.2 % (0.0-5.0); % LYMPHOCYTES 26.3 % (20.0-50.0); % MONOCYTES 6.4 % (2.0-10.0); % NEUTROPHILS 62.6 % (40.0-80.0); BASOPHILE ABSOLUTE 0.1 Th/cumm (0-0.2); EOSINOPHILE ABSOLUTE 0.5 Th/cmm (0.1-0.4); HEMATOCRIT 33.9 % (41.0-60); HEMOGLOBIN 11.5 gm/dL (12-16); LYMPHOCYTE ABSOLUTE 2.9 Th/cmm (1.5-3.0); MEAN CELL VOLUME 88.2 fl (80-99); MEAN CORPUSCULAR HEMOGLOBIN 29.9 pg (27.0-31.0); MEAN CORPUSCULAR HGB CONC 33.9 pg (28.0-36.0); MEAN PLATELET VOLUME 6.9 fl; MONOCYTE ABSOLUTE 0.7 Th/cmm (0.3-1.0); NEUTROPHILE ABSOLUTE 6.8 Th/cmm (1.8-8.0); PLATELET COUNT 388 Th/cmm (150-400); RED BLOOD COUNT 3.84 Mil/cmm (3.80-5.80); RED CELL DISTRIBUTION WIDTH 13.1 % (11.5-20.0)
[2018-04-20 05:40] LABS: ALB/GLOB RATIO 1.3 (1.0-1.8); ALBUMIN 2.9 gm/dL (4.2-5.5); ALKALINE PHOSPHATASE 34 U/L (34-104); ANION GAP 10.5 (7.0-16.0); BILIRUBIN,TOTAL 0.3 mg/dL (0.3-1.0); BUN - UREA NITROGEN 9 mg/dL (7-25); CARBON DIOXIDE 19.2 mEq/L (21.0-31.0); CHLORIDE 109 mEq/L (98-107); CREATININE - SERUM 0.6 mg/dL (0.7-1.3); GLUCOSE 93 mg/dL (70-105); POTASSIUM SERUM 3.7 mEq/L (3.5-5.1); SGOT 12 U/L (13-39); SGPT/ALT 9 U/L (7-52); SODIUM SERUM 135 mEq/L (136-145); TOTAL PROTEIN,SERUM 5.1 gm/dL (6.0-8.3)
--- NOTE | 2018-04-20 09:32 | General Progress Note ---
Subjective - Review of Systems Service Date: 04/20/18 Events since last encounter: reviewed CT scan with Dr. Rodgers yesterday has fistula into the LLQ Plan: exploratory laparotomy and closure of fistula and debridement of sacral decubitus ulcer Objective - Results Result Diagrams: 04/20/18 04:40 04/20/18 04:40 Recent Labs: Laboratory Last Values WBC 11.0 Th/cmm (4.8-10.8) H 04/20/18 04:40 RBC 3.84 Mil/cmm (3.80-5.80) 04/20/18 04:40 Hgb 11.5 gm/dL (12-16) L 04/20/18 04:40 Hct 33.9 % (41.0-60) L 04/20/18 04:40 MCV 88.2 fl (80-99) 04/20/18 04:40 MCH 29.9 pg (27.0-31.0) 04/20/18 04:40 MCHC Differential 33.9 pg (28.0-36.0) 04/20/18 04:40 RDW 13.1 % (11.5-20.0) 04/20/18 04:40 Plt Count 388 Th/cmm (150-400) 04/20/18 04:40 MPV 6.9 fl 04/20/18 04:40 Add Manual Diff YES 04/16/18 05:15 Neutrophils % 62.6 % (40.0-80.0) 04/20/18 04:40 Band Neutrophils % 0 % (0-10) 04/16/18 05:15 Lymphocytes % 26.3 % (20.0-50.0) 04/20/18 04:40 Monocytes % 6.4 % (2.0-10.0) 04/20/18 04:40 Eosinophils % 4.2 % (0.0-5.0) 04/20/18 04:40 Basophils % 0.5 % (0.0-2.0) 04/20/18 04:40 Neutrophils (Manual) 82 % (40-80) H 04/16/18 05:15 Lymphocytes 12 % (20-50) L 04/16/18 05:15 Monocytes 4 % (2-10) 04/16/18 05:15 Eosinophils 1 % (0-5) 04/16/18 05:15 Basophils 1 % (0-3) 04/16/18 05:15 PT 10.3 SECONDS (9.5-11.5) 04/18/18 10:05 INR 0.99 (0.5-1.4) 04/18/18 10:05 PTT (Actin FS) 22.4 SECONDS (26.0-38.0) L 04/18/18 10:05 Sodium 135 mEq/L (136-145) L 04/20/18 04:40 Potassium 3.7 mEq/L (3.5-5.1) 04/20/18 04:40 Chloride 109 mEq/L (98-107) H 04/20/18 04:40 Carbon Dioxide 19.2 mEq/L (21.0-31.0) L 04/20/18 04:40 Anion Gap 10.5 (7.0-16.0) 04/20/18 04:40 BUN 9 mg/dL (7-25) 04/20/18 04:40 Creatinine 0.6 mg/dL (0.7-1.3) L 04/20/18 04:40 Est GFR ( Amer) TNP 04/20/18 04:40 Est GFR (Non-Af Amer) TNP 04/20/18 04:40 BUN/Creatinine Ratio 15.0 04/20/18 04:40 Glucose 93 mg/dL (70-105) 04/20/18 04:40 Whole Bld Lactic Acid 0.96 mmol/L (0.60-1.99) 04/15/18 21:20 Calcium 9.0 mg/dL (8.6-10.3) 04/20/18 04:40 Total Bilirubin 0.3 mg/dL (0.3-1.0) 04/20/18 04:40 AST 12 U/L (13-39) L 04/20/18 04:40 ALT 9 U/L (7-52) 04/20/18 04:40 Alkaline Phosphatase 34 U/L (34-104) 04/20/18 04:40 Total Protein 5.1 gm/dL (6.0-8.3) L 04/20/18 04:40 Albumin 2.9 gm/dL (4.2-5.5) L 04/20/18 04:40 Globulin 2.2 gm/dL 04/20/18 04:40 Albumin/Globulin Ratio 1.3 (1.0-1.8) 04/20/18 04:40 Urine Source [place] 04/15/18 21:45 Urine Color ORANGE 04/15/18 21:45 Urine Clarity HAZY (CLEAR) 04/15/18 21:45 Urine pH 5.5 (4.6 - 8.0) 04/15/18 21:45 Ur Specific [place] 1.015 (1.005-1.030) 04/15/18 21:45 Urine Protein TRACE mg/dL (NEGATIVE) 04/15/18 21:45 Urine Glucose (UA) NEGATIVE mg/dL (NEGATIVE) 04/15/18 21:45 Urine Ketones NEGATIVE mg/dL (NEGATIVE) 04/15/18 21:45 Urine Blood NEGATIVE (NEGATIVE) 04/15/18 21:45 Urine Nitrate POSITIVE (NEGATIVE) H 04/15/18 21:45 Urine Bilirubin NEGATIVE (NEGATIVE) 04/15/18 21:45 Urine Urobilinogen 0.2 E.U./dL (0.2 - 1.0) 04/15/18 21:45 Ur Leukocyte Esterase SMALL (NEGATIVE) H 04/15/18 21:45 Urine RBC 0-2 /hpf (0-5) H 04/15/18 21:45 Urine WBC 6-10 /hpf (0-5) 04/15/18 21:45 Ur Epithelial Cells OCCASIONAL /lpf (FEW) 04/15/18 21:45 Urine Bacteria MODERATE /hpf (NONE SEEN) H 04/15/18 21:45 Vancomycin Trough 16.1 ug/mL (5-10) H 04/19/18 20:00 - Physical Exam Vitals and I&O: Vital Signs Temp 97.8 F 04/20/18 07:47 Pulse 70 04/20/18 07:47 Resp 19 04/20/18 07:47 BP 101/67 04/20/18 07:47 Pulse Ox 97 04/20/18 07:47 Intake & Output 04/19/18 04/20/18 04/20/18 18:59 06:59 18:59 Intake Total 850 1250 Output Total 1400 1500 Balance -550 -250 Weight (lbs) 66.678 kg 66.31 kg Intake: Intake, IV Amount 100 1050 D5-0.9%Ns 1,000 ml @ 50 1000 mls/hr IV .Q20H [facility] Rx#: [id number] Piperacillin Sodium/ 100 50 Tazobact 3.375 gm In Sodium Chloride 0.9% 50 ml @ 100 mls/hr IV Q6HR [facility] Rx#:[id number] Oral 750 200 Output: Urine 1250 1300 Stool 150 200 Other: Stool Characteristics Liquid Liquid Brown Brown Weight Source Bedscale Bedscale Active Medications: Current Medications Acetaminophen/Hydrocodone Bitart ([place] 5mg/325mg) 1 tab PO Q4H PRN PRN Reason: Pain (Moderate) 4-7 Stop: 06/15/18 01:07 Last Admin: 04/19/18 17:26 Dose: 1 tab Dextrose/Sodium Chloride (D5-0.9%Ns) 1,000 mls @ 50 mls/hr IV .Q20H [facility] Stop: 06/15/18 01:44 Last Admin: 04/20/18 00:27 Dose: 50 mls/hr Piperacillin Sod/Tazobactam (Sod 3.375 gm/ Sodium Chloride) 50 mls @ 100 mls/ hr IV Q6HR [facility] Stop: 06/15/18 05:59 Last Admin: 04/20/18 05:38 Dose: 100 mls/hr Vancomycin HCl 1.25 gm/ Sodium (Chloride) 250 mls @ 165 mls/hr IV Q18H [facility] Stop: 06/17/18 08:59 Last Admin: 04/19/18 20:57 Dose: 165 mls/hr Miscellaneous (Zosyn Iv Per Pharmacy) 1 [facility] PRN PRN PRN Reason: Abdominal cellulitis Stop: 06/15/18 01:14 Miscellaneous (Vancomycin Iv Per Pharmacy) 1 [facility] PRN PRN PRN Reason: PROTOCOL Stop: 06/16/18 15:44 Mupirocin (Bactroban Oint) 1 appl NS BID [facility] Stop: 04/22/18 09:01 Last Admin: 04/20/18 09:24 Dose: 1 appl - Procedures Procedures: Procedures Procedure Code Date BYPASS DESCENDING COLON TO CUTANEOUS, OPEN APPROACH [id number] 08/30/17 DESTRUCTION OF BLADDER, ENDO [id number] 02/27/18 EXCISION OF BACK SUBCU/FASCIA, OPEN APPROACH [id number] 09/16/17 EXCISION OF LEFT FOOT SKIN, EXTERNAL APPROACH [id number] 09/16/17 EXCISION OF RIGHT FOOT SKIN, EXTERNAL APPROACH [id number] 09/16/17 EXTIRPATION OF MATTER FROM BLADDER, ENDO [id number] 02/27/18 TRANSFUSE NONAUT RED BLOOD CELLS IN PERIPH VEIN, PERC [id number] 08/30/17 Nutritional Asmnt/Malnutr-PDOC - Dietary Evaluation Malnutrition Findings (Please click <Entered> for more info): Nutritional Asmnt/Malnutrition Start: 04/16/18 17: 00 Text: Status: Active Freq: Protocol: Document 04/16/18 17:02 SETH (Rec: 04/16/18 17:24 CHRISJUAN M MARI) Nutritional Asmnt/Malnutrition Patient General Information Nutritional Screening High Risk Consult Diagnosis cellulitis abdomen Pertinent Medical Hx/Surgical Hx dementia, pneumonia, sepsis, non-healing sacral decubitus, diverting colostomy, HTN, asthma/COPD, PUD/GERD, CKD, paraplegia, pulmonary edema Subjective Information Received nutrition consult for wound. Pt was laying in bed at time of visit, agigated and undergoing wound check. Pt did not provide specific food preferences. RN reported pt does not like the hospital food. Current Diet Order/ Nutrition Support [facility] soft chopped Pertinent Medications D5-0.9%Ns, piperacillin Pertinent Labs 04/15: glucose 109, Na 129, Cr 0.6, Alb 3.5 04/16: glucose 104, Na 130, Cr 0.6 Nutritional Hx/Data Height 1.75 m Height (Calculated Centimeters) 175.3 Current Weight (lbs) 67.585 kg Weight (Calculated Kilograms) 67.6 Weight (Calculated Grams) 98054.3 Body Mass Index (BMI) 21.9 Weight Status Approriate GI Symptoms GI Symptoms None Last BM none noted Difficult in: None Food Allergies No Skin Integrity/Comment: pressure ulcer to sacrum ( previously stage 4), reddened r/l arms, abrasion to left knee Estimated Nutritional Goals BEE in Kcals: Using Current wt Calories/Kcals/Kg 25-30 Kcals Calculated 3738-1445 Protein: Using Current wt Protein g/k.3-1.5 Protein Calculated 88-101 g Fluid: ml 2855-2589 (1 ml/kcal) Nutritional Problem 1. Problem Problem Increased protein needs Etiology wound healing Signs/Symptoms: pressure ulcer to sacrum Malnutrition Alert Is there a minimum of two criteria No selected? Query Text:Check all the applicable criteria. A minimum of two criteria are recommended for diagnosis of either severe or non-severe malnutrition. Malnutrition Related to Morbid Obesity Malnutrition related to morbid obesity No Intervention/Recommendation Comments 1. Continue with mechanical soft chopped diet as ordered. Diet to meet 100% of protein needs. 2. Add Connor BID to help with wound healing. 3. Consider supplementing w/ ensure if PO intake <50%. 4. Monitor PO intake, wt, labs and skin integrity. 5. F/U as moderate risk in 3-5 days, 04/19-04/21 Expected Outcomes/Goals Expected Outcomes/Goals 1. PO intake to meet at least 75% of nutritional needs. 2. Wt stability, skin integrity to improve, labs to approach WNL. Reviewed by Nataly Davis
--- NOTE | 2018-04-20 09:34 | General Progress Note ---
Subjective - Review of Systems Service Date: 04/20/18 Events since last encounter: called daughter yesterday who admits to having not seen patient in 25 years and and has no POA patient is most of the time oriented and clear mentally, able to sign own consent Objective - Results Result Diagrams: 04/20/18 04:40 04/20/18 04:40 Recent Labs: Laboratory Last Values WBC 11.0 Th/cmm (4.8-10.8) H 04/20/18 04:40 RBC 3.84 Mil/cmm (3.80-5.80) 04/20/18 04:40 Hgb 11.5 gm/dL (12-16) L 04/20/18 04:40 Hct 33.9 % (41.0-60) L 04/20/18 04:40 MCV 88.2 fl (80-99) 04/20/18 04:40 MCH 29.9 pg (27.0-31.0) 04/20/18 04:40 MCHC Differential 33.9 pg (28.0-36.0) 04/20/18 04:40 RDW 13.1 % (11.5-20.0) 04/20/18 04:40 Plt Count 388 Th/cmm (150-400) 04/20/18 04:40 MPV 6.9 fl 04/20/18 04:40 Add Manual Diff YES 04/16/18 05:15 Neutrophils % 62.6 % (40.0-80.0) 04/20/18 04:40 Band Neutrophils % 0 % (0-10) 04/16/18 05:15 Lymphocytes % 26.3 % (20.0-50.0) 04/20/18 04:40 Monocytes % 6.4 % (2.0-10.0) 04/20/18 04:40 Eosinophils % 4.2 % (0.0-5.0) 04/20/18 04:40 Basophils % 0.5 % (0.0-2.0) 04/20/18 04:40 Neutrophils (Manual) 82 % (40-80) H 04/16/18 05:15 Lymphocytes 12 % (20-50) L 04/16/18 05:15 Monocytes 4 % (2-10) 04/16/18 05:15 Eosinophils 1 % (0-5) 04/16/18 05:15 Basophils 1 % (0-3) 04/16/18 05:15 PT 10.3 SECONDS (9.5-11.5) 04/18/18 10:05 INR 0.99 (0.5-1.4) 04/18/18 10:05 PTT (Actin FS) 22.4 SECONDS (26.0-38.0) L 04/18/18 10:05 Sodium 135 mEq/L (136-145) L 04/20/18 04:40 Potassium 3.7 mEq/L (3.5-5.1) 04/20/18 04:40 Chloride 109 mEq/L (98-107) H 04/20/18 04:40 Carbon Dioxide 19.2 mEq/L (21.0-31.0) L 04/20/18 04:40 Anion Gap 10.5 (7.0-16.0) 04/20/18 04:40 BUN 9 mg/dL (7-25) 04/20/18 04:40 Creatinine 0.6 mg/dL (0.7-1.3) L 04/20/18 04:40 Est GFR ( Amer) TNP 04/20/18 04:40 Est GFR (Non-Af Amer) TNP 04/20/18 04:40 BUN/Creatinine Ratio 15.0 04/20/18 04:40 Glucose 93 mg/dL (70-105) 04/20/18 04:40 Whole Bld Lactic Acid 0.96 mmol/L (0.60-1.99) 04/15/18 21:20 Calcium 9.0 mg/dL (8.6-10.3) 04/20/18 04:40 Total Bilirubin 0.3 mg/dL (0.3-1.0) 04/20/18 04:40 AST 12 U/L (13-39) L 04/20/18 04:40 ALT 9 U/L (7-52) 04/20/18 04:40 Alkaline Phosphatase 34 U/L (34-104) 04/20/18 04:40 Total Protein 5.1 gm/dL (6.0-8.3) L 04/20/18 04:40 Albumin 2.9 gm/dL (4.2-5.5) L 04/20/18 04:40 Globulin 2.2 gm/dL 04/20/18 04:40 Albumin/Globulin Ratio 1.3 (1.0-1.8) 04/20/18 04:40 Urine Source [place] 04/15/18 21:45 Urine Color ORANGE 04/15/18 21:45 Urine Clarity HAZY (CLEAR) 04/15/18 21:45 Urine pH 5.5 (4.6 - 8.0) 04/15/18 21:45 Ur Specific [place] 1.015 (1.005-1.030) 04/15/18 21:45 Urine Protein TRACE mg/dL (NEGATIVE) 04/15/18 21:45 Urine Glucose (UA) NEGATIVE mg/dL (NEGATIVE) 04/15/18 21:45 Urine Ketones NEGATIVE mg/dL (NEGATIVE) 04/15/18 21:45 Urine Blood NEGATIVE (NEGATIVE) 04/15/18 21:45 Urine Nitrate POSITIVE (NEGATIVE) H 04/15/18 21:45 Urine Bilirubin NEGATIVE (NEGATIVE) 04/15/18 21:45 Urine Urobilinogen 0.2 E.U./dL (0.2 - 1.0) 04/15/18 21:45 Ur Leukocyte Esterase SMALL (NEGATIVE) H 04/15/18 21:45 Urine RBC 0-2 /hpf (0-5) H 04/15/18 21:45 Urine WBC 6-10 /hpf (0-5) 04/15/18 21:45 Ur Epithelial Cells OCCASIONAL /lpf (FEW) 04/15/18 21:45 Urine Bacteria MODERATE /hpf (NONE SEEN) H 04/15/18 21:45 Vancomycin Trough 16.1 ug/mL (5-10) H 04/19/18 20:00 - Physical Exam Vitals and I&O: Vital Signs Temp 97.8 F 04/20/18 07:47 Pulse 70 04/20/18 07:47 Resp 19 04/20/18 07:47 BP 101/67 04/20/18 07:47 Pulse Ox 97 04/20/18 07:47 Intake & Output 04/19/18 04/20/18 04/20/18 18:59 06:59 18:59 Intake Total 850 1250 Output Total 1400 1500 Balance -550 -250 Weight (lbs) 66.678 kg 66.31 kg Intake: Intake, IV Amount 100 1050 D5-0.9%Ns 1,000 ml @ 50 1000 mls/hr IV .Q20H [facility] Rx#: [id number] Piperacillin Sodium/ 100 50 Tazobact 3.375 gm In Sodium Chloride 0.9% 50 ml @ 100 mls/hr IV Q6HR [facility] Rx#:[id number] Oral 750 200 Output: Urine 1250 1300 Stool 150 200 Other: Stool Characteristics Liquid Liquid Brown Brown Weight Source Bedscale Bedscale Active Medications: Current Medications Acetaminophen/Hydrocodone Bitart ([place] 5mg/325mg) 1 tab PO Q4H PRN PRN Reason: Pain (Moderate) 4-7 Stop: 06/15/18 01:07 Last Admin: 04/19/18 17:26 Dose: 1 tab Dextrose/Sodium Chloride (D5-0.9%Ns) 1,000 mls @ 50 mls/hr IV .Q20H [facility] Stop: 06/15/18 01:44 Last Admin: 04/20/18 00:27 Dose: 50 mls/hr Piperacillin Sod/Tazobactam (Sod 3.375 gm/ Sodium Chloride) 50 mls @ 100 mls/ hr IV Q6HR [facility] Stop: 06/15/18 05:59 Last Admin: 04/20/18 05:38 Dose: 100 mls/hr Vancomycin HCl 1.25 gm/ Sodium (Chloride) 250 mls @ 165 mls/hr IV Q18H [facility] Stop: 06/17/18 08:59 Last Admin: 04/19/18 20:57 Dose: 165 mls/hr Miscellaneous (Zosyn Iv Per Pharmacy) 1 [facility] PRN PRN PRN Reason: Abdominal cellulitis Stop: 06/15/18 01:14 Miscellaneous (Vancomycin Iv Per Pharmacy) 1 [facility] PRN PRN PRN Reason: PROTOCOL Stop: 06/16/18 15:44 Mupirocin (Bactroban Oint) 1 appl NS BID [facility] Stop: 04/22/18 09:01 Last Admin: 04/20/18 09:24 Dose: 1 appl - Procedures Procedures: Procedures Procedure Code Date BYPASS DESCENDING COLON TO CUTANEOUS, OPEN APPROACH [id number] 08/30/17 DESTRUCTION OF BLADDER, ENDO [id number] 02/27/18 EXCISION OF BACK SUBCU/FASCIA, OPEN APPROACH [id number] 09/16/17 EXCISION OF LEFT FOOT SKIN, EXTERNAL APPROACH [id number] 09/16/17 EXCISION OF RIGHT FOOT SKIN, EXTERNAL APPROACH [id number] 09/16/17 EXTIRPATION OF MATTER FROM BLADDER, ENDO [id number] 02/27/18 TRANSFUSE NONAUT RED BLOOD CELLS IN PERIPH VEIN, PERC [id number] 08/30/17 Nutritional Asmnt/Malnutr-PDOC - Dietary Evaluation Malnutrition Findings (Please click <Entered> for more info): Nutritional Asmnt/Malnutrition Start: 04/16/18 17: 00 Text: Status: Active Freq: Protocol: Document 04/16/18 17:02 CHRISJUAN M (Rec: 04/16/18 17:24 SETH GUERRA) Nutritional Asmnt/Malnutrition Patient General Information Nutritional Screening High Risk Consult Diagnosis cellulitis abdomen Pertinent Medical Hx/Surgical Hx dementia, pneumonia, sepsis, non-healing sacral decubitus, diverting colostomy, HTN, asthma/COPD, PUD/GERD, CKD, paraplegia, pulmonary edema Subjective Information Received nutrition consult for wound. Pt was laying in bed at time of visit, agigated and undergoing wound check. Pt did not provide specific food preferences. RN reported pt does not like the hospital food. 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 Problem Problem Increased protein needs Etiology wound healing Signs/Symptoms: pressure ulcer to sacrum Malnutrition Alert Is there a minimum of two criteria No selected? Query Text:Check all the applicable criteria. A minimum of two criteria are recommended for diagnosis of either severe or non-severe malnutrition. Malnutrition Related to Morbid Obesity Malnutrition related to morbid obesity No Intervention/Recommendation Comments 1. Continue with mechanical soft chopped diet as ordered. Diet to meet 100% of protein needs. 2. Add Connor BID to help with wound healing. 3. Consider supplementing w/ ensure if PO intake <50%. 4. Monitor PO intake, wt, labs and skin integrity. 5. F/U as moderate risk in 3-5 days, 04/19-04/21 Expected Outcomes/Goals Expected Outcomes/Goals 1. PO intake to meet at least 75% of nutritional needs. 2. Wt stability, skin integrity to improve, labs to approach WNL. Reviewed by Nataly Davis
--- NOTE | 2018-04-20 09:51 | General Progress Note ---
Subjective - Review of Systems Events since last encounter: patient has fistula into the LLQ as per surgeon the plan is exploratory laparotomy and closure of fistula and debridement of sacral decubitus ulcer Objective - Results Result Diagrams: 04/20/18 04:40 04/20/18 04:40 Recent Labs: Laboratory Last Values WBC 11.0 Th/cmm (4.8-10.8) H 04/20/18 04:40 RBC 3.84 Mil/cmm (3.80-5.80) 04/20/18 04:40 Hgb 11.5 gm/dL (12-16) L 04/20/18 04:40 Hct 33.9 % (41.0-60) L 04/20/18 04:40 MCV 88.2 fl (80-99) 04/20/18 04:40 MCH 29.9 pg (27.0-31.0) 04/20/18 04:40 MCHC Differential 33.9 pg (28.0-36.0) 04/20/18 04:40 RDW 13.1 % (11.5-20.0) 04/20/18 04:40 Plt Count 388 Th/cmm (150-400) 04/20/18 04:40 MPV 6.9 fl 04/20/18 04:40 Add Manual Diff YES 04/16/18 05:15 Neutrophils % 62.6 % (40.0-80.0) 04/20/18 04:40 Band Neutrophils % 0 % (0-10) 04/16/18 05:15 Lymphocytes % 26.3 % (20.0-50.0) 04/20/18 04:40 Monocytes % 6.4 % (2.0-10.0) 04/20/18 04:40 Eosinophils % 4.2 % (0.0-5.0) 04/20/18 04:40 Basophils % 0.5 % (0.0-2.0) 04/20/18 04:40 Neutrophils (Manual) 82 % (40-80) H 04/16/18 05:15 Lymphocytes 12 % (20-50) L 04/16/18 05:15 Monocytes 4 % (2-10) 04/16/18 05:15 Eosinophils 1 % (0-5) 04/16/18 05:15 Basophils 1 % (0-3) 04/16/18 05:15 PT 10.3 SECONDS (9.5-11.5) 04/18/18 10:05 INR 0.99 (0.5-1.4) 04/18/18 10:05 PTT (Actin FS) 22.4 SECONDS (26.0-38.0) L 04/18/18 10:05 Sodium 135 mEq/L (136-145) L 04/20/18 04:40 Potassium 3.7 mEq/L (3.5-5.1) 04/20/18 04:40 Chloride 109 mEq/L (98-107) H 04/20/18 04:40 Carbon Dioxide 19.2 mEq/L (21.0-31.0) L 04/20/18 04:40 Anion Gap 10.5 (7.0-16.0) 04/20/18 04:40 BUN 9 mg/dL (7-25) 04/20/18 04:40 Creatinine 0.6 mg/dL (0.7-1.3) L 04/20/18 04:40 Est GFR ( Amer) TNP 04/20/18 04:40 Est GFR (Non-Af Amer) TNP 04/20/18 04:40 BUN/Creatinine Ratio 15.0 04/20/18 04:40 Glucose 93 mg/dL (70-105) 04/20/18 04:40 Whole Bld Lactic Acid 0.96 mmol/L (0.60-1.99) 04/15/18 21:20 Calcium 9.0 mg/dL (8.6-10.3) 04/20/18 04:40 Total Bilirubin 0.3 mg/dL (0.3-1.0) 04/20/18 04:40 AST 12 U/L (13-39) L 04/20/18 04:40 ALT 9 U/L (7-52) 04/20/18 04:40 Alkaline Phosphatase 34 U/L (34-104) 04/20/18 04:40 Total Protein 5.1 gm/dL (6.0-8.3) L 04/20/18 04:40 Albumin 2.9 gm/dL (4.2-5.5) L 04/20/18 04:40 Globulin 2.2 gm/dL 04/20/18 04:40 Albumin/Globulin Ratio 1.3 (1.0-1.8) 04/20/18 04:40 Urine Source [place] 04/15/18 21:45 Urine Color ORANGE 04/15/18 21:45 Urine Clarity HAZY (CLEAR) 04/15/18 21:45 Urine pH 5.5 (4.6 - 8.0) 04/15/18 21:45 Ur Specific [place] 1.015 (1.005-1.030) 04/15/18 21:45 Urine Protein TRACE mg/dL (NEGATIVE) 04/15/18 21:45 Urine Glucose (UA) NEGATIVE mg/dL (NEGATIVE) 04/15/18 21:45 Urine Ketones NEGATIVE mg/dL (NEGATIVE) 04/15/18 21:45 Urine Blood NEGATIVE (NEGATIVE) 04/15/18 21:45 Urine Nitrate POSITIVE (NEGATIVE) H 04/15/18 21:45 Urine Bilirubin NEGATIVE (NEGATIVE) 04/15/18 21:45 Urine Urobilinogen 0.2 E.U./dL (0.2 - 1.0) 04/15/18 21:45 Ur Leukocyte Esterase SMALL (NEGATIVE) H 04/15/18 21:45 Urine RBC 0-2 /hpf (0-5) H 04/15/18 21:45 Urine WBC 6-10 /hpf (0-5) 04/15/18 21:45 Ur Epithelial Cells OCCASIONAL /lpf (FEW) 04/15/18 21:45 Urine Bacteria MODERATE /hpf (NONE SEEN) H 04/15/18 21:45 Vancomycin Trough 16.1 ug/mL (5-10) H 04/19/18 20:00 - Physical Exam Vitals and I&O: Vital Signs Temp 97.8 F 04/20/18 07:47 Pulse 70 04/20/18 07:47 Resp 19 04/20/18 07:47 BP 101/67 04/20/18 07:47 Pulse Ox 97 04/20/18 07:47 Intake & Output 04/19/18 04/20/18 04/20/18 18:59 06:59 18:59 Intake Total 850 1250 Output Total 1400 1500 Balance -550 -250 Weight (lbs) 66.678 kg 66.31 kg Intake: Intake, IV Amount 100 1050 D5-0.9%Ns 1,000 ml @ 50 1000 mls/hr IV .Q20H [facility] Rx#: [id number] Piperacillin Sodium/ 100 50 Tazobact 3.375 gm In Sodium Chloride 0.9% 50 ml @ 100 mls/hr IV Q6HR [facility] Rx#:[id number] Oral 750 200 Output: Urine 1250 1300 Stool 150 200 Other: Stool Characteristics Liquid Liquid Brown Brown Weight Source Bedscale Bedscale Active Medications: Current Medications Acetaminophen/Hydrocodone Bitart ([place] 5mg/325mg) 1 tab PO Q4H PRN PRN Reason: Pain (Moderate) 4-7 Stop: 06/15/18 01:07 Last Admin: 04/19/18 17:26 Dose: 1 tab Dextrose/Sodium Chloride (D5-0.9%Ns) 1,000 mls @ 50 mls/hr IV .Q20H [facility] Stop: 06/15/18 01:44 Last Admin: 04/20/18 00:27 Dose: 50 mls/hr Piperacillin Sod/Tazobactam (Sod 3.375 gm/ Sodium Chloride) 50 mls @ 100 mls/ hr IV Q6HR [facility] Stop: 06/15/18 05:59 Last Admin: 04/20/18 05:38 Dose: 100 mls/hr Vancomycin HCl 1.25 gm/ Sodium (Chloride) 250 mls @ 165 mls/hr IV Q18H [facility] Stop: 06/17/18 08:59 Last Admin: 04/19/18 20:57 Dose: 165 mls/hr Miscellaneous (Zosyn Iv Per Pharmacy) 1 [facility] PRN PRN PRN Reason: Abdominal cellulitis Stop: 06/15/18 01:14 Miscellaneous (Vancomycin Iv Per Pharmacy) 1 [facility] PRN PRN PRN Reason: PROTOCOL Stop: 06/16/18 15:44 Mupirocin (Bactroban Oint) 1 appl NS BID [facility] Stop: 04/22/18 09:01 Last Admin: 04/20/18 09:24 Dose: 1 appl General: No acute distress HEENT: Atraumatic Neck: Supple Cardiovascular: Regular rate, Normal S1, Normal S2 - Procedures Procedures: Procedures Procedure Code Date BYPASS DESCENDING COLON TO CUTANEOUS, OPEN APPROACH [id number] 08/30/17 DESTRUCTION OF BLADDER, ENDO [id number] 02/27/18 EXCISION OF BACK SUBCU/FASCIA, OPEN APPROACH [id number] 09/16/17 EXCISION OF LEFT FOOT SKIN, EXTERNAL APPROACH [id number] 09/16/17 EXCISION OF RIGHT FOOT SKIN, EXTERNAL APPROACH [id number] 09/16/17 EXTIRPATION OF MATTER FROM BLADDER, ENDO [id number] 02/27/18 TRANSFUSE NONAUT RED BLOOD CELLS IN PERIPH VEIN, PERC [id number] 08/30/17 Assessment/Plan - Plan Plan: as per surgeon Nutritional Asmnt/Malnutr-PDOC - Dietary Evaluation Malnutrition Findings (Please click <Entered> for more info): Nutritional Asmnt/Malnutrition Start: 04/16/18 17: 00 Text: Status: Active Freq: Protocol: Document 04/16/18 17:02 SETH (Rec: 04/16/18 17:24 SETH GUERRA) Nutritional Asmnt/Malnutrition Patient General Information Nutritional Screening High Risk Consult Diagnosis cellulitis abdomen Pertinent Medical Hx/Surgical Hx dementia, pneumonia, sepsis, non-healing sacral decubitus, diverting colostomy, HTN, asthma/COPD, PUD/GERD, CKD, paraplegia, pulmonary edema Subjective Information Received nutrition consult for wound. Pt was laying in bed at time of visit, agigated and undergoing wound check. Pt did not provide specific food preferences. RN reported pt does not like the hospital food. 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 Problem Problem Increased protein needs Etiology wound healing Signs/Symptoms: pressure ulcer to sacrum Malnutrition Alert Is there a minimum of two criteria No selected? Query Text:Check all the applicable criteria. A minimum of two criteria are recommended for diagnosis of either severe or non-severe malnutrition. Malnutrition Related to Morbid Obesity Malnutrition related to morbid obesity No Intervention/Recommendation Comments 1. Continue with mechanical soft chopped diet as ordered. Diet to meet 100% of protein needs. 2. Add Connor BID to help with wound healing. 3. Consider supplementing w/ ensure if PO intake <50%. 4. Monitor PO intake, wt, labs and skin integrity. 5. F/U as moderate risk in 3-5 days, 04/19-04/21 Expected Outcomes/Goals Expected Outcomes/Goals 1. PO intake to meet at least 75% of nutritional needs. 2. Wt stability, skin integrity to improve, labs to approach WNL. Reviewed by Nataly Davis
[2018-04-20] MEDS: Hydrocodone/APAP 5mg/325mg Tab PO PRN (15:57)
[2018-04-21] MEDS: D5-0.9%NS 1,000 ML IV SCH (00:22)
[2018-04-21 05:25] LABS: % BASOPHILS 0.5 % (0.0-2.0); % EOSINOPHILS 3.5 % (0.0-5.0); % MONOCYTES 4.6 % (2.0-10.0); % NEUTROPHILS 64.4 % (40.0-80.0); BASOPHILE ABSOLUTE 0.1 Th/cumm (0-0.2); EOSINOPHILE ABSOLUTE 0.4 Th/cmm (0.1-0.4); HEMATOCRIT 35.6 % (41.0-60); LYMPHOCYTE ABSOLUTE 2.8 Th/cmm (1.5-3.0); MEAN CELL VOLUME 88.8 fl (80-99); MEAN CORPUSCULAR HEMOGLOBIN 29.9 pg (27.0-31.0); MEAN CORPUSCULAR HGB CONC 33.7 pg (28.0-36.0); MEAN PLATELET VOLUME 7.2 fl; MONOCYTE ABSOLUTE 0.5 Th/cmm (0.3-1.0); NEUTROPHILE ABSOLUTE 6.6 Th/cmm (1.8-8.0); PLATELET COUNT 356 Th/cmm (150-400); RED BLOOD COUNT 4.01 Mil/cmm (3.80-5.80); RED CELL DISTRIBUTION WIDTH 13.2 % (11.5-20.0); WHITE BLOOD COUNT 10.4 Th/cmm (4.8-10.8)
[2018-04-21 05:51] LABS: ANION GAP 9.5 (7.0-16.0); BUN - UREA NITROGEN 8 mg/dL (7-25); CALCIUM SERUM 9.2 mg/dL (8.6-10.3); CHLORIDE 108 mEq/L (98-107); CREATININE - SERUM 0.7 mg/dL (0.7-1.3); GLUCOSE 91 mg/dL (70-105); POTASSIUM SERUM 3.5 mEq/L (3.5-5.1); SODIUM SERUM 135 mEq/L (136-145)
[2018-04-21] MEDS ORDERED: Venelex 60gm Tube TP ONE (10:11)
[2018-04-21] MEDS ORDERED: Lactated Ringer 1,000 ML IV ONE (11:00)
[2018-04-21] MEDS ORDERED: Sodium Chloride 0.9% 1,000 ML IV ONE (11:00)
[2018-04-21] MEDS ORDERED: fentaNYL Citrate 100 mcg/2mL Vial ONE ×2 (11:05)
[2018-04-21] MEDS ORDERED: Propofol **SURGERY USE ONLY** 20 ML IV ONE (11:21)
[2018-04-21] MEDS ORDERED: Neostigmine 10mg/10mL Vial ONE (11:21)
--- NOTE | 2018-04-21 12:24 | Infectious Disease Prog Note ---
Infectious Disease Subjective - Review of Systems Service Date: 04/21/18 Subjective: Surgical repair of the leak was performed. Infectious Disease Objective - Results Result Diagrams: 04/21/18 04:59 04/21/18 04:59 Recent Labs: Laboratory Last Values WBC 10.4 Th/cmm (4.8-10.8) 04/21/18 04:59 RBC 4.01 Mil/cmm (3.80-5.80) 04/21/18 04:59 Hgb 12.0 gm/dL (12-16) 04/21/18 04:59 Hct 35.6 % (41.0-60) L 04/21/18 04:59 MCV 88.8 fl (80-99) 04/21/18 04:59 MCH 29.9 pg (27.0-31.0) 04/21/18 04:59 MCHC Differential 33.7 pg (28.0-36.0) 04/21/18 04:59 RDW 13.2 % (11.5-20.0) 04/21/18 04:59 Plt Count 356 Th/cmm (150-400) 04/21/18 04:59 MPV 7.2 fl 04/21/18 04:59 Add Manual Diff YES 04/16/18 05:15 Neutrophils % 64.4 % (40.0-80.0) 04/21/18 04:59 Band Neutrophils % 0 % (0-10) 04/16/18 05:15 Lymphocytes % 27.0 % (20.0-50.0) 04/21/18 04:59 Monocytes % 4.6 % (2.0-10.0) 04/21/18 04:59 Eosinophils % 3.5 % (0.0-5.0) 04/21/18 04:59 Basophils % 0.5 % (0.0-2.0) 04/21/18 04:59 Neutrophils (Manual) 82 % (40-80) H 04/16/18 05:15 Lymphocytes 12 % (20-50) L 04/16/18 05:15 Monocytes 4 % (2-10) 04/16/18 05:15 Eosinophils 1 % (0-5) 04/16/18 05:15 Basophils 1 % (0-3) 04/16/18 05:15 PT 10.3 SECONDS (9.5-11.5) 04/18/18 10:05 INR 0.99 (0.5-1.4) 04/18/18 10:05 PTT (Actin FS) 22.4 SECONDS (26.0-38.0) L 04/18/18 10:05 Sodium 135 mEq/L (136-145) L 04/21/18 04:59 Potassium 3.5 mEq/L (3.5-5.1) 04/21/18 04:59 Chloride 108 mEq/L (98-107) H 04/21/18 04:59 Carbon Dioxide 21.0 mEq/L (21.0-31.0) 04/21/18 04:59 Anion Gap 9.5 (7.0-16.0) 04/21/18 04:59 BUN 8 mg/dL (7-25) 04/21/18 04:59 Creatinine 0.7 mg/dL (0.7-1.3) 04/21/18 04:59 Est GFR ( Amer) TNP 04/21/18 04:59 Est GFR (Non-Af Amer) TNP 04/21/18 04:59 BUN/Creatinine Ratio 11.4 04/21/18 04:59 Glucose 91 mg/dL (70-105) 04/21/18 04:59 POC Glucose 90 MG/DL (70 - 105) 04/21/18 10:20 Whole Bld Lactic Acid 0.96 mmol/L (0.60-1.99) 04/15/18 21:20 Calcium 9.2 mg/dL (8.6-10.3) 04/21/18 04:59 Total Bilirubin 0.3 mg/dL (0.3-1.0) 04/20/18 04:40 AST 12 U/L (13-39) L 04/20/18 04:40 ALT 9 U/L (7-52) 04/20/18 04:40 Alkaline Phosphatase 34 U/L (34-104) 04/20/18 04:40 Total Protein 5.1 gm/dL (6.0-8.3) L 04/20/18 04:40 Albumin 2.9 gm/dL (4.2-5.5) L 04/20/18 04:40 Globulin 2.2 gm/dL 04/20/18 04:40 Albumin/Globulin Ratio 1.3 (1.0-1.8) 04/20/18 04:40 Urine Source [place] 04/15/18 21:45 Urine Color ORANGE 04/15/18 21:45 Urine Clarity HAZY (CLEAR) 04/15/18 21:45 Urine pH 5.5 (4.6 - 8.0) 04/15/18 21:45 Ur Specific [place] 1.015 (1.005-1.030) 04/15/18 21:45 Urine Protein TRACE mg/dL (NEGATIVE) 04/15/18 21:45 Urine Glucose (UA) NEGATIVE mg/dL (NEGATIVE) 04/15/18 21:45 Urine Ketones NEGATIVE mg/dL (NEGATIVE) 04/15/18 21:45 Urine Blood NEGATIVE (NEGATIVE) 04/15/18 21:45 Urine Nitrate POSITIVE (NEGATIVE) H 04/15/18 21:45 Urine Bilirubin NEGATIVE (NEGATIVE) 04/15/18 21:45 Urine Urobilinogen 0.2 E.U./dL (0.2 - 1.0) 04/15/18 21:45 Ur Leukocyte Esterase SMALL (NEGATIVE) H 04/15/18 21:45 Urine RBC 0-2 /hpf (0-5) H 04/15/18 21:45 Urine WBC 6-10 /hpf (0-5) 04/15/18 21:45 Ur Epithelial Cells OCCASIONAL /lpf (FEW) 04/15/18 21:45 Urine Bacteria MODERATE /hpf (NONE SEEN) H 04/15/18 21:45 Vancomycin Trough 16.1 ug/mL (5-10) H 04/19/18 20:00 - Physical Exam Vitals and I&O: Vital Signs Temp 97.8 F 04/21/18 07:46 Pulse 63 04/21/18 07:46 Resp 18 04/21/18 07:59 BP 103/67 04/21/18 07:46 Pulse Ox 98 04/21/18 07:46 Intake & Output 04/20/18 04/21/18 04/21/18 18:59 06:59 18:59 Intake Total 1881.667 168.333 Output Total 1500 1050 Balance 381.667 -881.667 Weight (lbs) 66.224 kg 68.497 kg Intake: Intake, IV Amount 1231.667 168.333 D5-0.9%Ns 1,000 ml @ 50 881.667 118.333 mls/hr IV .Q20H [facility] Rx#: [id number] Piperacillin Sodium/ 100 50 Tazobact 3.375 gm In Sodium Chloride 0.9% 50 ml @ 100 mls/hr IV Q6HR [facility] Rx#:[id number] Vancomycin HCl 1.25 gm In 250 Sodium Chloride 0.9% 250 ml @ 165 mls/hr IV Q18H [facility] Rx#:[id number] Oral 650 Output: Urine 1250 1050 Stool 250 Other: # Bowel Movements 2 Stool Characteristics Liquid Liquid Liquid Brown Brown Brown Weight Source Bedscale Bedscale Active Medications: Current Medications Acetaminophen/Hydrocodone Bitart ([place] 5mg/325mg) 1 tab PO Q4H PRN PRN Reason: Pain (Moderate) 4-7 Stop: 06/15/18 01:07 Last Admin: 04/20/18 15:57 Dose: 1 tab Dextrose/Sodium Chloride (D5-0.9%Ns) 1,000 mls @ 50 mls/hr IV .Q20H [facility] Stop: 06/15/18 01:44 Last Admin: 04/21/18 00:22 Dose: 50 mls/hr Piperacillin Sod/Tazobactam (Sod 3.375 gm/ Sodium Chloride) 50 mls @ 100 mls/ hr IV Q6HR [facility] Stop: 06/15/18 05:59 Last Admin: 04/21/18 05:16 Dose: 100 mls/hr Vancomycin HCl 1.25 gm/ Sodium (Chloride) 250 mls @ 165 mls/hr IV Q18H [facility] Stop: 06/17/18 08:59 Last Admin: 04/21/18 09:09 Dose: 165 mls/hr Sodium Chloride (Nacl 0.45%) 1,000 mls @ 100 mls/hr IV .Q10H [facility] Stop: 06/20/18 12:17 Miscellaneous (Zosyn Iv Per Pharmacy) 1 [facility] PRN PRN PRN Reason: Abdominal cellulitis Stop: 06/15/18 01:14 Miscellaneous (Vancomycin Iv Per Pharmacy) 1 ea PRN PRN PRN Reason: PROTOCOL Stop: 06/16/18 15:44 Mupirocin (Bactroban Oint) 1 appl NS BID [facility] Stop: 04/22/18 09:01 Last Admin: 04/21/18 09:08 Dose: 1 appl General: no acute distress, well developed, well nourished HEENT: atraumatic, normocephalic, PERRLA Neck: supple, no thyromegaly Cardiovascular: S1S2, regular Lungs: clear to auscultation bilaterally, clear to percussion Abdomen: soft, no tender, no distended Extremities: no cyanosis, no clubbing, no edema Neurological: awake, alert, oriented Skin: intact - Procedures Procedures: Procedures Procedure Code Date BYPASS DESCENDING COLON TO CUTANEOUS, OPEN APPROACH [id number] 08/30/17 DESTRUCTION OF BLADDER, ENDO [id number] 02/27/18 EXCISION OF BACK SUBCU/FASCIA, OPEN APPROACH [id number] 09/16/17 EXCISION OF LEFT FOOT SKIN, EXTERNAL APPROACH [id number] 09/16/17 EXCISION OF RIGHT FOOT SKIN, EXTERNAL APPROACH [id number] 09/16/17 EXTIRPATION OF MATTER FROM BLADDER, ENDO [id number] 02/27/18 TRANSFUSE NONAUT RED BLOOD CELLS IN PERIPH VEIN, PERC [id number] 08/30/17 Infectious Disease Assmt/Plan - Assessment Assessment: 1. abdominal wall cellulitis. ? Enterocutaneous fistula 2. diverting colostomy. 3. dementia 4. Sacral decubitus ulcer, stage 4. 5. Chronic obstructive pulmonary disease. 6. UTI [place]. 7. MRSA Colonization. - Plan Plan: Continue Zosyn. DC vanco. Surgery on the case. Nutritional Asmnt/Malnutr-PDOC - Dietary Evaluation Malnutrition Findings (Please click <Entered> for more info): Nutritional Asmnt/Malnutrition Start: 04/16/18 17: 00 Text: Status: Active Freq: Protocol: Document 04/16/18 17:02 SETH (Rec: 04/16/18 17:24 SETH GUERRA) Nutritional Asmnt/Malnutrition Patient General Information Nutritional Screening High Risk Consult Diagnosis cellulitis abdomen Pertinent Medical Hx/Surgical Hx dementia, pneumonia, sepsis, non-healing sacral decubitus, diverting colostomy, HTN, asthma/COPD, PUD/GERD, CKD, paraplegia, pulmonary edema Subjective Information Received nutrition consult for wound. Pt was laying in bed at time of visit, agigated and undergoing wound check. Pt did not provide specific food preferences. RN reported pt does not like the hospital food. Current Diet Order/ Nutrition Support [facility] soft chopped Pertinent Medications D5-0.9%Ns, piperacillin Pertinent Labs 04/15: glucose 109, Na 129, Cr 0.6, Alb 3.5 04/16: glucose 104, Na 130, Cr 0.6 Nutritional Hx/Data Height 1.75 m Height (Calculated Centimeters) 175.3 Current Weight (lbs) 67.585 kg Weight (Calculated Kilograms) 67.6 Weight (Calculated Grams) 89803.3 Body Mass Index (BMI) 21.9 Weight Status Approriate GI Symptoms GI Symptoms None Last BM none noted Difficult in: None Food Allergies No Skin Integrity/Comment: pressure ulcer to sacrum ( previously stage 4), reddened r/l arms, abrasion to left knee Estimated Nutritional Goals BEE in Kcals: Using Current wt Calories/Kcals/Kg 25-30 Kcals Calculated 3561-8717 Protein: Using Current wt Protein g/k.3-1.5 Protein Calculated 88-101 g Fluid: ml 9559-3240 (1 ml/kcal) Nutritional Problem 1. Problem Problem Increased protein needs Etiology wound healing Signs/Symptoms: pressure ulcer to sacrum Malnutrition Alert Is there a minimum of two criteria No selected? Query Text:Check all the applicable criteria. A minimum of two criteria are recommended for diagnosis of either severe or non-severe malnutrition. Malnutrition Related to Morbid Obesity Malnutrition related to morbid obesity No Intervention/Recommendation Comments 1. Continue with mechanical soft chopped diet as ordered. Diet to meet 100% of protein needs. 2. Add [place] BID to help with wound healing. 3. Consider supplementing w/ ensure if PO intake <50%. 4. Monitor PO intake, wt, labs and skin integrity. 5. F/U as moderate risk in 3-5 days, 04/19-04/21 Expected Outcomes/Goals Expected Outcomes/Goals 1. PO intake to meet at least 75% of nutritional needs. 2. Wt stability, skin integrity to improve, labs to approach WNL. Reviewed by Nataly Davis
[2018-04-21] MEDS ORDERED: Meperidine 25 mg/mL 1mL Syr ONE (12:38)
[2018-04-21] MEDS ORDERED: HYDROmorphone 2 mg/mL 1mL Vial IVP PRN (13:55)
[2018-04-21] MEDS: Sodium Chloride 0.45% 1,000 ML IV SCH (14:00)
[2018-04-21] MEDS: HYDROmorphone 2 mg/mL 1mL Vial IVP PRN ×3 (14:05→23:09)
--- NOTE | 2018-04-21 14:29 | General Progress Note ---
Subjective - Review of Systems Events since last encounter: no distress no fever repaired of leak performed Objective - Results Result Diagrams: 04/21/18 04:59 04/21/18 04:59 Recent Labs: Laboratory Last Values WBC 10.4 Th/cmm (4.8-10.8) 04/21/18 04:59 RBC 4.01 Mil/cmm (3.80-5.80) 04/21/18 04:59 Hgb 12.0 gm/dL (12-16) 04/21/18 04:59 Hct 35.6 % (41.0-60) L 04/21/18 04:59 MCV 88.8 fl (80-99) 04/21/18 04:59 MCH 29.9 pg (27.0-31.0) 04/21/18 04:59 MCHC Differential 33.7 pg (28.0-36.0) 04/21/18 04:59 RDW 13.2 % (11.5-20.0) 04/21/18 04:59 Plt Count 356 Th/cmm (150-400) 04/21/18 04:59 MPV 7.2 fl 04/21/18 04:59 Add Manual Diff YES 04/16/18 05:15 Neutrophils % 64.4 % (40.0-80.0) 04/21/18 04:59 Band Neutrophils % 0 % (0-10) 04/16/18 05:15 Lymphocytes % 27.0 % (20.0-50.0) 04/21/18 04:59 Monocytes % 4.6 % (2.0-10.0) 04/21/18 04:59 Eosinophils % 3.5 % (0.0-5.0) 04/21/18 04:59 Basophils % 0.5 % (0.0-2.0) 04/21/18 04:59 Neutrophils (Manual) 82 % (40-80) H 04/16/18 05:15 Lymphocytes 12 % (20-50) L 04/16/18 05:15 Monocytes 4 % (2-10) 04/16/18 05:15 Eosinophils 1 % (0-5) 04/16/18 05:15 Basophils 1 % (0-3) 04/16/18 05:15 PT 10.3 SECONDS (9.5-11.5) 04/18/18 10:05 INR 0.99 (0.5-1.4) 04/18/18 10:05 PTT (Actin FS) 22.4 SECONDS (26.0-38.0) L 04/18/18 10:05 Sodium 135 mEq/L (136-145) L 04/21/18 04:59 Potassium 3.5 mEq/L (3.5-5.1) 04/21/18 04:59 Chloride 108 mEq/L (98-107) H 04/21/18 04:59 Carbon Dioxide 21.0 mEq/L (21.0-31.0) 04/21/18 04:59 Anion Gap 9.5 (7.0-16.0) 04/21/18 04:59 BUN 8 mg/dL (7-25) 04/21/18 04:59 Creatinine 0.7 mg/dL (0.7-1.3) 04/21/18 04:59 Est GFR ( Amer) TNP 04/21/18 04:59 Est GFR (Non-Af Amer) TNP 04/21/18 04:59 BUN/Creatinine Ratio 11.4 04/21/18 04:59 Glucose 91 mg/dL (70-105) 04/21/18 04:59 POC Glucose 90 MG/DL (70 - 105) 04/21/18 10:20 Whole Bld Lactic Acid 0.96 mmol/L (0.60-1.99) 04/15/18 21:20 Calcium 9.2 mg/dL (8.6-10.3) 04/21/18 04:59 Total Bilirubin 0.3 mg/dL (0.3-1.0) 04/20/18 04:40 AST 12 U/L (13-39) L 04/20/18 04:40 ALT 9 U/L (7-52) 04/20/18 04:40 Alkaline Phosphatase 34 U/L (34-104) 04/20/18 04:40 Total Protein 5.1 gm/dL (6.0-8.3) L 04/20/18 04:40 Albumin 2.9 gm/dL (4.2-5.5) L 04/20/18 04:40 Globulin 2.2 gm/dL 04/20/18 04:40 Albumin/Globulin Ratio 1.3 (1.0-1.8) 04/20/18 04:40 Urine Source [place] 04/15/18 21:45 Urine Color ORANGE 04/15/18 21:45 Urine Clarity HAZY (CLEAR) 04/15/18 21:45 Urine pH 5.5 (4.6 - 8.0) 04/15/18 21:45 Ur Specific [place] 1.015 (1.005-1.030) 04/15/18 21:45 Urine Protein TRACE mg/dL (NEGATIVE) 04/15/18 21:45 Urine Glucose (UA) NEGATIVE mg/dL (NEGATIVE) 04/15/18 21:45 Urine Ketones NEGATIVE mg/dL (NEGATIVE) 04/15/18 21:45 Urine Blood NEGATIVE (NEGATIVE) 04/15/18 21:45 Urine Nitrate POSITIVE (NEGATIVE) H 04/15/18 21:45 Urine Bilirubin NEGATIVE (NEGATIVE) 04/15/18 21:45 Urine Urobilinogen 0.2 E.U./dL (0.2 - 1.0) 04/15/18 21:45 Ur Leukocyte Esterase SMALL (NEGATIVE) H 04/15/18 21:45 Urine RBC 0-2 /hpf (0-5) H 04/15/18 21:45 Urine WBC 6-10 /hpf (0-5) 04/15/18 21:45 Ur Epithelial Cells OCCASIONAL /lpf (FEW) 04/15/18 21:45 Urine Bacteria MODERATE /hpf (NONE SEEN) H 04/15/18 21:45 Vancomycin Trough 16.1 ug/mL (5-10) H 04/19/18 20:00 - Physical Exam Vitals and I&O: Vital Signs Temp 97.8 F 04/21/18 07:46 Pulse 63 04/21/18 07:46 Resp 18 04/21/18 07:59 BP 103/67 04/21/18 07:46 Pulse Ox 98 04/21/18 07:46 Intake & Output 04/20/18 04/21/18 04/21/18 18:59 06:59 18:59 Intake Total 1881.667 168.333 Output Total 1500 1050 Balance 381.667 -881.667 Weight (lbs) 66.224 kg 68.497 kg Intake: Intake, IV Amount 1231.667 168.333 D5-0.9%Ns 1,000 ml @ 50 881.667 118.333 mls/hr IV .Q20H [facility] Rx#: [id number] Piperacillin Sodium/ 100 50 Tazobact 3.375 gm In Sodium Chloride 0.9% 50 ml @ 100 mls/hr IV Q6HR [facility] Rx#:[id number] Vancomycin HCl 1.25 gm In 250 Sodium Chloride 0.9% 250 ml @ 165 mls/hr IV Q18H [facility] Rx#:[id number] Oral 650 Output: Urine 1250 1050 Stool 250 Other: # Bowel Movements 2 Stool Characteristics Liquid Liquid Liquid Brown Brown Brown Weight Source Bedscale Bedscale Active Medications: Current Medications Acetaminophen/Hydrocodone Bitart ([place] 5mg/325mg) 1 tab PO Q4H PRN PRN Reason: Pain (Moderate) 4-7 Stop: 06/15/18 01:07 Last Admin: 04/20/18 15:57 Dose: 1 tab Hydromorphone HCl (Dilaudid) 1 mg IVP Q3H PRN PRN Reason: Pain (Severe) Stop: 06/20/18 13:54 Dextrose/Sodium Chloride (D5-0.9%Ns) 1,000 mls @ 50 mls/hr IV .Q20H [facility] Stop: 06/15/18 01:44 Last Admin: 04/21/18 00:22 Dose: 50 mls/hr Piperacillin Sod/Tazobactam (Sod 3.375 gm/ Sodium Chloride) 50 mls @ 100 mls/ hr IV Q6HR [facility] Stop: 06/15/18 05:59 Last Admin: 04/21/18 05:16 Dose: 100 mls/hr Vancomycin HCl 1.25 gm/ Sodium (Chloride) 250 mls @ 165 mls/hr IV Q18H [facility] Stop: 06/17/18 08:59 Last Admin: 04/21/18 09:09 Dose: 165 mls/hr Sodium Chloride (Nacl 0.45%) 1,000 mls @ 100 mls/hr IV .Q10H [facility] Stop: 06/20/18 12:29 Miscellaneous (Zosyn Iv Per Pharmacy) 1 ea PRN PRN PRN Reason: Abdominal cellulitis Stop: 06/15/18 01:14 Miscellaneous (Vancomycin Iv Per Pharmacy) 1 ea PRN PRN PRN Reason: PROTOCOL Stop: 06/16/18 15:44 Mupirocin (Bactroban Oint) 1 appl NS BID [facility] Stop: 04/22/18 09:01 Last Admin: 04/21/18 09:08 Dose: 1 appl General: No acute distress HEENT: Atraumatic Neck: Supple Cardiovascular: Regular rate, Normal S1, Normal S2 - Procedures Procedures: Procedures Procedure Code Date BYPASS DESCENDING COLON TO CUTANEOUS, OPEN APPROACH [id number] 08/30/17 DESTRUCTION OF BLADDER, ENDO [id number] 02/27/18 EXCISION OF BACK SUBCU/FASCIA, OPEN APPROACH [id number] 09/16/17 EXCISION OF LEFT FOOT SKIN, EXTERNAL APPROACH [id number] 09/16/17 EXCISION OF RIGHT FOOT SKIN, EXTERNAL APPROACH [id number] 09/16/17 EXTIRPATION OF MATTER FROM BLADDER, ENDO [id number] 02/27/18 TRANSFUSE NONAUT RED BLOOD CELLS IN PERIPH VEIN, PERC 83043D6 08/30/17 Assessment/Plan - Plan Plan: as per surgeon Nutritional Asmnt/Malnutr-PDOC - Dietary Evaluation Malnutrition Findings (Please click <Entered> for more info): Nutritional Asmnt/Malnutrition Start: 04/16/18 17: 00 Text: Status: Active Freq: Protocol: Document 04/16/18 17:02 SETH (Rec: 04/16/18 17:24 SETH GUERRA) Nutritional Asmnt/Malnutrition Patient General Information Nutritional Screening High Risk Consult Diagnosis cellulitis abdomen Pertinent Medical Hx/Surgical Hx dementia, pneumonia, sepsis, non-healing sacral decubitus, diverting colostomy, HTN, asthma/COPD, PUD/GERD, CKD, paraplegia, pulmonary edema Subjective Information Received nutrition consult for wound. Pt was laying in bed at time of visit, agigated and undergoing wound check. Pt did not provide specific food preferences. RN reported pt does not like the hospital food. Current Diet Order/ Nutrition Support [facility] soft chopped Pertinent Medications D5-0.9%Ns, piperacillin Pertinent Labs 04/15: glucose 109, Na 129, Cr 0.6, Alb 3.5 04/16: glucose 104, Na 130, Cr 0.6 Nutritional Hx/Data Height 1.75 m Height (Calculated Centimeters) 175.3 Current Weight (lbs) 67.585 kg Weight (Calculated Kilograms) 67.6 Weight (Calculated Grams) 64489.3 Body Mass Index (BMI) 21.9 Weight Status Approriate GI Symptoms GI Symptoms None Last BM none noted Difficult in: None Food Allergies No Skin Integrity/Comment: pressure ulcer to sacrum ( previously stage 4), reddened r/l arms, abrasion to left knee Estimated Nutritional Goals BEE in Kcals: Using Current wt Calories/Kcals/Kg 25-30 Kcals Calculated Protein: Using Current wt Protein g/k.3-1.5 Protein Calculated 88-101 g Fluid: ml (1 ml/kcal) Nutritional Problem 1. Problem Problem Increased protein needs Etiology wound healing Signs/Symptoms: pressure ulcer to sacrum Malnutrition Alert Is there a minimum of two criteria No selected? Query Text:Check all the applicable criteria. A minimum of two criteria are recommended for diagnosis of either severe or non-severe malnutrition. Malnutrition Related to Morbid Obesity Malnutrition related to morbid obesity No Intervention/Recommendation Comments 1. Continue with mechanical soft chopped diet as ordered. Diet to meet 100% of protein needs. 2. Add Connor BID to help with wound healing. 3. Consider supplementing w/ ensure if PO intake <50%. 4. Monitor PO intake, wt, labs and skin integrity. 5. F/U as moderate risk in 3-5 days, 04/19-04/21 Expected Outcomes/Goals Expected Outcomes/Goals 1. PO intake to meet at least 75% of nutritional needs. 2. Wt stability, skin integrity to improve, labs to approach WNL. Reviewed by Nataly Davis
[2018-04-21] MEDS ORDERED: Acetaminophen 500 MG TAB PO PRN (14:53)
[2018-04-21] MEDS ORDERED: Magnesium Hydroxide (MOM) 30 mL UDC PO PRN (14:53)
--- NOTE | 2018-04-21 17:08 | Operative Report ---
DATE OF SURGERY: 04/21/2018 PREOPERATIVE DIAGNOSES: 1. Enterocutaneous fistula. 2. Status post diverting colostomy. 3. Sacral and left hip decubitus ulcers. 4. Dementia. 5. Chronic obstructive pulmonary disease. POSTOPERATIVE DIAGNOSES: 1. Enterocutaneous fistula. 2. Status post diverting colostomy. 3. Sacral and left hip decubitus ulcers. 4. Dementia. 5. Chronic obstructive pulmonary disease. OPERATIONS DONE: 1. Exploratory laparotomy. 2. Lysis of adhesions. 3. Debridement of sacral and left hip decubitus ulcer. SURGEON: Hakan Bacon M.D. FINISHING [employer]PER[employer]OR P[employer] SHEETS: Dr. Roy. ANESTHESIA: General anesthesia, Dr. Hsu. ESTIMATED BLOOD LOSS: 20 mL. INDICATIONS FOR SURGERY: The patient with a draining sinus at the midline. A CT scan with oral and IV contrast was done prior to surgery and this shows enterocutaneous fistula. OPERATIVE FINDINGS: Following exploration of the abdominal cavity, no fistula was noted. There, however, was a nonhealing sinus on the subcutaneous site, which continued to keep draining, which was not connected intraoperative to the peritoneum. The sacral decubitus and left hip decubitus ulcer had pretty much healed and debridement was done with Optifoam placement. DESCRIPTION OF PROCEDURE: The patient was given general anesthesia. The abdomen was prepped with Betadine and draped in appropriate manner. An incision was made in the midline, extended upward from the previous scar. Bleeders were coagulated. The abdominal cavity was entered. There were dense adhesions to the previous abdominal incision. This was sharply and bluntly with cautery. A search in the left lower quadrant for any connection to the draining sinus was made and none was found to indicate any kind of intra-abdominal connection or fistula. Following satisfactory hemostasis, the incision was closed with running suture of #1 PDS for the fascia. Subcutaneous tissues were closed with 3-0 Vicryl and the skin with subcuticular suture of 4-0 Vicryl. The patient was turned in the right lateral decubitus position and the ulcers, which had virtually healed were debrided. Venelex and Optifoam was applied. Postoperatively, the patient will be sent to ICU for monitoring. JOB# [id number]
[2018-04-22] MEDS: Sodium Chloride 0.45% 1,000 ML IV SCH (01:01)
[2018-04-22 04:51] LABS: % BASOPHILS 0.2 % (0.0-2.0); % EOSINOPHILS 2.2 % (0.0-5.0); % LYMPHOCYTES 17.7 % (20.0-50.0); % MONOCYTES 5.4 % (2.0-10.0); % NEUTROPHILS 74.5 % (40.0-80.0); EOSINOPHILE ABSOLUTE 0.3 Th/cmm (0.1-0.4); HEMATOCRIT 35.9 % (41.0-60); HEMOGLOBIN 12.1 gm/dL (12-16); LYMPHOCYTE ABSOLUTE 2.5 Th/cmm (1.5-3.0); MEAN CELL VOLUME 88.1 fl (80-99); MEAN CORPUSCULAR HEMOGLOBIN 29.6 pg (27.0-31.0); MEAN CORPUSCULAR HGB CONC 33.6 pg (28.0-36.0); MEAN PLATELET VOLUME 7.2 fl; MONOCYTE ABSOLUTE 0.8 Th/cmm (0.3-1.0); NEUTROPHILE ABSOLUTE 10.6 Th/cmm (1.8-8.0); PLATELET COUNT 345 Th/cmm (150-400); RED BLOOD COUNT 4.08 Mil/cmm (3.80-5.80); RED CELL DISTRIBUTION WIDTH 13.1 % (11.5-20.0); WHITE BLOOD COUNT 14.2 Th/cmm (4.8-10.8)
[2018-04-22] MEDS: HYDROmorphone 2 mg/mL 1mL Vial IVP PRN ×4 (05:16→21:17)
[2018-04-22 05:25] LABS: ALB/GLOB RATIO 1.3 (1.0-1.8); ALBUMIN 2.9 gm/dL (4.2-5.5); ALKALINE PHOSPHATASE 40 U/L (34-104); ANION GAP 10.2 (7.0-16.0); BILIRUBIN,TOTAL 0.4 mg/dL (0.3-1.0); BUN - UREA NITROGEN 7 mg/dL (7-25); CALCIUM SERUM 8.9 mg/dL (8.6-10.3); CARBON DIOXIDE 20.4 mEq/L (21.0-31.0); CHLORIDE 106 mEq/L (98-107); CREATININE - SERUM 0.7 mg/dL (0.7-1.3); GLUCOSE 94 mg/dL (70-105); POTASSIUM SERUM 3.6 mEq/L (3.5-5.1); SGOT 11 U/L (13-39); SGPT/ALT 10 U/L (7-52); SODIUM SERUM 133 mEq/L (136-145); TOTAL PROTEIN,SERUM 5.1 gm/dL (6.0-8.3)
[2018-04-22] MEDS: Lactobacillus Rhamnosus GG 15 Billion CFU CAP.SPRINK PO SCH (08:59)
[2018-04-22] MEDS ORDERED: Non-Formulary Item 1 EA (Cran/Vitc/Mannose/Fos/Bromeln [Uti-Stat Liquid] 30 ML) PO SCH (09:00)
[2018-04-22] MEDS: Multivitamin Tab PO SCH (09:00)
--- NOTE | 2018-04-22 09:38 | Infectious Disease Prog Note ---
Infectious Disease Subjective - Review of Systems Service Date: 04/22/18 Subjective: Debridement and excision of the fistula performed yesterday. No fever. Infectious Disease Objective - Results Result Diagrams: 04/22/18 04:15 04/22/18 04:15 Recent Labs: Laboratory Last Values WBC 14.2 Th/cmm (4.8-10.8) H 04/22/18 04:15 RBC 4.08 Mil/cmm (3.80-5.80) 04/22/18 04:15 Hgb 12.1 gm/dL (12-16) 04/22/18 04:15 Hct 35.9 % (41.0-60) L 04/22/18 04:15 MCV 88.1 fl (80-99) 04/22/18 04:15 MCH 29.6 pg (27.0-31.0) 04/22/18 04:15 MCHC Differential 33.6 pg (28.0-36.0) 04/22/18 04:15 RDW 13.1 % (11.5-20.0) 04/22/18 04:15 Plt Count 345 Th/cmm (150-400) 04/22/18 04:15 MPV 7.2 fl 04/22/18 04:15 Add Manual Diff YES 04/16/18 05:15 Neutrophils % 74.5 % (40.0-80.0) 04/22/18 04:15 Band Neutrophils % 0 % (0-10) 04/16/18 05:15 Lymphocytes % 17.7 % (20.0-50.0) L 04/22/18 04:15 Monocytes % 5.4 % (2.0-10.0) 04/22/18 04:15 Eosinophils % 2.2 % (0.0-5.0) 04/22/18 04:15 Basophils % 0.2 % (0.0-2.0) 04/22/18 04:15 Neutrophils (Manual) 82 % (40-80) H 04/16/18 05:15 Lymphocytes 12 % (20-50) L 04/16/18 05:15 Monocytes 4 % (2-10) 04/16/18 05:15 Eosinophils 1 % (0-5) 04/16/18 05:15 Basophils 1 % (0-3) 04/16/18 05:15 PT 10.3 SECONDS (9.5-11.5) 04/18/18 10:05 INR 0.99 (0.5-1.4) 04/18/18 10:05 PTT (Actin FS) 22.4 SECONDS (26.0-38.0) L 04/18/18 10:05 Sodium 133 mEq/L (136-145) L 04/22/18 04:15 Potassium 3.6 mEq/L (3.5-5.1) 04/22/18 04:15 Chloride 106 mEq/L (98-107) 04/22/18 04:15 Carbon Dioxide 20.4 mEq/L (21.0-31.0) L 04/22/18 04:15 Anion Gap 10.2 (7.0-16.0) 04/22/18 04:15 BUN 7 mg/dL (7-25) 04/22/18 04:15 Creatinine 0.7 mg/dL (0.7-1.3) 04/22/18 04:15 Est GFR ( Amer) TNP 04/22/18 04:15 Est GFR (Non-Af Amer) TNP 04/22/18 04:15 BUN/Creatinine Ratio 10.0 04/22/18 04:15 Glucose 94 mg/dL (70-105) 04/22/18 04:15 POC Glucose 90 MG/DL (70 - 105) 04/21/18 10:20 Whole Bld Lactic Acid 0.96 mmol/L (0.60-1.99) 04/15/18 21:20 Calcium 8.9 mg/dL (8.6-10.3) 04/22/18 04:15 Total Bilirubin 0.4 mg/dL (0.3-1.0) 04/22/18 04:15 AST 11 U/L (13-39) L 04/22/18 04:15 ALT 10 U/L (7-52) 04/22/18 04:15 Alkaline Phosphatase 40 U/L (34-104) 04/22/18 04:15 Total Protein 5.1 gm/dL (6.0-8.3) L 04/22/18 04:15 Albumin 2.9 gm/dL (4.2-5.5) L 04/22/18 04:15 Globulin 2.2 gm/dL 04/22/18 04:15 Albumin/Globulin Ratio 1.3 (1.0-1.8) 04/22/18 04:15 Urine Source [place] 04/15/18 21:45 Urine Color ORANGE 04/15/18 21:45 Urine Clarity HAZY (CLEAR) 04/15/18 21:45 Urine pH 5.5 (4.6 - 8.0) 04/15/18 21:45 Ur Specific [place] 1.015 (1.005-1.030) 04/15/18 21:45 Urine Protein TRACE mg/dL (NEGATIVE) 04/15/18 21:45 Urine Glucose (UA) NEGATIVE mg/dL (NEGATIVE) 04/15/18 21:45 Urine Ketones NEGATIVE mg/dL (NEGATIVE) 04/15/18 21:45 Urine Blood NEGATIVE (NEGATIVE) 04/15/18 21:45 Urine Nitrate POSITIVE (NEGATIVE) H 04/15/18 21:45 Urine Bilirubin NEGATIVE (NEGATIVE) 04/15/18 21:45 Urine Urobilinogen 0.2 E.U./dL (0.2 - 1.0) 04/15/18 21:45 Ur Leukocyte Esterase SMALL (NEGATIVE) H 04/15/18 21:45 Urine RBC 0-2 /hpf (0-5) H 04/15/18 21:45 Urine WBC 6-10 /hpf (0-5) 04/15/18 21:45 Ur Epithelial Cells OCCASIONAL /lpf (FEW) 04/15/18 21:45 Urine Bacteria MODERATE /hpf (NONE SEEN) H 04/15/18 21:45 Vancomycin Trough 16.1 ug/mL (5-10) H 04/19/18 20:00 - Physical Exam Vitals and I&O: Vital Signs Temp 98.1 F 04/22/18 08:00 Pulse 77 04/22/18 08:00 Resp 12 04/22/18 08:00 BP 118/69 04/22/18 08:00 Pulse Ox 99 04/22/18 08:00 Intake & Output 04/21/18 04/22/18 04/22/18 18:59 06:59 18:59 Intake Total 350 1410 Output Total 1480 730 Balance -1130 680 Weight (lbs) 73.595 kg 73.618 kg Intake: Intake, IV Amount 350 1350 Piperacillin Sodium/ 100 100 Tazobact 3.375 gm In Sodium Chloride 0.9% 50 ml @ 100 mls/hr IV Q6HR [facility] Rx#:[id number] Sodium Chloride 0.45% 1, 1000 000 ml @ 100 mls/hr IV . Q10H [facility] Rx#:[id number] Vancomycin HCl 1.25 gm In 250 250 Sodium Chloride 0.9% 250 ml @ 165 mls/hr IV Q18H [facility] Rx#:[id number] Oral 60 Output: Drainage 100 80 Right Lower Abdomen 100 80 Urine 1300 650 Stool 80 Other: # Bowel Movements 0 Stool Characteristics Liquid Weight Source Bedscale Bedscale Active Medications: Current Medications Acetaminophen (Tylenol) 650 mg PO Q4HR PRN PRN Reason: Fever >101 Stop: 06/20/18 14:52 Acetaminophen (Tylenol Extra Strength) 1,000 mg PO Q4HR PRN PRN Reason: Pain (MILD) Stop: 06/20/18 14:52 Acetaminophen/Hydrocodone Bitart ([place] 5mg/325mg) 1 tab PO Q4H PRN PRN Reason: Pain (Moderate) 4-7 Stop: 06/15/18 01:07 Last Admin: 04/20/18 15:57 Dose: 1 tab Ascorbic Acid (Vitamin C) 250 mg PO DAILY [facility] Stop: 06/21/18 08:59 Last Admin: 04/22/18 08:59 Dose: 250 mg Bisacodyl (Dulcolax 10 Mg Supp) 10 mg RC DAILY PRN PRN Reason: Constipation Stop: 06/20/18 14:52 Cholecalciferol (Vitamin D3) 5,000 iu PO DAILY [facility] Stop: 06/21/18 08:59 Last Admin: 04/22/18 08:58 Dose: 5,000 iu Docusate Sodium (Colace) 100 mg PO DAILY [facility] Stop: 06/21/18 08:59 Last Admin: 04/22/18 09:00 Dose: 100 mg Heparin Sodium (Porcine) (Heparin) 5,000 units SUBQ Q12HR [facility] Stop: 06/20/18 20:59 Last Admin: 04/22/18 09:00 Dose: Not Given Hydromorphone HCl (Dilaudid) 1 mg IVP Q3H PRN PRN Reason: Pain (Severe) Stop: 06/20/18 13:54 Last Admin: 04/22/18 08:58 Dose: 1 mg Piperacillin Sod/Tazobactam (Sod 3.375 gm/ Sodium Chloride) 50 mls @ 100 mls/ hr IV Q6HR [facility] Stop: 06/15/18 05:59 Last Infusion: 04/22/18 05:55 Dose: Infused Vancomycin HCl 1.25 gm/ Sodium (Chloride) 250 mls @ 165 mls/hr IV Q18H [facility] Stop: 06/17/18 08:59 Last Infusion: 04/22/18 04:38 Dose: Infused Sodium Chloride (Nacl 0.45%) 1,000 mls @ 100 mls/hr IV .Q10H [facility] Stop: 06/20/18 12:29 Last Admin: 04/22/18 01:01 Dose: 100 mls/hr Lactobacillus Rhamnosus (Culturelle 15b) 1 each PO DAILY [facility] Stop: 06/21/18 08:59 Last Admin: 04/22/18 08:59 Dose: 1 each Magnesium Hydroxide (Milk Of Magnesia) 30 ml PO HS PRN PRN Reason: Constipation Stop: 06/20/18 14:52 Megestrol Acetate (Megace) 400 mg PO BID [facility] Stop: 06/20/18 16:59 Last Admin: 04/22/18 08:59 Dose: 400 mg Miscellaneous (Zosyn Iv Per Pharmacy) 1 [facility] PRN PRN PRN Reason: Abdominal cellulitis Stop: 06/15/18 01:14 Miscellaneous (Vancomycin Iv Per Pharmacy) 1 [facility] PRN PRN PRN Reason: PROTOCOL Stop: 06/16/18 15:44 Multivitamins/Vitamin C (Theragran) 1 tab PO DAILY [facility] Stop: 06/21/18 08:59 Last Admin: 04/22/18 09:00 Dose: 1 tab Senna (Senna) 17.2 mg PO HS [facility] Stop: 06/20/18 20:59 Last Admin: 04/21/18 20:17 Dose: 17.2 mg Tamsulosin HCl (Flomax) 0.4 mg PO HS [facility] Stop: 06/20/18 20:59 Last Admin: 04/21/18 20:17 Dose: 0.4 mg Tramadol HCl (Ultram) 50 mg PO Q12HR [facility] Stop: 06/20/18 20:59 Last Admin: 04/22/18 08:59 Dose: 50 mg General: no acute distress, well developed, well nourished, cachectic HEENT: atraumatic, normocephalic, PERRLA, EOMI Neck: supple, no thyromegaly Cardiovascular: S1S2, regular Lungs: clear to auscultation bilaterally, clear to percussion Abdomen: soft, other (dressing,.), no tender, no distended Extremities: no cyanosis, no clubbing, no edema Neurological: awake, alert Skin: intact - Procedures Procedures: Procedures Procedure Code Date BYPASS DESCENDING COLON TO CUTANEOUS, OPEN APPROACH [id number] 08/30/17 DESTRUCTION OF BLADDER, ENDO [id number] 02/27/18 EXCISION OF BACK SUBCU/FASCIA, OPEN APPROACH [id number] 09/16/17 EXCISION OF LEFT FOOT SKIN, EXTERNAL APPROACH [id number] 09/16/17 EXCISION OF RIGHT FOOT SKIN, EXTERNAL APPROACH [id number] 09/16/17 EXTIRPATION OF MATTER FROM BLADDER, ENDO [id number] 02/27/18 TRANSFUSE NONAUT RED BLOOD CELLS IN PERIPH VEIN, PERC 80204I1 08/30/17 Infectious Disease Assmt/Plan - Assessment Assessment: 1. abdominal wall cellulitis. ? Enterocutaneous fistula. -> s/p Repair of fistula and debridement. 2. diverting colostomy. 3. dementia 4. Sacral decubitus ulcer, stage 4. 5. Chronic obstructive pulmonary disease. 6. UTI [place]. 7. MRSA Colonization. - Plan Plan: Continue Zosyn. Surgery on the case. Nutritional Asmnt/Malnutr-PDOC - Dietary Evaluation Malnutrition Findings (Please click <Entered> for more info): Nutritional Asmnt/Malnutrition Start: 04/16/18 17: 00 Text: Status: Complete Freq: Protocol: Document 04/16/18 17:02 SETH (Rec: 04/16/18 17:24 SETH GUERRA) Nutritional Asmnt/Malnutrition Patient General Information Nutritional Screening High Risk Consult Diagnosis cellulitis abdomen Pertinent Medical Hx/Surgical Hx dementia, pneumonia, sepsis, non-healing sacral decubitus, diverting colostomy, HTN, asthma/COPD, PUD/GERD, CKD, paraplegia, pulmonary edema Subjective Information Received nutrition consult for wound. Pt was laying in bed at time of visit, agigated and undergoing wound check. Pt did not provide specific food preferences. RN reported pt does not like the hospital food. Current Diet Order/ Nutrition Support [facility] soft chopped Pertinent Medications D5-0.9%Ns, piperacillin Pertinent Labs 04/15: glucose 109, Na 129, Cr 0.6, Alb 3.5 04/16: glucose 104, Na 130, Cr 0.6 Nutritional Hx/Data Height 1.75 m Height (Calculated Centimeters) 175.3 Current Weight (lbs) 67.585 kg Weight (Calculated Kilograms) 67.6 Weight (Calculated Grams) 16689.3 Body Mass Index (BMI) 21.9 Weight Status Approriate GI Symptoms GI Symptoms None Last BM none noted Difficult in: None Food Allergies No Skin Integrity/Comment: pressure ulcer to sacrum ( previously stage 4), reddened r/l arms, abrasion to left knee Estimated Nutritional Goals BEE in Kcals: Using Current wt Calories/Kcals/Kg 25-30 Kcals Calculated 3122-3293 Protein: Using Current wt Protein g/k.3-1.5 Protein Calculated 88-101 g Fluid: ml 6590-2573 (1 ml/kcal) Nutritional Problem 1. Problem Problem Increased protein needs Etiology wound healing Signs/Symptoms: pressure ulcer to sacrum Malnutrition Alert Is there a minimum of two criteria No selected? Query Text:Check all the applicable criteria. A minimum of two criteria are recommended for diagnosis of either severe or non-severe malnutrition. Malnutrition Related to Morbid Obesity Malnutrition related to morbid obesity No Intervention/Recommendation Comments 1. Continue with mechanical soft chopped diet as ordered. Diet to meet 100% of protein needs. 2. Add Connor BID to help with wound healing. 3. Consider supplementing w/ ensure if PO intake <50%. 4. Monitor PO intake, wt, labs and skin integrity. 5. F/U as moderate risk in 3-5 days, 04/19-04/21 Expected Outcomes/Goals Expected Outcomes/Goals 1. PO intake to meet at least 75% of nutritional needs. 2. Wt stability, skin integrity to improve, labs to approach WNL. Reviewed by Nataly Davis
--- NOTE | 2018-04-22 11:34 | General Progress Note ---
Subjective - Review of Systems Service Date: 04/22/18 Events since last encounter: labs ok urine output good start full liquids Objective - Results Result Diagrams: 04/22/18 04:15 04/22/18 04:15 Recent Labs: Laboratory Last Values WBC 14.2 Th/cmm (4.8-10.8) H 04/22/18 04:15 RBC 4.08 Mil/cmm (3.80-5.80) 04/22/18 04:15 Hgb 12.1 gm/dL (12-16) 04/22/18 04:15 Hct 35.9 % (41.0-60) L 04/22/18 04:15 MCV 88.1 fl (80-99) 04/22/18 04:15 MCH 29.6 pg (27.0-31.0) 04/22/18 04:15 MCHC Differential 33.6 pg (28.0-36.0) 04/22/18 04:15 RDW 13.1 % (11.5-20.0) 04/22/18 04:15 Plt Count 345 Th/cmm (150-400) 04/22/18 04:15 MPV 7.2 fl 04/22/18 04:15 Add Manual Diff YES 04/16/18 05:15 Neutrophils % 74.5 % (40.0-80.0) 04/22/18 04:15 Band Neutrophils % 0 % (0-10) 04/16/18 05:15 Lymphocytes % 17.7 % (20.0-50.0) L 04/22/18 04:15 Monocytes % 5.4 % (2.0-10.0) 04/22/18 04:15 Eosinophils % 2.2 % (0.0-5.0) 04/22/18 04:15 Basophils % 0.2 % (0.0-2.0) 04/22/18 04:15 Neutrophils (Manual) 82 % (40-80) H 04/16/18 05:15 Lymphocytes 12 % (20-50) L 04/16/18 05:15 Monocytes 4 % (2-10) 04/16/18 05:15 Eosinophils 1 % (0-5) 04/16/18 05:15 Basophils 1 % (0-3) 04/16/18 05:15 PT 10.3 SECONDS (9.5-11.5) 04/18/18 10:05 INR 0.99 (0.5-1.4) 04/18/18 10:05 PTT (Actin FS) 22.4 SECONDS (26.0-38.0) L 04/18/18 10:05 Sodium 133 mEq/L (136-145) L 04/22/18 04:15 Potassium 3.6 mEq/L (3.5-5.1) 04/22/18 04:15 Chloride 106 mEq/L (98-107) 04/22/18 04:15 Carbon Dioxide 20.4 mEq/L (21.0-31.0) L 04/22/18 04:15 Anion Gap 10.2 (7.0-16.0) 04/22/18 04:15 BUN 7 mg/dL (7-25) 04/22/18 04:15 Creatinine 0.7 mg/dL (0.7-1.3) 04/22/18 04:15 Est GFR ( Amer) TNP 04/22/18 04:15 Est GFR (Non-Af Amer) TNP 04/22/18 04:15 BUN/Creatinine Ratio 10.0 04/22/18 04:15 Glucose 94 mg/dL (70-105) 04/22/18 04:15 POC Glucose 90 MG/DL (70 - 105) 04/21/18 10:20 Whole Bld Lactic Acid 0.96 mmol/L (0.60-1.99) 04/15/18 21:20 Calcium 8.9 mg/dL (8.6-10.3) 04/22/18 04:15 Total Bilirubin 0.4 mg/dL (0.3-1.0) 04/22/18 04:15 AST 11 U/L (13-39) L 04/22/18 04:15 ALT 10 U/L (7-52) 04/22/18 04:15 Alkaline Phosphatase 40 U/L (34-104) 04/22/18 04:15 Total Protein 5.1 gm/dL (6.0-8.3) L 04/22/18 04:15 Albumin 2.9 gm/dL (4.2-5.5) L 04/22/18 04:15 Globulin 2.2 gm/dL 04/22/18 04:15 Albumin/Globulin Ratio 1.3 (1.0-1.8) 04/22/18 04:15 Urine Source [place] 04/15/18 21:45 Urine Color ORANGE 04/15/18 21:45 Urine Clarity HAZY (CLEAR) 04/15/18 21:45 Urine pH 5.5 (4.6 - 8.0) 04/15/18 21:45 Ur Specific [place] 1.015 (1.005-1.030) 04/15/18 21:45 Urine Protein TRACE mg/dL (NEGATIVE) 04/15/18 21:45 Urine Glucose (UA) NEGATIVE mg/dL (NEGATIVE) 04/15/18 21:45 Urine Ketones NEGATIVE mg/dL (NEGATIVE) 04/15/18 21:45 Urine Blood NEGATIVE (NEGATIVE) 04/15/18 21:45 Urine Nitrate POSITIVE (NEGATIVE) H 04/15/18 21:45 Urine Bilirubin NEGATIVE (NEGATIVE) 04/15/18 21:45 Urine Urobilinogen 0.2 E.U./dL (0.2 - 1.0) 04/15/18 21:45 Ur Leukocyte Esterase SMALL (NEGATIVE) H 04/15/18 21:45 Urine RBC 0-2 /hpf (0-5) H 04/15/18 21:45 Urine WBC 6-10 /hpf (0-5) 04/15/18 21:45 Ur Epithelial Cells OCCASIONAL /lpf (FEW) 04/15/18 21:45 Urine Bacteria MODERATE /hpf (NONE SEEN) H 04/15/18 21:45 Vancomycin Trough 16.1 ug/mL (5-10) H 04/19/18 20:00 - Physical Exam Vitals and I&O: Vital Signs Temp 97.8 F 04/22/18 11:00 Pulse 89 04/22/18 11:00 Resp 17 04/22/18 11:00 BP 99/56 04/22/18 11:00 Pulse Ox 99 04/22/18 11:00 Intake & Output 04/21/18 04/22/18 04/22/18 18:59 06:59 18:59 Intake Total 350 1410 Output Total 1480 730 Balance -1130 680 Weight (lbs) 73.595 kg 73.618 kg Intake: Intake, IV Amount 350 1350 Piperacillin Sodium/ 100 100 Tazobact 3.375 gm In Sodium Chloride 0.9% 50 ml @ 100 mls/hr IV Q6HR [facility] Rx#:[id number] Sodium Chloride 0.45% 1, 1000 000 ml @ 100 mls/hr IV . Q10H [facility] Rx#:[id number] Vancomycin HCl 1.25 gm In 250 250 Sodium Chloride 0.9% 250 ml @ 165 mls/hr IV Q18H [facility] Rx#:[id number] Oral 60 Output: Drainage 100 80 Right Lower Abdomen 100 80 Urine 1300 650 Stool 80 Other: # Bowel Movements 0 Stool Characteristics Liquid Weight Source Bedscale Bedscale Active Medications: Current Medications Acetaminophen (Tylenol) 650 mg PO Q4HR PRN PRN Reason: Fever >101 Stop: 06/20/18 14:52 Acetaminophen (Tylenol Extra Strength) 1,000 mg PO Q4HR PRN PRN Reason: Pain (MILD) Stop: 06/20/18 14:52 Acetaminophen/Hydrocodone Bitart ([place] 5mg/325mg) 1 tab PO Q4H PRN PRN Reason: Pain (Moderate) 4-7 Stop: 06/15/18 01:07 Last Admin: 04/20/18 15:57 Dose: 1 tab Ascorbic Acid (Vitamin C) 250 mg PO DAILY [facility] Stop: 06/21/18 08:59 Last Admin: 04/22/18 08:59 Dose: 250 mg Bisacodyl (Dulcolax 10 Mg Supp) 10 mg RC DAILY PRN PRN Reason: Constipation Stop: 06/20/18 14:52 Cholecalciferol (Vitamin D3) 5,000 iu PO DAILY [facility] Stop: 06/21/18 08:59 Last Admin: 04/22/18 08:58 Dose: 5,000 iu Docusate Sodium (Colace) 100 mg PO DAILY [facility] Stop: 06/21/18 08:59 Last Admin: 04/22/18 09:00 Dose: 100 mg Heparin Sodium (Porcine) (Heparin) 5,000 units SUBQ Q12HR [facility] Stop: 06/20/18 20:59 Last Admin: 04/22/18 09:00 Dose: Not Given Hydromorphone HCl (Dilaudid) 1 mg IVP Q3H PRN PRN Reason: Pain (Severe) Stop: 06/20/18 13:54 Last Admin: 04/22/18 08:58 Dose: 1 mg Piperacillin Sod/Tazobactam (Sod 3.375 gm/ Sodium Chloride) 50 mls @ 100 mls/ hr IV Q6HR [facility] Stop: 06/15/18 05:59 Last Admin: 04/22/18 11:25 Dose: 100 mls/hr Sodium Chloride (Nacl 0.45%) 1,000 mls @ 100 mls/hr IV .Q10H [facility] Stop: 06/20/18 12:29 Last Admin: 04/22/18 01:01 Dose: 100 mls/hr Lactobacillus Rhamnosus (Culturelle 15b) 1 each PO DAILY [facility] Stop: 06/21/18 08:59 Last Admin: 04/22/18 08:59 Dose: 1 each Magnesium Hydroxide (Milk Of Magnesia) 30 ml PO HS PRN PRN Reason: Constipation Stop: 06/20/18 14:52 Megestrol Acetate (Megace) 400 mg PO BID [facility] Stop: 06/20/18 16:59 Last Admin: 04/22/18 08:59 Dose: 400 mg Miscellaneous (Zosyn Iv Per Pharmacy) 1 ea MC PRN PRN PRN Reason: Abdominal cellulitis Stop: 06/15/18 01:14 Multivitamins/Vitamin C (Theragran) 1 tab PO DAILY [facility] Stop: 06/21/18 08:59 Last Admin: 04/22/18 09:00 Dose: 1 tab Senna (Senna) 17.2 mg PO HS [facility] Stop: 06/20/18 20:59 Last Admin: 04/21/18 20:17 Dose: 17.2 mg Tamsulosin HCl (Flomax) 0.4 mg PO HS [facility] Stop: 06/20/18 20:59 Last Admin: 04/21/18 20:17 Dose: 0.4 mg Tramadol HCl (Ultram) 50 mg PO Q12HR [facility] Stop: 06/20/18 20:59 Last Admin: 04/22/18 08:59 Dose: 50 mg General: No acute distress HEENT: Atraumatic Neck: Supple Cardiovascular: Regular rate, Normal S1, Normal S2 - Procedures Procedures: Procedures Procedure Code Date BYPASS DESCENDING COLON TO CUTANEOUS, OPEN APPROACH [id number] 08/30/17 DESTRUCTION OF BLADDER, ENDO [id number] 02/27/18 EXCISION OF BACK SUBCU/FASCIA, OPEN APPROACH [id number] 09/16/17 EXCISION OF LEFT FOOT SKIN, EXTERNAL APPROACH [id number] 09/16/17 EXCISION OF RIGHT FOOT SKIN, EXTERNAL APPROACH [id number] 09/16/17 EXTIRPATION OF MATTER FROM BLADDER, ENDO [id number] 02/27/18 EXTRACTION OF BACK SKIN, EXTERNAL APPROACH [id number] 04/15/18 RELEASE SMALL INTESTINE, OPEN APPROACH [id number] 04/15/18 TRANSFUSE NONAUT RED BLOOD CELLS IN PERIPH VEIN, [facility]C [id number] 08/30/17 Nutritional Asmnt/Malnutr-PDOC - Dietary Evaluation Malnutrition Findings (Please click <Entered> for more info): Nutritional Asmnt/Malnutrition Start: 04/16/18 17: 00 Text: Status: Complete Freq: Protocol: Document 04/16/18 17:02 CHRISJUAN M (Rec: 04/16/18 17:24 SETH GUERRA) Nutritional Asmnt/Malnutrition Patient General Information Nutritional Screening High Risk Consult Diagnosis cellulitis abdomen Pertinent Medical Hx/Surgical Hx dementia, pneumonia, sepsis, non-healing sacral decubitus, diverting colostomy, HTN, asthma/COPD, PUD/GERD, CKD, paraplegia, pulmonary edema Subjective Information Received nutrition consult for wound. Pt was laying in bed at time of visit, agigated and undergoing wound check. Pt did not provide specific food preferences. RN reported pt does not like the hospital food. Current Diet Order/ Nutrition Support [facility] soft chopped Pertinent Medications D5-0.9%Ns, piperacillin Pertinent Labs 04/15: glucose 109, Na 129, Cr 0.6, Alb 3.5 04/16: glucose 104, Na 130, Cr 0.6 Nutritional Hx/Data Height 1.75 m Height (Calculated Centimeters) 175.3 Current Weight (lbs) 67.585 kg Weight (Calculated Kilograms) 67.6 Weight (Calculated Grams) 79879.3 Body Mass Index (BMI) 21.9 Weight Status Approriate GI Symptoms GI Symptoms None Last BM none noted Difficult in: None Food Allergies No Skin Integrity/Comment: pressure ulcer to sacrum ( previously stage 4), reddened r/l arms, abrasion to left knee Estimated Nutritional Goals BEE in Kcals: Using Current wt Calories/Kcals/Kg 25-30 Kcals Calculated 7130-9283 Protein: Using Current wt Protein g/k.3-1.5 Protein Calculated 88-101 g Fluid: ml 3789-2853 (1 ml/kcal) Nutritional Problem 1. Problem Problem Increased protein needs Etiology wound healing Signs/Symptoms: pressure ulcer to sacrum Malnutrition Alert Is there a minimum of two criteria No selected? Query Text:Check all the applicable criteria. A minimum of two criteria are recommended for diagnosis of either severe or non-severe malnutrition. Malnutrition Related to Morbid Obesity Malnutrition related to morbid obesity No Intervention/Recommendation Comments 1. Continue with mechanical soft chopped diet as ordered. Diet to meet 100% of protein needs. 2. Add Connor BID to help with wound healing. 3. Consider supplementing w/ ensure if PO intake <50%. 4. Monitor PO intake, wt, labs and skin integrity. 5. F/U as moderate risk in 3-5 days, 04/19-04/21 Expected Outcomes/Goals Expected Outcomes/Goals 1. PO intake to meet at least 75% of nutritional needs. 2. Wt stability, skin integrity to improve, labs to approach WNL. Reviewed by Nataly Davis
[2018-04-22] MEDS ORDERED: Sodium Chloride 0.9% 500 ML IV SCH (11:45)
[2018-04-22] MEDS ORDERED: Sodium Chloride 0.45% 1,000 ML IV SCH (11:45)
[2018-04-22] MEDS: Sodium Chloride 0.9% 1,000 ML IV SCH ×2 (22:08→23:30)
[2018-04-23] MEDS: HYDROmorphone 2 mg/mL 1mL Vial IVP PRN (04:56)
[2018-04-23 06:02] LABS: % BASOPHILS 0.8 % (0.0-2.0); % EOSINOPHILS 2.1 % (0.0-5.0); % LYMPHOCYTES 14.7 % (20.0-50.0); % MONOCYTES 3.9 % (2.0-10.0); % NEUTROPHILS 78.5 % (40.0-80.0); BASOPHILE ABSOLUTE 0.1 Th/cumm (0-0.2); EOSINOPHILE ABSOLUTE 0.3 Th/cmm (0.1-0.4); HEMATOCRIT 36.6 % (41.0-60); HEMOGLOBIN 12.2 gm/dL (12-16); LYMPHOCYTE ABSOLUTE 2.4 Th/cmm (1.5-3.0); MEAN CELL VOLUME 87.7 fl (80-99); MEAN CORPUSCULAR HEMOGLOBIN 29.2 pg (27.0-31.0); MEAN CORPUSCULAR HGB CONC 33.3 pg (28.0-36.0); MEAN PLATELET VOLUME 7.2 fl; MONOCYTE ABSOLUTE 0.6 Th/cmm (0.3-1.0); NEUTROPHILE ABSOLUTE 12.9 Th/cmm (1.8-8.0); PLATELET COUNT 359 Th/cmm (150-400); RED BLOOD COUNT 4.17 Mil/cmm (3.80-5.80); RED CELL DISTRIBUTION WIDTH 13.2 % (11.5-20.0)
[2018-04-23 06:07] LABS: WHITE BLOOD COUNT 16.3 Th/cmm (4.8-10.8)
[2018-04-23 06:18] LABS: ALB/GLOB RATIO 1.3 (1.0-1.8); ALBUMIN 2.9 gm/dL (4.2-5.5); ALKALINE PHOSPHATASE 44 U/L (34-104); ANION GAP 12.1 (7.0-16.0); BILIRUBIN,TOTAL 0.4 mg/dL (0.3-1.0); BUN - UREA NITROGEN 7 mg/dL (7-25); CARBON DIOXIDE 19.3 mEq/L (21.0-31.0); CHLORIDE 106 mEq/L (98-107); CREATININE - SERUM 0.8 mg/dL (0.7-1.3); GLUCOSE 101 mg/dL (70-105); POTASSIUM SERUM 3.4 mEq/L (3.5-5.1); SGOT 11 U/L (13-39); SGPT/ALT 8 U/L (7-52); SODIUM SERUM 134 mEq/L (136-145); TOTAL PROTEIN,SERUM 5.1 gm/dL (6.0-8.3)
[2018-04-23] MEDS: Lactobacillus Rhamnosus GG 15 Billion CFU CAP.SPRINK PO SCH (09:11)
[2018-04-23] MEDS: Multivitamin Tab PO SCH (09:11)
[2018-04-23] MEDS: HYDROmorphone 1 mg/mL 1mL Syr IVP PRN (16:53)
--- NOTE | 2018-04-23 16:58 | General Progress Note ---
Objective - Results Result Diagrams: 04/23/18 05:45 04/23/18 05:45 Recent Labs: Laboratory Last Values WBC 16.3 Th/cmm (4.8-10.8) H 04/23/18 05:45 RBC 4.17 Mil/cmm (3.80-5.80) 04/23/18 05:45 Hgb 12.2 gm/dL (12-16) 04/23/18 05:45 Hct 36.6 % (41.0-60) L 04/23/18 05:45 MCV 87.7 fl (80-99) 04/23/18 05:45 MCH 29.2 pg (27.0-31.0) 04/23/18 05:45 MCHC Differential 33.3 pg (28.0-36.0) 04/23/18 05:45 RDW 13.2 % (11.5-20.0) 04/23/18 05:45 Plt Count 359 Th/cmm (150-400) 04/23/18 05:45 MPV 7.2 fl 04/23/18 05:45 Add Manual Diff YES 04/16/18 05:15 Neutrophils % 78.5 % (40.0-80.0) 04/23/18 05:45 Band Neutrophils % 0 % (0-10) 04/16/18 05:15 Lymphocytes % 14.7 % (20.0-50.0) L 04/23/18 05:45 Monocytes % 3.9 % (2.0-10.0) 04/23/18 05:45 Eosinophils % 2.1 % (0.0-5.0) 04/23/18 05:45 Basophils % 0.8 % (0.0-2.0) 04/23/18 05:45 Neutrophils (Manual) 82 % (40-80) H 04/16/18 05:15 Lymphocytes 12 % (20-50) L 04/16/18 05:15 Monocytes 4 % (2-10) 04/16/18 05:15 Eosinophils 1 % (0-5) 04/16/18 05:15 Basophils 1 % (0-3) 04/16/18 05:15 PT 10.3 SECONDS (9.5-11.5) 04/18/18 10:05 INR 0.99 (0.5-1.4) 04/18/18 10:05 PTT (Actin FS) 22.4 SECONDS (26.0-38.0) L 04/18/18 10:05 Sodium 134 mEq/L (136-145) L 04/23/18 05:45 Potassium 3.4 mEq/L (3.5-5.1) L 04/23/18 05:45 Chloride 106 mEq/L (98-107) 04/23/18 05:45 Carbon Dioxide 19.3 mEq/L (21.0-31.0) L 04/23/18 05:45 Anion Gap 12.1 (7.0-16.0) 04/23/18 05:45 BUN 7 mg/dL (7-25) 04/23/18 05:45 Creatinine 0.8 mg/dL (0.7-1.3) 04/23/18 05:45 Est GFR ( Amer) TNP 04/23/18 05:45 Est GFR (Non-Af Amer) TNP 04/23/18 05:45 BUN/Creatinine Ratio 8.8 04/23/18 05:45 Glucose 101 mg/dL (70-105) 04/23/18 05:45 POC Glucose 90 MG/DL (70 - 105) 04/21/18 10:20 Whole Bld Lactic Acid 0.96 mmol/L (0.60-1.99) 04/15/18 21:20 Calcium 9.0 mg/dL (8.6-10.3) 04/23/18 05:45 Total Bilirubin 0.4 mg/dL (0.3-1.0) 04/23/18 05:45 AST 11 U/L (13-39) L 04/23/18 05:45 ALT 8 U/L (7-52) 04/23/18 05:45 Alkaline Phosphatase 44 U/L (34-104) 04/23/18 05:45 Total Protein 5.1 gm/dL (6.0-8.3) L 04/23/18 05:45 Albumin 2.9 gm/dL (4.2-5.5) L 04/23/18 05:45 Globulin 2.2 gm/dL 04/23/18 05:45 Albumin/Globulin Ratio 1.3 (1.0-1.8) 04/23/18 05:45 Urine Source [place] 04/15/18 21:45 Urine Color ORANGE 04/15/18 21:45 Urine Clarity HAZY (CLEAR) 04/15/18 21:45 Urine pH 5.5 (4.6 - 8.0) 04/15/18 21:45 Ur Specific [place] 1.015 (1.005-1.030) 04/15/18 21:45 Urine Protein TRACE mg/dL (NEGATIVE) 04/15/18 21:45 Urine Glucose (UA) NEGATIVE mg/dL (NEGATIVE) 04/15/18 21:45 Urine Ketones NEGATIVE mg/dL (NEGATIVE) 04/15/18 21:45 Urine Blood NEGATIVE (NEGATIVE) 04/15/18 21:45 Urine Nitrate POSITIVE (NEGATIVE) H 04/15/18 21:45 Urine Bilirubin NEGATIVE (NEGATIVE) 04/15/18 21:45 Urine Urobilinogen 0.2 E.U./dL (0.2 - 1.0) 04/15/18 21:45 Ur Leukocyte Esterase SMALL (NEGATIVE) H 04/15/18 21:45 Urine RBC 0-2 /hpf (0-5) H 04/15/18 21:45 Urine WBC 6-10 /hpf (0-5) 04/15/18 21:45 Ur Epithelial Cells OCCASIONAL /lpf (FEW) 04/15/18 21:45 Urine Bacteria MODERATE /hpf (NONE SEEN) H 04/15/18 21:45 Vancomycin Trough 16.1 ug/mL (5-10) H 04/19/18 20:00 - Physical Exam Vitals and I&O: Vital Signs Temp 97.5 F 04/23/18 16:10 Pulse 90 04/23/18 16:10 Resp 18 04/23/18 16:10 BP 105/64 04/23/18 16:10 Pulse Ox 96 04/23/18 16:10 Intake & Output 04/22/18 04/23/18 04/23/18 18:59 06:59 18:59 Intake Total 300 252.5 Output Total 540 415 Balance -240 -162.5 Weight (lbs) 75.296 kg 75.296 kg Intake: Intake, IV Amount 100 202.5 Piperacillin Sodium/ 100 100 Tazobact 3.375 gm In Sodium Chloride 0.9% 50 ml @ 100 mls/hr IV Q6HR [facility] Rx#:[id number] Sodium Chloride 0.9% 1, 102.5 000 ml @ 75 mls/hr IV . [id number] [facility] Rx#:[id number] Oral 200 50 Output: Drainage 65 Right Lower Abdomen 65 Urine 500 350 Other 40 Other: Weight Source Bedscale Bedscale Active Medications: Current Medications Acetaminophen (Tylenol) 650 mg PO Q4HR PRN PRN Reason: Fever >101 Stop: 06/20/18 14:52 Acetaminophen (Tylenol Extra Strength) 1,000 mg PO Q4HR PRN PRN Reason: Pain (MILD) Stop: 06/20/18 14:52 Acetaminophen/Hydrocodone Bitart ([place] 5mg/325mg) 1 tab PO Q4H PRN PRN Reason: Pain (Moderate) 4-7 Stop: 06/15/18 01:07 Last Admin: 04/20/18 15:57 Dose: 1 tab Ascorbic Acid (Vitamin C) 250 mg PO DAILY [facility] Stop: 06/21/18 08:59 Last Admin: 04/23/18 09:11 Dose: Not Given Bisacodyl (Dulcolax 10 Mg Supp) 10 mg RC DAILY PRN PRN Reason: Constipation Stop: 06/20/18 14:52 Cholecalciferol (Vitamin D3) 5,000 iu PO DAILY [facility] Stop: 06/21/18 08:59 Last Admin: 04/23/18 09:11 Dose: Not Given Docusate Sodium (Colace) 100 mg PO DAILY [facility] Stop: 06/21/18 08:59 Last Admin: 04/23/18 09:11 Dose: Not Given Heparin Sodium (Porcine) (Heparin) 5,000 units SUBQ Q12HR [facility] Stop: 06/20/18 20:59 Last Admin: 04/23/18 09:07 Dose: 5,000 units Hydromorphone HCl (Dilaudid) 1 mg IVP Q3H PRN PRN Reason: Pain (Severe) Stop: 06/20/18 13:54 Last Admin: 04/23/18 16:53 Dose: 1 mg Piperacillin Sod/Tazobactam (Sod 3.375 gm/ Sodium Chloride) 50 mls @ 100 mls/ hr IV Q6HR [facility] Stop: 06/15/18 05:59 Last Admin: 04/23/18 12:33 Dose: 100 mls/hr Sodium Chloride (Nacl 0.9%) 1,000 mls @ 75 mls/hr IV .[id number] [facility] Stop: 06/21/18 22:29 Last Admin: 04/22/18 23:30 Dose: 75 mls/hr Lactobacillus Rhamnosus (Culturelle 15b) 1 each PO DAILY [facility] Stop: 06/21/18 08:59 Last Admin: 04/23/18 09:11 Dose: Not Given Magnesium Hydroxide (Milk Of Magnesia) 30 ml PO HS PRN PRN Reason: Constipation Stop: 06/20/18 14:52 Megestrol Acetate (Megace) 400 mg PO BID [facility] Stop: 06/20/18 16:59 Last Admin: 04/23/18 09:11 Dose: Not Given Miscellaneous (Zosyn Iv Per Pharmacy) 1 ea MC PRN PRN PRN Reason: Abdominal cellulitis Stop: 06/15/18 01:14 Multivitamins/Vitamin C (Theragran) 1 tab PO DAILY [facility] Stop: 06/21/18 08:59 Last Admin: 04/23/18 09:11 Dose: Not Given Senna (Senna) 17.2 mg PO HS [facility] Stop: 06/20/18 20:59 Last Admin: 04/22/18 20:33 Dose: 17.2 mg Tamsulosin HCl (Flomax) 0.4 mg PO HS [facility] Stop: 06/20/18 20:59 Last Admin: 04/22/18 20:33 Dose: 0.4 mg Tramadol HCl (Ultram) 50 mg PO Q12HR [facility] Stop: 06/20/18 20:59 Last Admin: 04/23/18 09:06 Dose: 50 mg General: No acute distress HEENT: Atraumatic Neck: Supple Cardiovascular: Regular rate, Normal S1, Normal S2 - Procedures Procedures: Procedures Procedure Code Date BYPASS DESCENDING COLON TO CUTANEOUS, OPEN APPROACH [id number] 08/30/17 DESTRUCTION OF BLADDER, ENDO [id number] 02/27/18 EXCISION OF BACK SUBCU/FASCIA, OPEN APPROACH [id number] 09/16/17 EXCISION OF LEFT FOOT SKIN, EXTERNAL APPROACH [id number] 09/16/17 EXCISION OF RIGHT FOOT SKIN, EXTERNAL APPROACH [id number] 09/16/17 EXTIRPATION OF MATTER FROM BLADDER, ENDO [id number] 02/27/18 EXTRACTION OF BACK SKIN, EXTERNAL APPROACH [id number] 04/15/18 RELEASE SMALL INTESTINE, OPEN APPROACH [id number] 04/15/18 TRANSFUSE NONAUT RED BLOOD CELLS IN PERIPH VEIN, [facility] [id number] 08/30/17 Assessment/Plan - Plan Plan: as per surgeon Nutritional Asmnt/Malnutr-PDOC - Dietary Evaluation Malnutrition Findings (Please click <Entered> for more info): Nutritional Asmnt/Malnutrition Start: 04/16/18 17: 00 Text: Status: Complete Freq: Protocol: Document 04/16/18 17:02 CHRISJUAN M (Rec: 04/16/18 17:24 CHRISJUAN M MARI) Nutritional Asmnt/Malnutrition Patient General Information Nutritional Screening High Risk Consult Diagnosis cellulitis abdomen Pertinent Medical Hx/Surgical Hx dementia, pneumonia, sepsis, non-healing sacral decubitus, diverting colostomy, HTN, asthma/COPD, PUD/GERD, CKD, paraplegia, pulmonary edema Subjective Information Received nutrition consult for wound. Pt was laying in bed at time of visit, agigated and undergoing wound check. Pt did not provide specific food preferences. RN reported pt does not like the hospital food. Current Diet Order/ Nutrition Support [facility] soft chopped Pertinent Medications D5-0.9%Ns, piperacillin Pertinent Labs 04/15: glucose 109, Na 129, Cr 0.6, Alb 3.5 04/16: glucose 104, Na 130, Cr 0.6 Nutritional Hx/Data Height 1.75 m Height (Calculated Centimeters) 175.3 Current Weight (lbs) 67.585 kg Weight (Calculated Kilograms) 67.6 Weight (Calculated Grams) 45143.3 Body Mass Index (BMI) 21.9 Weight Status Approriate GI Symptoms GI Symptoms None Last BM none noted Difficult in: None Food Allergies No Skin Integrity/Comment: pressure ulcer to sacrum ( previously stage 4), reddened r/l arms, abrasion to left knee Estimated Nutritional Goals BEE in Kcals: Using Current wt Calories/Kcals/Kg 25-30 Kcals Calculated 2403-7776 Protein: Using Current wt Protein g/k.3-1.5 Protein Calculated 88-101 g Fluid: ml 8147-5991 (1 ml/kcal) Nutritional Problem 1. Problem Problem Increased protein needs Etiology wound healing Signs/Symptoms: pressure ulcer to sacrum Malnutrition Alert Is there a minimum of two criteria No selected? Query Text:Check all the applicable criteria. A minimum of two criteria are recommended for diagnosis of either severe or non-severe malnutrition. Malnutrition Related to Morbid Obesity Malnutrition related to morbid obesity No Intervention/Recommendation Comments 1. Continue with mechanical soft chopped diet as ordered. Diet to meet 100% of protein needs. 2. Add Connor BID to help with wound healing. 3. Consider supplementing w/ ensure if PO intake <50%. 4. Monitor PO intake, wt, labs and skin integrity. 5. F/U as moderate risk in 3-5 days, 04/19-04/21 Expected Outcomes/Goals Expected Outcomes/Goals 1. PO intake to meet at least 75% of nutritional needs. 2. Wt stability, skin integrity to improve, labs to approach WNL. Reviewed by Nataly Davis
[2018-04-23] MEDS: Sodium Chloride 0.9% 1,000 ML IV SCH (17:31)
[2018-04-23] MEDS: Hydrocodone/APAP 5mg/325mg Tab PO PRN (22:37)
--- NOTE | 2018-04-23 23:44 | Infectious Disease Prog Note ---
Infectious Disease Subjective - Review of Systems Service Date: 04/23/18 Subjective: Debridement and excision of the fistula performed yesterday. No fever. Infectious Disease Objective - Results Result Diagrams: 04/24/18 08:30 04/24/18 08:30 Recent Labs: Laboratory Last Values WBC 16.3 Th/cmm (4.8-10.8) H 04/23/18 05:45 RBC 4.17 Mil/cmm (3.80-5.80) 04/23/18 05:45 Hgb 12.2 gm/dL (12-16) 04/23/18 05:45 Hct 36.6 % (41.0-60) L 04/23/18 05:45 MCV 87.7 fl (80-99) 04/23/18 05:45 MCH 29.2 pg (27.0-31.0) 04/23/18 05:45 MCHC Differential 33.3 pg (28.0-36.0) 04/23/18 05:45 RDW 13.2 % (11.5-20.0) 04/23/18 05:45 Plt Count 359 Th/cmm (150-400) 04/23/18 05:45 MPV 7.2 fl 04/23/18 05:45 Add Manual Diff YES 04/16/18 05:15 Neutrophils % 78.5 % (40.0-80.0) 04/23/18 05:45 Band Neutrophils % 0 % (0-10) 04/16/18 05:15 Lymphocytes % 14.7 % (20.0-50.0) L 04/23/18 05:45 Monocytes % 3.9 % (2.0-10.0) 04/23/18 05:45 Eosinophils % 2.1 % (0.0-5.0) 04/23/18 05:45 Basophils % 0.8 % (0.0-2.0) 04/23/18 05:45 Neutrophils (Manual) 82 % (40-80) H 04/16/18 05:15 Lymphocytes 12 % (20-50) L 04/16/18 05:15 Monocytes 4 % (2-10) 04/16/18 05:15 Eosinophils 1 % (0-5) 04/16/18 05:15 Basophils 1 % (0-3) 04/16/18 05:15 PT 10.3 SECONDS (9.5-11.5) 04/18/18 10:05 INR 0.99 (0.5-1.4) 04/18/18 10:05 PTT (Actin FS) 22.4 SECONDS (26.0-38.0) L 04/18/18 10:05 Sodium 134 mEq/L (136-145) L 04/23/18 05:45 Potassium 3.4 mEq/L (3.5-5.1) L 04/23/18 05:45 Chloride 106 mEq/L (98-107) 04/23/18 05:45 Carbon Dioxide 19.3 mEq/L (21.0-31.0) L 04/23/18 05:45 Anion Gap 12.1 (7.0-16.0) 04/23/18 05:45 BUN 7 mg/dL (7-25) 04/23/18 05:45 Creatinine 0.8 mg/dL (0.7-1.3) 04/23/18 05:45 Est GFR ( Amer) TNP 04/23/18 05:45 Est GFR (Non-Af Amer) TNP 04/23/18 05:45 BUN/Creatinine Ratio 8.8 04/23/18 05:45 Glucose 101 mg/dL (70-105) 04/23/18 05:45 POC Glucose 90 MG/DL (70 - 105) 04/21/18 10:20 Whole Bld Lactic Acid 0.96 mmol/L (0.60-1.99) 04/15/18 21:20 Calcium 9.0 mg/dL (8.6-10.3) 04/23/18 05:45 Total Bilirubin 0.4 mg/dL (0.3-1.0) 04/23/18 05:45 AST 11 U/L (13-39) L 04/23/18 05:45 ALT 8 U/L (7-52) 04/23/18 05:45 Alkaline Phosphatase 44 U/L (34-104) 04/23/18 05:45 Total Protein 5.1 gm/dL (6.0-8.3) L 04/23/18 05:45 Albumin 2.9 gm/dL (4.2-5.5) L 04/23/18 05:45 Globulin 2.2 gm/dL 04/23/18 05:45 Albumin/Globulin Ratio 1.3 (1.0-1.8) 04/23/18 05:45 Urine Source [place] 04/15/18 21:45 Urine Color ORANGE 04/15/18 21:45 Urine Clarity HAZY (CLEAR) 04/15/18 21:45 Urine pH 5.5 (4.6 - 8.0) 04/15/18 21:45 Ur Specific [place] 1.015 (1.005-1.030) 04/15/18 21:45 Urine Protein TRACE mg/dL (NEGATIVE) 04/15/18 21:45 Urine Glucose (UA) NEGATIVE mg/dL (NEGATIVE) 04/15/18 21:45 Urine Ketones NEGATIVE mg/dL (NEGATIVE) 04/15/18 21:45 Urine Blood NEGATIVE (NEGATIVE) 04/15/18 21:45 Urine Nitrate POSITIVE (NEGATIVE) H 04/15/18 21:45 Urine Bilirubin NEGATIVE (NEGATIVE) 04/15/18 21:45 Urine Urobilinogen 0.2 E.U./dL (0.2 - 1.0) 04/15/18 21:45 Ur Leukocyte Esterase SMALL (NEGATIVE) H 04/15/18 21:45 Urine RBC 0-2 /hpf (0-5) H 04/15/18 21:45 Urine WBC 6-10 /hpf (0-5) 04/15/18 21:45 Ur Epithelial Cells OCCASIONAL /lpf (FEW) 04/15/18 21:45 Urine Bacteria MODERATE /hpf (NONE SEEN) H 04/15/18 21:45 Vancomycin Trough 16.1 ug/mL (5-10) H 04/19/18 20:00 - Physical Exam Vitals and I&O: Vital Signs Temp 98.7 F 04/23/18 20:00 Pulse 93 04/23/18 20:00 Resp 18 04/23/18 20:00 BP 113/66 04/23/18 20:00 Pulse Ox 94 04/23/18 20:00 Intake & Output 04/23/18 04/23/18 04/24/18 06:59 18:59 06:59 Intake Total 252.5 1050 50 Output Total 415 Balance -162.5 1050 50 Weight (lbs) 75.296 kg Intake: Intake, IV Amount 202.5 1050 50 Piperacillin Sodium/ 100 50 50 Tazobact 3.375 gm In Sodium Chloride 0.9% 50 ml @ 100 mls/hr IV Q6HR [facility] Rx#:[id number] Sodium Chloride 0.9% 1, 102.5 1000 000 ml @ 75 mls/hr IV . [id number] [facility] Rx#:[id number] Oral 50 Output: Drainage 65 Right Lower Abdomen 65 Urine 350 Other: Weight Source Bedscale Active Medications: Current Medications Acetaminophen (Tylenol) 650 mg PO Q4HR PRN PRN Reason: Fever >101 Stop: 06/20/18 14:52 Acetaminophen (Tylenol Extra Strength) 1,000 mg PO Q4HR PRN PRN Reason: Pain (MILD) Stop: 06/20/18 14:52 Acetaminophen/Hydrocodone Bitart ([place] 5mg/325mg) 1 tab PO Q4H PRN PRN Reason: Pain (Moderate) 4-7 Stop: 06/15/18 01:07 Last Admin: 04/23/18 22:37 Dose: 1 tab Ascorbic Acid (Vitamin C) 250 mg PO DAILY [facility] Stop: 06/21/18 08:59 Last Admin: 04/23/18 09:11 Dose: Not Given Bisacodyl (Dulcolax 10 Mg Supp) 10 mg RC DAILY PRN PRN Reason: Constipation Stop: 06/20/18 14:52 Cholecalciferol (Vitamin D3) 5,000 iu PO DAILY [facility] Stop: 06/21/18 08:59 Last Admin: 04/23/18 09:11 Dose: Not Given Diphenhydramine HCl (Benadryl) 25 mg PO Q6HR PRN PRN Reason: Itching Stop: 06/22/18 21:06 Last Admin: 04/23/18 22:38 Dose: 25 mg Docusate Sodium (Colace) 100 mg PO DAILY [facility] Stop: 06/21/18 08:59 Last Admin: 04/23/18 09:11 Dose: Not Given Heparin Sodium (Porcine) (Heparin) 5,000 units SUBQ Q12HR [facility] Stop: 06/20/18 20:59 Last Admin: 04/23/18 21:19 Dose: 5,000 units Hydromorphone HCl (Dilaudid) 1 mg IVP Q3H PRN PRN Reason: Pain (Severe) Stop: 06/20/18 13:54 Last Admin: 04/23/18 16:53 Dose: 1 mg Piperacillin Sod/Tazobactam (Sod 3.375 gm/ Sodium Chloride) 50 mls @ 100 mls/ hr IV Q6HR [facility] Stop: 06/15/18 05:59 Last Infusion: 04/23/18 21:20 Dose: Infused Sodium Chloride (Nacl 0.9%) 1,000 mls @ 75 mls/hr IV .[id number] [facility] Stop: 06/21/18 22:29 Last Admin: 04/23/18 17:31 Dose: 75 mls/hr Lactobacillus Rhamnosus (Culturelle 15b) 1 each PO DAILY [facility] Stop: 06/21/18 08:59 Last Admin: 04/23/18 09:11 Dose: Not Given Magnesium Hydroxide (Milk Of Magnesia) 30 ml PO HS PRN PRN Reason: Constipation Stop: 06/20/18 14:52 Megestrol Acetate (Megace) 400 mg PO BID [facility] Stop: 06/20/18 16:59 Last Admin: 04/23/18 17:27 Dose: Not Given Miscellaneous (Zosyn Iv Per Pharmacy) 1 ea PRN PRN PRN Reason: Abdominal cellulitis Stop: 06/15/18 01:14 Multivitamins/Vitamin C (Theragran) 1 tab PO DAILY [facility] Stop: 06/21/18 08:59 Last Admin: 04/23/18 09:11 Dose: Not Given Senna (Senna) 17.2 mg PO HS [facility] Stop: 06/20/18 20:59 Last Admin: 04/23/18 21:19 Dose: 17.2 mg Tamsulosin HCl (Flomax) 0.4 mg PO HS [facility] Stop: 06/20/18 20:59 Last Admin: 04/23/18 21:19 Dose: 0.4 mg Tramadol HCl (Ultram) 50 mg PO Q12HR [facility] Stop: 06/20/18 20:59 Last Admin: 04/23/18 21:19 Dose: 50 mg General: no acute distress, well developed, well nourished HEENT: atraumatic, normocephalic, PERRLA Neck: supple, no thyromegaly Cardiovascular: S1S2, regular Lungs: clear to auscultation bilaterally, clear to percussion Abdomen: soft, other (wound is covered.), no tender, no mass Extremities: no cyanosis, no clubbing, no edema Neurological: awake, alert, oriented Skin: intact - Procedures Procedures: Procedures Procedure Code Date BYPASS DESCENDING COLON TO CUTANEOUS, OPEN APPROACH [id number] 08/30/17 DESTRUCTION OF BLADDER, ENDO [id number] 02/27/18 EXCISION OF BACK SUBCU/FASCIA, OPEN APPROACH [id number] 09/16/17 EXCISION OF LEFT FOOT SKIN, EXTERNAL APPROACH [id number] 09/16/17 EXCISION OF RIGHT FOOT SKIN, EXTERNAL APPROACH [id number] 09/16/17 EXTIRPATION OF MATTER FROM BLADDER, ENDO [id number] 02/27/18 EXTRACTION OF BACK SKIN, EXTERNAL APPROACH [id number] 04/15/18 RELEASE SMALL INTESTINE, OPEN APPROACH [id number] 04/15/18 TRANSFUSE NONAUT RED BLOOD CELLS IN PERIPH VEIN, PERC 26996G3 08/30/17 Infectious Disease Assmt/Plan - Assessment Assessment: 1. abdominal wall cellulitis. ? Enterocutaneous fistula. -> s/p Repair of fistula and debridement. 2. diverting colostomy. 3. dementia 4. Sacral decubitus ulcer, stage 4. 5. Chronic obstructive pulmonary disease. 6. UTI [place]. 7. MRSA Colonization. - Plan Plan: Continue Zosyn. Surgery on the case. Nutritional Asmnt/Malnutr-PDOC - Dietary Evaluation Malnutrition Findings (Please click <Entered> for more info): Nutritional Asmnt/Malnutrition Start: 04/16/18 17: 00 Text: Status: Complete Freq: Protocol: Document 04/16/18 17:02 SETH (Rec: 04/16/18 17:24 SETH GUERRA) Nutritional Asmnt/Malnutrition Patient General Information Nutritional Screening High Risk Consult Diagnosis cellulitis abdomen Pertinent Medical Hx/Surgical Hx dementia, pneumonia, sepsis, non-healing sacral decubitus, diverting colostomy, HTN, asthma/COPD, PUD/GERD, CKD, paraplegia, pulmonary edema Subjective Information Received nutrition consult for wound. Pt was laying in bed at time of visit, agigated and undergoing wound check. Pt did not provide specific food preferences. RN reported pt does not like the hospital food. Current Diet Order/ Nutrition Support [facility] soft chopped Pertinent Medications D5-0.9%Ns, piperacillin Pertinent Labs 04/15: glucose 109, Na 129, Cr 0.6, Alb 3.5 04/16: glucose 104, Na 130, Cr 0.6 Nutritional Hx/Data Height 1.75 m Height (Calculated Centimeters) 175.3 Current Weight (lbs) 67.585 kg Weight (Calculated Kilograms) 67.6 Weight (Calculated Grams) 96092.3 Body Mass Index (BMI) 21.9 Weight Status Approriate GI Symptoms GI Symptoms None Last BM none noted Difficult in: None Food Allergies No Skin Integrity/Comment: pressure ulcer to sacrum ( previously stage 4), reddened r/l arms, abrasion to left knee Estimated Nutritional Goals BEE in Kcals: Using Current wt Calories/Kcals/Kg 25-30 Kcals Calculated [id number] Protein: Using Current wt Protein g/k.3-1.5 Protein Calculated 88-101 g Fluid: ml (1 ml/kcal) Nutritional Problem 1. Problem Problem Increased protein needs Etiology wound healing Signs/Symptoms: pressure ulcer to sacrum Malnutrition Alert Is there a minimum of two criteria No selected? Query Text:Check all the applicable criteria. A minimum of two criteria are recommended for diagnosis of either severe or non-severe malnutrition. Malnutrition Related to Morbid Obesity Malnutrition related to morbid obesity No Intervention/Recommendation Comments 1. Continue with mechanical soft chopped diet as ordered. Diet to meet 100% of protein needs. 2. Add Connor BID to help with wound healing. 3. Consider supplementing w/ ensure if PO intake <50%. 4. Monitor PO intake, wt, labs and skin integrity. 5. F/U as moderate risk in 3-5 days, 04/19-04/21 Expected Outcomes/Goals Expected Outcomes/Goals 1. PO intake to meet at least 75% of nutritional needs. 2. Wt stability, skin integrity to improve, labs to approach WNL. Reviewed by Nataly Davis
[2018-04-24] MEDS: Hydrocodone/APAP 5mg/325mg Tab PO PRN ×2 (05:23→16:19)
[2018-04-24] MEDS: Sodium Chloride 0.9% 1,000 ML IV SCH (05:29)
[2018-04-24 08:42] LABS: % BASOPHILS 0.1 % (0.0-2.0); % EOSINOPHILS 2.8 % (0.0-5.0); % LYMPHOCYTES 14.9 % (20.0-50.0); % MONOCYTES 2.9 % (2.0-10.0); % NEUTROPHILS 79.3 % (40.0-80.0); EOSINOPHILE ABSOLUTE 0.4 Th/cmm (0.1-0.4); HEMATOCRIT 32.3 % (41.0-60); HEMOGLOBIN 10.7 gm/dL (12-16); LYMPHOCYTE ABSOLUTE 2.1 Th/cmm (1.5-3.0); MEAN CELL VOLUME 88.6 fl (80-99); MEAN CORPUSCULAR HEMOGLOBIN 29.5 pg (27.0-31.0); MEAN CORPUSCULAR HGB CONC 33.3 pg (28.0-36.0); MEAN PLATELET VOLUME 6.7 fl; MONOCYTE ABSOLUTE 0.4 Th/cmm (0.3-1.0); NEUTROPHILE ABSOLUTE 11.5 Th/cmm (1.8-8.0); PLATELET COUNT 348 Th/cmm (150-400); RED BLOOD COUNT 3.64 Mil/cmm (3.80-5.80); RED CELL DISTRIBUTION WIDTH 13.2 % (11.5-20.0); WHITE BLOOD COUNT 14.4 Th/cmm (4.8-10.8)
--- NOTE | 2018-04-24 08:53 | General Progress Note ---
Subjective - Review of Systems Service Date: 04/24/18 Events since last encounter: wound vac applied yesterday due to drainage at incision. total wound vac drainage over night 10 cc labs noted eating well continue wound vac Objective - Results Result Diagrams: 04/24/18 08:30 04/23/18 05:45 Recent Labs: Laboratory Last Values WBC 14.4 Th/cmm (4.8-10.8) H 04/24/18 08:30 RBC 3.64 Mil/cmm (3.80-5.80) L 04/24/18 08:30 Hgb 10.7 gm/dL (12-16) L 04/24/18 08:30 Hct 32.3 % (41.0-60) L 04/24/18 08:30 MCV 88.6 fl (80-99) 04/24/18 08:30 MCH 29.5 pg (27.0-31.0) 04/24/18 08:30 MCHC Differential 33.3 pg (28.0-36.0) 04/24/18 08:30 RDW 13.2 % (11.5-20.0) 04/24/18 08:30 Plt Count 348 Th/cmm (150-400) 04/24/18 08:30 MPV 6.7 fl 04/24/18 08:30 Add Manual Diff YES 04/16/18 05:15 Neutrophils % 79.3 % (40.0-80.0) 04/24/18 08:30 Band Neutrophils % 0 % (0-10) 04/16/18 05:15 Lymphocytes % 14.9 % (20.0-50.0) L 04/24/18 08:30 Monocytes % 2.9 % (2.0-10.0) 04/24/18 08:30 Eosinophils % 2.8 % (0.0-5.0) 04/24/18 08:30 Basophils % 0.1 % (0.0-2.0) 04/24/18 08:30 Neutrophils (Manual) 82 % (40-80) H 04/16/18 05:15 Lymphocytes 12 % (20-50) L 04/16/18 05:15 Monocytes 4 % (2-10) 04/16/18 05:15 Eosinophils 1 % (0-5) 04/16/18 05:15 Basophils 1 % (0-3) 04/16/18 05:15 PT 10.3 SECONDS (9.5-11.5) 04/18/18 10:05 INR 0.99 (0.5-1.4) 04/18/18 10:05 PTT (Actin FS) 22.4 SECONDS (26.0-38.0) L 04/18/18 10:05 Sodium 134 mEq/L (136-145) L 04/23/18 05:45 Potassium 3.4 mEq/L (3.5-5.1) L 04/23/18 05:45 Chloride 106 mEq/L (98-107) 04/23/18 05:45 Carbon Dioxide 19.3 mEq/L (21.0-31.0) L 04/23/18 05:45 Anion Gap 12.1 (7.0-16.0) 04/23/18 05:45 BUN 7 mg/dL (7-25) 04/23/18 05:45 Creatinine 0.8 mg/dL (0.7-1.3) 04/23/18 05:45 Est GFR ( Amer) TNP 04/23/18 05:45 Est GFR (Non-Af Amer) TNP 04/23/18 05:45 BUN/Creatinine Ratio 8.8 04/23/18 05:45 Glucose 101 mg/dL (70-105) 04/23/18 05:45 POC Glucose 90 MG/DL (70 - 105) 04/21/18 10:20 Whole Bld Lactic Acid 0.96 mmol/L (0.60-1.99) 04/15/18 21:20 Calcium 9.0 mg/dL (8.6-10.3) 04/23/18 05:45 Total Bilirubin 0.4 mg/dL (0.3-1.0) 04/23/18 05:45 AST 11 U/L (13-39) L 04/23/18 05:45 ALT 8 U/L (7-52) 04/23/18 05:45 Alkaline Phosphatase 44 U/L (34-104) 04/23/18 05:45 Total Protein 5.1 gm/dL (6.0-8.3) L 04/23/18 05:45 Albumin 2.9 gm/dL (4.2-5.5) L 04/23/18 05:45 Globulin 2.2 gm/dL 04/23/18 05:45 Albumin/Globulin Ratio 1.3 (1.0-1.8) 04/23/18 05:45 Urine Source [place] 04/15/18 21:45 Urine Color ORANGE 04/15/18 21:45 Urine Clarity HAZY (CLEAR) 04/15/18 21:45 Urine pH 5.5 (4.6 - 8.0) 04/15/18 21:45 Ur Specific [place] 1.015 (1.005-1.030) 04/15/18 21:45 Urine Protein TRACE mg/dL (NEGATIVE) 04/15/18 21:45 Urine Glucose (UA) NEGATIVE mg/dL (NEGATIVE) 04/15/18 21:45 Urine Ketones NEGATIVE mg/dL (NEGATIVE) 04/15/18 21:45 Urine Blood NEGATIVE (NEGATIVE) 04/15/18 21:45 Urine Nitrate POSITIVE (NEGATIVE) H 04/15/18 21:45 Urine Bilirubin NEGATIVE (NEGATIVE) 04/15/18 21:45 Urine Urobilinogen 0.2 E.U./dL (0.2 - 1.0) 04/15/18 21:45 Ur Leukocyte Esterase SMALL (NEGATIVE) H 04/15/18 21:45 Urine RBC 0-2 /hpf (0-5) H 04/15/18 21:45 Urine WBC 6-10 /hpf (0-5) 04/15/18 21:45 Ur Epithelial Cells OCCASIONAL /lpf (FEW) 04/15/18 21:45 Urine Bacteria MODERATE /hpf (NONE SEEN) H 04/15/18 21:45 Vancomycin Trough 16.1 ug/mL (5-10) H 04/19/18 20:00 - Physical Exam Vitals and I&O: Vital Signs Temp 96.8 F 04/24/18 08:00 Pulse 82 04/24/18 08:00 Resp 19 04/24/18 08:00 BP 101/63 04/24/18 08:00 Pulse Ox 97 04/24/18 08:00 Intake & Output 04/23/18 04/24/18 04/24/18 18:59 06:59 18:59 Intake Total 1050 997.5 Output Total 390 Balance 1050 607.5 Weight (lbs) 65.272 kg Intake: Intake, IV Amount 1050 997.5 Piperacillin Sodium/ 50 100 Tazobact 3.375 gm In Sodium Chloride 0.9% 50 ml @ 100 mls/hr IV Q6HR [facility] Rx#:[id number] Sodium Chloride 0.9% 1, 1000 897.5 000 ml @ 75 mls/hr IV . [id number] [facility] Rx#:[id number] Output: Drainage 40 Right Lower Abdomen 40 Urine 300 Stool 50 Other: Weight Source Bedscale Active Medications: Current Medications Acetaminophen (Tylenol) 650 mg PO Q4HR PRN PRN Reason: Fever >101 Stop: 06/20/18 14:52 Acetaminophen (Tylenol Extra Strength) 1,000 mg PO Q4HR PRN PRN Reason: Pain (MILD) Stop: 06/20/18 14:52 Acetaminophen/Hydrocodone Bitart ([place] 5mg/325mg) 1 tab PO Q4H PRN PRN Reason: Pain (Moderate) 4-7 Stop: 06/15/18 01:07 Last Admin: 04/24/18 05:23 Dose: 1 tab Ascorbic Acid (Vitamin C) 250 mg PO DAILY [facility] Stop: 06/21/18 08:59 Last Admin: 04/23/18 09:11 Dose: Not Given Bisacodyl (Dulcolax 10 Mg Supp) 10 mg RC DAILY PRN PRN Reason: Constipation Stop: 06/20/18 14:52 Cholecalciferol (Vitamin D3) 5,000 iu PO DAILY [facility] Stop: 06/21/18 08:59 Last Admin: 04/23/18 09:11 Dose: Not Given Diphenhydramine HCl (Benadryl) 25 mg PO Q6HR PRN PRN Reason: Itching Stop: 06/22/18 21:06 Last Admin: 04/24/18 05:23 Dose: 25 mg Docusate Sodium (Colace) 100 mg PO DAILY [facility] Stop: 06/21/18 08:59 Last Admin: 04/23/18 09:11 Dose: Not Given Heparin Sodium (Porcine) (Heparin) 5,000 units SUBQ Q12HR [facility] Stop: 06/20/18 20:59 Last Admin: 04/23/18 21:19 Dose: 5,000 units Hydromorphone HCl (Dilaudid) 1 mg IVP Q3H PRN PRN Reason: Pain (Severe) Stop: 06/20/18 13:54 Last Admin: 04/23/18 16:53 Dose: 1 mg Piperacillin Sod/Tazobactam (Sod 3.375 gm/ Sodium Chloride) 50 mls @ 100 mls/ hr IV Q6HR [facility] Stop: 06/15/18 05:59 Last Admin: 04/24/18 05:23 Dose: 100 mls/hr Sodium Chloride (Nacl 0.9%) 1,000 mls @ 75 mls/hr IV .[id number] [facility] Stop: 06/21/18 22:29 Last Admin: 04/24/18 05:29 Dose: 75 mls/hr Lactobacillus Rhamnosus (Culturelle 15b) 1 each PO DAILY [facility] Stop: 06/21/18 08:59 Last Admin: 04/23/18 09:11 Dose: Not Given Magnesium Hydroxide (Milk Of Magnesia) 30 ml PO HS PRN PRN Reason: Constipation Stop: 06/20/18 14:52 Megestrol Acetate (Megace) 400 mg PO BID [facility] Stop: 06/20/18 16:59 Last Admin: 04/23/18 17:27 Dose: Not Given Miscellaneous (Zosyn Iv Per Pharmacy) 1 ea PRN PRN PRN Reason: Abdominal cellulitis Stop: 06/15/18 01:14 Multivitamins/Vitamin C (Theragran) 1 tab PO DAILY [facility] Stop: 06/21/18 08:59 Last Admin: 04/23/18 09:11 Dose: Not Given Senna (Senna) 17.2 mg PO HS [facility] Stop: 06/20/18 20:59 Last Admin: 04/23/18 21:19 Dose: 17.2 mg Tamsulosin HCl (Flomax) 0.4 mg PO HS [facility] Stop: 06/20/18 20:59 Last Admin: 04/23/18 21:19 Dose: 0.4 mg Tramadol HCl (Ultram) 50 mg PO Q12HR [facility] Stop: 06/20/18 20:59 Last Admin: 04/23/18 21:19 Dose: 50 mg General: No acute distress HEENT: Atraumatic Neck: Supple Cardiovascular: Regular rate, Normal S1, Normal S2 - Procedures Procedures: Procedures Procedure Code Date BYPASS DESCENDING COLON TO CUTANEOUS, OPEN APPROACH [id number] 08/30/17 DESTRUCTION OF BLADDER, ENDO [id number] 02/27/18 EXCISION OF BACK SUBCU/FASCIA, OPEN APPROACH [id number] 09/16/17 EXCISION OF LEFT FOOT SKIN, EXTERNAL APPROACH [id number] 09/16/17 EXCISION OF RIGHT FOOT SKIN, EXTERNAL APPROACH [id number] 09/16/17 EXTIRPATION OF MATTER FROM BLADDER, ENDO [id number] 02/27/18 EXTRACTION OF BACK SKIN, EXTERNAL APPROACH [id number] 04/15/18 RELEASE SMALL INTESTINE, OPEN APPROACH [id number] 04/15/18 TRANSFUSE NONAUT RED BLOOD CELLS IN PERIPH VEIN, PERC 37788C5 08/30/17 Nutritional Asmnt/Malnutr-PDOC - Dietary Evaluation Malnutrition Findings (Please click <Entered> for more info): Nutritional Asmnt/Malnutrition Start: 04/16/18 17: 00 Text: Status: Complete Freq: Protocol: Document 04/16/18 17:02 SETH (Rec: 04/16/18 17:24 SETH GUERRA) Nutritional Asmnt/Malnutrition Patient General Information Nutritional Screening High Risk Consult Diagnosis cellulitis abdomen Pertinent Medical Hx/Surgical Hx dementia, pneumonia, sepsis, non-healing sacral decubitus, diverting colostomy, HTN, asthma/COPD, PUD/GERD, CKD, paraplegia, pulmonary edema Subjective Information Received nutrition consult for wound. Pt was laying in bed at time of visit, agigated and undergoing wound check. Pt did not provide specific food preferences. RN reported pt does not like the hospital food. 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 Problem Problem Increased protein needs Etiology wound healing Signs/Symptoms: pressure ulcer to sacrum Malnutrition Alert Is there a minimum of two criteria No selected? Query Text:Check all the applicable criteria. A minimum of two criteria are recommended for diagnosis of either severe or non-severe malnutrition. Malnutrition Related to Morbid Obesity Malnutrition related to morbid obesity No Intervention/Recommendation Comments 1. Continue with mechanical soft chopped diet as ordered. Diet to meet 100% of protein needs. 2. Add Connor BID to help with wound healing. 3. Consider supplementing w/ ensure if PO intake <50%. 4. Monitor PO intake, wt, labs and skin integrity. 5. F/U as moderate risk in 3-5 days, 04/19-04/21 Expected Outcomes/Goals Expected Outcomes/Goals 1. PO intake to meet at least 75% of nutritional needs. 2. Wt stability, skin integrity to improve, labs to approach WNL. Reviewed by Nataly Davis
[2018-04-24 09:10] LABS: BUN - UREA NITROGEN 6 mg/dL (7-25); CALCIUM SERUM 8.5 mg/dL (8.6-10.3); CARBON DIOXIDE 17.9 mEq/L (21.0-31.0); CHLORIDE 107 mEq/L (98-107); CREATININE - SERUM 0.6 mg/dL (0.7-1.3); GLUCOSE 82 mg/dL (70-105); SODIUM SERUM 134 mEq/L (136-145)
[2018-04-24 09:16] LABS: POTASSIUM SERUM 2.9 mEq/L (3.5-5.1)
[2018-04-24] MEDS ORDERED: Potassium Chloride 20 mEq ER Tab PO ONE (09:18)
[2018-04-24] MEDS: Multivitamin Tab PO SCH (10:13)
[2018-04-24] MEDS: Lactobacillus Rhamnosus GG 15 Billion CFU CAP.SPRINK PO SCH (10:13)
--- NOTE | 2018-04-24 15:54 | General Progress Note ---
Subjective - Review of Systems Events since last encounter: wound vac applied due to drainage at incision. chart reviewed continue wound care Objective - Results Result Diagrams: 04/24/18 08:30 04/24/18 08:30 Recent Labs: Laboratory Last Values WBC 14.4 Th/cmm (4.8-10.8) H 04/24/18 08:30 RBC 3.64 Mil/cmm (3.80-5.80) L 04/24/18 08:30 Hgb 10.7 gm/dL (12-16) L 04/24/18 08:30 Hct 32.3 % (41.0-60) L 04/24/18 08:30 MCV 88.6 fl (80-99) 04/24/18 08:30 MCH 29.5 pg (27.0-31.0) 04/24/18 08:30 MCHC Differential 33.3 pg (28.0-36.0) 04/24/18 08:30 RDW 13.2 % (11.5-20.0) 04/24/18 08:30 Plt Count 348 Th/cmm (150-400) 04/24/18 08:30 MPV 6.7 fl 04/24/18 08:30 Add Manual Diff YES 04/16/18 05:15 Neutrophils % 79.3 % (40.0-80.0) 04/24/18 08:30 Band Neutrophils % 0 % (0-10) 04/16/18 05:15 Lymphocytes % 14.9 % (20.0-50.0) L 04/24/18 08:30 Monocytes % 2.9 % (2.0-10.0) 04/24/18 08:30 Eosinophils % 2.8 % (0.0-5.0) 04/24/18 08:30 Basophils % 0.1 % (0.0-2.0) 04/24/18 08:30 Neutrophils (Manual) 82 % (40-80) H 04/16/18 05:15 Lymphocytes 12 % (20-50) L 04/16/18 05:15 Monocytes 4 % (2-10) 04/16/18 05:15 Eosinophils 1 % (0-5) 04/16/18 05:15 Basophils 1 % (0-3) 04/16/18 05:15 PT 10.3 SECONDS (9.5-11.5) 04/18/18 10:05 INR 0.99 (0.5-1.4) 04/18/18 10:05 PTT (Actin FS) 22.4 SECONDS (26.0-38.0) L 04/18/18 10:05 Sodium 134 mEq/L (136-145) L 04/24/18 08:30 Potassium 2.9 mEq/L (3.5-5.1) L* 04/24/18 08:30 Chloride 107 mEq/L (98-107) 04/24/18 08:30 Carbon Dioxide 17.9 mEq/L (21.0-31.0) L 04/24/18 08:30 Anion Gap 12.0 (7.0-16.0) 04/24/18 08:30 BUN 6 mg/dL (7-25) L 04/24/18 08:30 Creatinine 0.6 mg/dL (0.7-1.3) L 04/24/18 08:30 Est GFR ( Amer) TNP 04/24/18 08:30 Est GFR (Non-Af Amer) TNP 04/24/18 08:30 BUN/Creatinine Ratio 10.0 04/24/18 08:30 Glucose 82 mg/dL (70-105) 04/24/18 08:30 POC Glucose 90 MG/DL (70 - 105) 04/21/18 10:20 Whole Bld Lactic Acid 0.96 mmol/L (0.60-1.99) 04/15/18 21:20 Calcium 8.5 mg/dL (8.6-10.3) L 04/24/18 08:30 Total Bilirubin 0.4 mg/dL (0.3-1.0) 04/23/18 05:45 AST 11 U/L (13-39) L 04/23/18 05:45 ALT 8 U/L (7-52) 04/23/18 05:45 Alkaline Phosphatase 44 U/L (34-104) 04/23/18 05:45 Total Protein 5.1 gm/dL (6.0-8.3) L 04/23/18 05:45 Albumin 2.9 gm/dL (4.2-5.5) L 04/23/18 05:45 Globulin 2.2 gm/dL 04/23/18 05:45 Albumin/Globulin Ratio 1.3 (1.0-1.8) 04/23/18 05:45 Urine Source [place] 04/15/18 21:45 Urine Color ORANGE 04/15/18 21:45 Urine Clarity HAZY (CLEAR) 04/15/18 21:45 Urine pH 5.5 (4.6 - 8.0) 04/15/18 21:45 Ur Specific [place] 1.015 (1.005-1.030) 04/15/18 21:45 Urine Protein TRACE mg/dL (NEGATIVE) 04/15/18 21:45 Urine Glucose (UA) NEGATIVE mg/dL (NEGATIVE) 04/15/18 21:45 Urine Ketones NEGATIVE mg/dL (NEGATIVE) 04/15/18 21:45 Urine Blood NEGATIVE (NEGATIVE) 04/15/18 21:45 Urine Nitrate POSITIVE (NEGATIVE) H 04/15/18 21:45 Urine Bilirubin NEGATIVE (NEGATIVE) 04/15/18 21:45 Urine Urobilinogen 0.2 E.U./dL (0.2 - 1.0) 04/15/18 21:45 Ur Leukocyte Esterase SMALL (NEGATIVE) H 04/15/18 21:45 Urine RBC 0-2 /hpf (0-5) H 04/15/18 21:45 Urine WBC 6-10 /hpf (0-5) 04/15/18 21:45 Ur Epithelial Cells OCCASIONAL /lpf (FEW) 04/15/18 21:45 Urine Bacteria MODERATE /hpf (NONE SEEN) H 04/15/18 21:45 Vancomycin Trough 16.1 ug/mL (5-10) H 04/19/18 20:00 - Physical Exam Vitals and I&O: Vital Signs Temp 98.4 F 04/24/18 15:28 Pulse 87 04/24/18 15:28 Resp 19 04/24/18 15:28 BP 107/54 04/24/18 15:28 Pulse Ox 96 04/24/18 15:28 Intake & Output 04/23/18 04/24/18 04/24/18 18:59 06:59 18:59 Intake Total 1050 1047.5 Output Total 390 Balance 1050 657.5 Weight (lbs) 65.272 kg Intake: Intake, IV Amount 1050 1047.5 Piperacillin Sodium/ 50 150 Tazobact 3.375 gm In Sodium Chloride 0.9% 50 ml @ 100 mls/hr IV Q6HR [facility] Rx#:[id number] Sodium Chloride 0.9% 1, 1000 897.5 000 ml @ 75 mls/hr IV . [id number] [facility] Rx#:[id number] Output: Drainage 40 Right Lower Abdomen 40 Urine 300 Stool 50 Other: Weight Source Bedscale Active Medications: Current Medications Acetaminophen (Tylenol) 650 mg PO Q4HR PRN PRN Reason: Fever >101 Stop: 06/20/18 14:52 Acetaminophen (Tylenol Extra Strength) 1,000 mg PO Q4HR PRN PRN Reason: Pain (MILD) Stop: 06/20/18 14:52 Acetaminophen/Hydrocodone Bitart ([place] 5mg/325mg) 1 tab PO Q4H PRN PRN Reason: Pain (Moderate) 4-7 Stop: 06/15/18 01:07 Last Admin: 04/24/18 05:23 Dose: 1 tab Ascorbic Acid (Vitamin C) 250 mg PO DAILY [facility] Stop: 06/21/18 08:59 Last Admin: 04/24/18 10:11 Dose: 250 mg Bisacodyl (Dulcolax 10 Mg Supp) 10 mg RC DAILY PRN PRN Reason: Constipation Stop: 06/20/18 14:52 Cholecalciferol (Vitamin D3) 5,000 iu PO DAILY [facility] Stop: 06/21/18 08:59 Last Admin: 04/24/18 11:47 Dose: 5,000 iu Diphenhydramine HCl (Benadryl) 25 mg PO Q6HR PRN PRN Reason: Itching Stop: 06/22/18 21:06 Last Admin: 04/24/18 05:23 Dose: 25 mg Docusate Sodium (Colace) 100 mg PO DAILY [facility] Stop: 06/21/18 08:59 Last Admin: 04/24/18 10:13 Dose: 100 mg Heparin Sodium (Porcine) (Heparin) 5,000 units SUBQ Q12HR [facility] Stop: 06/20/18 20:59 Last Admin: 04/24/18 10:04 Dose: 5,000 units Hydromorphone HCl (Dilaudid) 1 mg IVP Q3H PRN PRN Reason: Pain (Severe) Stop: 06/20/18 13:54 Last Admin: 04/23/18 16:53 Dose: 1 mg Piperacillin Sod/Tazobactam (Sod 3.375 gm/ Sodium Chloride) 50 mls @ 100 mls/ hr IV Q6HR [facility] Stop: 06/15/18 05:59 Last Admin: 04/24/18 11:47 Dose: 100 mls/hr Sodium Chloride (Nacl 0.9%) 1,000 mls @ 75 mls/hr IV .[id number] [facility] Stop: 06/21/18 22:29 Last Admin: 04/24/18 05:29 Dose: 75 mls/hr Lactobacillus Rhamnosus (Culturelle 15b) 1 each PO DAILY [facility] Stop: 06/21/18 08:59 Last Admin: 04/24/18 10:13 Dose: 1 each Magnesium Hydroxide (Milk Of Magnesia) 30 ml PO HS PRN PRN Reason: Constipation Stop: 06/20/18 14:52 Megestrol Acetate (Megace) 400 mg PO BID [facility] Stop: 06/20/18 16:59 Last Admin: 04/24/18 10:13 Dose: 400 mg Miscellaneous (Zosyn Iv Per Pharmacy) 1 ea PRN PRN PRN Reason: Abdominal cellulitis Stop: 06/15/18 01:14 Multivitamins/Vitamin C (Theragran) 1 tab PO DAILY [facility] Stop: 06/21/18 08:59 Last Admin: 04/24/18 10:13 Dose: 1 tab Senna (Senna) 17.2 mg PO HS [facility] Stop: 06/20/18 20:59 Last Admin: 04/23/18 21:19 Dose: 17.2 mg Tamsulosin HCl (Flomax) 0.4 mg PO HS [facility] Stop: 06/20/18 20:59 Last Admin: 04/23/18 21:19 Dose: 0.4 mg Tramadol HCl (Ultram) 50 mg PO Q12HR [facility] Stop: 06/20/18 20:59 Last Admin: 04/24/18 10:04 Dose: 50 mg General: No acute distress HEENT: Atraumatic Neck: Supple Cardiovascular: Regular rate, Normal S1, Normal S2 - Procedures Procedures: Procedures Procedure Code Date BYPASS DESCENDING COLON TO CUTANEOUS, OPEN APPROACH [id number] 08/30/17 DESTRUCTION OF BLADDER, ENDO 4Y5I4MG 02/27/18 EXCISION OF BACK SUBCU/FASCIA, OPEN APPROACH [id number] 09/16/17 EXCISION OF LEFT FOOT SKIN, EXTERNAL APPROACH [id number] 09/16/17 EXCISION OF RIGHT FOOT SKIN, EXTERNAL APPROACH [id number] 09/16/17 EXTIRPATION OF MATTER FROM BLADDER, ENDO 3HFW6MR 02/27/18 EXTRACTION OF BACK SKIN, EXTERNAL APPROACH [id number] 04/15/18 RELEASE SMALL INTESTINE, OPEN APPROACH 2HU41CV 04/15/18 TRANSFUSE NONAUT RED BLOOD CELLS IN PERIPH VEIN, PERC 66020V4 08/30/17 Assessment/Plan - Plan Plan: as per surgeon Nutritional Asmnt/Malnutr-PDOC - Dietary Evaluation Malnutrition Findings (Please click <Entered> for more info): Nutritional Asmnt/Malnutrition Start: 04/16/18 17: 00 Text: Status: Complete Freq: Protocol: Document 04/16/18 17:02 SETH (Rec: 04/16/18 17:24 SETH GUERRA) Nutritional Asmnt/Malnutrition Patient General Information Nutritional Screening High Risk Consult Diagnosis cellulitis abdomen Pertinent Medical Hx/Surgical Hx dementia, pneumonia, sepsis, non-healing sacral decubitus, diverting colostomy, HTN, asthma/COPD, PUD/GERD, CKD, paraplegia, pulmonary edema Subjective Information Received nutrition consult for wound. Pt was laying in bed at time of visit, agigated and undergoing wound check. Pt did not provide specific food preferences. RN reported pt does not like the hospital food. Current Diet Order/ Nutrition Support [facility] soft chopped Pertinent Medications D5-0.9%Ns, piperacillin Pertinent Labs 04/15: glucose 109, Na 129, Cr 0.6, Alb 3.5 04/16: glucose 104, Na 130, Cr 0.6 Nutritional Hx/Data Height 1.75 m Height (Calculated Centimeters) 175.3 Current Weight (lbs) 67.585 kg Weight (Calculated Kilograms) 67.6 Weight (Calculated Grams) 55233.3 Body Mass Index (BMI) 21.9 Weight Status Approriate GI Symptoms GI Symptoms None Last BM none noted Difficult in: None Food Allergies No Skin Integrity/Comment: pressure ulcer to sacrum ( previously stage 4), reddened r/l arms, abrasion to left knee Estimated Nutritional Goals BEE in Kcals: Using Current wt Calories/Kcals/Kg 25-30 Kcals Calculated Protein: Using Current wt Protein g/k.3-1.5 Protein Calculated 88-101 g Fluid: ml (1 ml/kcal) Nutritional Problem 1. Problem Problem Increased protein needs Etiology wound healing Signs/Symptoms: pressure ulcer to sacrum Malnutrition Alert Is there a minimum of two criteria No selected? Query Text:Check all the applicable criteria. A minimum of two criteria are recommended for diagnosis of either severe or non-severe malnutrition. Malnutrition Related to Morbid Obesity Malnutrition related to morbid obesity No Intervention/Recommendation Comments 1. Continue with mechanical soft chopped diet as ordered. Diet to meet 100% of protein needs. 2. Add Connor BID to help with wound healing. 3. Consider supplementing w/ ensure if PO intake <50%. 4. Monitor PO intake, wt, labs and skin integrity. 5. F/U as moderate risk in 3-5 days, 04/19-04/21 Expected Outcomes/Goals Expected Outcomes/Goals 1. PO intake to meet at least 75% of nutritional needs. 2. Wt stability, skin integrity to improve, labs to approach WNL. Reviewed by Nataly Davis
[2018-04-24] MEDS: HYDROmorphone 1 mg/mL 1mL Syr IVP PRN (18:42)
--- NOTE | 2018-04-26 06:15 | Discharge Summary ---
DATE OF DISCHARGE: 04/24/2018 HOSPITAL COURSE: I have known this patient for a long time. The patient is a 78-year-old with history of colostomy, stoma, history of a decubitus, history of hypertension, dementia, peptic ulcer disease, was admitted. The patient had abdominal wall cellulitis, colostomy status, leukocytosis, UTI, dementia. The patient was treated for all of that. The patient improved and the patient ____ in stable condition on 04/24/2018 and discharged to [facility]. We will follow the patient. CONDITION AT THE TIME OF DISCHARGE: Stable. [facility]# [id number]
== END 2018-04-24 19:48 | DRG 853 ==
LOC: ER 20:52 → MSI 22:13 → ICU 04-21 13:59 → TELE 04-22 14:25
PROVIDERS: ADMIT Internal Medicine; ATTEND Internal Medicine
PROC: 0DNW0ZZ Release Peritoneum, Open Approach (ICD-10-PCS; principal; 2018-04-21)
PROC: 0HD6XZZ Extraction of Back Skin, External Approach (ICD-10-PCS; 2018-04-21)
DX: A41.9 Sepsis, unspecified organism (principal); L89.154 Pressure ulcer of sacral region, stage 4; K63.2 Fistula of intestine; N39.0 Urinary tract infection, site not specified; L03.311 Cellulitis of abdominal wall; E87.1 Hypo-osmolality and hyponatremia; K66.0 Peritoneal adhesions (postprocedural) (postinfection); I12.9 Hypertensive chronic kidney disease with stage 1 through stage 4 chronic kidney disease, or unspecified chronic kidney disease; Z93.3 Colostomy status; F03.90 Unspecified dementia, unspecified severity, without behavioral disturbance, psychotic disturbance, mood disturbance, and anxiety; J44.9 Chronic obstructive pulmonary disease, unspecified; K21.9 Gastro-esophageal reflux disease without esophagitis; N18.9 Chronic kidney disease, unspecified; L89.229 Pressure ulcer of left hip, unspecified stage; Z79.899 Other long term (current) drug therapy; Z22.322 Carrier or suspected carrier of Methicillin resistant Staphylococcus aureus
CPT/HCPCS: 36415-UA; 71045-TC; 80048-TC; 80053-TC; 80202-TC; 81001-TC; 82565-TC; 82948-90; 83605; 84520-TC; 85007-TC; 85025-TC; 85610-TC; 87070-90; 87075-90; 87086-90; 87205-90; 93005; 94760; 96372; J1170; J1644; J2405; J2543; J2704; J2710; J3010; J3370; J7030; J7040; J7042; Q9967; V2790; X6026; X6258; Z7610

== ENCOUNTER 2018-08-14 09:21 | Inpatient (IN) | payer MEDICARE, MEDICAID ==
--- NOTE | 2018-08-14 09:44 | ED Physician Chart ---
ED Chief Complaint/HPI - Patient Information Date Seen:: 08/14/18 Time Seen:: 09:35 Chief Complaint:: urinary retention History of Present Illness:: At the snf facility the Hartman catheter was removed last night. After removal he had no urine output and they were unsuccessful in reinserting a Hartman catheter this morning. Allergies:: Allergies Allergy/AdvReac Type Severity Reaction Status Date / Time No Known Allergies Allergy Verified 08/14/18 09:35 Historian:: Patient Review:: Transfer documents Reviewed ED Review of Systems - Review of Systems General/Constitutional: No fever, No chills, No weight loss, No weakness, No diaphoresis, No edema, No loss of appetite Skin: No skin lesions, No rash, No bruising Head: No headache, No light-headedness Eyes: No loss of vision, No pain, No diplopia ENT: No earache, No nasal drainage, No sore throat, No tinnitus Neck: No neck pain, No swelling, No thyromegaly, No stiffness, No mass noted Cardio Vascular: No chest pain, No palpitations, No PND, No orthopnea, No edema Pulmonary: No SOB, No cough, No sputum, No wheezing GI: No nausea, No vomiting, No diarrhea, No pain, No melena, No hematochezia, No constipation, No hematemesis G/U: No dysuria, No frequency, No hematuria, Other (urinary retention) Musculoskeletal: No bone or joint pain, No back pain, No muscle pain Endocrine: No polyuria, No polydipsia Psychiatric: No prior psych history, No depression, No anxiety, No suicidal ideation Hematopoietic: No bruising, No lymphadenopathy Allergic/Immuno: No urticaria, No angioedema Neurological: No syncope, No focal symptoms, No weakness, No paresthesia, No headache, No seizure, No dizziness, No confusion, No vertigo ED Past Medical History - Past Medical History Past Medical History: HTN (paraplegia; chronic renal disease; dementia; story failure; status post pulmonary edema; status post MRSA), CHF, Asthma/COPD, Other (status post pneumonia; ) Family History: None Social History: Care Facility, Other (former smoker and former alcohol drinker who quit both one year ago) Surgical History: other (colostomy) Psychiatricy History: Dementia Medication: Reviewed Family Medical History - Family Member Mother History Unknown: Yes ED Physical Exam - Physical Examination General/Constitutional: Awake, Alert, No distress, Non-toxic appearing Other Gen/Cons comments:: Patient is alert and confused; he does not know the year; he is chronically ill- appearing Head: Atraumatic Eyes: Lids, conjuctiva normal, PERRL, EOMI Skin: Nl inspection, No rash, No skin lesions, No ecchymosis, Well hydrated, No lymphadenopathy ENMT: External ears, nose nl, Nasal exam nl Other ENMT comments:: 4 out of 4 poor dental hygiene Neck: Nontender, Full ROM w/o pain, No JVD, No nuchal rigidity, No bruit, No mass, No stridor Respiratory: Nl effort/Exclusion, Clear to Auscultation, No Wheeze/Rhonchi/Rales Cardio Vascular: RRR, No murmur, gallop, rubs, NL S1 S2 GI: No organomegaly, No hernia, Normal BS's, Nondistended, No mass/bruits, No McBurney tenderness Other GI comments:: Suprapubic and left lower quadrant tenderness : No CVA tenderness Extremities: No tenderness or effusion, Full ROM, normal strength in all extremities, No edema, Normal digits & nails Neuro/Psych: Alert/oriented, DTR's symmetric, Normal sensory exam, Normal motor strength, Judgement/insight normal, Mood normal, Normal gait, No focal deficits Misc: Normal back, No paraspinal tenderness ED Labs/Radiology/EKG Results - Lab Results Results: Abnormal Lab Results 08/14/18 08/14/18 08/14/18 10:00 10:30 10:30 WBC 14.7 H RBC 4.55 Hgb 13.6 Hct 40.3 L MCV 88.5 MCH 29.8 MCHC Differential 33.7 RDW 14.5 Plt Count 387 MPV 7.4 Neutrophils % 79.2 Lymphocytes % 14.2 L Monocytes % 3.0 Eosinophils % 3.3 Basophils % 0.3 Sodium 140 Potassium 3.8 Chloride 108 H Carbon Dioxide 22.8 Anion Gap 13.0 BUN 28 H Creatinine 0.7 Est GFR ( Amer) TNP Est GFR (Non-Af Amer) TNP BUN/Creatinine Ratio 40.0 Glucose 111 H Calcium 9.6 Urine Source [place] Urine Color YELLOW Urine Clarity SLIGHT CLOUDY Urine pH 6.5 Ur Specific [place] 1.010 Urine Protein NEGATIVE Urine Glucose (UA) NEGATIVE Urine Ketones NEGATIVE Urine Blood MODERATE H Urine Nitrate POSITIVE H Urine Bilirubin NEGATIVE Urine Urobilinogen 0.2 Ur Leukocyte Esterase LARGE H Urine RBC 2-5 H Urine WBC >100 H Ur Epithelial Cells MODERATE Urine Bacteria MODERATE H ED Septic Shock - . Is Septic Shock (SBP<90, OR Lactate>4 mmol\L) present?: No ED Reassessment (Disposition) - Reassessment Reassessment:: #16 Hartman catheter inserted successfully; 150 mL of urine out Reassessment Condition:: Unchanged - Diagnosis Diagnosis:: Urinary retention; urinary tract infection; dementia; leukocytosis - Patient Disposition Admitted to:: Telemetry Spoke to:: Elisha Huizar Admitting Medical Physician:: Elisha Huizar Condition at Disposition:: Stable, Improved
[2018-08-14 10:12] LABS: URINE SOURCE FOLEY PORT
[2018-08-14 10:16] LABS: URINE BILIRUBIN NEGATIVE (NEGATIVE); URINE BLOOD MODERATE (NEGATIVE); URINE GLUCOSE (UA) NEGATIVE (NEGATIVE); URINE KETONE NEGATIVE (NEGATIVE); URINE LEUKOCYTE ESTERASE LARGE (NEGATIVE); URINE MICROSCOPIC INDICATED? YES; URINE NITRATE POSITIVE (NEGATIVE); URINE PH 6.5 (4.6 - 8.0); URINE PROTEIN NEGATIVE (NEGATIVE); URINE UROBILINOGEN 0.2 E.U./dL (0.2 - 1.0)
[2018-08-14 10:21] LABS: URINE CLARITY SLIGHT CLOUDY (CLEAR); URINE COLOR YELLOW
[2018-08-14 10:26] LABS: URINE BACTERIA MODERATE /hpf (NONE SEEN); URINE EPITHELIAL CELLS MODERATE /lpf (FEW); URINE WBC >100 /hpf (0-5)
[2018-08-14] MEDS ORDERED: Sodium Chloride 0.9% 1,000 ML IV ONE (10:28)
[2018-08-14] MEDS ORDERED: cefTRIAXone 1 GM in Sodium Chloride 0.9% 50 ML IV ONE (10:29)
[2018-08-14 10:41] LABS: % BASOPHILS 0.3 % (0.0-2.0); % EOSINOPHILS 3.3 % (0.0-5.0); % LYMPHOCYTES 14.2 % (20.0-50.0); % NEUTROPHILS 79.2 % (40.0-80.0); EOSINOPHILE ABSOLUTE 0.5 Th/cmm (0.1-0.4); HEMATOCRIT 40.3 % (41.0-60); HEMOGLOBIN 13.6 gm/dL (12-16); LYMPHOCYTE ABSOLUTE 2.1 Th/cmm (1.5-3.0); MEAN CELL VOLUME 88.5 fl (80-99); MEAN CORPUSCULAR HEMOGLOBIN 29.8 pg (27.0-31.0); MEAN CORPUSCULAR HGB CONC 33.7 pg (28.0-36.0); MEAN PLATELET VOLUME 7.4 fl; MONOCYTE ABSOLUTE 0.4 Th/cmm (0.3-1.0); NEUTROPHILE ABSOLUTE 11.7 Th/cmm (1.8-8.0); PLATELET COUNT 387 Th/cmm (150-400); RED BLOOD COUNT 4.55 Mil/cmm (3.80-5.80); RED CELL DISTRIBUTION WIDTH 14.5 % (11.5-20.0); WHITE BLOOD COUNT 14.7 Th/cmm (4.8-10.8)
[2018-08-14 10:50] LABS: BUN - UREA NITROGEN 28 mg/dL (7-25); CALCIUM SERUM 9.6 mg/dL (8.6-10.3); CARBON DIOXIDE 22.8 mEq/L (21.0-31.0); CHLORIDE 108 mEq/L (98-107); CREATININE - SERUM 0.7 mg/dL (0.7-1.3); GLUCOSE 111 mg/dL (70-105); POTASSIUM SERUM 3.8 mEq/L (3.5-5.1); SODIUM SERUM 140 mEq/L (136-145)
[2018-08-14] MEDS ORDERED: Hydrocodone/APAP 5mg/325mg Tab PO PRN (19:36)
[2018-08-14] MEDS ORDERED: Magnesium Hydroxide (MOM) 30 mL UDC PO PRN (19:36)
[2018-08-14] MEDS ORDERED: Fleet Enema 135 mL RC PRN (19:36)
[2018-08-14] MEDS: D5-0.9%NS 1,000 ML IV SCH (20:40)
--- NOTE | 2018-08-14 21:35 | History & Physical ---
ADMIT DATE: 08/14/2018 CHIEF COMPLAINT: Urinary retention. HISTORY OF PRESENT ILLNESS: This is a 78-year-old male who is a halfway resident, admitted to the telemetry unit due to urinary retention. Apparently, the patient's Roberto catheter was removed at the nursing facility; however, the patient had no urine output. For this reason, the patient is now admitted to the telemetry unit. PAST MEDICAL HISTORY: Hypertension, paraplegia, chronic renal disease, dementia, pulmonary edema, CHF, asthma, COPD. FAMILY HISTORY: Noncontributory. SOCIAL HISTORY: The patient is a halfway resident, requiring 24-hour nursing care. SURGICAL HISTORY: Colostomy. FAMILY HISTORY: Noncontributory. REVIEW OF SYSTEMS: Unable to obtain at this time. PHYSICAL EXAMINATION: GENERAL: Elderly male, awake, confused, in no apparent distress. VITAL SIGNS: Temperature 98.3, heart rate 71, blood pressure 92/53, respiration 18, O2 95%. HEAD: Normocephalic, atraumatic. NECK: Supple. No mass. LUNGS: Clear bilaterally. ABDOMEN: Soft, nontender. LABORATORY DATA: WBC 14.7, H and H 13.6 and 40.3, platelet 387. Sodium 140, potassium 3.8, chloride 108, BUN 20, creatinine 0.7. The patient had a urinalysis done, positive for UTI. ASSESSMENT: Urinary retention, acute urinary tract infection, hypertension, paraplegic, congestive heart failure, asthma, chronic obstructive pulmonary disease, leukocytosis. PLAN: The patient to be admitted to the telemetry unit. We will keep the patient on empiric IV antibiotics of Rocephin. We will also get Infectious Disease on the case. We will get a bladder ultrasound. We will continue to monitor this patient. JOB# [id number]
[2018-08-15 05:48] LABS: % BASOPHILS 0.7 % (0.0-2.0); % EOSINOPHILS 4.8 % (0.0-5.0); % LYMPHOCYTES 22.4 % (20.0-50.0); % MONOCYTES 4.3 % (2.0-10.0); % NEUTROPHILS 67.8 % (40.0-80.0); BASOPHILE ABSOLUTE 0.1 Th/cumm (0-0.2); EOSINOPHILE ABSOLUTE 0.6 Th/cmm (0.1-0.4); HEMATOCRIT 38.6 % (41.0-60); LYMPHOCYTE ABSOLUTE 2.8 Th/cmm (1.5-3.0); MEAN CELL VOLUME 88.8 fl (80-99); MEAN CORPUSCULAR HEMOGLOBIN 29.8 pg (27.0-31.0); MEAN CORPUSCULAR HGB CONC 33.6 pg (28.0-36.0); MEAN PLATELET VOLUME 7.6 fl; MONOCYTE ABSOLUTE 0.5 Th/cmm (0.3-1.0); NEUTROPHILE ABSOLUTE 8.6 Th/cmm (1.8-8.0); PLATELET COUNT 340 Th/cmm (150-400); RED BLOOD COUNT 4.35 Mil/cmm (3.80-5.80); RED CELL DISTRIBUTION WIDTH 14.8 % (11.5-20.0); WHITE BLOOD COUNT 12.6 Th/cmm (4.8-10.8)
[2018-08-15 05:58] LABS: ANION GAP 10.6 (7.0-16.0); BUN - UREA NITROGEN 21 mg/dL (7-25); CALCIUM SERUM 9.8 mg/dL (8.6-10.3); CARBON DIOXIDE 25.6 mEq/L (21.0-31.0); CHLORIDE 105 mEq/L (98-107); CHOLESTEROL 140 mg/dL (<200); CREATININE - SERUM 0.8 mg/dL (0.7-1.3); GLUCOSE 95 mg/dL (70-105); HDL -HIGH DENSITY LIPOPROTEIN 31 mg/dL (23-92); POTASSIUM SERUM 4.2 mEq/L (3.5-5.1); SODIUM SERUM 137 mEq/L (136-145); TRIGLYCERIDES 110 mg/dL (<150)
[2018-08-15] MEDS: Multivitamin w/ Minerals Tab PO SCH (08:29)
[2018-08-15] MEDS ORDERED: cefTRIAXone 1 GM in Sodium Chloride 0.9% 50 ML IV ONE (09:00)
[2018-08-15] MEDS ORDERED: Non-Formulary Item 1 EA (Cranberry Conc/C/Bacill Coag [Cranberry Tablet] 1 EACH) PO SCH (09:00)
--- NOTE | 2018-08-15 10:24 | Consultation ---
Consult Note - Consult Note Service Date: 08/15/18 Referring Physician: Elisha Huizar Consult Note: PHYSICIAN Consultation Note: Date of Admission: 08/14/18 Purpose of Consultation: Chief Complaint: Patient FAUSTO RANKIN was admitted to [facility] with UTI,SEPSIS. History of Present Illness: 78-year-old male with past medical history of paraplegia, hypertension, CK D, dementia, CHF, asthma, COPD admitted for retention of urine after removal of Hartman catheter and a nursing facility. On his admission, his temperature was 98.5 for the night and WBC count was 14,700. ID consult was called for UTI and leukocytosis. Past Medical History: paraplegia, hypertension, CK D, dementia, CHF, asthma, COPD Allergies Allergy/AdvReac Type Severity Reaction Status Date / Time No Known Allergies Allergy Verified 08/14/18 09:35 Vital Signs Temp 97 F 08/15/18 08:00 Pulse 60 08/15/18 08:00 Resp 21 08/15/18 08:00 BP 122/63 08/15/18 08:00 Pulse Ox 98 08/15/18 08:00 Intake & Output 08/14/18 08/15/18 08/15/18 18:59 06:59 18:59 Intake Total 0 Output Total 1150 400 Balance -1150 -400 Weight (lbs) 63.503 kg 54.567 kg Intake: Oral 0 Output: Urine 1150 300 Stool 100 Other: Weight Source Estimated Bedscale Laboratory Results - last 24 hr 08/14/18 08/14/18 08/14/18 10:00 10:30 10:30 WBC 14.7 H RBC 4.55 Hgb 13.6 Hct 40.3 L MCV 88.5 MCH 29.8 MCHC Differential 33.7 RDW 14.5 Plt Count 387 MPV 7.4 Neutrophils % 79.2 Lymphocytes % 14.2 L Monocytes % 3.0 Eosinophils % 3.3 Basophils % 0.3 Sodium 140 Potassium 3.8 Chloride 108 H Carbon Dioxide 22.8 Anion Gap 13.0 BUN 28 H Creatinine 0.7 Est GFR ( Amer) TNP Est GFR (Non-Af Amer) TNP BUN/Creatinine Ratio 40.0 Glucose 111 H Calcium 9.6 Triglycerides Cholesterol LDL Cholesterol Direct HDL Cholesterol TSH Urine Source [place] Urine RBC 2-5 H Urine WBC >100 H Ur Epithelial Cells MODERATE Urine Bacteria MODERATE H 08/15/18 08/15/18 08/15/18 05:30 05:30 05:30 WBC 12.6 H RBC 4.35 Hgb 13.0 Hct 38.6 L MCV 88.8 MCH 29.8 MCHC Differential 33.6 RDW 14.8 Plt Count 340 MPV 7.6 Neutrophils % 67.8 Lymphocytes % 22.4 Monocytes % 4.3 Eosinophils % 4.8 Basophils % 0.7 Sodium 137 Potassium 4.2 Chloride 105 Carbon Dioxide 25.6 Anion Gap 10.6 BUN 21 Creatinine 0.8 Est GFR ( Amer) TNP Est GFR (Non-Af Amer) TNP BUN/Creatinine Ratio 26.3 Glucose 95 Calcium 9.8 Triglycerides 110 Cholesterol 140 LDL Cholesterol Direct 104 HDL Cholesterol 31 TSH 3.07 Urine Source Urine RBC Urine WBC Ur Epithelial Cells Urine Bacteria Home Medication Medication Instructions Recorded Type Ascorbic Acid [Vitamin C] 500 mg PO DAILY 02/27/18 History Bisacodyl [Dulcolax 10 Mg Supp] 10 mg RC DAILY PRN 02/27/18 History Cholecalciferol (Vitamin D3) 5,000 unit PO DAILY 02/27/18 History [Vitamin D3] Heparin Sodium,Porcine/Pf [Heparin 5,000 units SQ Q12HR 02/27/18 History 5 Unit/5 ml (1/ml) Syr] Magnesium Hydroxide [Milk of 30 ml PO HS PRN 02/27/18 History Magnesia] Megestrol Acetate [Megace Es] 400 mg PO BID 02/27/18 History Sennosides [Senna Lax] 2 tab PO HS 02/27/18 History Tramadol HCl [Ultram] 50 mg PO Q12HR 02/27/18 History Docusate Sodium [Colace] 100 mg PO DAILY cap 03/04/18 Rx Tamsulosin [Flomax] 0.4 mg PO HS cap 03/04/18 Rx Acetaminophen [Tylenol] 650 mg PO Q4HR PRN 04/15/18 History Diphenhydramine HCL [Benadryl] 25 mg PO Q6HR PRN cap 04/24/18 Rx Cranberry Conc/C/Bacill Coag 1 each PO DAILY 08/14/18 History [Cranberry Tablet] Donepezil HCl 5 mg PO HS 08/14/18 History Fleet Enema 135 ml RC Q2D PRN 08/14/18 History Hydrocodone/APAP 5mg/325mg [[place] 1 tab PO Q4H PRN 08/14/18 History 5mg/325mg] Memantine HCl [Namenda] 5 mg PO DAILY 08/14/18 History Multivitamin w/ Minerals 1 tab PO DAILY 08/14/18 History [Theragran M] Current Medications Generic Name Dose Route Start Last Admin Trade Name Freq PRN Reason Stop Dose Admin Acetaminophen 650 mg 08/14/18 19:36 08/15/18 06:16 Tylenol PO 10/13/18 19:35 650 mg Q4HR PRN Administration Pain or Fever >101 Acetaminophen/Hydrocodone Bitart 1 tab 08/14/18 19:36 [place] 5mg/325mg PO 10/13/18 19:35 Q4H PRN Pain (Severe) Ascorbic Acid 500 mg 08/15/18 09:00 08/15/18 08:28 Vitamin C PO 10/14/18 08:59 500 mg DAILY [facility] Administration Bisacodyl 10 mg 08/14/18 19:36 Dulcolax 10 Mg Supp RC 10/13/18 19:35 DAILY PRN Constipation Cholecalciferol 5,000 iu 08/15/18 09:00 08/15/18 08:28 Vitamin D3 PO 10/14/18 08:59 5,000 iu DAILY [facility] Administration Diphenhydramine HCl 25 mg 08/14/18 19:36 Benadryl PO 10/13/18 19:35 Q6HR PRN Itching Docusate Sodium 100 mg 08/15/18 09:00 08/15/18 08:29 Colace PO 10/14/18 08:59 100 mg DAILY NAVDI Administration Donepezil HCl 5 mg 08/14/18 21:00 08/14/18 20:34 Aricept PO 10/13/18 20:59 5 mg HS [facility] Administration Ceftriaxone Sodium 1 gm/ 50 mls @ 100 mls/hr 08/15/18 10:00 Sodium Chloride IV 08/20/18 10:29 Q24HR [facility] Dextrose/Sodium Chloride 1,000 mls @ 50 mls/hr 08/14/18 19:45 08/14/18 20:40 D5-0.9%Ns IV 10/13/18 19:44 50 mls/hr .Q20H [facility] Administration Magnesium Hydroxide 30 ml 08/14/18 19:36 Milk Of Magnesia PO 10/13/18 19:35 HS PRN Constipation Megestrol Acetate 400 mg 08/15/18 09:00 08/15/18 08:37 Megace PO 10/14/18 08:59 Not Given BID [facility] Memantine 5 mg 08/15/18 09:00 08/15/18 08:29 Namenda PO 10/14/18 08:59 5 mg DAILY [facility] Administration Miscellaneous 1 each 08/15/18 09:00 08/15/18 08:59 Cranberry Conc/C/Bacill Coag [Cranberry Tablet] PO 10/14/18 08:59 Not Given DAILY [facility] Ondansetron HCl 4 mg 08/14/18 19:39 Zofran IV 10/13/18 19:38 Q8H PRN Nausea / Vomiting Senna 8.6 mg 08/14/18 21:00 08/14/18 20:34 Senna PO 10/13/18 20:59 8.6 mg HS [facility] Administration Sodium Phosphate 135 ml 08/14/18 19:36 Fleet Enema RC 10/13/18 19:35 Q2D PRN Constipation Tamsulosin HCl 0.4 mg 08/14/18 21:00 08/14/18 20:34 Flomax PO 10/13/18 20:59 0.4 mg HS [facility] Administration Tramadol HCl 50 mg 08/14/18 21:00 08/15/18 08:29 Ultram PO 10/13/18 20:59 50 mg Q12HR [facility] Administration Review of Systems: A 12 point ROS was reviewed with the pertinent positive and negatives noted in the HPI. Social History Smoking Status Never smoker Drug Use No Alcohol Use No Family Medical History Nonsignificant. Physical Exam: General: Comfortable, not in acute distress. HEENT: Head: Normocephalic, atraumatic. Oral: Moist, pink. Eyes: PERRLA is present. No icterus. Pallor is present. No icterus. Neck: Supple, no JVD no use of accessory neck muscles Cardio: S1 and S2 within normal limits and rhythm normal no murmur nor gallop. Respiratory: CTAP Abdominal: Soft, nontender, nondistended PRESENT Genital/Urinary: Deferred Extremities: NCCE Neurological: AAO x 3 Assessment: 1. Sepsis. 2. UTI, 3. COPD. Plan: Continue same treatment. Antibiotic Rocephin. Follow up the culture report and decide final; antibiotic therapy. Renal ultrasound. Signed, Jagdish Lr M.D. [id number]
[2018-08-15] MEDS: cefTRIAXone 1 GM in Sodium Chloride 0.9% 50 ML IV SCH (10:30)
--- NOTE | 2018-08-15 11:24 | Diagnostic Imaging Report ---
Ultrasound urinary bladder HISTORY: Urinary retention The exam demonstrates a contracted urinary bladder. Roberto catheter noted. Evaluation of the bladder wall precluded due to lack of distention. Post void residual equals 16.2 cc. IMPRESSION: Contracted urinary bladder with Roberto catheter and postvoid residual of 16.2 cc.
--- NOTE | 2018-08-15 17:03 | Internal Medicine Prog Note ---
Internal Medicine Subjective - Subjective Patient seen and examined:: chart reviewed Patient is:: awake, confused, other (admitted for retention of urine after removal of Hartman catheter and a nursing facility. a) Per staff patient has:: no adverse event Internal Medicine Objective - Results Result Diagrams: 08/16/18 06:04 08/16/18 06:04 Recent Labs: Laboratory Last Values WBC 12.6 Th/cmm (4.8-10.8) H 08/15/18 05:30 RBC 4.35 Mil/cmm (3.80-5.80) 08/15/18 05:30 Hgb 13.0 gm/dL (12-16) 08/15/18 05:30 Hct 38.6 % (41.0-60) L 08/15/18 05:30 MCV 88.8 fl (80-99) 08/15/18 05:30 MCH 29.8 pg (27.0-31.0) 08/15/18 05:30 MCHC Differential 33.6 pg (28.0-36.0) 08/15/18 05:30 RDW 14.8 % (11.5-20.0) 08/15/18 05:30 Plt Count 340 Th/cmm (150-400) 08/15/18 05:30 MPV 7.6 fl 08/15/18 05:30 Neutrophils % 67.8 % (40.0-80.0) 08/15/18 05:30 Lymphocytes % 22.4 % (20.0-50.0) 08/15/18 05:30 Monocytes % 4.3 % (2.0-10.0) 08/15/18 05:30 Eosinophils % 4.8 % (0.0-5.0) 08/15/18 05:30 Basophils % 0.7 % (0.0-2.0) 08/15/18 05:30 Sodium 137 mEq/L (136-145) 08/15/18 05:30 Potassium 4.2 mEq/L (3.5-5.1) 08/15/18 05:30 Chloride 105 mEq/L (98-107) 08/15/18 05:30 Carbon Dioxide 25.6 mEq/L (21.0-31.0) 08/15/18 05:30 Anion Gap 10.6 (7.0-16.0) 08/15/18 05:30 BUN 21 mg/dL (7-25) 08/15/18 05:30 Creatinine 0.8 mg/dL (0.7-1.3) 08/15/18 05:30 Est GFR ( Amer) TNP 08/15/18 05:30 Est GFR (Non-Af Amer) TNP 08/15/18 05:30 BUN/Creatinine Ratio 26.3 08/15/18 05:30 Glucose 95 mg/dL (70-105) 08/15/18 05:30 Calcium 9.8 mg/dL (8.6-10.3) 08/15/18 05:30 Triglycerides 110 mg/dL (<150) 08/15/18 05:30 Cholesterol 140 mg/dL (<200) 08/15/18 05:30 LDL Cholesterol Direct 104 mg/dL (75-193) 08/15/18 05:30 HDL Cholesterol 31 mg/dL (23-92) 08/15/18 05:30 TSH 3.07 uIU/ml (0.34-5.60) 08/15/18 05:30 Urine Source [place] 08/14/18 10:00 Urine Color YELLOW 08/14/18 10:00 Urine Clarity SLIGHT CLOUDY (CLEAR) 08/14/18 10:00 Urine pH 6.5 (4.6 - 8.0) 08/14/18 10:00 Ur Specific [place] 1.010 (1.005-1.030) 08/14/18 10:00 Urine Protein NEGATIVE mg/dL (NEGATIVE) 08/14/18 10:00 Urine Glucose (UA) NEGATIVE mg/dL (NEGATIVE) 08/14/18 10:00 Urine Ketones NEGATIVE mg/dL (NEGATIVE) 08/14/18 10:00 Urine Blood MODERATE (NEGATIVE) H 08/14/18 10:00 Urine Nitrate POSITIVE (NEGATIVE) H 08/14/18 10:00 Urine Bilirubin NEGATIVE (NEGATIVE) 08/14/18 10:00 Urine Urobilinogen 0.2 E.U./dL (0.2 - 1.0) 08/14/18 10:00 Ur Leukocyte Esterase LARGE (NEGATIVE) H 08/14/18 10:00 Urine RBC 2-5 /hpf (0-5) H 08/14/18 10:00 Urine WBC >100 /hpf (0-5) H 08/14/18 10:00 Ur Epithelial Cells MODERATE /lpf (FEW) 08/14/18 10:00 Urine Bacteria MODERATE /hpf (NONE SEEN) H 08/14/18 10:00 - Physical Exam Vitals and I&O: Vital Signs Temp 97.5 F 08/15/18 15:54 Pulse 64 08/15/18 15:54 Resp 18 08/15/18 15:54 BP 121/63 08/15/18 15:54 Pulse Ox 97 08/15/18 15:54 Intake & Output 08/14/18 08/15/18 08/15/18 18:59 06:59 18:59 Intake Total 0 Output Total 1150 400 Balance -1150 -400 Weight (lbs) 63.503 kg 54.567 kg Intake: Oral 0 Output: Urine 1150 300 Stool 100 Other: Stool Characteristics Soft Weight Source Estimated Bedscale Active Medications: Current Medications Acetaminophen (Tylenol) 650 mg PO Q4HR PRN PRN Reason: Pain or Fever >101 Stop: 10/13/18 19:35 Last Admin: 08/15/18 06:16 Dose: 650 mg Acetaminophen/Hydrocodone Bitart ([place] 5mg/325mg) 1 tab PO Q4H PRN PRN Reason: Pain (Severe) Stop: 10/13/18 19:35 Ascorbic Acid (Vitamin C) 500 mg PO DAILY [facility] Stop: 10/14/18 08:59 Last Admin: 08/15/18 08:28 Dose: 500 mg Bisacodyl (Dulcolax 10 Mg Supp) 10 mg RC DAILY PRN PRN Reason: Constipation Stop: 10/13/18 19:35 Cholecalciferol (Vitamin D3) 5,000 iu PO DAILY [facility] Stop: 10/14/18 08:59 Last Admin: 08/15/18 08:28 Dose: 5,000 iu Diphenhydramine HCl (Benadryl) 25 mg PO Q6HR PRN PRN Reason: Itching Stop: 10/13/18 19:35 Docusate Sodium (Colace) 100 mg PO DAILY [facility] Stop: 10/14/18 08:59 Last Admin: 08/15/18 08:29 Dose: 100 mg Donepezil HCl (Aricept) 5 mg PO HS [facility] Stop: 10/13/18 20:59 Last Admin: 08/14/18 20:34 Dose: 5 mg Ceftriaxone Sodium 1 gm/ (Sodium Chloride) 50 mls @ 100 mls/hr IV Q24HR [facility] Stop: 08/20/18 10:29 Last Admin: 08/15/18 10:30 Dose: 100 mls/hr Dextrose/Sodium Chloride (D5-0.9%Ns) 1,000 mls @ 50 mls/hr IV .Q20H [facility] Stop: 10/13/18 19:44 Last Admin: 08/14/18 20:40 Dose: 50 mls/hr Magnesium Hydroxide (Milk Of Magnesia) 30 ml PO HS PRN PRN Reason: Constipation Stop: 10/13/18 19:35 Megestrol Acetate (Megace) 400 mg PO BID [facility] Stop: 10/14/18 08:59 Last Admin: 08/15/18 16:48 Dose: Not Given Memantine (Namenda) 5 mg PO DAILY [facility] Stop: 10/14/18 08:59 Last Admin: 08/15/18 08:29 Dose: 5 mg Ondansetron HCl (Zofran) 4 mg IV Q8H PRN PRN Reason: Nausea / Vomiting Stop: 10/13/18 19:38 Senna (Senna) 8.6 mg PO HS [facility] Stop: 10/13/18 20:59 Last Admin: 08/14/18 20:34 Dose: 8.6 mg Sodium Phosphate (Fleet Enema) 135 ml RC Q2D PRN PRN Reason: Constipation Stop: 10/13/18 19:35 Tamsulosin HCl (Flomax) 0.4 mg PO HS [facility] Stop: 10/13/18 20:59 Last Admin: 08/14/18 20:34 Dose: 0.4 mg Tramadol HCl (Ultram) 50 mg PO Q12HR [facility] Stop: 10/13/18 20:59 Last Admin: 08/15/18 08:29 Dose: 50 mg General: weak, other (confused) HEENT: NC/AT Neck: Supple Lungs: CTAB Cardiovascular: RRR, Normal S1, Normal S2 Abdomen: soft, non-tender Extremities: clear, edema Neurological: no change - Procedures Procedures: Procedures Procedure Code Date BYPASS DESCENDING COLON TO CUTANEOUS, OPEN APPROACH [id number] 08/30/17 DESTRUCTION OF BLADDER, ENDO [id number] 02/27/18 EXCISION OF BACK SUBCU/FASCIA, OPEN APPROACH [id number] 09/16/17 EXCISION OF LEFT FOOT SKIN, EXTERNAL APPROACH [id number] 09/16/17 EXCISION OF RIGHT FOOT SKIN, EXTERNAL APPROACH [id number] 09/16/17 EXTIRPATION OF MATTER FROM BLADDER, ENDO [id number] 02/27/18 EXTRACTION OF BACK SKIN, EXTERNAL APPROACH [id number] 04/15/18 RELEASE PERITONEUM, OPEN APPROACH [id number] 04/15/18 TRANSFUSE NONAUT RED BLOOD CELLS IN PERIPH VEIN, PERC 01493I3 08/30/17 Internal Medicine Assmt/Plan - Assessment Assessment: urine retention acute UTI HTN Paraplegia chf asthma copd - Plan Plan: monitor vitals/diet labs f/up consultants antibiotics Nutritional Asmnt/Malnutr-PDOC - Dietary Evaluation Malnutrition Findings (Please click <Entered> for more info): Nutritional Asmnt/Malnutrition Start: 08/15/18 14: 54 Text: Status: Active Freq: Protocol: Document 08/15/18 14:54 [email or web address] (Rec: 08/15/18 15:06 [email or web address] MARI) Nutritional Asmnt/Malnutrition Patient General Information Nutritional Screening High Risk Diagnosis UTI, sepsis Pertinent Medical Hx/Surgical Hx HTN, paraplegia, chronic renal disease, dementia, pulmonary edema, CHF, asthma, COPD Subjective Information Pt just finished lunch at time of visit. Pt ate 75% per RN. Pt was alert, food preferences taken. Pt has a wound consult today for redness on sacral area, per nurse note. Current Diet Order/ Nutrition Support mech soft chopped, moist, 2gm na Pertinent Medications vit c, vit d3, colace, zofran, senna, sodium phosphate Pertinent Labs 08/15 labs WNL 08/14 cl 108, BUN 28, glucose 111 Nutritional Hx/Data Height 1.75 m Height (Calculated Centimeters) 175.3 Current Weight (lbs) 54.431 kg Weight (Calculated Kilograms) 54.4 Weight (Calculated Grams) 32871.1 [place] Body Weight 160 Body Mass Index (BMI) 17.7 Weight Status Underweight GI Symptoms GI Symptoms None Last BM not indicated Difficult in: None Food Allergies No Skin Integrity/Comment: puncture wound secondary to previous surgery, healing ulcer/scabs to buttocks, pressure area to coccyx, reddened scrotum, left knee scab trip 13 Current %PO Good (75-100%) Estimated Nutritional Goals BEE in Kcals: Using Current wt Calories/Kcals/Kg 30-35 Kcals Calculated 9905-1586 Protein: Using Current wt Protein g/k-1.2 Protein Calculated 54-65 Fluid: ml 0779-6008 (1ml/kcal) Nutritional Problem No current Nutrition Prob Problem N/A Malnutrition Alert Is there a minimum of two criteria No selected? Query Text:Check all the applicable criteria. A minimum of two criteria are recommended for diagnosis of either severe or non-severe malnutrition. Malnutrition Related to Morbid Obesity Malnutrition related to morbid obesity No Intervention/Recommendation Comments 1. [facility], 2gm na diet as ordered. 2. Consider adding Connor BID for wound healing, pending wound consult 3. Monitor PO intake, wt, labs and skin integrity 4. F/U as low risk in 7 days Expected Outcomes/Goals Expected Outcomes/Goals 1. PO intake to meet at least 75% of nutritional needs. 2. Wt stability, skin to remain intact, labs to approach WNL.
[2018-08-15] MEDS: D5-0.9%NS 1,000 ML IV SCH (20:20)
[2018-08-16 06:52] LABS: HEMATOCRIT 40.7 % (41.0-60); HEMOGLOBIN 13.6 gm/dL (12-16); MEAN CELL VOLUME 88.6 fl (80-99); MEAN CORPUSCULAR HEMOGLOBIN 29.6 pg (27.0-31.0); MEAN CORPUSCULAR HGB CONC 33.4 pg (28.0-36.0); MEAN PLATELET VOLUME 7.9 fl; PLATELET COUNT 306 Th/cmm (150-400); RED BLOOD COUNT 4.59 Mil/cmm (3.80-5.80); RED CELL DISTRIBUTION WIDTH 14.6 % (11.5-20.0); WHITE BLOOD COUNT 11.9 Th/cmm (4.8-10.8)
[2018-08-16 07:24] LABS: GLUCOSE 89 mg/dL (70-105)
[2018-08-16 07:51] LABS: BAND NEUTROPHILE 1 % (0-10); BASOPHIL 0 % (0-3); EOSINOPHIL 6 % (0-5); LYMPHOCYTE 25 % (20-50); MONOCYTE 2 % (2-10); NEUTROPHILS 66 % (40-80)
[2018-08-16] MEDS: Multivitamin w/ Minerals Tab PO SCH (09:06)
[2018-08-16] MEDS: cefTRIAXone 1 GM in Sodium Chloride 0.9% 50 ML IV SCH (09:06)
[2018-08-16 09:16] LABS: ANION GAP 11.8 (7.0-16.0); BUN - UREA NITROGEN 17 mg/dL (7-25); CALCIUM SERUM 9.4 mg/dL (8.6-10.3); CARBON DIOXIDE 21.4 mEq/L (21.0-31.0); CHLORIDE 106 mEq/L (98-107); CREATININE - SERUM 0.6 mg/dL (0.7-1.3); POTASSIUM SERUM 4.2 mEq/L (3.5-5.1); SODIUM SERUM 135 mEq/L (136-145)
[2018-08-16 14:29] VITALS: BP 127/60
[2018-08-16] MEDS ORDERED: Probiotic Screen MC PRN (15:24)
[2018-08-16] MEDS: Lactobacillus Rhamnosus GG 15 Billion CFU CAP.SPRINK PO SCH (16:23)
[2018-08-16] MEDS: D5-0.9%NS 1,000 ML IV SCH (16:30)
--- NOTE | 2018-08-16 16:44 | Infectious Disease Prog Note ---
Infectious Disease Subjective - Review of Systems Service Date: 08/16/18 Events since last encounter: None Subjective: No fever. Infectious Disease Objective - Results Result Diagrams: 08/16/18 06:04 08/16/18 06:04 Recent Labs: Laboratory Last Values WBC 11.9 Th/cmm (4.8-10.8) H 08/16/18 06:04 RBC 4.59 Mil/cmm (3.80-5.80) 08/16/18 06:04 Hgb 13.6 gm/dL (12-16) 08/16/18 06:04 Hct 40.7 % (41.0-60) L 08/16/18 06:04 MCV 88.6 fl (80-99) 08/16/18 06:04 MCH 29.6 pg (27.0-31.0) 08/16/18 06:04 MCHC Differential 33.4 pg (28.0-36.0) 08/16/18 06:04 RDW 14.6 % (11.5-20.0) 08/16/18 06:04 Plt Count 306 Th/cmm (150-400) 08/16/18 06:04 MPV 7.9 fl 08/16/18 06:04 Add Manual Diff YES 08/16/18 06:04 Neutrophils % 67.8 % (40.0-80.0) 08/15/18 05:30 Band Neutrophils % 1 % (0-10) 08/16/18 06:04 Lymphocytes % 22.4 % (20.0-50.0) 08/15/18 05:30 Monocytes % 4.3 % (2.0-10.0) 08/15/18 05:30 Eosinophils % 4.8 % (0.0-5.0) 08/15/18 05:30 Basophils % 0.7 % (0.0-2.0) 08/15/18 05:30 Neutrophils (Manual) 66 % (40-80) 08/16/18 06:04 Lymphocytes 25 % (20-50) 08/16/18 06:04 Monocytes 2 % (2-10) 08/16/18 06:04 Eosinophils 6 % (0-5) H 08/16/18 06:04 Basophils 0 % (0-3) 08/16/18 06:04 Sodium 135 mEq/L (136-145) L 08/16/18 06:04 Potassium 4.2 mEq/L (3.5-5.1) 08/16/18 06:04 Chloride 106 mEq/L (98-107) 08/16/18 06:04 Carbon Dioxide 21.4 mEq/L (21.0-31.0) 08/16/18 06:04 Anion Gap 11.8 (7.0-16.0) 08/16/18 06:04 BUN 17 mg/dL (7-25) 08/16/18 06:04 Creatinine 0.6 mg/dL (0.7-1.3) L 08/16/18 06:04 Est GFR ( Amer) TNP 08/16/18 06:04 Est GFR (Non-Af Amer) TNP 08/16/18 06:04 BUN/Creatinine Ratio 28.3 08/16/18 06:04 Glucose 89 mg/dL (70-105) 08/16/18 06:04 Calcium 9.4 mg/dL (8.6-10.3) 08/16/18 06:04 Triglycerides 110 mg/dL (<150) 08/15/18 05:30 Cholesterol 140 mg/dL (<200) 08/15/18 05:30 LDL Cholesterol Direct 104 mg/dL (75-193) 08/15/18 05:30 HDL Cholesterol 31 mg/dL (23-92) 08/15/18 05:30 TSH 3.07 uIU/ml (0.34-5.60) 08/15/18 05:30 Urine Source [place] 08/14/18 10:00 Urine Color YELLOW 08/14/18 10:00 Urine Clarity SLIGHT CLOUDY (CLEAR) 08/14/18 10:00 Urine pH 6.5 (4.6 - 8.0) 08/14/18 10:00 Ur Specific [place] 1.010 (1.005-1.030) 08/14/18 10:00 Urine Protein NEGATIVE mg/dL (NEGATIVE) 08/14/18 10:00 Urine Glucose (UA) NEGATIVE mg/dL (NEGATIVE) 08/14/18 10:00 Urine Ketones NEGATIVE mg/dL (NEGATIVE) 08/14/18 10:00 Urine Blood MODERATE (NEGATIVE) H 08/14/18 10:00 Urine Nitrate POSITIVE (NEGATIVE) H 08/14/18 10:00 Urine Bilirubin NEGATIVE (NEGATIVE) 08/14/18 10:00 Urine Urobilinogen 0.2 E.U./dL (0.2 - 1.0) 08/14/18 10:00 Ur Leukocyte Esterase LARGE (NEGATIVE) H 08/14/18 10:00 Urine RBC 2-5 /hpf (0-5) H 08/14/18 10:00 Urine WBC >100 /hpf (0-5) H 08/14/18 10:00 Ur Epithelial Cells MODERATE /lpf (FEW) 08/14/18 10:00 Urine Bacteria MODERATE /hpf (NONE SEEN) H 08/14/18 10:00 - Physical Exam Vitals and I&O: Vital Signs Temp 97.6 F 08/16/18 15:38 Pulse 61 08/16/18 15:38 Resp 19 08/16/18 15:38 BP 118/68 08/16/18 15:38 Pulse Ox 98 08/16/18 15:38 Intake & Output 08/15/18 08/16/18 08/16/18 18:59 06:59 18:59 Intake Total 1550 1000 Output Total 1350 Balance 1550 -1350 1000 Weight (lbs) 54.885 kg 52.526 kg Intake: Intake, IV Amount 1050 1000 D5-0.9%Ns 1,000 ml @ 50 1000 1000 mls/hr IV .Q20H [facility] Rx#: [id number] cefTRIAXone 1 gm In 50 Sodium Chloride 0.9% 50 ml @ 100 mls/hr IV Q24HR [facility] Rx#:[id number] Oral 500 Output: Urine 1350 Other: # Voids 3 # Bowel Movements 1 Stool Characteristics Soft Soft Soft Weight Source Bedscale Bedscale Active Medications: Current Medications Acetaminophen (Tylenol) 650 mg PO Q4HR PRN PRN Reason: Pain or Fever >101 Stop: 10/13/18 19:35 Last Admin: 08/15/18 06:16 Dose: 650 mg Acetaminophen/Hydrocodone Bitart ([place] 5mg/325mg) 1 tab PO Q4H PRN PRN Reason: Pain (Severe) Stop: 10/13/18 19:35 Ascorbic Acid (Vitamin C) 500 mg PO DAILY [facility] Stop: 10/14/18 08:59 Last Admin: 08/16/18 09:07 Dose: 500 mg Bisacodyl (Dulcolax 10 Mg Supp) 10 mg RC DAILY PRN PRN Reason: Constipation Stop: 10/13/18 19:35 Cholecalciferol (Vitamin D3) 5,000 iu PO DAILY [facility] Stop: 10/14/18 08:59 Last Admin: 08/16/18 09:07 Dose: 5,000 iu Diphenhydramine HCl (Benadryl) 25 mg PO Q6HR PRN PRN Reason: Itching Stop: 10/13/18 19:35 Docusate Sodium (Colace) 100 mg PO DAILY [facility] Stop: 10/14/18 08:59 Last Admin: 08/16/18 09:06 Dose: 100 mg Donepezil HCl (Aricept) 5 mg PO HS [facility] Stop: 10/13/18 20:59 Last Admin: 08/15/18 20:17 Dose: 5 mg Ceftriaxone Sodium 1 gm/ (Sodium Chloride) 50 mls @ 100 mls/hr IV Q24HR [facility] Stop: 08/20/18 10:29 Last Admin: 08/16/18 09:06 Dose: 100 mls/hr Dextrose/Sodium Chloride (D5-0.9%Ns) 1,000 mls @ 50 mls/hr IV .Q20H [facility] Stop: 10/13/18 19:44 Last Admin: 08/16/18 16:30 Dose: 50 mls/hr Lactobacillus Rhamnosus (Culturelle 15b) 1 each PO DAILY [facility] Stop: 10/15/18 15:59 Last Admin: 08/16/18 16:23 Dose: 1 each Magnesium Hydroxide (Milk Of Magnesia) 30 ml PO HS PRN PRN Reason: Constipation Stop: 10/13/18 19:35 Megestrol Acetate (Megace) 400 mg PO BID [facility] Stop: 10/14/18 08:59 Last Admin: 08/16/18 16:23 Dose: 400 mg Memantine (Namenda) 5 mg PO DAILY [facility] Stop: 10/14/18 08:59 Last Admin: 08/16/18 09:07 Dose: 5 mg Miscellaneous (Probiotic Screen) 1 ea MC PRN PRN PRN Reason: PROTOCOL Stop: 10/15/18 15:23 Ondansetron HCl (Zofran) 4 mg IV Q8H PRN PRN Reason: Nausea / Vomiting Stop: 10/13/18 19:38 Senna (Senna) 8.6 mg PO HS [facility] Stop: 10/13/18 20:59 Last Admin: 08/15/18 20:17 Dose: 8.6 mg Sodium Phosphate (Fleet Enema) 135 ml RC Q2D PRN PRN Reason: Constipation Stop: 10/13/18 19:35 Tamsulosin HCl (Flomax) 0.4 mg PO HS [facility] Stop: 10/13/18 20:59 Last Admin: 08/15/18 20:17 Dose: 0.4 mg Tramadol HCl (Ultram) 50 mg PO Q12HR [facility] Stop: 10/13/18 20:59 Last Admin: 08/16/18 09:07 Dose: 50 mg General: no acute distress, well developed, well nourished HEENT: atraumatic, normocephalic, PERRLA, EOMI Neck: supple, no thyromegaly Cardiovascular: S1S2, regular Lungs: clear to auscultation bilaterally, no clear to percussion, no crackles Abdomen: soft, no tender, no distended, no mass, no hepatomegaly Extremities: no cyanosis, no clubbing, no edema Neurological: awake, alert, oriented Skin: intact - Procedures Procedures: Procedures Procedure Code Date BYPASS DESCENDING COLON TO CUTANEOUS, OPEN APPROACH [id number] 08/30/17 DESTRUCTION OF BLADDER, ENDO [id number] 02/27/18 EXCISION OF BACK SUBCU/FASCIA, OPEN APPROACH [id number] 09/16/17 EXCISION OF LEFT FOOT SKIN, EXTERNAL APPROACH [id number] 09/16/17 EXCISION OF RIGHT FOOT SKIN, EXTERNAL APPROACH [id number] 09/16/17 EXTIRPATION OF MATTER FROM BLADDER, ENDO [id number] 02/27/18 EXTRACTION OF BACK SKIN, EXTERNAL APPROACH [id number] 04/15/18 RELEASE PERITONEUM, OPEN APPROACH [id number] 04/15/18 TRANSFUSE NONAUT RED BLOOD CELLS IN PERIPH VEIN, PERC 66028D4 08/30/17 Infectious Disease Assmt/Plan - Assessment Assessment: 1. Sepsis. 2. UTI, 3. COPD. 4. MRSA Colonization. - Plan Plan: CPM. Depending on the culture report, define the final therapy. Nutritional Asmnt/Malnutr-PDOC - Dietary Evaluation Malnutrition Findings (Please click <Entered> for more info): Nutritional Asmnt/Malnutrition Start: 08/15/18 14: 54 Text: Status: Complete Freq: Protocol: Document 08/15/18 14:54 [email or web address] (Rec: 08/15/18 15:06 [email or web address] MARI) Nutritional Asmnt/Malnutrition Patient General Information Nutritional Screening High Risk Diagnosis UTI, sepsis Pertinent Medical Hx/Surgical Hx HTN, paraplegia, chronic renal disease, dementia, pulmonary edema, CHF, asthma, COPD Subjective Information Pt just finished lunch at time of visit. Pt ate 75% per RN. Pt was alert, food preferences taken. Pt has a wound consult today for redness on sacral area, per nurse note. Current Diet Order/ Nutrition Support mech soft chopped, moist, 2gm na Pertinent Medications vit c, vit d3, colace, zofran, senna, sodium phosphate Pertinent Labs 08/15 labs WNL 08/14 cl 108, BUN 28, glucose 111 Nutritional Hx/Data Height 1.75 m Height (Calculated Centimeters) 175.3 Current Weight (lbs) 54.431 kg Weight (Calculated Kilograms) 54.4 Weight (Calculated Grams) 50848.1 [place] Body Weight 160 Body Mass Index (BMI) 17.7 Weight Status Underweight GI Symptoms GI Symptoms None Last BM not indicated Difficult in: None Food Allergies No Skin Integrity/Comment: puncture wound secondary to previous surgery, healing ulcer/scabs to buttocks, pressure area to coccyx, reddened scrotum, left knee scab trip 13 Current %PO Good (75-100%) Estimated Nutritional Goals BEE in Kcals: Using Current wt Calories/Kcals/Kg 30-35 Kcals Calculated 9770-8556 Protein: Using Current wt Protein g/k-1.2 Protein Calculated 54-65 Fluid: ml 4143-5769 (1ml/kcal) Nutritional Problem No current Nutrition Prob Problem N/A Malnutrition Alert Is there a minimum of two criteria No selected? Query Text:Check all the applicable criteria. A minimum of two criteria are recommended for diagnosis of either severe or non-severe malnutrition. Malnutrition Related to Morbid Obesity Malnutrition related to morbid obesity No Intervention/Recommendation Comments 1. Continue with mech soft choped moist, 2gm na diet as ordered. 2. Consider adding Connor BID for wound healing, pending wound consult 3. Monitor PO intake, wt, labs and skin integrity 4. F/U as low risk in 7 days Expected Outcomes/Goals Expected Outcomes/Goals 1. PO intake to meet at least 75% of nutritional needs. 2. Wt stability, skin to remain intact, labs to approach WNL. Reviewed by Nataly Davis RD
--- NOTE | 2018-08-16 20:42 | Progress Notes ---
DATE: 08/16/2018 SUBJECTIVE: The patient was seen in his room. The patient is a poor historian due to medical condition. The patient has intact Roberto catheter with adequate output. Otherwise, the patient appears to be in no acute distress. OBJECTIVE: VITAL SIGNS: Temperature 96.5, heart rate 70, blood pressure 117/54, respirations 19 and 98% on room air. HEENT: Head is atraumatic and normocephalic. Eyes: Bilateral conjunctivae are clear. Bilateral pupils equally round and reactive. NECK: Supple. No JVD. CARDIOVASCULAR: S1 and S2, without murmur. PULMONARY: Clear to auscultation. GASTROINTESTINAL: Soft and nontender without guarding. Positive bowel sounds. MUSCULOSKELETAL: No clubbing. No cyanosis noted. ASSESSMENT: 1. Urinary retention. 2. Urinary tract infection. 3. Chronic obstructive pulmonary disease. 4. Dementia. 5. Benign prostatic hypertrophy. PLAN: We will continue current treatment. We will follow up with the culture results. We will continue current antibiotics and follow up with ID doctor. Treatment plans were discussed with the patient's nurse. Treatment plans were discussed with Dr. Huizar. JOB# [id number]
[2018-08-17] MEDS: cefTRIAXone 1 GM in Sodium Chloride 0.9% 50 ML IV SCH (09:13)
[2018-08-17] MEDS: Lactobacillus Rhamnosus GG 15 Billion CFU CAP.SPRINK PO SCH (09:14)
[2018-08-17] MEDS: Multivitamin w/ Minerals Tab PO SCH (09:14)
--- NOTE | 2018-08-17 10:12 | Diagnostic Imaging Report ---
Renal ultrasound HISTORY: Pain, pyelonephritis The right kidney measures 11.2 x 5.2 x 5.9 cm. A questionable 1.5 cm sonolucent focus is seen in the upper pole which may represent a cyst. No hydronephrosis. The left kidney measures 12.0 x 4.5 x 5.7 cm. No focal lesions. No hydronephrosis. The exam of the urinary bladder demonstrates an indwelling Roberto catheter. No other intraluminal abnormalities. Little urine output following opening of the catheter. IMPRESSION: 1. Questionable right renal cyst 2. No hydronephrosis 3. Little urine output following opening of a Roberto catheter. The finding should be correlated clinically.
--- NOTE | 2018-08-17 13:19 | Internal Medicine Prog Note ---
Internal Medicine Subjective - Subjective Patient is:: awake, confused, other (in no distress) Per staff patient has:: no adverse event Internal Medicine Objective - Results Result Diagrams: 08/16/18 06:04 08/16/18 06:04 Recent Labs: Laboratory Last Values WBC 11.9 Th/cmm (4.8-10.8) H 08/16/18 06:04 RBC 4.59 Mil/cmm (3.80-5.80) 08/16/18 06:04 Hgb 13.6 gm/dL (12-16) 08/16/18 06:04 Hct 40.7 % (41.0-60) L 08/16/18 06:04 MCV 88.6 fl (80-99) 08/16/18 06:04 MCH 29.6 pg (27.0-31.0) 08/16/18 06:04 MCHC Differential 33.4 pg (28.0-36.0) 08/16/18 06:04 RDW 14.6 % (11.5-20.0) 08/16/18 06:04 Plt Count 306 Th/cmm (150-400) 08/16/18 06:04 MPV 7.9 fl 08/16/18 06:04 Add Manual Diff YES 08/16/18 06:04 Neutrophils % 67.8 % (40.0-80.0) 08/15/18 05:30 Band Neutrophils % 1 % (0-10) 08/16/18 06:04 Lymphocytes % 22.4 % (20.0-50.0) 08/15/18 05:30 Monocytes % 4.3 % (2.0-10.0) 08/15/18 05:30 Eosinophils % 4.8 % (0.0-5.0) 08/15/18 05:30 Basophils % 0.7 % (0.0-2.0) 08/15/18 05:30 Neutrophils (Manual) 66 % (40-80) 08/16/18 06:04 Lymphocytes 25 % (20-50) 08/16/18 06:04 Monocytes 2 % (2-10) 08/16/18 06:04 Eosinophils 6 % (0-5) H 08/16/18 06:04 Basophils 0 % (0-3) 08/16/18 06:04 Sodium 135 mEq/L (136-145) L 08/16/18 06:04 Potassium 4.2 mEq/L (3.5-5.1) 08/16/18 06:04 Chloride 106 mEq/L (98-107) 08/16/18 06:04 Carbon Dioxide 21.4 mEq/L (21.0-31.0) 08/16/18 06:04 Anion Gap 11.8 (7.0-16.0) 08/16/18 06:04 BUN 17 mg/dL (7-25) 08/16/18 06:04 Creatinine 0.6 mg/dL (0.7-1.3) L 08/16/18 06:04 Est GFR ( Amer) TNP 08/16/18 06:04 Est GFR (Non-Af Amer) TNP 08/16/18 06:04 BUN/Creatinine Ratio 28.3 08/16/18 06:04 Glucose 89 mg/dL (70-105) 08/16/18 06:04 Calcium 9.4 mg/dL (8.6-10.3) 08/16/18 06:04 Triglycerides 110 mg/dL (<150) 08/15/18 05:30 Cholesterol 140 mg/dL (<200) 08/15/18 05:30 LDL Cholesterol Direct 104 mg/dL (75-193) 08/15/18 05:30 HDL Cholesterol 31 mg/dL (23-92) 08/15/18 05:30 TSH 3.07 uIU/ml (0.34-5.60) 08/15/18 05:30 Urine Source [place] 08/14/18 10:00 Urine Color YELLOW 08/14/18 10:00 Urine Clarity SLIGHT CLOUDY (CLEAR) 08/14/18 10:00 Urine pH 6.5 (4.6 - 8.0) 08/14/18 10:00 Ur Specific [place] 1.010 (1.005-1.030) 08/14/18 10:00 Urine Protein NEGATIVE mg/dL (NEGATIVE) 08/14/18 10:00 Urine Glucose (UA) NEGATIVE mg/dL (NEGATIVE) 08/14/18 10:00 Urine Ketones NEGATIVE mg/dL (NEGATIVE) 08/14/18 10:00 Urine Blood MODERATE (NEGATIVE) H 08/14/18 10:00 Urine Nitrate POSITIVE (NEGATIVE) H 08/14/18 10:00 Urine Bilirubin NEGATIVE (NEGATIVE) 08/14/18 10:00 Urine Urobilinogen 0.2 E.U./dL (0.2 - 1.0) 08/14/18 10:00 Ur Leukocyte Esterase LARGE (NEGATIVE) H 08/14/18 10:00 Urine RBC 2-5 /hpf (0-5) H 08/14/18 10:00 Urine WBC >100 /hpf (0-5) H 08/14/18 10:00 Ur Epithelial Cells MODERATE /lpf (FEW) 08/14/18 10:00 Urine Bacteria MODERATE /hpf (NONE SEEN) H 08/14/18 10:00 - Physical Exam Vitals and I&O: Vital Signs Temp 98.5 F 08/17/18 12:04 Pulse 69 08/17/18 12:04 Resp 18 08/17/18 12:04 BP 114/72 08/17/18 12:04 Pulse Ox 98 08/17/18 12:04 Intake & Output 08/16/18 08/17/18 08/17/18 18:59 06:59 18:59 Intake Total 1050 200 Output Total 1300 Balance 1050 -1100 Weight (lbs) 51.619 kg Intake: Intake, IV Amount 1050 D5-0.9%Ns 1,000 ml @ 50 1000 mls/hr IV .Q20H [facility] Rx#: [id number] cefTRIAXone 1 gm In 50 Sodium Chloride 0.9% 50 ml @ 100 mls/hr IV Q24HR [facility] Rx#:[id number] Oral 200 Output: Urine 1300 Other: # Bowel Movements 1 Stool Characteristics Soft Soft Formed Brown Weight Source Bedscale Active Medications: Current Medications Acetaminophen (Tylenol) 650 mg PO Q4HR PRN PRN Reason: Pain or Fever >101 Stop: 10/13/18 19:35 Last Admin: 08/15/18 06:16 Dose: 650 mg Acetaminophen/Hydrocodone Bitart ([place] 5mg/325mg) 1 tab PO Q4H PRN PRN Reason: Pain (Severe) Stop: 10/13/18 19:35 Ascorbic Acid (Vitamin C) 500 mg PO DAILY [facility] Stop: 10/14/18 08:59 Last Admin: 08/17/18 09:15 Dose: 500 mg Bisacodyl (Dulcolax 10 Mg Supp) 10 mg RC DAILY PRN PRN Reason: Constipation Stop: 10/13/18 19:35 Cholecalciferol (Vitamin D3) 5,000 iu PO DAILY [facility] Stop: 10/14/18 08:59 Last Admin: 08/17/18 09:14 Dose: 5,000 iu Diphenhydramine HCl (Benadryl) 25 mg PO Q6HR PRN PRN Reason: Itching Stop: 10/13/18 19:35 Docusate Sodium (Colace) 100 mg PO DAILY [facility] Stop: 10/14/18 08:59 Last Admin: 08/17/18 09:15 Dose: 100 mg Donepezil HCl (Aricept) 5 mg PO HS [facility] Stop: 10/13/18 20:59 Last Admin: 08/16/18 20:56 Dose: 5 mg Ceftriaxone Sodium 1 gm/ (Sodium Chloride) 50 mls @ 100 mls/hr IV Q24HR [facility] Stop: 08/20/18 10:29 Last Admin: 08/17/18 09:13 Dose: 100 mls/hr Dextrose/Sodium Chloride (D5-0.9%Ns) 1,000 mls @ 50 mls/hr IV .Q20H [facility] Stop: 10/13/18 19:44 Last Admin: 08/16/18 16:30 Dose: 50 mls/hr Lactobacillus Rhamnosus (Culturelle 15b) 1 each PO DAILY [facility] Stop: 10/15/18 15:59 Last Admin: 08/17/18 09:14 Dose: 1 each Magnesium Hydroxide (Milk Of Magnesia) 30 ml PO HS PRN PRN Reason: Constipation Stop: 10/13/18 19:35 Megestrol Acetate (Megace) 400 mg PO BID [facility] Stop: 10/14/18 08:59 Last Admin: 08/17/18 09:13 Dose: 400 mg Memantine (Namenda) 5 mg PO DAILY [facility] Stop: 10/14/18 08:59 Last Admin: 08/17/18 09:15 Dose: 5 mg Miscellaneous (Probiotic Screen) 1 ea MC PRN PRN PRN Reason: PROTOCOL Stop: 10/15/18 15:23 Mupirocin (Bactroban Oint) 1 appl NS BID [facility] Stop: 08/21/18 17:01 Last Admin: 08/17/18 09:16 Dose: 1 appl Ondansetron HCl (Zofran) 4 mg IV Q8H PRN PRN Reason: Nausea / Vomiting Stop: 10/13/18 19:38 Senna (Senna) 8.6 mg PO [facility] Stop: 10/13/18 20:59 Last Admin: 08/16/18 20:56 Dose: 8.6 mg Sodium Phosphate (Fleet Enema) 135 ml RC Q2D PRN PRN Reason: Constipation Stop: 10/13/18 19:35 Tamsulosin HCl (Flomax) 0.4 mg PO HS [facility] Stop: 10/13/18 20:59 Last Admin: 08/16/18 20:56 Dose: 0.4 mg Tramadol HCl (Ultram) 50 mg PO Q12HR [facility] Stop: 10/13/18 20:59 Last Admin: 08/17/18 09:14 Dose: 50 mg General: weak, other (confused) HEENT: NC/AT Neck: Supple Lungs: CTAB Cardiovascular: RRR, Normal S1, Normal S2 Abdomen: soft, non-tender Extremities: clear, edema Neurological: no change - Procedures Procedures: Procedures Procedure Code Date BYPASS DESCENDING COLON TO CUTANEOUS, OPEN APPROACH [id number] 08/30/17 DESTRUCTION OF BLADDER, ENDO [id number] 02/27/18 EXCISION OF BACK SUBCU/FASCIA, OPEN APPROACH [id number] 09/16/17 EXCISION OF LEFT FOOT SKIN, EXTERNAL APPROACH [id number] 09/16/17 EXCISION OF RIGHT FOOT SKIN, EXTERNAL APPROACH [id number] 09/16/17 EXTIRPATION OF MATTER FROM BLADDER, ENDO [id number] 02/27/18 EXTRACTION OF BACK SKIN, EXTERNAL APPROACH [id number] 04/15/18 RELEASE PERITONEUM, OPEN APPROACH [id number] 04/15/18 TRANSFUSE NONAUT RED BLOOD CELLS IN PERIPH VEIN, PERC [id number] 08/30/17 Internal Medicine Assmt/Plan - Assessment Assessment: urine retention acute UTI HTN Paraplegia chf asthma copd - Plan Plan: monitor vitals/diet labs f/up consultants antibiotics Nutritional Asmnt/Malnutr-PDOC - Dietary Evaluation Malnutrition Findings (Please click <Entered> for more info): Nutritional Asmnt/Malnutrition Start: 08/15/18 14: 54 Text: Status: Complete Freq: Protocol: Document 08/15/18 14:54 [email or web address] (Rec: 08/15/18 15:06 [email or web address] MARI) Nutritional Asmnt/Malnutrition Patient General Information Nutritional Screening High Risk Diagnosis UTI, sepsis Pertinent Medical Hx/Surgical Hx HTN, paraplegia, chronic renal disease, dementia, pulmonary edema, CHF, asthma, COPD Subjective Information Pt just finished lunch at time of visit. Pt ate 75% per RN. Pt was alert, food preferences taken. Pt has a wound consult today for redness on sacral area, per nurse note. Current Diet Order/ Nutrition Support mech soft chopped, moist, 2gm na Pertinent Medications vit c, vit d3, colace, zofran, senna, sodium phosphate Pertinent Labs 08/15 labs WNL 08/14 cl 108, BUN 28, glucose 111 Nutritional Hx/Data Height 1.75 m Height (Calculated Centimeters) 175.3 Current Weight (lbs) 54.431 kg Weight (Calculated Kilograms) 54.4 Weight (Calculated Grams) 35503.1 [place] Body Weight 160 Body Mass Index (BMI) 17.7 Weight Status Underweight GI Symptoms GI Symptoms None Last BM not indicated Difficult in: None Food Allergies No Skin Integrity/Comment: puncture wound secondary to previous surgery, healing ulcer/scabs to buttocks, pressure area to coccyx, reddened scrotum, left knee scab trip 13 Current %PO Good (75-100%) Estimated Nutritional Goals BEE in Kcals: Using Current wt Calories/Kcals/Kg 30-35 Kcals Calculated 8894-3070 Protein: Using Current wt Protein g/k-1.2 Protein Calculated 54-65 Fluid: ml 9191-5841 (1ml/kcal) Nutritional Problem No current Nutrition Prob Problem N/A Malnutrition Alert Is there a minimum of two criteria No selected? Query Text:Check all the applicable criteria. A minimum of two criteria are recommended for diagnosis of either severe or non-severe malnutrition. Malnutrition Related to Morbid Obesity Malnutrition related to morbid obesity No Intervention/Recommendation Comments 1. Continue with mech soft choped moist, 2gm na diet as ordered. 2. Consider adding Connor BID for wound healing, pending wound consult 3. Monitor PO intake, wt, labs and skin integrity 4. F/U as low risk in 7 days Expected Outcomes/Goals Expected Outcomes/Goals 1. PO intake to meet at least 75% of nutritional needs. 2. Wt stability, skin to remain intact, labs to approach WNL. Reviewed by Nataly Davis RD
[2018-08-17] MEDS ORDERED: Piperacillin Sodium/Tazobact 3.375 gm Vial IV ONE (20:40)
--- NOTE | 2018-08-17 20:51 | Infectious Disease Prog Note ---
Infectious Disease Subjective - Review of Systems Service Date: 08/17/18 Subjective: No fever. Infectious Disease Objective - Results Result Diagrams: 08/16/18 06:04 08/16/18 06:04 Recent Labs: Laboratory Last Values WBC 11.9 Th/cmm (4.8-10.8) H 08/16/18 06:04 RBC 4.59 Mil/cmm (3.80-5.80) 08/16/18 06:04 Hgb 13.6 gm/dL (12-16) 08/16/18 06:04 Hct 40.7 % (41.0-60) L 08/16/18 06:04 MCV 88.6 fl (80-99) 08/16/18 06:04 MCH 29.6 pg (27.0-31.0) 08/16/18 06:04 MCHC Differential 33.4 pg (28.0-36.0) 08/16/18 06:04 RDW 14.6 % (11.5-20.0) 08/16/18 06:04 Plt Count 306 Th/cmm (150-400) 08/16/18 06:04 MPV 7.9 fl 08/16/18 06:04 Add Manual Diff YES 08/16/18 06:04 Neutrophils % 67.8 % (40.0-80.0) 08/15/18 05:30 Band Neutrophils % 1 % (0-10) 08/16/18 06:04 Lymphocytes % 22.4 % (20.0-50.0) 08/15/18 05:30 Monocytes % 4.3 % (2.0-10.0) 08/15/18 05:30 Eosinophils % 4.8 % (0.0-5.0) 08/15/18 05:30 Basophils % 0.7 % (0.0-2.0) 08/15/18 05:30 Neutrophils (Manual) 66 % (40-80) 08/16/18 06:04 Lymphocytes 25 % (20-50) 08/16/18 06:04 Monocytes 2 % (2-10) 08/16/18 06:04 Eosinophils 6 % (0-5) H 08/16/18 06:04 Basophils 0 % (0-3) 08/16/18 06:04 Sodium 135 mEq/L (136-145) L 08/16/18 06:04 Potassium 4.2 mEq/L (3.5-5.1) 08/16/18 06:04 Chloride 106 mEq/L (98-107) 08/16/18 06:04 Carbon Dioxide 21.4 mEq/L (21.0-31.0) 08/16/18 06:04 Anion Gap 11.8 (7.0-16.0) 08/16/18 06:04 BUN 17 mg/dL (7-25) 08/16/18 06:04 Creatinine 0.6 mg/dL (0.7-1.3) L 08/16/18 06:04 Est GFR ( Amer) TNP 08/16/18 06:04 Est GFR (Non-Af Amer) TNP 08/16/18 06:04 BUN/Creatinine Ratio 28.3 08/16/18 06:04 Glucose 89 mg/dL (70-105) 08/16/18 06:04 Calcium 9.4 mg/dL (8.6-10.3) 08/16/18 06:04 Triglycerides 110 mg/dL (<150) 08/15/18 05:30 Cholesterol 140 mg/dL (<200) 08/15/18 05:30 LDL Cholesterol Direct 104 mg/dL (75-193) 08/15/18 05:30 HDL Cholesterol 31 mg/dL (23-92) 08/15/18 05:30 TSH 3.07 uIU/ml (0.34-5.60) 08/15/18 05:30 Urine Source [place] 08/14/18 10:00 Urine Color YELLOW 08/14/18 10:00 Urine Clarity SLIGHT CLOUDY (CLEAR) 08/14/18 10:00 Urine pH 6.5 (4.6 - 8.0) 08/14/18 10:00 Ur Specific [place] 1.010 (1.005-1.030) 08/14/18 10:00 Urine Protein NEGATIVE mg/dL (NEGATIVE) 08/14/18 10:00 Urine Glucose (UA) NEGATIVE mg/dL (NEGATIVE) 08/14/18 10:00 Urine Ketones NEGATIVE mg/dL (NEGATIVE) 08/14/18 10:00 Urine Blood MODERATE (NEGATIVE) H 08/14/18 10:00 Urine Nitrate POSITIVE (NEGATIVE) H 08/14/18 10:00 Urine Bilirubin NEGATIVE (NEGATIVE) 08/14/18 10:00 Urine Urobilinogen 0.2 E.U./dL (0.2 - 1.0) 08/14/18 10:00 Ur Leukocyte Esterase LARGE (NEGATIVE) H 08/14/18 10:00 Urine RBC 2-5 /hpf (0-5) H 08/14/18 10:00 Urine WBC >100 /hpf (0-5) H 08/14/18 10:00 Ur Epithelial Cells MODERATE /lpf (FEW) 08/14/18 10:00 Urine Bacteria MODERATE /hpf (NONE SEEN) H 08/14/18 10:00 - Physical Exam Vitals and I&O: Vital Signs Temp 98.3 F 08/17/18 16:09 Pulse 72 08/17/18 16:09 Resp 18 08/17/18 16:09 BP 110/73 08/17/18 16:09 Pulse Ox 98 08/17/18 16:09 Intake & Output 08/17/18 08/17/18 08/18/18 06:59 18:59 06:59 Intake Total 200 1000 Output Total 1300 850 Balance -1100 150 Weight (lbs) 51.619 kg 51.664 kg Intake: Oral 200 1000 Output: Urine 1300 850 Other: # Bowel Movements 1 1 Stool Characteristics Soft Formed Brown Weight Source Bedscale Bedscale Active Medications: Current Medications Acetaminophen (Tylenol) 650 mg PO Q4HR PRN PRN Reason: Pain or Fever >101 Stop: 10/13/18 19:35 Last Admin: 08/15/18 06:16 Dose: 650 mg Acetaminophen/Hydrocodone Bitart ([place] 5mg/325mg) 1 tab PO Q4H PRN PRN Reason: Pain (Severe) Stop: 10/13/18 19:35 Ascorbic Acid (Vitamin C) 500 mg PO DAILY [facility] Stop: 10/14/18 08:59 Last Admin: 08/17/18 09:15 Dose: 500 mg Bisacodyl (Dulcolax 10 Mg Supp) 10 mg RC DAILY PRN PRN Reason: Constipation Stop: 10/13/18 19:35 Cholecalciferol (Vitamin D3) 5,000 iu PO DAILY [facility] Stop: 10/14/18 08:59 Last Admin: 08/17/18 09:14 Dose: 5,000 iu Diphenhydramine HCl (Benadryl) 25 mg PO Q6HR PRN PRN Reason: Itching Stop: 10/13/18 19:35 Docusate Sodium (Colace) 100 mg PO DAILY [facility] Stop: 10/14/18 08:59 Last Admin: 08/17/18 09:15 Dose: 100 mg Donepezil HCl (Aricept) 5 mg PO HS [facility] Stop: 10/13/18 20:59 Last Admin: 08/16/18 20:56 Dose: 5 mg Dextrose/Sodium Chloride (D5-0.9%Ns) 1,000 mls @ 50 mls/hr IV .Q20H [facility] Stop: 10/13/18 19:44 Last Admin: 08/16/18 16:30 Dose: 50 mls/hr Piperacillin Sod/Tazobactam (Sod 3.375 gm/ Sodium Chloride) 50 mls @ 100 mls/ hr IV Q8HR [facility] Stop: 10/16/18 20:59 Vancomycin HCl 1 gm/ Sodium (Chloride) 250 mls @ 165 mls/hr IV 2200 [facility] Stop: 08/17/18 23:31 Lactobacillus Rhamnosus (Culturelle 15b) 1 each PO DAILY [facility] Stop: 10/15/18 15:59 Last Admin: 08/17/18 09:14 Dose: 1 each Magnesium Hydroxide (Milk Of Magnesia) 30 ml PO HS PRN PRN Reason: Constipation Stop: 10/13/18 19:35 Megestrol Acetate (Megace) 400 mg PO BID [facility] Stop: 10/14/18 08:59 Last Admin: 08/17/18 16:28 Dose: 400 mg Memantine (Namenda) 5 mg PO DAILY [facility] Stop: 10/14/18 08:59 Last Admin: 08/17/18 09:15 Dose: 5 mg Miscellaneous (Probiotic Screen) 1 ea MC PRN PRN PRN Reason: PROTOCOL Stop: 10/15/18 15:23 Miscellaneous (Vancomycin Iv Per Pharmacy) 1 ea MC PRN PRN PRN Reason: PROTOCOL Stop: 10/16/18 19:41 Mupirocin (Bactroban Oint) 1 appl NS BID [facility] Stop: 08/21/18 17:01 Last Admin: 08/17/18 16:28 Dose: 1 appl Ondansetron HCl (Zofran) 4 mg IV Q8H PRN PRN Reason: Nausea / Vomiting Stop: 10/13/18 19:38 Senna (Senna) 8.6 mg PO HS [facility] Stop: 10/13/18 20:59 Last Admin: 08/16/18 20:56 Dose: 8.6 mg Sodium Phosphate (Fleet Enema) 135 ml RC Q2D PRN PRN Reason: Constipation Stop: 10/13/18 19:35 Tamsulosin HCl (Flomax) 0.4 mg PO HS [facility] Stop: 10/13/18 20:59 Last Admin: 08/16/18 20:56 Dose: 0.4 mg Tramadol HCl (Ultram) 50 mg PO Q12HR [facility] Stop: 10/13/18 20:59 Last Admin: 08/17/18 09:14 Dose: 50 mg General: no acute distress, well developed, well nourished HEENT: atraumatic, normocephalic, PERRLA, EOMI Neck: supple, no thyromegaly Cardiovascular: S1S2, regular Lungs: clear to auscultation bilaterally, clear to percussion Abdomen: soft, no tender, no distended Extremities: no cyanosis, no clubbing, no edema Neurological: awake, alert, oriented Skin: intact - Procedures Procedures: Procedures Procedure Code Date BYPASS DESCENDING COLON TO CUTANEOUS, OPEN APPROACH [id number] 08/30/17 DESTRUCTION OF BLADDER, ENDO [id number] 02/27/18 EXCISION OF BACK SUBCU/FASCIA, OPEN APPROACH [id number] 09/16/17 EXCISION OF LEFT FOOT SKIN, EXTERNAL APPROACH [id number] 09/16/17 EXCISION OF RIGHT FOOT SKIN, EXTERNAL APPROACH [id number] 09/16/17 EXTIRPATION OF MATTER FROM BLADDER, ENDO [id number] 02/27/18 EXTRACTION OF BACK SKIN, EXTERNAL APPROACH [id number] 04/15/18 RELEASE PERITONEUM, OPEN APPROACH [id number] 04/15/18 TRANSFUSE NONAUT RED BLOOD CELLS IN PERIPH VEIN, PERC [id number] 08/30/17 Infectious Disease Assmt/Plan - Assessment Assessment: 1. Sepsis. 2. UTI, 3. COPD. 4. MRSA Colonization. - Plan Plan: CPM. Depending on the culture report, define the final therapy. Nutritional Asmnt/Malnutr-PDOC - Dietary Evaluation Malnutrition Findings (Please click <Entered> for more info): Nutritional Asmnt/Malnutrition Start: 08/15/18 14: 54 Text: Status: Complete Freq: Protocol: Document 08/15/18 14:54 [email or web address] (Rec: 08/15/18 15:06 [email or web address] MARI) Nutritional Asmnt/Malnutrition Patient General Information Nutritional Screening High Risk Diagnosis UTI, sepsis Pertinent Medical Hx/Surgical Hx HTN, paraplegia, chronic renal disease, dementia, pulmonary edema, CHF, asthma, COPD Subjective Information Pt just finished lunch at time of visit. Pt ate 75% per RN. Pt was alert, food preferences taken. Pt has a wound consult today for redness on sacral area, per nurse note. Current Diet Order/ Nutrition Support mech soft chopped, moist, 2gm na Pertinent Medications vit c, vit d3, colace, zofran, senna, sodium phosphate Pertinent Labs 08/15 labs WNL 08/14 cl 108, BUN 28, glucose 111 Nutritional Hx/Data Height 1.75 m Height (Calculated Centimeters) 175.3 Current Weight (lbs) 54.431 kg Weight (Calculated Kilograms) 54.4 Weight (Calculated Grams) 90183.1 [place] Body Weight 160 Body Mass Index (BMI) 17.7 Weight Status Underweight GI Symptoms GI Symptoms None Last BM not indicated Difficult in: None Food Allergies No Skin Integrity/Comment: puncture wound secondary to previous surgery, healing ulcer/scabs to buttocks, pressure area to coccyx, reddened scrotum, left knee scab trip 13 Current %PO Good (75-100%) Estimated Nutritional Goals BEE in Kcals: Using Current wt Calories/Kcals/Kg 30-35 Kcals Calculated 5978-7199 Protein: Using Current wt Protein g/k-1.2 Protein Calculated 54-65 Fluid: ml 7461-0335 (1ml/kcal) Nutritional Problem No current Nutrition Prob Problem N/A Malnutrition Alert Is there a minimum of two criteria No selected? Query Text:Check all the applicable criteria. A minimum of two criteria are recommended for diagnosis of either severe or non-severe malnutrition. Malnutrition Related to Morbid Obesity Malnutrition related to morbid obesity No Intervention/Recommendation Comments 1. Continue with mech soft choped moist, 2gm na diet as ordered. 2. Consider adding Connor BID for wound healing, pending wound consult 3. Monitor PO intake, wt, labs and skin integrity 4. F/U as low risk in 7 days Expected Outcomes/Goals Expected Outcomes/Goals 1. PO intake to meet at least 75% of nutritional needs. 2. Wt stability, skin to remain intact, labs to approach WNL. Reviewed by Nataly Davis RD
[2018-08-18] MEDS ORDERED: Piperacillin Sodium/Tazobact 3.375 gm Vial IV ONE (04:39)
[2018-08-18] MEDS: Lactobacillus Rhamnosus GG 15 Billion CFU CAP.SPRINK PO SCH (10:01)
[2018-08-18] MEDS: Multivitamin w/ Minerals Tab PO SCH (10:02)
[2018-08-18] MEDS: D5-0.9%NS 1,000 ML IV SCH (13:07)
--- NOTE | 2018-08-18 16:13 | General Progress Note ---
Subjective - Review of Systems Service Date: 08/18/18 Subjective: 78 y/o male patient is very confused and dis-oriented, remains very weak, in no acute distress. Objective - Results Result Diagrams: 08/16/18 06:04 08/16/18 06:04 Recent Labs: Laboratory Last Values WBC 11.9 Th/cmm (4.8-10.8) H 08/16/18 06:04 RBC 4.59 Mil/cmm (3.80-5.80) 08/16/18 06:04 Hgb 13.6 gm/dL (12-16) 08/16/18 06:04 Hct 40.7 % (41.0-60) L 08/16/18 06:04 MCV 88.6 fl (80-99) 08/16/18 06:04 MCH 29.6 pg (27.0-31.0) 08/16/18 06:04 MCHC Differential 33.4 pg (28.0-36.0) 08/16/18 06:04 RDW 14.6 % (11.5-20.0) 08/16/18 06:04 Plt Count 306 Th/cmm (150-400) 08/16/18 06:04 MPV 7.9 fl 08/16/18 06:04 Add Manual Diff YES 08/16/18 06:04 Neutrophils % 67.8 % (40.0-80.0) 08/15/18 05:30 Band Neutrophils % 1 % (0-10) 08/16/18 06:04 Lymphocytes % 22.4 % (20.0-50.0) 08/15/18 05:30 Monocytes % 4.3 % (2.0-10.0) 08/15/18 05:30 Eosinophils % 4.8 % (0.0-5.0) 08/15/18 05:30 Basophils % 0.7 % (0.0-2.0) 08/15/18 05:30 Neutrophils (Manual) 66 % (40-80) 08/16/18 06:04 Lymphocytes 25 % (20-50) 08/16/18 06:04 Monocytes 2 % (2-10) 08/16/18 06:04 Eosinophils 6 % (0-5) H 08/16/18 06:04 Basophils 0 % (0-3) 08/16/18 06:04 Sodium 135 mEq/L (136-145) L 08/16/18 06:04 Potassium 4.2 mEq/L (3.5-5.1) 08/16/18 06:04 Chloride 106 mEq/L (98-107) 08/16/18 06:04 Carbon Dioxide 21.4 mEq/L (21.0-31.0) 08/16/18 06:04 Anion Gap 11.8 (7.0-16.0) 08/16/18 06:04 BUN 17 mg/dL (7-25) 08/16/18 06:04 Creatinine 0.6 mg/dL (0.7-1.3) L 08/16/18 06:04 Est GFR ( Amer) TNP 08/16/18 06:04 Est GFR (Non-Af Amer) TNP 08/16/18 06:04 BUN/Creatinine Ratio 28.3 08/16/18 06:04 Glucose 89 mg/dL (70-105) 08/16/18 06:04 Calcium 9.4 mg/dL (8.6-10.3) 08/16/18 06:04 Triglycerides 110 mg/dL (<150) 08/15/18 05:30 Cholesterol 140 mg/dL (<200) 08/15/18 05:30 LDL Cholesterol Direct 104 mg/dL (75-193) 08/15/18 05:30 HDL Cholesterol 31 mg/dL (23-92) 08/15/18 05:30 TSH 3.07 uIU/ml (0.34-5.60) 08/15/18 05:30 Urine Source [place] 08/14/18 10:00 Urine Color YELLOW 08/14/18 10:00 Urine Clarity SLIGHT CLOUDY (CLEAR) 08/14/18 10:00 Urine pH 6.5 (4.6 - 8.0) 08/14/18 10:00 Ur Specific [place] 1.010 (1.005-1.030) 08/14/18 10:00 Urine Protein NEGATIVE mg/dL (NEGATIVE) 08/14/18 10:00 Urine Glucose (UA) NEGATIVE mg/dL (NEGATIVE) 08/14/18 10:00 Urine Ketones NEGATIVE mg/dL (NEGATIVE) 08/14/18 10:00 Urine Blood MODERATE (NEGATIVE) H 08/14/18 10:00 Urine Nitrate POSITIVE (NEGATIVE) H 08/14/18 10:00 Urine Bilirubin NEGATIVE (NEGATIVE) 08/14/18 10:00 Urine Urobilinogen 0.2 E.U./dL (0.2 - 1.0) 08/14/18 10:00 Ur Leukocyte Esterase LARGE (NEGATIVE) H 08/14/18 10:00 Urine RBC 2-5 /hpf (0-5) H 08/14/18 10:00 Urine WBC >100 /hpf (0-5) H 08/14/18 10:00 Ur Epithelial Cells MODERATE /lpf (FEW) 08/14/18 10:00 Urine Bacteria MODERATE /hpf (NONE SEEN) H 08/14/18 10:00 - Physical Exam Vitals and I&O: Vital Signs Temp 98 F 08/18/18 12:00 Pulse 71 08/18/18 12:00 Resp 18 08/18/18 12:00 BP 101/54 08/18/18 12:00 Pulse Ox 97 08/18/18 12:00 Intake & Output 08/17/18 08/18/18 08/18/18 18:59 06:59 18:59 Intake Total 2000 100 250 Output Total 850 1100 Balance 1150 -1000 250 Weight (lbs) 51.664 kg 52.707 kg Intake: Intake, IV Amount 1000 100 250 D5-0.9%Ns 1,000 ml @ 50 1000 mls/hr IV .Q20H [facility] Rx#: [id number] Piperacillin Sodium/ 100 Tazobact 3.375 gm In Sodium Chloride 0.9% 50 ml @ 100 mls/hr IV Q8HR [facility] Rx#:[id number] Vancomycin HCl 1 gm In 250 Sodium Chloride 0.9% 250 ml @ 165 mls/hr IV Q24H [facility] Rx#:[id number] Oral 1000 Output: Urine 850 800 Stool 300 Other: # Bowel Movements 1 Weight Source Bedscale Bedscale Active Medications: Current Medications Acetaminophen (Tylenol) 650 mg PO Q4HR PRN PRN Reason: Pain or Fever >101 Stop: 10/13/18 19:35 Last Admin: 08/15/18 06:16 Dose: 650 mg Acetaminophen/Hydrocodone Bitart ([place] 5mg/325mg) 1 tab PO Q4H PRN PRN Reason: Pain (Severe) Stop: 10/13/18 19:35 Ascorbic Acid (Vitamin C) 500 mg PO DAILY [facility] Stop: 10/14/18 08:59 Last Admin: 08/18/18 10:01 Dose: 500 mg Bisacodyl (Dulcolax 10 Mg Supp) 10 mg RC DAILY PRN PRN Reason: Constipation Stop: 10/13/18 19:35 Cholecalciferol (Vitamin D3) 5,000 iu PO DAILY [facility] Stop: 10/14/18 08:59 Last Admin: 08/18/18 10:01 Dose: 5,000 iu Diphenhydramine HCl (Benadryl) 25 mg PO Q6HR PRN PRN Reason: Itching Stop: 10/13/18 19:35 Docusate Sodium (Colace) 100 mg PO DAILY [facility] Stop: 10/14/18 08:59 Last Admin: 08/18/18 10:01 Dose: 100 mg Donepezil HCl (Aricept) 5 mg PO HS [facility] Stop: 10/13/18 20:59 Last Admin: 08/17/18 20:47 Dose: 5 mg Heparin Sodium (Porcine) (Heparin) 5,000 units SUBQ Q12HR [facility] Stop: 10/17/18 20:59 Dextrose/Sodium Chloride (D5-0.9%Ns) 1,000 mls @ 50 mls/hr IV .Q20H [facility] Stop: 10/13/18 19:44 Last Admin: 08/18/18 13:07 Dose: 50 mls/hr Piperacillin Sod/Tazobactam (Sod 3.375 gm/ Sodium Chloride) 50 mls @ 100 mls/ hr IV Q8HR [facility] Stop: 10/16/18 20:59 Last Admin: 08/18/18 13:07 Dose: 100 mls/hr Vancomycin HCl 1 gm/ Sodium (Chloride) 250 mls @ 165 mls/hr IV Q24H [facility] Stop: 10/17/18 08:59 Last Infusion: 08/18/18 10:41 Dose: Infused Lactobacillus Rhamnosus (Culturelle 15b) 1 each PO DAILY [facility] Stop: 10/15/18 15:59 Last Admin: 08/18/18 10:01 Dose: 1 each Magnesium Hydroxide (Milk Of Magnesia) 30 ml PO HS PRN PRN Reason: Constipation Stop: 10/13/18 19:35 Megestrol Acetate (Megace) 400 mg PO BID [facility] Stop: 10/14/18 08:59 Last Admin: 08/18/18 10:01 Dose: 400 mg Memantine (Namenda) 5 mg PO DAILY [facility] Stop: 10/14/18 08:59 Last Admin: 08/18/18 10:01 Dose: 5 mg Miscellaneous (Probiotic Screen) 1 ea PRN PRN PRN Reason: PROTOCOL Stop: 10/15/18 15:23 Miscellaneous (Vancomycin Iv Per Pharmacy) 1 ea PRN PRN PRN Reason: PROTOCOL Stop: 10/16/18 19:41 Mupirocin (Bactroban Oint) 1 appl NS BID [facility] Stop: 08/21/18 17:01 Last Admin: 08/18/18 10:37 Dose: 1 appl Ondansetron HCl (Zofran) 4 mg IV Q8H PRN PRN Reason: Nausea / Vomiting Stop: 10/13/18 19:38 Senna (Senna) 8.6 mg PO HS [facility] Stop: 10/13/18 20:59 Last Admin: 08/17/18 20:47 Dose: 8.6 mg Sodium Phosphate (Fleet Enema) 135 ml RC Q2D PRN PRN Reason: Constipation Stop: 10/13/18 19:35 Tamsulosin HCl (Flomax) 0.4 mg PO HS [facility] Stop: 10/13/18 20:59 Last Admin: 08/17/18 20:47 Dose: 0.4 mg Tramadol HCl (Ultram) 50 mg PO Q12HR [facility] Stop: 10/13/18 20:59 Last Admin: 08/18/18 10:01 Dose: 50 mg General: No acute distress, Other ( Altered mental status, Mildly confused.) Lungs: Normal air movement Abdomen: Soft, Other Extremities: Other (Muscle weakness, Paraplegia.) Skin: Other (Healing ulcers of buttocks area, pressure area to Coccyx, redness to scrotum and left knee scab.) Psych/Mental Status: Other (mildly confused) - Procedures Procedures: Procedures Procedure Code Date BYPASS DESCENDING COLON TO CUTANEOUS, OPEN APPROACH [id number] 08/30/17 DESTRUCTION OF BLADDER, ENDO [id number] 02/27/18 EXCISION OF BACK SUBCU/FASCIA, OPEN APPROACH [id number] 09/16/17 EXCISION OF LEFT FOOT SKIN, EXTERNAL APPROACH [id number] 09/16/17 EXCISION OF RIGHT FOOT SKIN, EXTERNAL APPROACH [id number] 09/16/17 EXTIRPATION OF MATTER FROM BLADDER, ENDO [id number] 02/27/18 EXTRACTION OF BACK SKIN, EXTERNAL APPROACH [id number] 04/15/18 RELEASE PERITONEUM, OPEN APPROACH [id number] 04/15/18 TRANSFUSE NONAUT RED BLOOD CELLS IN PERIPH VEIN, PERC [id number] 08/30/17 Assessment/Plan - Assessment Assessment: urine retention acute UTI HTN Paraplegia chf asthma copd - Plan Plan: monitor vitals/diet labs f/up consultants antibiotics Nutritional Asmnt/Malnutr-PDOC - Dietary Evaluation Malnutrition Findings (Please click <Entered> for more info): Nutritional Asmnt/Malnutrition Start: 08/15/18 14: 54 Text: Status: Complete Freq: Protocol: Document 08/15/18 14:54 [email or web address] (Rec: 08/15/18 15:06 [email or web address] MARI) Nutritional Asmnt/Malnutrition Patient General Information Nutritional Screening High Risk Diagnosis UTI, sepsis Pertinent Medical Hx/Surgical Hx HTN, paraplegia, chronic renal disease, dementia, pulmonary edema, CHF, asthma, COPD Subjective Information Pt just finished lunch at time of visit. Pt ate 75% per RN. Pt was alert, food preferences taken. Pt has a wound consult today for redness on sacral area, per nurse note. Current Diet Order/ Nutrition Support mech soft chopped, moist, 2gm na Pertinent Medications vit c, vit d3, colace, zofran, senna, sodium phosphate Pertinent Labs 08/15 labs WNL 08/14 cl 108, BUN 28, glucose 111 Nutritional Hx/Data Height 1.75 m Height (Calculated Centimeters) 175.3 Current Weight (lbs) 54.431 kg Weight (Calculated Kilograms) 54.4 Weight (Calculated Grams) 37321.1 [place] Body Weight 160 Body Mass Index (BMI) 17.7 Weight Status Underweight GI Symptoms GI Symptoms None Last BM not indicated Difficult in: None Food Allergies No Skin Integrity/Comment: puncture wound secondary to previous surgery, healing ulcer/scabs to buttocks, pressure area to coccyx, reddened scrotum, left knee scab trip 13 Current %PO Good (75-100%) Estimated Nutritional Goals BEE in Kcals: Using Current wt Calories/Kcals/Kg 30-35 Kcals Calculated 1240-1984 Protein: Using Current wt Protein g/k-1.2 Protein Calculated 54-65 Fluid: ml 6917-1422 (1ml/kcal) Nutritional Problem No current Nutrition Prob Problem N/A Malnutrition Alert Is there a minimum of two criteria No selected? Query Text:Check all the applicable criteria. A minimum of two criteria are recommended for diagnosis of either severe or non-severe malnutrition. Malnutrition Related to Morbid Obesity Malnutrition related to morbid obesity No Intervention/Recommendation Comments 1. [facility] moist, 2gm na diet as ordered. 2. Consider adding [place] BID for wound healing, pending wound consult 3. Monitor PO intake, wt, labs and skin integrity 4. F/U as low risk in 7 days Expected Outcomes/Goals Expected Outcomes/Goals 1. PO intake to meet at least 75% of nutritional needs. 2. Wt stability, skin to remain intact, labs to approach WNL. Reviewed by Nataly Davis RD
== END 2018-08-18 19:32 | DRG 872 ==
LOC: ER 09:21 → TELE 11:00 → MSI 08-17 11:39
PROVIDERS: ADMIT Internal Medicine; ATTEND Internal Medicine
DX: A41.9 Sepsis, unspecified organism (principal); N39.0 Urinary tract infection, site not specified; G82.20 Paraplegia, unspecified; I13.0 Hypertensive heart and chronic kidney disease with heart failure and stage 1 through stage 4 chronic kidney disease, or unspecified chronic kidney disease; I50.9 Heart failure, unspecified; J44.9 Chronic obstructive pulmonary disease, unspecified; N18.9 Chronic kidney disease, unspecified; F03.90 Unspecified dementia, unspecified severity, without behavioral disturbance, psychotic disturbance, mood disturbance, and anxiety; N40.1 Benign prostatic hyperplasia with lower urinary tract symptoms; R33.8 Other retention of urine; Z22.322 Carrier or suspected carrier of Methicillin resistant Staphylococcus aureus; Z93.3 Colostomy status; Z87.891 Personal history of nicotine dependence
CPT/HCPCS: 36415-UA; 76770-TC; 76857-TC; 80048-TC; 80061-TC; 81001-TC; 84443-TC; 85007-TC; 85025-TC; 87086-90; J0696; J2543; J3370; J7030; J7042; Z7610

== ENCOUNTER 2019-01-18 15:01 | Inpatient (IN) | payer MEDICARE, MEDICAID ==
[2019-01-18] MEDS ORDERED: Sodium Chloride 0.9% 1,000 ML IV ONE (15:18)
--- NOTE | 2019-01-18 15:24 | ED Physician Chart ---
ED Chief Complaint/HPI - Patient Information Date Seen:: 01/18/19 Time Seen:: 15:19 Chief Complaint:: abn labs History of Present Illness:: 78 yr old male from [facility] with elevated wbc possible infection positive cough congestion Allergies:: Allergies Allergy/AdvReac Type Severity Reaction Status Date / Time No Known Allergies Allergy Verified 08/14/18 09:35 ED Review of Systems - Review of Systems General/Constitutional: Fever Skin: No skin lesions Eyes: No loss of vision ENT: No earache Neck: No neck pain Cardio Vascular: No chest pain Pulmonary: Cough GI: No vomiting Hematopoietic: No bruising Neurological: No syncope ED Past Medical History - Past Medical History Past Medical History: Other (see nurses notes) Family Medical History - Family Member Mother History Unknown: Yes ED Physical Exam - Physical Examination General/Constitutional: Awake Head: Atraumatic Eyes: Lids, conjuctiva normal ENMT: External ears, nose nl Neck: Nontender Respiratory: Nl effort/Exclusion Extremities: No tenderness or effusion ED Assessment - Assessment General Assessment: abn labs ED Septic Shock - . Is Septic Shock (SBP<90, OR Lactate>4 mmol\L) present?: No ED Reassessment (Disposition) - Reassessment Reassessment:: abn labs - Patient Disposition Discharge/Transfer:: Acute Care w/in this hosp Admitted to:: Telemetry Condition at Disposition:: Stable
[2019-01-18] MEDS ORDERED: Albuterol/Ipratropium Neb 3 ML AERS HHN ONE ×2 (15:26→15:47)
[2019-01-18 15:56] LABS: URINE SOURCE CLEAN C
[2019-01-18] MEDS: cefTRIAXone 2 GM in Sodium Chloride 0.9% 100 ML IV SCH (15:57)
[2019-01-18 15:59] LABS: URINE BILIRUBIN NEGATIVE (NEGATIVE); URINE BLOOD TRACE (NEGATIVE); URINE GLUCOSE (UA) NEGATIVE (NEGATIVE); URINE KETONE NEGATIVE (NEGATIVE); URINE LEUKOCYTE ESTERASE LARGE (NEGATIVE); URINE MICROSCOPIC INDICATED? YES; URINE NITRATE POSITIVE (NEGATIVE); URINE PROTEIN TRACE mg/dL (NEGATIVE); URINE UROBILINOGEN 0.2 E.U./dL (0.2 - 1.0)
[2019-01-18 16:00] LABS: URINE COLOR YELLOW
[2019-01-18 16:01] LABS: % EOSINOPHILS 2.2 % (0.0-5.0); % LYMPHOCYTES 21.6 % (20.0-50.0); % MONOCYTES 6.6 % (2.0-10.0); % NEUTROPHILS 68.6 % (40.0-80.0); BASOPHILE ABSOLUTE 0.1 Th/cumm (0-0.2); EOSINOPHILE ABSOLUTE 0.3 Th/cmm (0.1-0.4); HEMATOCRIT 33.2 % (41.0-60); HEMOGLOBIN 11.4 gm/dL (12-16); LYMPHOCYTE ABSOLUTE 2.9 Th/cmm (1.5-3.0); MEAN CELL VOLUME 88.5 fl (80-99); MEAN CORPUSCULAR HEMOGLOBIN 30.2 pg (27.0-31.0); MEAN CORPUSCULAR HGB CONC 34.2 pg (28.0-36.0); MONOCYTE ABSOLUTE 0.9 Th/cmm (0.3-1.0); NEUTROPHILE ABSOLUTE 9.2 Th/cmm (1.8-8.0); PLATELET COUNT 343 Th/cmm (150-400); RED BLOOD COUNT 3.75 Mil/cmm (3.80-5.80); RED CELL DISTRIBUTION WIDTH 14.6 % (11.5-20.0); URINE CLARITY SLIGHT CLOUDY (CLEAR); WHITE BLOOD COUNT 13.4 Th/cmm (4.8-10.8)
[2019-01-18 16:02] VITALS: BP 93/58
[2019-01-18 16:18] LABS: URINE WBC 25-50 /hpf (0-5)
[2019-01-18 16:19] LABS: URINE BACTERIA FEW /hpf (NONE SEEN); URINE EPITHELIAL CELLS RARE /lpf (FEW)
[2019-01-18 16:36] LABS: ALB/GLOB RATIO 1.1 (1.0-1.8); ALKALINE PHOSPHATASE 63 U/L (34-104); ANION GAP 11.8 (7.0-16.0); BILIRUBIN,TOTAL 0.5 mg/dL (0.3-1.0); BUN - UREA NITROGEN 14 mg/dL (7-25); CALCIUM SERUM 8.7 mg/dL (8.6-10.3); CARBON DIOXIDE 22.8 mEq/L (21.0-31.0); CHLORIDE 101 mEq/L (98-107); CREATININE - SERUM 0.5 mg/dL (0.7-1.3); GLUCOSE 106 mg/dL (70-105); POTASSIUM SERUM 3.6 mEq/L (3.5-5.1); SGOT 9 U/L (13-39); SGPT/ALT 6 U/L (7-52); SODIUM SERUM 132 mEq/L (136-145); TOTAL PROTEIN,SERUM 5.8 gm/dL (6.0-8.3)
[2019-01-18] MEDS: D5-0.45NS 1,000 ML IV SCH (20:49)
[2019-01-18] MEDS ORDERED: Piperacillin Sodium/Tazobact 3.375 gm Vial IV ONE (21:02)
[2019-01-19 04:41] LABS: HEMATOCRIT 29.8 % (41.0-60); HEMOGLOBIN 10.3 gm/dL (12-16); MEAN CELL VOLUME 88.2 fl (80-99); MEAN CORPUSCULAR HEMOGLOBIN 30.3 pg (27.0-31.0); MEAN CORPUSCULAR HGB CONC 34.4 pg (28.0-36.0); PLATELET COUNT 356 Th/cmm (150-400); RED BLOOD COUNT 3.38 Mil/cmm (3.80-5.80); RED CELL DISTRIBUTION WIDTH 14.8 % (11.5-20.0)
[2019-01-19 05:17] LABS: WHITE BLOOD COUNT 12.7 Th/cmm (4.8-10.8)
[2019-01-19 05:19] LABS: NEUTROPHILS 73 % (40-80)
[2019-01-19 05:20] LABS: BAND NEUTROPHILE 0 % (0-10); EOSINOPHIL 2 % (0-5); MONOCYTE 6 % (2-10)
[2019-01-19 05:21] LABS: LYMPHOCYTE 19 % (20-50)
[2019-01-19] MEDS ORDERED: Piperacillin Sodium/Tazobact 3.375 gm Vial IV ONE (06:29)
--- NOTE | 2019-01-19 08:24 | Consultation ---
DATE OF CONSULTATION: 01/18/2019 ECHOCARDIOGRAPHY REPORT CHIEF COMPLAINT: Congestion and cough. HISTORY OF PRESENT ILLNESS: This 78-year-old male was admitted with the above complaints. He has been having difficulty walking. His sodium was reported to 132, potassium 3.6, chloride 101, carbon dioxide 22.8. WBC count was 13.4, RBC 3.75, ____, hematocrit 33.2. The patient was evaluated in the Emergency Room then admitted. His EKG has shown sinus rhythm left axis, actually not even sinus, some supraventricular rhythm with differing P-waves, WI interval. On looking at the labs; sodium was 132, potassium 3.6, chloride 101, glucose is 106, BUN 14, creatinine 0.5. RBCs 3.75. WBC count was 13.4, platelet count was ____ few atrial flutter, shows atrial fibrillation. PHYSICAL EXAMINATION: VITAL SIGNS: Mentioned in the chart. SKIN: Normal. HEAD: Normocephalic. EYES: Conjunctivae were pink. There is no icterus in the eyes. Pupils reactive to light. NECK: There was no increased jugular venous distention. No thyromegaly, no lymphadenopathy. Carotids equal both sides. CHEST: Bilaterally symmetrical. Moves well with respiration. Respiratory movements equal both sides. Trachea is central. There is note to percussion. Lungs, few basilar rales. ABDOMEN: Soft, no tenderness, no rigidity, no guarding, no organomegaly. Bowel sounds normal. HEART: Sounds normal. EXTREMITIES: No edema, no calf tenderness. Peripheral pulses diminished. We will get repeat CBC, blood cultures, urine culture, antibiotics. IMPRESSION: 1. Possible urinary tract infection. 2. Hypertension. 3. Hyperlipidemia. PLAN: Get thyroid profile, lipid profile, echocardiogram, and to continue present management. We will be following. JOB# [id number]
[2019-01-19 08:25] LABS: BUN - UREA NITROGEN 11 mg/dL (7-25); CALCIUM SERUM 8.8 mg/dL (8.6-10.3); CARBON DIOXIDE 22.3 mEq/L (21.0-31.0); CHLORIDE 104 mEq/L (98-107); CHOLESTEROL 124 mg/dL (<200); CREATININE - SERUM 0.5 mg/dL (0.7-1.3); GLUCOSE 94 mg/dL (70-105); HDL -HIGH DENSITY LIPOPROTEIN 24 mg/dL (23-92); POTASSIUM SERUM 3.3 mEq/L (3.5-5.1); SODIUM SERUM 135 mEq/L (136-145); TRIGLYCERIDES 118 mg/dL (<150)
--- NOTE | 2019-01-19 08:59 | Diagnostic Imaging Report ---
Portable chest x-ray History: Shortness of breath Allowing for portable technique the heart size is normal. No focal pulmonary parenchymal processes. No hilar or mediastinal abnormalities. Impression: No acute abnormalities.
[2019-01-19 09:37] LABS: PaCO2 34.1 mmHg (35.0-45.0); PaO2 77.6 mmHg (80.0-100.0)
[2019-01-19 09:38] LABS: sO2c 96.1 % (92.0-100.0)
[2019-01-19] MEDS ORDERED: Hydrocodone/APAP 5mg/325mg Tab PO PRN (10:06)
--- NOTE | 2019-01-19 10:39 | History and Physical ---
History of Present Illness - HPI Chief Complaint: 78 y/o male patient was brought into ER due to cough and congestion. HPI: 78 y/o male patient was admitted to [facility] due to cough and congestion. Patient has history of Hypertension and Trach status. Patient had an ER assessment and a complete workup was done. Labs done were abnormal. Chest x-ray done showed no acute abnormalities. Ekg done showed sinus rhythm. Patient was diagnosed with Atrial Fibrillation, UTI, Cough, Congestion, Hypertension and Hyperlipidemia. Patient will have a Cardiology consult. I will follow, treat and monitor patient. Vital Signs: Last Vital Signs Temp 97.4 F 01/19/19 08:50 Pulse 67 01/19/19 08:50 Resp 18 01/19/19 08:50 BP 144/57 01/19/19 08:50 Pulse Ox 95 01/19/19 08:50 Past Medical History Cardiovascular: Report: AFIB, HTN Pulmonary: Report: No Pertinent Hx, Other [employer]OADCAST [employer]OR OPERATIONS: Report: No Pertinent Hx GI: Report: No Pertinent Hx Psych: Report: No Pertinent Hx Musculoskeletal: Report: No Pertinent Hx Rheumatologic: Report: No pertinent Hx Infectious Disease: Report: No Pertinent Hx Renal/: Report: UTI Endocrine: Report: No Pertinent Hx - Past Surgical History Past Surgical History: Other (Trach placement.) Family Medical History - Family Member Mother History Unknown: Yes Social History Smoke: No Alcohol: None Drugs: None Lives: Group Home Domestic Violence: Negative Health Maintenance Health Maintenance: Other (see chart.) - Medications Home Medications: Home Medication Medication Instructions Recorded Type Ascorbic Acid [Vitamin C] 500 mg PO DAILY 02/27/18 History Cholecalciferol (Vitamin D3) 5,000 unit PO DAILY 02/27/18 History [Vitamin D3] Docusate Sodium [Colace] 100 mg PO DAILY cap 03/04/18 Rx Tamsulosin [Flomax] 0.4 mg PO HS cap 03/04/18 Rx Acetaminophen [Tylenol] 650 mg PO Q4HR PRN 04/15/18 History Cranberry Conc/C/Bacill Coag 425 each PO DAILY 08/14/18 History [Cranberry Tablet] Hydrocodone/APAP 5mg/325mg [[place] 1 tab PO Q4H PRN 08/14/18 History 5mg/325mg] Memantine HCl [Namenda] 5 mg PO HS 08/14/18 History Multivitamin w/ Minerals 1 tab PO DAILY 08/14/18 History [Theragran M] Amino Acids/Protein Hydrolys 30 ml PO TID 01/18/19 History [Pro-Stat Sugar Free 887 ml] Zinc Sulfate 220 mg PO DAILY 01/18/19 History Other Medications: Please see medication reconciliation sheet. - Allergies Allergies/Adverse Reactions: Allergies Allergy/AdvReac Type Severity Reaction Status Date / Time No Known Allergies Allergy Verified 08/14/18 09:35 Review of Systems - Review of Systems Review of Systems: 78 y/o male patient has cough and congestion. Constitutional: Report: Weakness Eyes: Report: No Significant ENT: Report: No Significant Respiratory: Report: Cough, Other (congestion.) Cardiovascular: Report: Other (Atrial fib.) Gastrointestinal: Report: No Significant Genitourinary: Report: Frequency Musculoskeletal: Report: No Significant Skin: Report: No Significant Neurological: Report: Weakness Physical Exam - Physical Exam HEENT: Report: Ears Nose Throat within normal limits Neck: Report: Tracheostomy site noted to be clean Cardiovascular Systems: Report: Irregular rhythm was noted Respiratory: Report: Crackles, Other (congested.) Abdomen: Report: Non-tender to palpation Back: Report: Inspection of back is within normal limits. Extremities: Report: Non-tender to palpation. Skin: Report: Color of skin is within normal limits Neuro/Psych: Report: Mood affect is within normal limits - Lab Results All Lab Results last 24 hours: Laboratory Results - last 24 hr 01/18/19 01/18/19 01/18/19 15:32 15:32 15:45 WBC 13.4 H RBC 3.75 L Hgb 11.4 L Hct 33.2 L MCV 88.5 MCH 30.2 MCHC Differential 34.2 RDW 14.6 Plt Count 343 MPV 7.8 Add Manual Diff Neutrophils % 68.6 Band Neutrophils % Lymphocytes % 21.6 Monocytes % 6.6 Eosinophils % 2.2 Basophils % 1.0 Neutrophils (Manual) Lymphocytes Monocytes Eosinophils Specimen Source Sample Site pH pCO2 pO2 HCO3 Base Excess O2 Saturation [place] Test Vent Rate Inspired O2 Tidal Volume PEEP Pressure (ins/psv/peep) Critical Value Sodium 132 L Potassium 3.6 Chloride 101 Carbon Dioxide 22.8 Anion Gap 11.8 BUN 14 Creatinine 0.5 L Est GFR ( Amer) TNP Est GFR (Non-Af Amer) TNP BUN/Creatinine Ratio 28.0 Glucose 106 H Calcium 8.7 Total Bilirubin 0.5 AST 9 L ALT 6 L Alkaline Phosphatase 63 Total Protein 5.8 L Albumin 3.0 L Globulin 2.8 Albumin/Globulin Ratio 1.1 Triglycerides Cholesterol LDL Cholesterol Direct HDL Cholesterol Urine Source CLEAN C Urine Color YELLOW Urine Clarity SLIGHT CLOUDY Urine pH 6.0 Ur Specific [place] 1.010 Urine Protein TRACE Urine Glucose (UA) NEGATIVE Urine Ketones NEGATIVE Urine Blood TRACE Urine Nitrate POSITIVE H Urine Bilirubin NEGATIVE Urine Urobilinogen 0.2 Ur Leukocyte Esterase LARGE H Urine RBC 2-5 H Urine WBC 25-50 H Ur Epithelial Cells RARE Urine Bacteria FEW 01/19/19 01/19/19 01/19/19 04:15 04:15 08:30 WBC 12.7 H RBC 3.38 L Hgb 10.3 L Hct 29.8 L MCV 88.2 MCH 30.3 MCHC Differential 34.4 RDW 14.8 Plt Count 356 MPV 7.2 Add Manual Diff YES Neutrophils % ASSEMBLER FILTERS Band Neutrophils % 0 Lymphocytes % ASSEMBLER FILTERS Monocytes % ASSEMBLER FILTERS Eosinophils % ASSEMBLER [employer]TER[employer] Basophils % ASSEMBLER [employer]TERS Neutrophils (Manual) 73 Lymphocytes 19 L Monocytes 6 Eosinophils 2 Specimen Source Arterial Sample Site RB pH 7.440 pCO2 34.1 L pO2 77.6 L HCO3 23.1 Base Excess -0.3 O2 Saturation 96.1 [place] Test NA Vent Rate NA Inspired O2 21 Tidal Volume NA PEEP NA Pressure (ins/psv/peep) NA Critical Value SH Sodium 135 L Potassium 3.3 L Chloride 104 Carbon Dioxide 22.3 Anion Gap 12.0 BUN 11 Creatinine 0.5 L Est GFR ( Amer) TNP Est GFR (Non-Af Amer) TNP BUN/Creatinine Ratio 22.0 Glucose 94 Calcium 8.8 Total Bilirubin AST ALT Alkaline Phosphatase Total Protein Albumin Globulin Albumin/Globulin Ratio Triglycerides 118 Cholesterol 124 LDL Cholesterol Direct 87 HDL Cholesterol 24 Urine Source Urine Color Urine Clarity Urine pH Ur Specific [place] Urine Protein Urine Glucose (UA) Urine Ketones Urine Blood Urine Nitrate Urine Bilirubin Urine Urobilinogen Ur Leukocyte Esterase Urine RBC Urine WBC Ur Epithelial Cells Urine Bacteria - Assessment Assessment: Atrial fibrillation. Cough. Congestion. Hypertension. Hyperlipidemia. UTI. Trach status. Current Active Problems Problem Status Onset ELEVATED WBC Acute - Plan Plan: Continuation of care. Cardiology consult. Monitor Labs, Urinalysis. Continue present meds as directed. Monitor vitals, Continue BP meds as directed. Monitor Diet/Nutritional support. Trach care. Fall precaution, frequent nursing rounds, and as needed restraints to prevent fall. Safety precaution. Supportive care. Continue collaborating with consulting specialists, case management and nursing team. Will Monitor patient and continue current treatment plan as ordered.
--- NOTE | 2019-01-19 11:49 | General Progress Note ---
Subjective - Review of Systems Service Date: 01/19/19 Subjective: Recent has less shortness of breath and cough Objective - Results Result Diagrams: 01/19/19 04:15 01/19/19 04:15 Recent Labs: Laboratory Last Values WBC 12.7 Th/cmm (4.8-10.8) H 01/19/19 04:15 RBC 3.38 Mil/cmm (3.80-5.80) L 01/19/19 04:15 Hgb 10.3 gm/dL (12-16) L 01/19/19 04:15 Hct 29.8 % (41.0-60) L 01/19/19 04:15 MCV 88.2 fl (80-99) 01/19/19 04:15 MCH 30.3 pg (27.0-31.0) 01/19/19 04:15 MCHC Differential 34.4 pg (28.0-36.0) 01/19/19 04:15 RDW 14.8 % (11.5-20.0) 01/19/19 04:15 Plt Count 356 Th/cmm (150-400) 01/19/19 04:15 MPV 7.2 fl 01/19/19 04:15 Add Manual Diff YES 01/19/19 04:15 Neutrophils % [employer] 01/19/19 04:15 Band Neutrophils % 0 % (0-10) 01/19/19 04:15 Lymphocytes % [employer] MA[employer]GER 01/19/19 04:15 Monocytes % [employer]ATION MA[employer]GER 01/19/19 04:15 Eosinophils % [employer]ATION MA[employer]GER 01/19/19 04:15 Basophils % [employer]ATION MA[employer]GER 01/19/19 04:15 Neutrophils (Manual) 73 % (40-80) 01/19/19 04:15 Lymphocytes 19 % (20-50) L 01/19/19 04:15 Monocytes 6 % (2-10) 01/19/19 04:15 Eosinophils 2 % (0-5) 01/19/19 04:15 Specimen Source Arterial 01/19/19 08:30 Sample Site RB 01/19/19 08:30 pH 7.440 (7.35-7.45) 01/19/19 08:30 pCO2 34.1 mmHg (35.0-45.0) L 01/19/19 08:30 pO2 77.6 mmHg (80.0-100.0) L 01/19/19 08:30 HCO3 23.1 mEq/L (20.0-26.0) 01/19/19 08:30 Base Excess -0.3 mEq/L (-3.0-3.0) 01/19/19 08:30 O2 Saturation 96.1 % (92.0-100.0) 01/19/19 08:30 Hansel Test NA 01/19/19 08:30 Vent Rate NA 01/19/19 08:30 Inspired O2 21 01/19/19 08:30 Tidal Volume NA 01/19/19 08:30 PEEP NA 01/19/19 08:30 Pressure (ins/psv/peep) NA 01/19/19 08:30 Critical Value SH 01/19/19 08:30 Sodium 135 mEq/L (136-145) L 01/19/19 04:15 Potassium 3.3 mEq/L (3.5-5.1) L 01/19/19 04:15 Chloride 104 mEq/L (98-107) 01/19/19 04:15 Carbon Dioxide 22.3 mEq/L (21.0-31.0) 01/19/19 04:15 Anion Gap 12.0 (7.0-16.0) 01/19/19 04:15 BUN 11 mg/dL (7-25) 01/19/19 04:15 Creatinine 0.5 mg/dL (0.7-1.3) L 01/19/19 04:15 Est GFR ( Amer) TNP 01/19/19 04:15 Est GFR (Non-Af Amer) TNP 01/19/19 04:15 BUN/Creatinine Ratio 22.0 01/19/19 04:15 Glucose 94 mg/dL (70-105) 01/19/19 04:15 Calcium 8.8 mg/dL (8.6-10.3) 01/19/19 04:15 Total Bilirubin 0.5 mg/dL (0.3-1.0) 01/18/19 15:45 AST 9 U/L (13-39) L 01/18/19 15:45 ALT 6 U/L (7-52) L 01/18/19 15:45 Alkaline Phosphatase 63 U/L (34-104) 01/18/19 15:45 Total Protein 5.8 gm/dL (6.0-8.3) L 01/18/19 15:45 Albumin 3.0 gm/dL (4.2-5.5) L 01/18/19 15:45 Globulin 2.8 gm/dL 01/18/19 15:45 Albumin/Globulin Ratio 1.1 (1.0-1.8) 01/18/19 15:45 Triglycerides 118 mg/dL (<150) 01/19/19 04:15 Cholesterol 124 mg/dL (<200) 01/19/19 04:15 LDL Cholesterol Direct 87 mg/dL (75-193) 01/19/19 04:15 HDL Cholesterol 24 mg/dL (23-92) 01/19/19 04:15 Urine Source CLEAN C 01/18/19 15:32 Urine Color YELLOW 01/18/19 15:32 Urine Clarity SLIGHT CLOUDY (CLEAR) 01/18/19 15:32 Urine pH 6.0 (4.6 - 8.0) 01/18/19 15:32 Ur Specific [place] 1.010 (1.005-1.030) 01/18/19 15:32 Urine Protein TRACE mg/dL (NEGATIVE) 01/18/19 15:32 Urine Glucose (UA) NEGATIVE mg/dL (NEGATIVE) 01/18/19 15:32 Urine Ketones NEGATIVE mg/dL (NEGATIVE) 01/18/19 15:32 Urine Blood TRACE (NEGATIVE) 01/18/19 15:32 Urine Nitrate POSITIVE (NEGATIVE) H 01/18/19 15:32 Urine Bilirubin NEGATIVE (NEGATIVE) 01/18/19 15:32 Urine Urobilinogen 0.2 E.U./dL (0.2 - 1.0) 01/18/19 15:32 Ur Leukocyte Esterase LARGE (NEGATIVE) H 01/18/19 15:32 Urine RBC 2-5 /hpf (0-5) H 01/18/19 15:32 Urine WBC 25-50 /hpf (0-5) H 01/18/19 15:32 Ur Epithelial Cells RARE /lpf (FEW) 01/18/19 15:32 Urine Bacteria FEW /hpf (NONE SEEN) 01/18/19 15:32 - Physical Exam Vitals and I&O: Vital Signs Temp 97.4 F 01/19/19 08:50 Pulse 67 01/19/19 08:50 Resp 18 01/19/19 08:50 BP 144/57 01/19/19 08:50 Pulse Ox 95 01/19/19 08:50 Intake & Output 01/18/19 01/19/19 01/19/19 18:59 06:59 18:59 Intake Total 1100 150 Output Total 400 800 Balance 700 -650 Weight (lbs) 56.699 kg 56.699 kg Intake: Intake, IV Amount 1100 50 Piperacillin Sodium/ 50 Tazobact 3.375 gm In Sodium Chloride 0.9% 50 ml @ 100 mls/hr IV Q6HR [facility] Rx#:[id number] 2 gm In 1100 Sodium Chloride 0.9% 100 ml @ 100 mls/hr IV Q24H [facility] Rx#:[id number] Oral 0 100 Tube Feeding 0 TPN/PPN 0 Blood Product 0 Lipid 0 Albumin 0 Other 0 Output: Gastric Drainage 0 Urine 400 800 Stool 0 Urine/Stool Mix 0 Emesis 0 Hemodialysis 0 Other 0 Other: # Bowel Movements 0 Stool Characteristics Soft Soft Formed Formed Weight Source Patient stated Patient stated Active Medications: Current Medications Acetaminophen (Tylenol) 650 mg PO Q4HR PRN PRN Reason: MILD Pain Or Fever >101 Stop: 03/20/19 10:05 Acetaminophen/Hydrocodone Bitart ([place] 5mg/325mg) 1 tab PO Q4H PRN PRN Reason: PAIN 7-10 Stop: 03/20/19 10:05 Ascorbic Acid (Vitamin C) 500 mg PO DAILY [facility] Stop: 03/21/19 08:59 Cholecalciferol (Vitamin D3) 5,000 iu PO DAILY [facility] Stop: 03/21/19 08:59 Docusate Sodium (Colace) 100 mg PO DAILY [facility] Stop: 03/21/19 08:59 Ceftriaxone Sodium 2 gm/ (Sodium Chloride) 100 mls @ 100 mls/hr IV Q24H [facility] Stop: 03/19/19 15:29 Last Admin: 01/18/19 15:57 Dose: 100 mls/hr Dextrose/Sodium Chloride (D5-0.45ns) 1,000 mls @ 60 mls/hr IV .[id number] [facility] Stop: 03/19/19 20:28 Last Admin: 01/18/19 20:49 Dose: 60 mls/hr Piperacillin Sod/Tazobactam (Sod 3.375 gm/ Sodium Chloride) 50 mls @ 100 mls/ hr IV Q6HR [facility] Stop: 03/19/19 20:59 Last Admin: 01/19/19 06:29 Dose: 100 mls/hr Vancomycin HCl 1 gm/ Sodium (Chloride) 250 mls @ 165 mls/hr IV Q12H [facility] Stop: 03/20/19 08:59 Last Admin: 01/19/19 09:36 Dose: 165 mls/hr Memantine (Namenda) 5 mg PO HS [facility] Stop: 03/20/19 20:59 Miscellaneous (Vancomycin Iv Per Pharmacy) 1 ea MC PRN PRN PRN Reason: PROTOCOL Stop: 03/19/19 20:28 Potassium Chloride (Klor-Con) 20 meq PO X1 ONE Stop: 01/19/19 12:01 Tamsulosin HCl (Flomax) 0.4 mg PO HS [facility] Stop: 03/20/19 20:59 Zinc Sulfate (Zinc Sulfate) 220 mg PO DAILY [facility] Stop: 03/21/19 08:59 General: No acute distress HEENT: Mucous membr. moist/pink Neck: Supple, JVD, +2 carotid pulse wo bruit (flat) Cardiovascular: Regular rate, Normal S1, Normal S2, Systolic murmurs Lungs: Clear to auscultation, Normal air movement, Other (wheezing and rhonchi) Abdomen: Bowel sounds, Soft Extremities: Pulses (febrile) Neurological: Normal tone, Cranial nerves 3-12 NL, Reflexes 2+ - Procedures Procedures: Procedures Procedure Code Date BYPASS DESCENDING COLON TO CUTANEOUS, OPEN APPROACH [id number] 08/30/17 DESTRUCTION OF BLADDER, ENDO [id number] 02/27/18 EXCISION OF BACK SUBCU/FASCIA, OPEN APPROACH [id number] 09/16/17 EXCISION OF LEFT FOOT SKIN, EXTERNAL APPROACH [id number] 09/16/17 EXCISION OF RIGHT FOOT SKIN, EXTERNAL APPROACH [id number] 09/16/17 EXTIRPATION OF MATTER FROM BLADDER, ENDO [id number] 02/27/18 EXTRACTION OF BACK SKIN, EXTERNAL APPROACH [id number] 04/15/18 RELEASE PERITONEUM, OPEN APPROACH [id number] 04/15/18 TRANSFUSE NONAUT RED BLOOD CELLS IN PERIPH VEIN, PERC [id number] 08/30/17 Assessment/Plan - Problem List Patient Problems: All Active Problems ELEVATED WBC (Acute) - Assessment Assessment: Acute exacerbation of COPD Congestive heart failure diastolic dysfunction acute Hypertension Secondary stage II Colostomy Asthma Dementia BPH Obesity Stage IV sacral decubitus ulcer - Plan Plan: Continue present management continue wound care continue IV antibiotics
[2019-01-19] MEDS ORDERED: Potassium Chloride 20 mEq ER Tab PO ONE (12:00)
[2019-01-19] MEDS ORDERED: Non-Formulary Item 1 EA (Amino Acids/Protein Hydrolys [Pro-Stat Sugar Free Liquid] 30 ML) PO SCH (14:00)
[2019-01-19] MEDS: cefTRIAXone 2 GM in Sodium Chloride 0.9% 100 ML IV SCH (15:12)
[2019-01-20 07:28] LABS: VANCOMYCIN TROUGH 15.3 ug/mL (5-10)
[2019-01-20] MEDS: Multivitamin w/ Minerals Tab PO SCH (08:36)
[2019-01-20] MEDS ORDERED: [UNRECOGNIZED DRUG - OTHER] PO SCH (09:00)
[2019-01-20 09:24] LABS: % BASOPHILS 1.8 % (0.0-2.0); % MONOCYTES 5.1 % (2.0-10.0); % NEUTROPHILS 76.1 % (40.0-80.0); BASOPHILE ABSOLUTE 0.2 Th/cumm (0-0.2); EOSINOPHILE ABSOLUTE 0.3 Th/cmm (0.1-0.4); HEMATOCRIT 30.8 % (41.0-60); HEMOGLOBIN 10.3 gm/dL (12-16); LYMPHOCYTE ABSOLUTE 1.6 Th/cmm (1.5-3.0); MEAN CORPUSCULAR HEMOGLOBIN 29.9 pg (27.0-31.0); MEAN CORPUSCULAR HGB CONC 33.6 pg (28.0-36.0); MONOCYTE ABSOLUTE 0.6 Th/cmm (0.3-1.0); NEUTROPHILE ABSOLUTE 8.7 Th/cmm (1.8-8.0); PLATELET COUNT 374 Th/cmm (150-400); RED BLOOD COUNT 3.46 Mil/cmm (3.80-5.80); RED CELL DISTRIBUTION WIDTH 15.1 % (11.5-20.0); WHITE BLOOD COUNT 11.4 Th/cmm (4.8-10.8)
--- NOTE | 2019-01-20 12:42 | General Progress Note ---
Subjective - Review of Systems Service Date: 01/20/19 Subjective: Recent has less shortness of breath and cough Objective - Results Result Diagrams: 01/20/19 06:40 01/20/19 06:40 Recent Labs: Laboratory Last Values WBC 11.4 Th/cmm (4.8-10.8) H 01/20/19 06:40 RBC 3.46 Mil/cmm (3.80-5.80) L 01/20/19 06:40 Hgb 10.3 gm/dL (12-16) L 01/20/19 06:40 Hct 30.8 % (41.0-60) L 01/20/19 06:40 MCV 89.0 fl (80-99) 01/20/19 06:40 MCH 29.9 pg (27.0-31.0) 01/20/19 06:40 MCHC Differential 33.6 pg (28.0-36.0) 01/20/19 06:40 RDW 15.1 % (11.5-20.0) 01/20/19 06:40 Plt Count 374 Th/cmm (150-400) 01/20/19 06:40 MPV 7.7 fl 01/20/19 06:40 Add Manual Diff YES 01/19/19 04:15 Neutrophils % 76.1 % (40.0-80.0) 01/20/19 06:40 Band Neutrophils % 0 % (0-10) 01/19/19 04:15 Lymphocytes % 14.0 % (20.0-50.0) L 01/20/19 06:40 Monocytes % 5.1 % (2.0-10.0) 01/20/19 06:40 Eosinophils % 3.0 % (0.0-5.0) 01/20/19 06:40 Basophils % 1.8 % (0.0-2.0) 01/20/19 06:40 Neutrophils (Manual) 73 % (40-80) 01/19/19 04:15 Lymphocytes 19 % (20-50) L 01/19/19 04:15 Monocytes 6 % (2-10) 01/19/19 04:15 Eosinophils 2 % (0-5) 01/19/19 04:15 Specimen Source Arterial 01/19/19 08:30 Sample Site RB 01/19/19 08:30 pH 7.440 (7.35-7.45) 01/19/19 08:30 pCO2 34.1 mmHg (35.0-45.0) L 01/19/19 08:30 pO2 77.6 mmHg (80.0-100.0) L 01/19/19 08:30 HCO3 23.1 mEq/L (20.0-26.0) 01/19/19 08:30 Base Excess -0.3 mEq/L (-3.0-3.0) 01/19/19 08:30 O2 Saturation 96.1 % (92.0-100.0) 01/19/19 08:30 Hansel Test NA 01/19/19 08:30 Vent Rate NA 01/19/19 08:30 Inspired O2 21 01/19/19 08:30 Tidal Volume NA 01/19/19 08:30 PEEP NA 01/19/19 08:30 Pressure (ins/psv/peep) NA 01/19/19 08:30 Critical Value SH 01/19/19 08:30 Sodium 135 mEq/L (136-145) L 01/19/19 04:15 Potassium 3.3 mEq/L (3.5-5.1) L 01/19/19 04:15 Chloride 104 mEq/L (98-107) 01/19/19 04:15 Carbon Dioxide 22.3 mEq/L (21.0-31.0) 01/19/19 04:15 Anion Gap 12.0 (7.0-16.0) 01/19/19 04:15 BUN 7 mg/dL (7-25) 01/20/19 06:40 Creatinine 0.5 mg/dL (0.7-1.3) L 01/20/19 06:40 Est GFR ( Amer) TNP 01/19/19 04:15 Est GFR (Non-Af Amer) TNP 01/19/19 04:15 BUN/Creatinine Ratio 22.0 01/19/19 04:15 Glucose 94 mg/dL (70-105) 01/19/19 04:15 Calcium 8.8 mg/dL (8.6-10.3) 01/19/19 04:15 Total Bilirubin 0.5 mg/dL (0.3-1.0) 01/18/19 15:45 AST 9 U/L (13-39) L 01/18/19 15:45 ALT 6 U/L (7-52) L 01/18/19 15:45 Alkaline Phosphatase 63 U/L (34-104) 01/18/19 15:45 B-Natriuretic Peptide 42.0 pg/mL (5.0-100.0) 01/20/19 06:40 Total Protein 5.8 gm/dL (6.0-8.3) L 01/18/19 15:45 Albumin 3.0 gm/dL (4.2-5.5) L 01/18/19 15:45 Globulin 2.8 gm/dL 01/18/19 15:45 Albumin/Globulin Ratio 1.1 (1.0-1.8) 01/18/19 15:45 Triglycerides 118 mg/dL (<150) 01/19/19 04:15 Cholesterol 124 mg/dL (<200) 01/19/19 04:15 LDL Cholesterol Direct 87 mg/dL (75-193) 01/19/19 04:15 HDL Cholesterol 24 mg/dL (23-92) 01/19/19 04:15 TSH 1.56 uIU/ml (0.34-5.60) 01/19/19 04:15 Urine Source CLEAN C 01/18/19 15:32 Urine Color YELLOW 01/18/19 15:32 Urine Clarity SLIGHT CLOUDY (CLEAR) 01/18/19 15:32 Urine pH 6.0 (4.6 - 8.0) 01/18/19 15:32 Ur Specific [place] 1.010 (1.005-1.030) 01/18/19 15:32 Urine Protein TRACE mg/dL (NEGATIVE) 01/18/19 15:32 Urine Glucose (UA) NEGATIVE mg/dL (NEGATIVE) 01/18/19 15:32 Urine Ketones NEGATIVE mg/dL (NEGATIVE) 01/18/19 15:32 Urine Blood TRACE (NEGATIVE) 01/18/19 15:32 Urine Nitrate POSITIVE (NEGATIVE) H 01/18/19 15:32 Urine Bilirubin NEGATIVE (NEGATIVE) 01/18/19 15:32 Urine Urobilinogen 0.2 E.U./dL (0.2 - 1.0) 01/18/19 15:32 Ur Leukocyte Esterase LARGE (NEGATIVE) H 01/18/19 15:32 Urine RBC 2-5 /hpf (0-5) H 01/18/19 15:32 Urine WBC 25-50 /hpf (0-5) H 01/18/19 15:32 Ur Epithelial Cells RARE /lpf (FEW) 01/18/19 15:32 Urine Bacteria FEW /hpf (NONE SEEN) 01/18/19 15:32 Vancomycin Trough 15.3 ug/mL (5-10) H 01/20/19 06:40 - Physical Exam Vitals and I&O: Vital Signs Temp 97.3 F 01/20/19 08:00 Pulse 78 01/20/19 08:00 Resp 20 01/20/19 08:00 BP 109/61 01/20/19 08:00 Pulse Ox 96 01/20/19 08:00 Intake & Output 01/19/19 01/20/19 01/20/19 18:59 06:59 18:59 Intake Total 950 100 Output Total 600 Balance 350 100 Weight (lbs) 56.699 kg Intake: Intake, IV Amount 350 100 Piperacillin Sodium/ 100 100 Tazobact 3.375 gm In Sodium Chloride 0.9% 50 ml @ 100 mls/hr IV Q6HR [facility] Rx#:[id number] Vancomycin HCl 1 gm In 250 Sodium Chloride 0.9% 250 ml @ 165 mls/hr IV Q12H [facility] Rx#:[id number] Oral 600 Output: Urine 600 Other: # Bowel Movements 1 Stool Characteristics Soft Soft Soft Formed Formed Formed Weight Source Bedscale Active Medications: Current Medications Acetaminophen (Tylenol) 650 mg PO Q4HR PRN PRN Reason: MILD Pain Or Fever >101 Stop: 03/20/19 10:05 Acetaminophen/Hydrocodone Bitart ([place] 5mg/325mg) 1 tab PO Q4H PRN PRN Reason: PAIN 7-10 Stop: 03/20/19 10:05 Ascorbic Acid (Vitamin C) 500 mg PO DAILY [facility] Stop: 03/21/19 08:59 Last Admin: 01/20/19 08:36 Dose: 500 mg Cholecalciferol (Vitamin D3) 5,000 iu PO DAILY [facility] Stop: 03/21/19 08:59 Last Admin: 01/20/19 08:36 Dose: 5,000 iu Docusate Sodium (Colace) 100 mg PO DAILY [facility] Stop: 03/21/19 08:59 Last Admin: 01/20/19 08:36 Dose: 100 mg Ceftriaxone Sodium 2 gm/ (Sodium Chloride) 100 mls @ 100 mls/hr IV Q24H [facility] Stop: 03/19/19 15:29 Last Admin: 01/19/19 15:12 Dose: 100 mls/hr Dextrose/Sodium Chloride (D5-0.45ns) 1,000 mls @ 60 mls/hr IV .[id number] [facility] Stop: 03/19/19 20:28 Last Admin: 01/18/19 20:49 Dose: 60 mls/hr Piperacillin Sod/Tazobactam (Sod 3.375 gm/ Sodium Chloride) 50 mls @ 100 mls/ hr IV Q6HR [facility] Stop: 03/19/19 20:59 Last Admin: 01/20/19 11:00 Dose: 100 mls/hr Vancomycin HCl 1 gm/ Sodium (Chloride) 250 mls @ 165 mls/hr IV Q12HR@0600,1800 [facility] Stop: 03/21/19 07:59 Last Admin: 01/20/19 08:34 Dose: 165 mls/hr Memantine (Namenda) 5 mg PO HS [facility] Stop: 03/20/19 20:59 Last Admin: 01/19/19 21:12 Dose: Not Given Miscellaneous (Vancomycin Iv Per Pharmacy) 1 ea MC PRN PRN PRN Reason: PROTOCOL Stop: 03/19/19 20:28 Mupirocin (Bactroban Oint) 1 appl NS BID [facility] Stop: 01/25/19 09:01 Tamsulosin HCl (Flomax) 0.4 mg PO HS [facility] Stop: 03/20/19 20:59 Last Admin: 01/19/19 21:12 Dose: Not Given Zinc Sulfate (Zinc Sulfate) 220 mg PO DAILY [facility] Stop: 03/21/19 08:59 Last Admin: 01/20/19 08:36 Dose: 220 mg General: No acute distress HEENT: Mucous membr. moist/pink Neck: Supple, JVD, +2 carotid pulse wo bruit (flat) Cardiovascular: Regular rate, Normal S1, Normal S2, Systolic murmurs Lungs: Clear to auscultation, Normal air movement, Other (wheezing and rhonchi) Abdomen: Bowel sounds, Soft Extremities: Pulses (febrile) Neurological: Normal tone, Cranial nerves 3-12 NL, Reflexes 2+ - Procedures Procedures: Procedures Procedure Code Date BYPASS DESCENDING COLON TO CUTANEOUS, OPEN APPROACH [id number] 08/30/17 DESTRUCTION OF BLADDER, ENDO [id number] 02/27/18 EXCISION OF BACK SUBCU/FASCIA, OPEN APPROACH [id number] 09/16/17 EXCISION OF LEFT FOOT SKIN, EXTERNAL APPROACH [id number] 09/16/17 EXCISION OF RIGHT FOOT SKIN, EXTERNAL APPROACH [id number] 09/16/17 EXTIRPATION OF MATTER FROM BLADDER, ENDO [id number] 02/27/18 EXTRACTION OF BACK SKIN, EXTERNAL APPROACH [id number] 04/15/18 RELEASE PERITONEUM, OPEN APPROACH [id number] 04/15/18 TRANSFUSE NONAUT RED BLOOD CELLS IN PERIPH VEIN, PERC [id number] 08/30/17 Assessment/Plan - Problem List Patient Problems: All Active Problems ELEVATED WBC (Acute) - Assessment Assessment: Acute exacerbation of COPD Congestive heart failure diastolic dysfunction acute Hypertension Secondary stage II Colostomy Asthma Dementia BPH Obesity Stage IV sacral decubitus ulcer - Plan Plan: Continue present management continue wound care continue IV antibiotics
--- NOTE | 2019-01-20 14:26 | Internal Medicine Prog Note ---
Internal Medicine Subjective - Subjective Service Date: 01/20/19 Patient seen and examined:: with staff Patient is:: awake, verbal Patient Complaints of:: congestion, cough Per staff patient has:: no adverse event, no episodes of fall Internal Medicine Objective - Results Result Diagrams: 01/20/19 06:40 01/20/19 06:40 Recent Labs: Laboratory Last Values WBC 11.4 Th/cmm (4.8-10.8) H 01/20/19 06:40 RBC 3.46 Mil/cmm (3.80-5.80) L 01/20/19 06:40 Hgb 10.3 gm/dL (12-16) L 01/20/19 06:40 Hct 30.8 % (41.0-60) L 01/20/19 06:40 MCV 89.0 fl (80-99) 01/20/19 06:40 MCH 29.9 pg (27.0-31.0) 01/20/19 06:40 MCHC Differential 33.6 pg (28.0-36.0) 01/20/19 06:40 RDW 15.1 % (11.5-20.0) 01/20/19 06:40 Plt Count 374 Th/cmm (150-400) 01/20/19 06:40 MPV 7.7 fl 01/20/19 06:40 Add Manual Diff YES 01/19/19 04:15 Neutrophils % 76.1 % (40.0-80.0) 01/20/19 06:40 Band Neutrophils % 0 % (0-10) 01/19/19 04:15 Lymphocytes % 14.0 % (20.0-50.0) L 01/20/19 06:40 Monocytes % 5.1 % (2.0-10.0) 01/20/19 06:40 Eosinophils % 3.0 % (0.0-5.0) 01/20/19 06:40 Basophils % 1.8 % (0.0-2.0) 01/20/19 06:40 Neutrophils (Manual) 73 % (40-80) 01/19/19 04:15 Lymphocytes 19 % (20-50) L 01/19/19 04:15 Monocytes 6 % (2-10) 01/19/19 04:15 Eosinophils 2 % (0-5) 01/19/19 04:15 Specimen Source Arterial 01/19/19 08:30 Sample Site RB 01/19/19 08:30 pH 7.440 (7.35-7.45) 01/19/19 08:30 pCO2 34.1 mmHg (35.0-45.0) L 01/19/19 08:30 pO2 77.6 mmHg (80.0-100.0) L 01/19/19 08:30 HCO3 23.1 mEq/L (20.0-26.0) 01/19/19 08:30 Base Excess -0.3 mEq/L (-3.0-3.0) 01/19/19 08:30 O2 Saturation 96.1 % (92.0-100.0) 01/19/19 08:30 Hansel Test NA 01/19/19 08:30 Vent Rate NA 01/19/19 08:30 Inspired O2 21 01/19/19 08:30 Tidal Volume NA 01/19/19 08:30 PEEP NA 01/19/19 08:30 Pressure (ins/psv/peep) NA 01/19/19 08:30 Critical Value SH 01/19/19 08:30 Sodium 135 mEq/L (136-145) L 01/19/19 04:15 Potassium 3.3 mEq/L (3.5-5.1) L 01/19/19 04:15 Chloride 104 mEq/L (98-107) 01/19/19 04:15 Carbon Dioxide 22.3 mEq/L (21.0-31.0) 01/19/19 04:15 Anion Gap 12.0 (7.0-16.0) 01/19/19 04:15 BUN 7 mg/dL (7-25) 01/20/19 06:40 Creatinine 0.5 mg/dL (0.7-1.3) L 01/20/19 06:40 Est GFR ( Amer) TNP 01/19/19 04:15 Est GFR (Non-Af Amer) TNP 01/19/19 04:15 BUN/Creatinine Ratio 22.0 01/19/19 04:15 Glucose 94 mg/dL (70-105) 01/19/19 04:15 Calcium 8.8 mg/dL (8.6-10.3) 01/19/19 04:15 Total Bilirubin 0.5 mg/dL (0.3-1.0) 01/18/19 15:45 AST 9 U/L (13-39) L 01/18/19 15:45 ALT 6 U/L (7-52) L 01/18/19 15:45 Alkaline Phosphatase 63 U/L (34-104) 01/18/19 15:45 B-Natriuretic Peptide 42.0 pg/mL (5.0-100.0) 01/20/19 06:40 Total Protein 5.8 gm/dL (6.0-8.3) L 01/18/19 15:45 Albumin 3.0 gm/dL (4.2-5.5) L 01/18/19 15:45 Globulin 2.8 gm/dL 01/18/19 15:45 Albumin/Globulin Ratio 1.1 (1.0-1.8) 01/18/19 15:45 Triglycerides 118 mg/dL (<150) 01/19/19 04:15 Cholesterol 124 mg/dL (<200) 01/19/19 04:15 LDL Cholesterol Direct 87 mg/dL (75-193) 01/19/19 04:15 HDL Cholesterol 24 mg/dL (23-92) 01/19/19 04:15 TSH 1.56 uIU/ml (0.34-5.60) 01/19/19 04:15 Urine Source CLEAN C 01/18/19 15:32 Urine Color YELLOW 01/18/19 15:32 Urine Clarity SLIGHT CLOUDY (CLEAR) 01/18/19 15:32 Urine pH 6.0 (4.6 - 8.0) 01/18/19 15:32 Ur Specific [place] 1.010 (1.005-1.030) 01/18/19 15:32 Urine Protein TRACE mg/dL (NEGATIVE) 01/18/19 15:32 Urine Glucose (UA) NEGATIVE mg/dL (NEGATIVE) 01/18/19 15:32 Urine Ketones NEGATIVE mg/dL (NEGATIVE) 01/18/19 15:32 Urine Blood TRACE (NEGATIVE) 01/18/19 15:32 Urine Nitrate POSITIVE (NEGATIVE) H 01/18/19 15:32 Urine Bilirubin NEGATIVE (NEGATIVE) 01/18/19 15:32 Urine Urobilinogen 0.2 E.U./dL (0.2 - 1.0) 01/18/19 15:32 Ur Leukocyte Esterase LARGE (NEGATIVE) H 01/18/19 15:32 Urine RBC 2-5 /hpf (0-5) H 01/18/19 15:32 Urine WBC 25-50 /hpf (0-5) H 01/18/19 15:32 Ur Epithelial Cells RARE /lpf (FEW) 01/18/19 15:32 Urine Bacteria FEW /hpf (NONE SEEN) 01/18/19 15:32 Vancomycin Trough 15.3 ug/mL (5-10) H 01/20/19 06:40 - Physical Exam Vitals and I&O: Vital Signs Temp 98 F 01/20/19 12:00 Pulse 78 01/20/19 12:00 Resp 18 01/20/19 12:00 BP 98/59 01/20/19 12:00 Pulse Ox 97 01/20/19 12:00 Intake & Output 01/19/19 01/20/19 01/20/19 18:59 06:59 18:59 Intake Total 950 100 Output Total 600 Balance 350 100 Weight (lbs) 56.699 kg Intake: Intake, IV Amount 350 100 Piperacillin Sodium/ 100 100 Tazobact 3.375 gm In Sodium Chloride 0.9% 50 ml @ 100 mls/hr IV Q6HR [facility] Rx#:[id number] Vancomycin HCl 1 gm In 250 Sodium Chloride 0.9% 250 ml @ 165 mls/hr IV Q12H [facility] Rx#:[id number] Oral 600 Output: Urine 600 Other: # Bowel Movements 1 Stool Characteristics Soft Soft Soft Formed Formed Formed Weight Source Bedscale Active Medications: Current Medications Acetaminophen (Tylenol) 650 mg PO Q4HR PRN PRN Reason: MILD Pain Or Fever >101 Stop: 03/20/19 10:05 Acetaminophen/Hydrocodone Bitart (Points 5mg/325mg) 1 tab PO Q4H PRN PRN Reason: PAIN 7-10 Stop: 03/20/19 10:05 Ascorbic Acid (Vitamin C) 500 mg PO DAILY [facility] Stop: 03/21/19 08:59 Last Admin: 01/20/19 08:36 Dose: 500 mg Cholecalciferol (Vitamin D3) 5,000 iu PO DAILY [facility] Stop: 03/21/19 08:59 Last Admin: 01/20/19 08:36 Dose: 5,000 iu Docusate Sodium (Colace) 100 mg PO DAILY [facility] Stop: 03/21/19 08:59 Last Admin: 01/20/19 08:36 Dose: 100 mg Ceftriaxone Sodium 2 gm/ (Sodium Chloride) 100 mls @ 100 mls/hr IV Q24H [facility] Stop: 03/19/19 15:29 Last Admin: 01/19/19 15:12 Dose: 100 mls/hr Dextrose/Sodium Chloride (D5-0.45ns) 1,000 mls @ 60 mls/hr IV .[id number] [facility] Stop: 03/19/19 20:28 Last Admin: 01/18/19 20:49 Dose: 60 mls/hr Piperacillin Sod/Tazobactam (Sod 3.375 gm/ Sodium Chloride) 50 mls @ 100 mls/ hr IV Q6HR [facility] Stop: 03/19/19 20:59 Last Admin: 01/20/19 11:00 Dose: 100 mls/hr Vancomycin HCl 1 gm/ Sodium (Chloride) 250 mls @ 165 mls/hr IV Q12HR@0600,1800 [facility] Stop: 03/21/19 07:59 Last Admin: 01/20/19 08:34 Dose: 165 mls/hr Memantine (Namenda) 5 mg PO HS [facility] Stop: 03/20/19 20:59 Last Admin: 01/19/19 21:12 Dose: Not Given Miscellaneous (Vancomycin Iv Per Pharmacy) 1 ea MC PRN PRN PRN Reason: PROTOCOL Stop: 03/19/19 20:28 Mupirocin (Bactroban Oint) 1 appl NS BID [facility] Stop: 01/25/19 09:01 Tamsulosin HCl (Flomax) 0.4 mg PO HS [facility] Stop: 03/20/19 20:59 Last Admin: 01/19/19 21:12 Dose: Not Given Zinc Sulfate (Zinc Sulfate) 220 mg PO DAILY [facility] Stop: 03/21/19 08:59 Last Admin: 01/20/19 08:36 Dose: 220 mg Physical Exam: 78 y/o male patient has mild cough and congestion. General: weak HEENT: NC/AT Neck: Supple, No JVD, + trach Lungs: congested, ronchi (cough.), other Cardiovascular: RRR, Normal S1 Abdomen: soft, non-tender Extremities: clear Neurological: no change - Procedures Procedures: Procedures Procedure Code Date BYPASS DESCENDING COLON TO CUTANEOUS, OPEN APPROACH [id number] 08/30/17 DESTRUCTION OF BLADDER, ENDO [id number] 02/27/18 EXCISION OF BACK SUBCU/FASCIA, OPEN APPROACH [id number] 09/16/17 EXCISION OF LEFT FOOT SKIN, EXTERNAL APPROACH [id number] 09/16/17 EXCISION OF RIGHT FOOT SKIN, EXTERNAL APPROACH [id number] 09/16/17 EXTIRPATION OF MATTER FROM BLADDER, ENDO [id number] 02/27/18 EXTRACTION OF BACK SKIN, EXTERNAL APPROACH [id number] 04/15/18 RELEASE PERITONEUM, OPEN APPROACH [id number] 04/15/18 TRANSFUSE NONAUT RED BLOOD CELLS IN PERIPH VEIN, PERC [id number] 08/30/17 Internal Medicine Assmt/Plan - Assessment Assessment: Atrial fibrillation. Cough. Congestion. Hypertension. Hyperlipidemia. UTI. Trach status. Current Active Problems Problem Status Onset ELEVATED WBC Acute - Plan Plan: Continuation of care. Cardiology consult. Monitor Labs, Urinalysis. Continue present meds as directed. Monitor vitals, Continue BP meds as directed. Monitor Diet/Nutritional support. Trach care. Fall precaution, frequent nursing rounds, and as needed restraints to prevent fall. Safety precaution. Supportive care. Continue collaborating with consulting specialists, case management and nursing team. Will Monitor patient and continue present care management.
[2019-01-20] MEDS: cefTRIAXone 2 GM in Sodium Chloride 0.9% 100 ML IV SCH (14:34)
[2019-01-20] MEDS: D5-0.45NS 1,000 ML IV SCH (16:57)
--- NOTE | 2019-01-21 02:19 | Consultation ---
DATE OF CONSULTATION: 01/20/2019 INFECTIOUS DISEASE CONSULTATION REFERRING PHYSICIAN: Roro Huizar M.D. REASON FOR CONSULTATION: Pneumonia, UTI and leukocytosis. HISTORY OF PRESENT ILLNESS: The patient is a 78-year-old male with past medical history of UTI, hypertension, hyperlipidemia, atrial fibrillation, brought in to the ER for cough and congestion. On initial evaluation, the patient's temperature was 98.5 degrees Fahrenheit and WBC count was 13,400. Chest x-ray revealed no acute disease. Urinalysis showed pyuria and bacteriuria. Sepsis workup was performed and he was started on Rocephin, Zosyn and vancomycin. ID consult was called for his antibiotic management. PAST MEDICAL HISTORY: Includes hypertension, hyperlipidemia, and atrial fibrillation. PAST SURGICAL HISTORY: History of tracheostomy which has taken off. ALLERGIES: NKDA. MEDICATIONS: As per medication reconciliation sheet. Antibiotic manriquez, the patient is on vancomycin, Zosyn and Rocephin. SOCIAL HISTORY: The patient lives in a nursing facility. No history of smoking, alcohol or drug use. FAMILY HISTORY: Not available. REVIEW OF SYSTEMS: GENERAL: The patient is a poor historian. The patient presented with fever, but no fever during this hospital stay. No diaphoresis, no chills. Generalized weakness present. HEENT: No diplopia, no photophobia, no sore throat. RESPIRATORY: The patient has some cough, no congestion, no shortness of breath, no wheezing. CARDIOVASCULAR: No chest pain, no palpitation. No leg swelling. GASTROINTESTINAL: No nausea, no vomiting, no diarrhea, no constipation. No hematemesis or melena. GENITOURINARY: No dysuria. NEUROLOGIC: No headache, no dizziness, no focal weakness, bedridden. PHYSICAL EXAMINATION: GENERAL: The patient is a lean and thin male, not in acute distress. VITAL SIGNS: Temperature 98 degrees Fahrenheit, pulse 78, respirations 20, blood pressure 98/59. GENERAL: The patient is comfortable, lying in the bed, lean and thin male in no acute distress. HEENT: Head is normocephalic, atraumatic. Oral cavity moist, pink tongue. EYES: No pallor, no icterus. Pupils PERRLA, EOMI. NECK: Supple, no JVD, no bruit. Trachea in midline. CHEST: Bilateral vesicular sounds. No crackles or wheezing. HEART: S1, S2 within normal limits. Regular rhythm. No murmur, no gallop. ABDOMEN: Soft, nontender, nondistended. Bowel sounds present. EXTREMITIES: No cyanosis, no clubbing, no edema. NEUROLOGICAL: Alert and awake. Communicates well. LABORATORY DATA: Current lab shows WBC 11,400, hemoglobin 10.3, hematocrit 30.8, platelets are 374,000, neutrophil 76%, lymphocyte 14%. Sodium is 135, potassium 3.3, chloride is 104, bicarbonate is 22.8, BUN is 11, creatinine is 0.5, glucose is 94. Urinalysis: Cloudy urine with positive nitrite, large leukoesterase, wbc 25-50. Rare epithelial cells and few bacteria. Blood culture 2 sets are negative. MRSA screen is positive. Sputum culture grew gram-positive cocci ____ rods. Cultures pending. IMPRESSION: 1. Leukocytosis. 2. Bronchitis. 3. Urinary tract infection. 4. ____. 5. Atrial fibrillation. 6. Hypertension. RECOMMENDATIONS: Continue same treatment. Thank you, Dr. Huizar, for involving me in taking care of this patient. JOB# [id number]
[2019-01-21 05:49] LABS: % BASOPHILS 0.7 % (0.0-2.0); % EOSINOPHILS 3.4 % (0.0-5.0); % MONOCYTES 4.5 % (2.0-10.0); % NEUTROPHILS 68.4 % (40.0-80.0); BASOPHILE ABSOLUTE 0.1 Th/cumm (0-0.2); EOSINOPHILE ABSOLUTE 0.4 Th/cmm (0.1-0.4); HEMATOCRIT 30.3 % (41.0-60); HEMOGLOBIN 10.2 gm/dL (12-16); LYMPHOCYTE ABSOLUTE 2.7 Th/cmm (1.5-3.0); MEAN CORPUSCULAR HGB CONC 33.7 pg (28.0-36.0); MONOCYTE ABSOLUTE 0.5 Th/cmm (0.3-1.0); NEUTROPHILE ABSOLUTE 8.1 Th/cmm (1.8-8.0); PLATELET COUNT 414 Th/cmm (150-400); RED BLOOD COUNT 3.41 Mil/cmm (3.80-5.80); WHITE BLOOD COUNT 11.8 Th/cmm (4.8-10.8)
[2019-01-21 06:13] LABS: ALB/GLOB RATIO 1.1 (1.0-1.8); ALBUMIN 2.9 gm/dL (4.2-5.5); ALKALINE PHOSPHATASE 50 U/L (34-104); ANION GAP 10.9 (7.0-16.0); BILIRUBIN,TOTAL 0.4 mg/dL (0.3-1.0); BUN - UREA NITROGEN 6 mg/dL (7-25); CARBON DIOXIDE 23.4 mEq/L (21.0-31.0); CHLORIDE 107 mEq/L (98-107); CREATININE - SERUM 0.5 mg/dL (0.7-1.3); GLUCOSE 89 mg/dL (70-105); MAGNESIUM 1.7 mg/dL (1.9-2.7); POTASSIUM SERUM 3.3 mEq/L (3.5-5.1); SGOT 9 U/L (13-39); SGPT/ALT 7 U/L (7-52); SODIUM SERUM 138 mEq/L (136-145); TOTAL PROTEIN,SERUM 5.6 gm/dL (6.0-8.3)
[2019-01-21] MEDS: Multivitamin w/ Minerals Tab PO SCH (09:06)
--- NOTE | 2019-01-21 14:25 | Internal Medicine Prog Note ---
Internal Medicine Subjective - Subjective Service Date: 01/21/19 Patient seen and examined:: with staff Patient is:: awake, verbal Patient Complaints of:: congestion, cough Per staff patient has:: no adverse event, no episodes of fall Internal Medicine Objective - Results Result Diagrams: 01/21/19 05:40 01/21/19 05:40 Recent Labs: Laboratory Last Values WBC 11.8 Th/cmm (4.8-10.8) H 01/21/19 05:40 RBC 3.41 Mil/cmm (3.80-5.80) L 01/21/19 05:40 Hgb 10.2 gm/dL (12-16) L 01/21/19 05:40 Hct 30.3 % (41.0-60) L 01/21/19 05:40 MCV 89.0 fl (80-99) 01/21/19 05:40 MCH 30.0 pg (27.0-31.0) 01/21/19 05:40 MCHC Differential 33.7 pg (28.0-36.0) 01/21/19 05:40 RDW 15.0 % (11.5-20.0) 01/21/19 05:40 Plt Count 414 Th/cmm (150-400) H 01/21/19 05:40 MPV 6.9 fl 01/21/19 05:40 Add Manual Diff YES 01/19/19 04:15 Neutrophils % 68.4 % (40.0-80.0) 01/21/19 05:40 Band Neutrophils % 0 % (0-10) 01/19/19 04:15 Lymphocytes % 23.0 % (20.0-50.0) 01/21/19 05:40 Monocytes % 4.5 % (2.0-10.0) 01/21/19 05:40 Eosinophils % 3.4 % (0.0-5.0) 01/21/19 05:40 Basophils % 0.7 % (0.0-2.0) 01/21/19 05:40 Neutrophils (Manual) 73 % (40-80) 01/19/19 04:15 Lymphocytes 19 % (20-50) L 01/19/19 04:15 Monocytes 6 % (2-10) 01/19/19 04:15 Eosinophils 2 % (0-5) 01/19/19 04:15 Specimen Source Arterial 01/19/19 08:30 Sample Site RB 01/19/19 08:30 pH 7.440 (7.35-7.45) 01/19/19 08:30 pCO2 34.1 mmHg (35.0-45.0) L 01/19/19 08:30 pO2 77.6 mmHg (80.0-100.0) L 01/19/19 08:30 HCO3 23.1 mEq/L (20.0-26.0) 01/19/19 08:30 Base Excess -0.3 mEq/L (-3.0-3.0) 01/19/19 08:30 O2 Saturation 96.1 % (92.0-100.0) 01/19/19 08:30 Hansel Test NA 01/19/19 08:30 Vent Rate NA 01/19/19 08:30 Inspired O2 21 01/19/19 08:30 Tidal Volume NA 01/19/19 08:30 PEEP NA 01/19/19 08:30 Pressure (ins/psv/peep) NA 01/19/19 08:30 Critical Value SH 01/19/19 08:30 Sodium 138 mEq/L (136-145) 01/21/19 05:40 Potassium 3.3 mEq/L (3.5-5.1) L 01/21/19 05:40 Chloride 107 mEq/L (98-107) 01/21/19 05:40 Carbon Dioxide 23.4 mEq/L (21.0-31.0) 01/21/19 05:40 Anion Gap 10.9 (7.0-16.0) 01/21/19 05:40 BUN 6 mg/dL (7-25) L 01/21/19 05:40 Creatinine 0.5 mg/dL (0.7-1.3) L 01/21/19 05:40 Est GFR ( Amer) TNP 01/21/19 05:40 Est GFR (Non-Af Amer) TNP 01/21/19 05:40 BUN/Creatinine Ratio 12.0 01/21/19 05:40 Glucose 89 mg/dL (70-105) 01/21/19 05:40 Calcium 9.0 mg/dL (8.6-10.3) 01/21/19 05:40 Magnesium 1.7 mg/dL (1.9-2.7) L 01/21/19 05:40 Total Bilirubin 0.4 mg/dL (0.3-1.0) 01/21/19 05:40 AST 9 U/L (13-39) L 01/21/19 05:40 ALT 7 U/L (7-52) 01/21/19 05:40 Alkaline Phosphatase 50 U/L (34-104) 01/21/19 05:40 B-Natriuretic Peptide 42.0 pg/mL (5.0-100.0) 01/20/19 06:40 Total Protein 5.6 gm/dL (6.0-8.3) L 01/21/19 05:40 Albumin 2.9 gm/dL (4.2-5.5) L 01/21/19 05:40 Globulin 2.7 gm/dL 01/21/19 05:40 Albumin/Globulin Ratio 1.1 (1.0-1.8) 01/21/19 05:40 Triglycerides 118 mg/dL (<150) 01/19/19 04:15 Cholesterol 124 mg/dL (<200) 01/19/19 04:15 LDL Cholesterol Direct 87 mg/dL (75-193) 01/19/19 04:15 HDL Cholesterol 24 mg/dL (23-92) 01/19/19 04:15 TSH 1.56 uIU/ml (0.34-5.60) 01/19/19 04:15 Urine Source CLEAN C 01/18/19 15:32 Urine Color YELLOW 01/18/19 15:32 Urine Clarity SLIGHT CLOUDY (CLEAR) 01/18/19 15:32 Urine pH 6.0 (4.6 - 8.0) 01/18/19 15:32 Ur Specific [place] 1.010 (1.005-1.030) 01/18/19 15:32 Urine Protein TRACE mg/dL (NEGATIVE) 01/18/19 15:32 Urine Glucose (UA) NEGATIVE mg/dL (NEGATIVE) 01/18/19 15:32 Urine Ketones NEGATIVE mg/dL (NEGATIVE) 01/18/19 15:32 Urine Blood TRACE (NEGATIVE) 01/18/19 15:32 Urine Nitrate POSITIVE (NEGATIVE) H 01/18/19 15:32 Urine Bilirubin NEGATIVE (NEGATIVE) 01/18/19 15:32 Urine Urobilinogen 0.2 E.U./dL (0.2 - 1.0) 01/18/19 15:32 Ur Leukocyte Esterase LARGE (NEGATIVE) H 01/18/19 15:32 Urine RBC 2-5 /hpf (0-5) H 01/18/19 15:32 Urine WBC 25-50 /hpf (0-5) H 01/18/19 15:32 Ur Epithelial Cells RARE /lpf (FEW) 01/18/19 15:32 Urine Bacteria FEW /hpf (NONE SEEN) 01/18/19 15:32 Vancomycin Trough 15.3 ug/mL (5-10) H 01/20/19 06:40 - Physical Exam Vitals and I&O: Vital Signs Temp 97.5 F 01/21/19 14:20 Pulse 54 01/21/19 14:20 Resp 18 01/21/19 14:20 BP 98/50 01/21/19 14:20 Pulse Ox 98 01/21/19 11:55 Intake & Output 01/20/19 01/21/19 01/21/19 18:59 06:59 18:59 Intake Total 500 Output Total 500 Balance 500 -500 Weight (lbs) 56.699 kg Intake: Intake, IV Amount 500 Vancomycin HCl 1 gm In 500 Sodium Chloride 0.9% 250 ml @ 165 mls/hr IV Q12HR@ 0600,1800 [facility] Rx#: [id number] Output: Urine 500 Other: Stool Characteristics Soft Soft Soft Formed Formed Formed Weight Source Bedscale Active Medications: Current Medications Acetaminophen (Tylenol) 650 mg PO Q4HR PRN PRN Reason: MILD Pain Or Fever >101 Stop: 03/20/19 10:05 Acetaminophen/Hydrocodone Bitart ([place] 5mg/325mg) 1 tab PO Q4H PRN PRN Reason: PAIN 7-10 Stop: 03/20/19 10:05 Ascorbic Acid (Vitamin C) 500 mg PO DAILY [facility] Stop: 03/21/19 08:59 Last Admin: 01/21/19 09:05 Dose: 500 mg Cholecalciferol (Vitamin D3) 5,000 iu PO DAILY [facility] Stop: 03/21/19 08:59 Last Admin: 01/21/19 09:05 Dose: 5,000 iu Docusate Sodium (Colace) 100 mg PO DAILY [facility] Stop: 03/21/19 08:59 Last Admin: 01/21/19 09:05 Dose: 100 mg Ceftriaxone Sodium 2 gm/ (Sodium Chloride) 100 mls @ 100 mls/hr IV Q24H [facility] Stop: 03/19/19 15:29 Last Admin: 01/20/19 14:34 Dose: 100 mls/hr Dextrose/Sodium Chloride (D5-0.45ns) 1,000 mls @ 60 mls/hr IV .[id number] [facility] Stop: 03/19/19 20:28 Last Admin: 01/20/19 16:57 Dose: 60 mls/hr Vancomycin HCl 1 gm/ Sodium (Chloride) 250 mls @ 165 mls/hr IV Q12HR@0600,1800 [facility] Stop: 03/21/19 07:59 Last Admin: 01/21/19 05:09 Dose: 165 mls/hr Memantine (Namenda) 5 mg PO HS [facility] Stop: 03/20/19 20:59 Last Admin: 01/20/19 20:12 Dose: 5 mg Miscellaneous (Vancomycin Iv Per Pharmacy) 1 ea MC PRN PRN PRN Reason: PROTOCOL Stop: 03/19/19 20:28 Mupirocin (Bactroban Oint) 1 appl NS BID [facility] Stop: 01/25/19 09:01 Last Admin: 01/21/19 09:06 Dose: Not Given Tamsulosin HCl (Flomax) 0.4 mg PO HS [facility] Stop: 03/20/19 20:59 Last Admin: 01/20/19 20:12 Dose: 0.4 mg Zinc Sulfate (Zinc Sulfate) 220 mg PO DAILY [facility] Stop: 03/21/19 08:59 Last Admin: 01/21/19 09:05 Dose: 220 mg Physical Exam: 78 y/o male patient still has mild cough and congestion. General: weak HEENT: NC/AT Neck: Supple, No JVD, + trach Lungs: congested, ronchi (cough.), other Cardiovascular: RRR, Normal S1 Abdomen: soft, non-tender Extremities: clear Neurological: no change - Procedures Procedures: Procedures Procedure Code Date BYPASS DESCENDING COLON TO CUTANEOUS, OPEN APPROACH [id number] 08/30/17 DESTRUCTION OF BLADDER, ENDO [id number] 02/27/18 EXCISION OF BACK SUBCU/FASCIA, OPEN APPROACH [id number] 09/16/17 EXCISION OF LEFT FOOT SKIN, EXTERNAL APPROACH [id number] 09/16/17 EXCISION OF RIGHT FOOT SKIN, EXTERNAL APPROACH [id number] 09/16/17 EXTIRPATION OF MATTER FROM BLADDER, ENDO [id number] 02/27/18 EXTRACTION OF BACK SKIN, EXTERNAL APPROACH [id number] 04/15/18 RELEASE PERITONEUM, OPEN APPROACH [id number] 04/15/18 TRANSFUSE NONAUT RED BLOOD CELLS IN PERIPH VEIN, PERC [id number] 08/30/17 Internal Medicine Assmt/Plan - Assessment Assessment: Atrial fibrillation. Cough. Congestion. Hypertension. Hyperlipidemia. UTI. Trach status. Current Active Problems Problem Status Onset ELEVATED WBC Acute - Plan Plan: Continuation of care. Cardiology consult. Monitor Labs, Urinalysis. Continue present meds as directed. Monitor vitals, Continue BP meds as directed. Monitor Diet/Nutritional support. Trach care. Fall precaution, frequent nursing rounds, and as needed restraints to prevent fall. Safety precaution. Supportive care. Continue collaborating with consulting specialists, case management and nursing team. Will Monitor patient and continue present care management. Nutritional Asmnt/Malnutr-PDOC - Dietary Evaluation Malnutrition Findings (Please click <Entered> for more info): see orders.
[2019-01-21] MEDS: cefTRIAXone 2 GM in Sodium Chloride 0.9% 100 ML IV SCH (14:40)
--- NOTE | 2019-01-21 15:48 | Cardiology ---
01/19/2019 ECHOCARDIOGRAM REPORT PATIENT OF: Dr. Huizar. M-MODE ECHOCARDIOGRAM: Mitral valve, anterior leaflet of mitral valve shows normal excursion, EF velocity. Posterior leaflet of the mitral valve shows normal excursion. Left ventricular posterior wall shows increased thickness, normal excursion. Interventricular septum shows increased thickness, normal excursion, hypertrophy of the left ventricle, ejection fraction 66%. Left atrium normal. Aortic root shows normal dimension, normal excursion of aortic leaflets. CONCLUSION: Hypertrophy of the left ventricle, ejection fraction 66%. 2D ECHO: The patient's long axis view showed normal sized left ventricle with hypertrophy of the left ventricle. Left atrium normal. Aortic root shows normal dimension, normal excursion of aortic leaflets. Short axis view of mitral valve normal. Short axis view of aortic valve normal. Apical four chamber view showed normal sized left ventricle with hypertrophy of the left ventricle. Left atrium normal. Right ventricular cavity, right atrium normal, no pericardial effusion. CONCLUSION: Hypertrophy of the left ventricle, ejection fraction 66%. Doppler study showed trace mitral regurgitation, trace tricuspid regurgitation, right ventricular systolic pressure 30 mmHg. [facility]# [id number]
== END 2019-01-21 21:00 | DRG 291 ==
LOC: ER 15:01 → TELE 17:45
PROVIDERS: ADMIT Internal Medicine; ATTEND Internal Medicine
DX: I11.0 Hypertensive heart disease with heart failure (principal); L89.154 Pressure ulcer of sacral region, stage 4; I50.31 Acute diastolic (congestive) heart failure; J44.1 Chronic obstructive pulmonary disease with (acute) exacerbation; N39.0 Urinary tract infection, site not specified; Z68.1 Body mass index [BMI] 19.9 or less, adult; R65.10 Systemic inflammatory response syndrome (SIRS) of non-infectious origin without acute organ dysfunction; E78.5 Hyperlipidemia, unspecified; Z93.0 Tracheostomy status; I48.91 Unspecified atrial fibrillation; F03.90 Unspecified dementia, unspecified severity, without behavioral disturbance, psychotic disturbance, mood disturbance, and anxiety; N40.0 Benign prostatic hyperplasia without lower urinary tract symptoms; E66.9 Obesity, unspecified; Z93.3 Colostomy status
CPT/HCPCS: 36415-UA; 36600-90; 71045-TC; 80048-TC; 80053-TC; 80061-TC; 80202-TC; 81001-TC; 82565-TC; 82803-TC; 83735-TC; 83880-TC; 84443-TC; 84520-TC; 85007-TC; 85025-TC; 87070; 87086-90; 93005; 94640; 94760; J0696; J2543; J3370; J7030; Z7610